=== PATIENT | female | born 1965 | race Caucasian/White ===

== ENCOUNTER 2020-10-01 08:12 | Inpatient (IN) | payer OTHER, SELFPAY ==
[2020-10-01] VITALS (23 sets, daily range): BP systolic 102–139; BP diastolic 31–54; PULSE 82–112; RESP 20–31; TEMP 36.2–37.1; O2SAT 95–100
--- NOTE | ~2020-10-01 | US_ITS ---
EXAMINATION: US renal BI DATE: 10/12/2020 09:27 INDICATION: Renal insufficiency with elevated creatinine TECHNIQUE: Multiple ultrasound grayscale images of the kidneys were obtained. COMPARISON: CT dated 10/01/2020 FINDINGS: The right kidney measures 11.4 x 6.3 x 5.1 cm. The left kidney measures 10.8 x 6.3 x 5.1 cm. The kidn eys demonstrate normal echogenicity. There is no hydronephrosis in either kidney. No stones identifi ed. The bladder is normal. Иван noted is a small amount of fluid surrounding the gallbladder whic h is filled with sludge and which demonstrates mild wall thickening measuring approximately 6 mm. No shadowing cholelithiasis. IMPRESSION: 1. Normal kidneys without hydronephrosis. 2. Persistent small amount of ascites surrounding the gallbladder which demonstrates mild wall thicke felicia and internal sludge but no cholelithiasis. This is likely related to the previously observed grace sarca which is of indeterminate etiology. Differential would include cholecystitis, either chronic or acute in the appropriate clinical setting. Correlate for Toth sign and for signs of infection. Reviewed, dictated and finalized at location A. S DRAPER IMPRESSION: 1. Normal kidneys without hydronephrosis. 2. Persistent small amount of ascites surrounding the gallbladder which demonst rates mild wall thickening and internal sludge but no cholelithiasis. This is l ikely related to the previously observed anasarca which is of indeterminate carlos ology. Differential would include cholecystitis, either chronic or acute in the appropriate clinical setting. Correlate for Toth sign and for signs of infec tion.
--- NOTE | ~2020-10-01 | XR_ITS ---
EXAMINATION: XR chest 1V portable DATE: 10/13/2020 13:03 INDICATION: Leukocytosis. TECHNIQUE: A single frontal view of the chest was obtained. COMPARISON: Chest 2 views 10/01/2020, CT abdomen and pelvis 10/01/2020 FINDINGS: There are airspace opacities in all lung zones and in left lower lung zone. There is a smal l left pleural effusion. No pneumothorax. The heart size is normal. IMPRESSION: 1. Airspace opacities in right lung and left lower lung zone with improvement, consistent with pneumo sherry. 2. Stable small left pleural effusion. Reviewed, dictated and finalized at location B. EARER IMPRESSION: 1. Airspace opacities in right lung and left lower lung zone with improvement, consistent with pneumonia. 2. Stable small left pleural effusion.
--- NOTE | ~2020-10-01 | US_ITS ---
EXAMINATION: US venous doppler [facility] DATE: 10/01/2020 15:28 INDICATION: Lower limb edema. TECHNIQUE: Grayscale ultrasound images without and with compression and Doppler ultrasound images of the bilateral lower extremity veins were obtained. COMPARISON: None. FINDINGS: The visualized portions of right common femoral vein, profunda (deep) femoral vein, femoral vein, pop liteal vein, posterior tibial veins, and greater saphenous vein outflow are patent. The visualized portions of left common femoral vein, profunda femoral vein, femoral vein, popliteal v ein, posterior tibial veins, and greater saphenous vein outflow are patent. IMPRESSION: 1. No deep venous thrombosis. Reviewed, dictated and finalized at location A. ION PLATE CARRIER CLEANER
--- NOTE | ~2020-10-01 | XR_ITS ---
XR chest 1V 10/01/2020 09:45 Indication: Shortness of breath and weakness Procedure: AP view of the chest Comparison: No prior studies for comparison. Findings: There is a right upper and left lower lobe airspace consolidation. Small left pleural effus ion. No pneumothorax. No acute osseous abnormality. Impression: 1: Right upper and left lower lobe airspace consolidation, consistent with pneumonia. 2: Small left pleural effusion. Reviewed, dictated and finalized at location A. ERY WORKER Impression: 1: Right upper and left lower lobe airspace consolidation, consistent with pneu monia. 2: Small left pleural effusion.
--- NOTE | ~2020-10-01 | CT_ITS ---
EXAMINATION: CT abdomen pelvis w con DATE: 10/01/2020 09:43 INDICATION: Abdominal wall hernia. Abdominal distention. TECHNIQUE: Computed tomography (CT) of the abdomen and pelvis was performed with 100 cc Omnipaque 350 intravenous contrast. The dose-length product was 1400.04 mGy-cm. . Automated exposure control and i terative reconstruction technique were employed. COMPARISON: None. FINDINGS: Small pleural effusions, left greater than right. There is dependent atelectasis. There is diffuse subcutaneous edema. There is a ventral hernia containing nonobstructed bowel. There is ascite s. Diffuse fatty infiltration of the liver. The spleen, pancreas, adrenal glands and kidneys are unremar kable. No free air. Colonic diverticulosis. Nonobstructive bowel gas pattern. There is an exophytic u terine fibroid. IMPRESSION: 1. Anasarca characterized by pleural effusions, ascites and diffuse subcutaneous edema. 2: Bibasilar atelectasis. 3: Hepatic steatosis. 4: Ventral wall hernia containing nonobstructed small bowel and ascites. Reviewed, dictated and finalized at location A. ESSOR OF ART IMPRESSION: 1. Anasarca characterized by pleural effusions, ascites and diffuse subcutaneou s edema. 2: Bibasilar atelectasis. 3: Hepatic steatosis. 4: Ventral wall hernia containing nonobstructed small bowel and ascites.
--- NOTE | 2020-10-01 08:29 | ECG_ITS ---
Measurements Intervals [place] Rate: 108 P: 54 OR: 169 QRS: 76 QRSD: 90 T: 105 QT: 303 QTc: 407 Interpretive Statements SINUS TACHYCARDIA NONSPECIFIC ST & T-WAVE ABNORMALITY- INF/HIGH LAT LEADS BASELINE ARTIFACT- I, II, III, AVR, AVL, AVF ABNORMAL ECG Electronically Signed On 10-01-2020 16:24:03 FRAME PULLEY MORTISING MACHINE OPERATOR by Tommie Escamilla D.O.
--- NOTE | 2020-10-01 08:51 | ED.GENADULT ---
HPI - General Adult General Chief complaint: Shortness of Breath/Dyspnea Stated complaint: SOB, LE swelling & pain Time Seen by Provider: 10/01/20 08:17 Source: patient History of Present Illness HPI narrative: Patient is a 55 y/o female complaining of severe SOB for over 1 month. She states that her SOB is worse since 12 hours ago. She states that her SOB is aggravated by exertion. She has a slight cough. She has no chest pain or fever. She has been having intermittent bloody stool. She has been having leg swelling. Of note, she fell 2 days, but denies any injury. She had trouble getting back up. She admits that she drinks more than she should. She usually consumes 3 cocktails daily. Related Data Allergies Allergy/AdvReac Type Severity Reaction Status Date / Time No Known Allergies Allergy Verified 10/01/20 08:31 Review of Systems Constitutional: Constitutional: Denies chills, Denies fever(s), Denies headache(s) and Denies weakness Eyes: Eyes: Denies blurry vision ENT: Denies headache(s) and Denies neck pain Cardiovascular: Cardiovascular: Denies chest pain, Reports leg edema and Denies dyspnea Respiratory: Respiratory: Reports cough and Reports dyspnea Gastrointestinal: Gastrointestinal: Reports abdominal pain, Denies diarrhea, Denies nausea and Denies vomiting Genitourinary: Genitourinary: Denies hematuria and Denies dysuria Musculoskeletal: Musculoskeletal: Denies back pain and Denies neck pain Neurologic: Denies headache(s) and Denies weakness Exam Const: General: no acute distress, well developed and ill appearing Orientation/consciousness: oriented to person, oriented to place, oriented to time and patient oriented x3 HENMT: Head: normocephalic Ears: external ears normal General nose exam: Normal external nose present Eyes: General: appearance normal, both eyes and all related structures Sclera: scleral abnormality (yellowish discoloration) bilateral Neck: Neck: normal visual inspection and full ROM Chest: Chest palpation & inspection: normal inspection of the chest and no tenderness Resp: Effort & Inspection: normal respiratory effort Auscultation: clear to auscultation bilaterally Cardio: Rate: tachycardic Rhythm: regular rhythm GI: GI Palp: No abdominal tenderness, Yes Soft to palpation and Yes Hernia present (large supraumbilical hernia) Skin: General skin exam: turgor normal and jaundice Neuro: General: oriented to person, oriented to place, oriented to time and patient oriented x3 Cognition (Neuro): normal cognition Extrem: General: normal to inspection, full ROM and no pedal edema Psych: Appearance: grossly normal Mental Status: mental status grossly normal Affect: normal affect Course Reevaluation(s) Reevaluation #1: Rechecked. Sepsis focus exam: Vital Signs Reviewed Cardiopulmonary: regular rate Capillary: Refill 3 sec Peripheral Pulse: present bilaterally and symmetric Skin: yellowish discoloration Plan continue with blood transfusion, IVF and IV antibiotics Date: 10/01/20 Time: 13:35 Consultations Consultation #1: Discussed with Dr. Jensen, who agrees to consult. Date: 10/01/20 Time: 10:25 Consultation #2: Discussed with Dr. Smith, who agrees to consult. Date: 10/01/20 Time: 10:58 Consultation #3: Discussed with Dr. Landon, who agrees to admit. Date: 10/01/20 Time: 11:07 Vital Signs Vital signs: Vital Signs Temperature 36.9 C 10/01/20 08:21 Pulse Rate 109 H 10/01/20 08:21 Respiratory Rate 31 H 10/01/20 08:21 Blood Pressure 139/54 L 10/01/20 08:21 Pulse Oximetry 99 10/01/20 08:21 Temperature 37.1 C 10/01/20 13:24 Pulse Rate 105 H 10/01/20 13:39 Respiratory Rate 30 H 10/01/20 13:39 Blood Pressure 112/49 L 10/01/20 13:39 Pulse Oximetry 99 10/01/20 13:39 Medical Decision Making Vital Signs Vital Signs: Vital Signs Temperature 36.9 C 10/01/20 08:21 Pulse Rate 109 H 10/01/20 08:21 Respiratory Rate 31 H 10/01/20 08:2
[2020-10-01 08:58] LABS: Mean Corpuscular HGB Conc 27.3 g/dl (32-36); Mean Corpuscular Hemoglobin 21.6 pg (26-34); Mean Corpuscular Volume 78.9 fl (80-100); Mean Platelet Volume 10.3 fl (7.4-10.4); Platelet Count Result 240 k/mm3 (150-375); Red Blood Count 2.32 M/mm3 (4.2-5.4); Red Cell Distribution Width 32.8 % (11.5-14.5); White Blood Count 16.5 K/mm3 (4.5-10.0)
[2020-10-01 09:05] LABS: Hematocrit 18.3 % (37.0-47.0)
[2020-10-01 09:07] LABS: Hypochromasia 2+ (NORMAL); Lymphocytes Absolute Manual 0.33 K/mm3 (1.1-4.5); Monocytes Absolute Manual 0.66 K/mm3 (0.1-0.90); Monocytes Percent Manual 4 % (3-9); Neutrophils Percent Manual 94 % (46-73); Platelet Estimate Adequate (Adequate); Total Cells Counted 100
[2020-10-01 09:08] LABS: Anisocytosis 1+ (NORMAL); Poikilocytosis 1+ (NORMAL); Target Cells 1+ (NORMAL); Tear Drop Cells 1+ (NORMAL)
[2020-10-01 09:10] LABS: Ammonia 24 umol/L (9-30)
[2020-10-01 09:13] LABS: Alanine Aminotransferase 36 U/L (4-35); Albumin Level 3.9 g/dL (3.5-5.1); Alkaline Phosphatase 120 U/L (38-126); Anion Gap 25 mmol/L (8-16); Aspartate Amino Transferase 116 U/L (14-36); Bilirubin,Total 14.7 mg/dL (0.2-1.3); Blood Urea Nitrogen 14 mg/dL (7-17); Calcium 8.6 mg/dL (8.4-10.2); Carbon Dioxide 15 mmol/L (22-30); Chloride 87 mmol/L (98-107); Estimated CRCL calculation 63 ml/min; Estimated Glomerular Filt Rate 47; Glucose 66 mg/dL (65-105); Lipase 105 U/L (23-300); Potassium 2.8 mmol/L (3.4-5.0); Sodium 127 mmol/L (137-145)
[2020-10-01 09:17] LABS: INR 1.7; Prothrombin Time 20.3 Seconds (11.1-14.7)
[2020-10-01 09:18] LABS: Partial Thromboplastin Time 42.5 SECONDS (22.3-36.8)
[2020-10-01 09:21] LABS: Add Urine Microscopic? YES; Appearance Urine Clear (Clear); Bacteria Urine Trace /hpf; Bilirubin Urine 2+ (Negative); Blood Urine 1+ (Negative); Color Urine Amber (Yellow); Glucose Urine UA Negative (Negative); Hyaline Casts Urine 50+ /lpf; Ketones Urine Trace mg/dL (Negative); Leukocyte Esterase Ur Negative LEU/UL (Negative); Mucus Urine Few /lpf; Nitrate Urine Negative (Negative); Protein Urine 2+ mg/dL (Negative); RBC Urine 0-2 /hpf (0-2); Specific Grav Ur 1.017 (1.001-1.035); Squamous Epithelial Cell Urine Few /hpf (Few)
[2020-10-01 09:21] LABS: NT Pro B Type Natriuretic Pept 1750 PG/ML (5-100)
[2020-10-01] MEDS: POTASSIUM CHLORIDE 20 MEQ TABLET 40 MEQ PO (09:44)
[2020-10-01] MEDS: MORPHINE SULFATE (*CRX) 4 MG/ML INJ IV PUSH (10:46)
[2020-10-01] MEDS: TUBING, BLOOD PLUM PUMP TUBING 1 EACH XX ×3 (10:46→21:34)
[2020-10-01] MEDS: SODIUM CHLORIDE 0.9% IV 250 ML 30 ML IV CONT ×2 (11:00→21:35)
[2020-10-01] MEDS: PANTOPRAZOLE SODIUM IV 40 MG VIAL IV PUSH ×2 (11:20→21:09)
[2020-10-01 11:37] LABS: Hepatitis B Surface Antigen Negative (Negative)
[2020-10-01 11:43] LABS: HAV RESULT Negative (Negative); Hepatitis B Core IgM Result Negative (Negative)
[2020-10-01 11:44] LABS: Magnesium 1.7 mg/dL (1.6-2.3)
[2020-10-01 11:46] LABS: Lactic Acid Reflex 5.8 mmol/L (0.7-2.1)
[2020-10-01 11:54] LABS: Hepatitis C Virus Antibody Negative (Negative)
--- NOTE | 2020-10-01 12:03 | PM.CNGS ---
Assessment and Plan Assessment and plan (1) Anemia: Code(s): D64.9 - Anemia, unspecified Status: Acute Assessment and Plan: will need transfusion and further investigation to cause (2) Incarcerated ventral hernia: Code(s): K43.6 - Other and unspecified ventral hernia with obstruction, without gangrene Status: Acute Assessment and Plan: needs repair at some point but given more urgent med issues, will need to be addressed in the future (3) Jaundice: Code(s): R17 - Unspecified jaundice Status: Acute Assessment and Plan: TB > 14, will need hep panel, likely ETOH induced liver dz History of Present Illness Consult details Consult date: 10/01/20 Reason for consult: abdominal pain Requesting physician: Erica Garnica MD Narrative: Pt is a 55 y/o F c h/o ETOH abuse presenting c worsening SOB, weakness. Pt reports this has been progressively worsening over last few mos. Pt admits to drinking daily although she reports poor appetite. Pt c known ventral hernia that she reports occasionally bothers her farhad when straining. Pt states hernia has been present nearly her entire life but recently larger and more symptomatic. Pt also c/o intermittent bloody BMs. Review of Systems Constitutional: Constitutional: Denies anorexia, Reports body ache(s), Denies chills, Reports fatigue, Denies fever(s), Denies headache(s), Reports lethargy, Reports malaise, Reports poor appetite and Reports weakness Eyes: Eyes: Reports no additional eye complaints ENT: Reports system reviewed and no additional complaints, except as documented Cardiovascular: Cardiovascular: Denies chest pain, Reports claudication, Reports leg edema, Reports dyspnea, Reports dyspnea on exertion and Reports orthopnea Respiratory: Respiratory: Reports dyspnea and Reports dyspnea on exertion Gastrointestinal: Gastrointestinal: Reports abdominal pain, Denies belching, Reports bloating, Reports hematochezia, Reports GI cramping, Reports nausea and Denies vomiting Genitourinary: Genitourinary: Reports no additional female genitourinary complaints Musculoskeletal: Musculoskeletal: Reports no additional musculoskeletal complaints Integumentary/Breasts: Skin/Breast: Reports system reviewed and no additional complaints, except as docu Neurologic: Reports system reviewed and no additional complaints, except as documented Psychiatric: Psychiatric: Reports no additional psychiatric complaints Endocrine: Endocrine: Reports no additional endocrine complaints Hematologic/Lymphatic: Hematologic/Lymphatic: Reports no additional hematologic/lymphatic complaints Allergic/Immunologic: Allergic/Immunologic: Reports no additional allergic/immunologic complaints PMFSH Comments PMH - ETOH abuse, ventral hernia PSxH - none FH - denies any known hernias, colorectal cancers, IBS SH - reports daily ETOH use Meds Home Medications and Allergies Allergies Allergy/AdvReac Type Severity Reaction Status Date / Time No Known Allergies Allergy Verified 10/01/20 08:31 Vital Signs Vital Signs - 24 hr 10/01/20 08:21 10/01/20 09:47 10/01/20 10:42 Temperature 36.9 C 36.4 C Pulse Rate 109 H 112 H 104 H Respiratory Rate 31 H 21 H 20 Blood Pressure 139/54 L 122/54 L 110/45 L Pulse Oximetry 99 98 97 10/01/20 10:57 Temperature 36.4 C L Pulse Rate 95 Respiratory Rate 21 H Blood Pressure 109/47 L Pulse Oximetry 98 Exam Const: General: cooperative, acute distress mild, ill appearing, lethargic, tired appearing and uncomfortable Nutritional Appearance: overweight Orientation/consciousness: patient oriented x3 Limitations: no limitations HENMT: Head: normal to inspection, normocephalic and atraumatic Ears: hearing grossly normal bilaterally General nose exam: Normal external nose present Face and sinus: normal facial exam Mouth: Yes Normal oral and palatal mucosa present and Yes moist mucous membranes Eyes: General: appearan
[2020-10-01] MEDS: MORPHINE SULFATE (*CRX) 4 MG/ML INJ (12:17)
[2020-10-01 14:31] LABS: Reflex Lactic Acid Yes or No Add Lactic
--- NOTE | 2020-10-01 14:35 | PM.IMHP ---
H&P: HPI History of Present Illness Date/Time: 10/01/20 14:36 <Norma Song PA-C - Last Filed: 10/01/20 22:39> Chief Complaint: Shortness of breath. <Norma Song PA-C - Last Filed: 10/01/20 22:39> Narrative: This is a 55-year-old female who has not seen a physician for greater than 15 years who presented to the emergency department earlier today via EMS from home for evaluation of shortness of breath. Over the last several months she has had ever increasing lower extremity edema which is now up to her abdomen. In fact she has a large ventral hernia, present for years, which has been reducible up until the last month and she believes that is due to her swelling. In any event over the past 2 days she has had increasing shortness of breath to the point where she was extremely short of breath in the wealth management manager hours, prompting her to be brought in via EMS for evaluation. There were several significant findings noted on workup done in the emergency department to include profound anemia, lactic acidosis, elevated LFTs with jaundice, small bilateral pleural effusions, ascites, and anasarca. With further questioning it sounds as though she has been having GI issues for a month or more including decreased appetite, frequent nausea, indigestion, and early satiety. Once in July and yesterday she did have an episode of emesis which she describes as coffee-ground. She also has noted small amounts of bright red blood admixed with stools over the past couple of weeks however she believes that is due to straining as she has felt constipated. She believes that she is dehydrated with decreased urine output and darker colored urine. Additionally she has felt quite weak and in fact she slid out of bed yesterday and was unable to get herself up for a couple of hours due to the significant swelling in her legs and generalized weakness. ?I drink more than I should? and she admits to drinking 3 to 4 cocktails made up of 3 to 4 shots of whiskey and soda, about 5 times per week. This is been ongoing for at least the last 4 years if not longer. She has no known history of liver disease or cardiac disease. No history of hepatitis or exposure to such. She does not take acetaminophen in fact typically takes Advil for generalized aches and pains. No fever, chills, or sweats. No chest pain or pleuritic pain. No known exposure to those positive for COVID-19. <Norma Song PA-C - Last Filed: 10/01/20 22:39> Review of Systems Review of Systems: Narrative: Twelve systems were reviewed with pertinent positives and negatives as per HPI. No headache. She denies confusion. Occasional lightheadedness. No syncope. She denies sinus congestion, rhinorrhea, otalgia, and odynophagia. No cough. She denies sick contacts. No recent travel. No recent antibiotic use. No dysuria. She denies ever having signs or symptoms of alcohol withdrawal. Except as documented, all other systems were reviewed and are negative. <Norma Song PA-C - Last Filed: 10/01/20 22:39> [facility] Past Medical History Medical History: Medical History (Updated 10/02/20 @ 17:19 by Anson Lawson MD) Acute renal failure Alcohol abuse Alcoholic hepatitis Morbid obesity Ventral hernia <Norma Song PA-C - Last Filed: 10/01/20 22:39> Surgical History Surgical History: Surgical History (Updated 10/01/20 @ 22:29 by Norma Song PA-C) History of local excision of skin lesion Benign mole removed from the right cheek as a child. <Norma Song PA-C - Last Filed: 10/01/20 22:39> Family History Family History: Family History Father Hypertension Mother Hypertension <Norma Song PA-C - Last Filed: 10/01/20 22:39> Social History Social History: Social History (Updated 10/01/20 @ 22:30 by Norma Song PA-C) Social History: The
[2020-10-01 15:04] LABS: Immature Reticulocyte Fraction 42.1 % (3.0-15.9); Reticulocyte Hemoglobin Conten 27.3 pg (28.2-35.7); Reticulocyte Percent 2.97 % (0.7-4.3); Reticulocytes Absolute 0.08 B/L (32.2-175.7)
[2020-10-01 15:15] LABS: Lactate Dehydrogenase 961 U/L (313-618)
[2020-10-01 15:16] LABS: Anion Gap 26 mmol/L (8-16); Blood Urea Nitrogen 15 mg/dL (7-17); Calcium 8.2 mg/dL (8.4-10.2); Carbon Dioxide 14 mmol/L (22-30); Chloride 87 mmol/L (98-107); Estimated CRCL calculation 63 ml/min; Estimated Glomerular Filt Rate 47; Glucose 79 mg/dL (65-105); Lactic Acid 5.3 mmol/L (0.7-2.1); Potassium 3.4 mmol/L (3.4-5.0); Sodium 127 mmol/L (137-145)
[2020-10-01 15:17] LABS: Ammonia 27 umol/L (9-30)
[2020-10-01 15:22] LABS: Transferrin 172 mg/dL (206-381)
[2020-10-01 15:49] LABS: Iron 72 ug/dL (37-170)
[2020-10-01 15:59] LABS: Percent Iron Saturation 28 % (20-50)
--- NOTE | 2020-10-01 16:17 | ADMGEN ---
This patient, Bela Marsh, was admitted to IMU Room 214-01. Patient/family oriented to hospital policies and general routines including ID bracelet, bed and alarms, visiting hours, pain management, procedures, bathroom and other care routines, personal items, smoking policy, room service/diet, and visiting hours. Information on how to activate the Rapid Response Team has been discussed. Patient/Family are encouraged to report perceived risks to care and to ask questions if they do not understand what they are told or what they should do.
[2020-10-01 16:22] LABS: Folic Acid 4.7 ng/mL (2.76->20)
[2020-10-01 17:09] LABS: Glucose Point of Care 81 (65-105)
[2020-10-01 17:20] LABS: Alveolar/Arterial O2 Gradient 47.6 mmHg; Base Excess ABG -7.4 mEq/l (+/-2.0); Carboxyhemoglobin 1.7 % THb (0-2.0); Fractional Inspired Oxygen 21 %; HCO3 ABG 15.9 mEq/l (22.0-26.0); Methemoglobin ABG 0.3 %THb (0-1.5); Oxygen Content ABG 9.1 %vol (16.0-22.0); Oxygen Saturation ABG 95.7 % (95.0-100.0); Oxyhemoglobin 92.3 % THb (90.0-100.0); PO2 ABG 73.6 mmHg (80.0-100.0); Reduced Hemoglobin 5.7 %THb (0-5.0); pH ABG 7.442 (7.350-7.450)
[2020-10-01 17:24] LABS: PCO2 ABG 23.8 mmHg (35.0-45.0); Total Hemoglobin 6.9 g/dL (12.0-18.0)
[2020-10-01 17:25] LABS: Device ROOM AIR; Modified Allen's Test Pass; Site Drawn RIGHT RADIAL
[2020-10-01 17:41] LABS: Mean Corpuscular HGB Conc 29.6 g/dl (32-36); Mean Corpuscular Hemoglobin 23.6 pg (26-34); Mean Corpuscular Volume 79.8 fl (80-100); Mean Platelet Volume 9.4 fl (7.4-10.4); Platelet Count Result 189 k/mm3 (150-375); Red Blood Count 2.58 M/mm3 (4.2-5.4); Red Cell Distribution Width 29.4 % (11.5-14.5)
[2020-10-01 17:45] LABS: Hematocrit 20.6 % (37.0-47.0); Hemoglobin 6.1 g/dL (12.0-15.0)
[2020-10-01 18:30] LABS: Glucose Point of Care 84 (65-105)
[2020-10-01 20:12] LABS: Glucose Point of Care 79 (65-105)
[2020-10-01 21:30] LABS: Glucose Point of Care 95 (65-105)
[2020-10-02] VITALS (20 sets, daily range): BP systolic 115–130; BP diastolic 46–68; PULSE 71–108; RESP 14–24; TEMP 36.2–37.2; O2SAT 93–100
[2020-10-02 00:57] LABS: Glucose Point of Care 92 (65-105)
[2020-10-02 01:26] LABS: Glucose Point of Care 98 (65-105)
[2020-10-02] MEDS: THIAMINE HCL 200 MG/2 ML VIAL 100 MG IV PUSH (03:40)
[2020-10-02 05:24] LABS: Hematocrit 23.7 % (37.0-47.0); Hemoglobin 7.4 g/dL (12.0-15.0); Mean Corpuscular HGB Conc 31.2 g/dl (32-36); Mean Corpuscular Hemoglobin 25.3 pg (26-34); Mean Corpuscular Volume 81.2 fl (80-100); Mean Platelet Volume 9.6 fl (7.4-10.4); Platelet Count Result 174 k/mm3 (150-375); Red Blood Count 2.92 M/mm3 (4.2-5.4); Red Cell Distribution Width 25.8 % (11.5-14.5); White Blood Count 13.6 K/mm3 (4.5-10.0)
[2020-10-02 05:34] LABS: INR 1.8; Prothrombin Time 21.4 Seconds (11.1-14.7)
[2020-10-02 05:35] LABS: Partial Thromboplastin Time 46.8 SECONDS (22.3-36.8)
[2020-10-02 06:05] LABS: Alanine Aminotransferase 32 U/L (4-35); Albumin Level 3.3 g/dL (3.5-5.1); Alkaline Phosphatase 90 U/L (38-126); Anion Gap 11 mmol/L (8-16); Aspartate Amino Transferase 82 U/L (14-36); Bilirubin,Total 16.4 mg/dL (0.2-1.3); Blood Urea Nitrogen 18 mg/dL (7-17); Calcium 8.4 mg/dL (8.4-10.2); Carbon Dioxide 24 mmol/L (22-30); Chloride 91 mmol/L (98-107); Creatine Kinase 135 U/L (30-135); Estimated CRCL calculation 50 ml/min; Estimated Glomerular Filt Rate 33; Glucose 92 mg/dL (65-105); Magnesium 1.7 mg/dL (1.6-2.3); Potassium 3.2 mmol/L (3.4-5.0); Sodium 126 mmol/L (137-145)
[2020-10-02 06:28] LABS: Glucose Point of Care 92 (65-105)
[2020-10-02] MEDS: SODIUM CHLORIDE 0.9% IV 1,000 ML 100 ML IV CONT (06:39)
[2020-10-02] MEDS: THERAPEUTIC MULTIVITAMINS/MINERALS TAB (*BKC) 1 TABLET PO (09:04)
[2020-10-02] MEDS: FOLIC ACID 1 MG TABLET PO (09:04)
[2020-10-02] MEDS: PANTOPRAZOLE SODIUM IV 40 MG VIAL IV PUSH ×2 (09:04→19:59)
[2020-10-02 09:16] LABS: Glucose Point of Care 89 (65-105)
[2020-10-02 12:41] LABS: Glucose Point of Care 88 (65-105)
[2020-10-02] MEDS: POTASSIUM CHLORIDE 20 MEQ TABLET 40 MEQ PO (12:41)
[2020-10-02] MEDS: THIAMINE HCL 100 MG TABLET PO (12:41)
[2020-10-02] MEDS: LACTULOSE 20 GM/30 ML UDC PO (12:41)
[2020-10-02] MEDS: SPIRONOLACTONE 25 MG TABLET PO ×2 (12:42→18:14)
--- NOTE | 2020-10-02 14:24 | PM.PNGS ---
Progress Note: A&P Assessment and Plan (1) Incarcerated ventral hernia: Code(s): K43.6 - Other and unspecified ventral hernia with obstruction, without gangrene Status: Acute Assessment and Plan: will need repair at some point in the future once medically stabilized (2) Profound anemia: Code(s): D64.9 - Anemia, unspecified Status: Acute Assessment and Plan: ? etiology, will need further workup and possible endoscopy (3) Jaundice: Code(s): R17 - Unspecified jaundice Status: Acute Assessment and Plan: likely ETOH induced liver dz, will need further workup (4) Heart murmur: Code(s): R01.1 - Cardiac murmur, unspecified Status: Acute Assessment and Plan: pt has echo ordered Subjective Subjective Date/Time Seen: 10/02/20 14:24 no acute issues overnight, did receive some blood and feels slightly better today Review of Systems Constitutional: Constitutional: Reports body ache(s), Reports fatigue, Reports lethargy, Reports poor appetite and Reports weakness Cardiovascular: Cardiovascular: Reports no additional cardiovascular complaints Respiratory: Respiratory: Denies cough, Reports dyspnea and Reports dyspnea on exertion Gastrointestinal: Gastrointestinal: Reports abdominal pain, Reports melena, Reports early satiety, Reports nausea and Reports vomiting Exam Const: General: cooperative, no acute distress and ill appearing Orientation/consciousness: patient oriented x3 Resp: Effort & Inspection: normal respiratory effort Auscultation: diminished lung sounds Cardio: Rate: regular rate Rhythm: regular rhythm GI: Inspection: distended and visible herniation GI Palp: Yes Soft to palpation, Yes Tenderness to palpation present (GI) and No Guarding due to palpation present (GI) Objective Data Vital Signs Vital Signs: Vital Signs - 24 hr 10/01/20 14:25 10/01/20 16:00 10/01/20 17:56 Temperature 36.8 C 36.6 C Pulse Rate 105 H 103 H 100 Respiratory Rate 26 H 22 H Blood Pressure 130/46 L 106/46 L Pulse Oximetry 99 100 10/01/20 20:00 10/01/20 21:30 10/01/20 21:31 Temperature 36.2 C L 36.2 C L 37.1 C Pulse Rate 106 H 104 H 100 Respiratory Rate 20 20 20 Blood Pressure 117/40 L 117/40 L 110/35 L Pulse Oximetry 97 99 97 10/01/20 21:45 10/01/20 22:00 10/01/20 22:45 Temperature 37.1 C 36.9 C Pulse Rate 99 99 101 H Respiratory Rate 20 20 Blood Pressure 106/31 L 117/39 L Pulse Oximetry 95 99 10/01/20 23:15 10/01/20 23:45 10/02/20 00:00 Temperature 36.9 C 37.1 C Pulse Rate 101 H 82 99 Respiratory Rate 20 20 Blood Pressure 117/39 L 102/37 L Pulse Oximetry 99 97 10/02/20 00:19 10/02/20 00:35 10/02/20 01:34 Temperature 36.9 C 37.1 C 37.0 C Pulse Rate 97 97 99 Respiratory Rate 16 20 20 Blood Pressure 120/54 L 116/68 117/50 L Pulse Oximetry 100 98 96 10/02/20 01:35 10/02/20 02:35 10/02/20 03:42 Temperature 37.1 C 37.1 C 37.2 C Pulse Rate 99 99 108 H Respiratory Rate 20 20 14 Blood Pressure 129/52 L 129/52 L 129/52 L Pulse Oximetry 95 95 98 10/02/20 03:43 10/02/20 04:00 10/02/20 06:00 Temperature 37.2 C Pulse Rate 99 99 Respiratory Rate Blood Pressure 129/52 L Pulse Oximetry 10/02/20 08:00 10/02/20 10:00 10/02/20 12:00 Temperature 36.2 C L 36.3 C L Pulse Rate 92 99 101 H Respiratory Rate 18 18 Blood Pressure 129/54 L 115/46 L Pulse Oximetry 96 93 Intake/Output Intake/Output: Intake & Output 09/29/20 09/30/20 10/01/20 10/02/20 23:59 23:59 23:59 23:59 Intake Total 1400 750 Output Total 500 Balance 1400 250 Meds/Results Medications: Active Medications Generic Name Dose Route Start Last Admin Trade Name Freq PRN Reason Stop Dose Admin Albuterol 2 puff 10/01/20 14:43 Albuterol Sulfate (*Sp) Aerosol 1 Puff INHALATION QIDRT PRN Shortness Of Breath Folic Acid 1 mg 10/02/20 09:00 10/02/20 09:04 Folic Acid 1 Mg Tablet PO 1 mg DAILY S
--- NOTE | 2020-10-02 17:09 | WPDGICN ---
Assessment and Plan Assessment and plan (1) Acute blood loss anemia: Code(s): D62 - Acute posthemorrhagic anemia Status: Acute Assessment and Plan: she is an alcoholic and now with hepatitis will do egd to assess if ulcer, PHG, varice but also colonoscopy to assess if gi blood loss (2) Bloody stools: Code(s): K92.1 - Melena Status: Acute Assessment and Plan: probably perianal but need to do a colonoscopy (3) Alcoholic hepatitis: Code(s): K70.10 - Alcoholic hepatitis without ascites Status: Acute Assessment and Plan: severe hepatitis from alcohol abuse will need nutrition consult, thiamine, mvi and avoid any more alcohol probably she has cirrhosis, will complete work up to rule out other chronic liver conditions (4) Acute renal failure: Code(s): N17.9 - Acute kidney failure, unspecified Status: Acute Assessment and Plan: with dehydration and severe anemia repeat labs and monitor (5) Hepatic steatosis: Code(s): K76.0 - Fatty (change of) liver, not elsewhere classified Status: Acute (6) Anasarca: Code(s): R60.1 - Generalized edema Status: Acute (7) Ventral hernia: Code(s): K43.9 - Ventral hernia without obstruction or gangrene Status: Acute Assessment and Plan: no pain now, surgery on board GI Consult Note Consult date/time: 10/02/20 17:09 Reason for consult: symptomatic anemia, alcoholic hepatitis HPI: Bela Marsh is a 55 year old female who has not seen a physician for several years who came here with progression of shortness of breath. She noted increasing lower extremity edema, also she has a large ventral hernia for years which used to be reducible up until the last month but has gotten larger. She was found to have profound anemia with hb 5, received blood transfusion, also jaundice with bili 14, lactic acidosis at 5. CT scan showed anasarca characterized by pleural effusions, ascites and diffuse subcutaneous edema, hepatic steatosis and ventral wall hernia containing nonobstructed small bowel and ascites. She also noted dark urine and few times has seen blood after wiping. She is also is an alcoholic, drinking 3-4 whiskeys about 5 times per week. Denies history of liver disease and never had scopes. Review of Systems Constitutional: Constitutional: Reports fatigue and Reports lethargy Eyes: Eyes: Denies blurry vision ENT: Reports system reviewed and no additional complaints, except as documented Cardiovascular: Cardiovascular: Denies chest pain Respiratory: Respiratory: Reports no additional respiratory complaints Gastrointestinal: Gastrointestinal: Denies melena Genitourinary: Genitourinary: Denies hematuria Musculoskeletal: Musculoskeletal: Reports no additional musculoskeletal complaints Neurologic: Denies headache(s) Psychiatric: Psychiatric: Reports anxiety Hematologic/Lymphatic: Hematologic/Lymphatic: Denies lymphadenopathy [facility] Past Medical History Medical History (Updated 10/02/20 @ 17:19 by Anson Lawson MD) Acute renal failure Alcohol abuse Alcoholic hepatitis Morbid obesity Ventral hernia Surgical History Surgical History (Updated 10/01/20 @ 22:29 by Norma Song PA-C) History of local excision of skin lesion Benign mole removed from the right cheek as a child. Family History Family History Father Hypertension Mother Hypertension Social History Social History (Updated 10/01/20 @ 22:30 by Norma Song PA-C) Social History: The patient lives in [place] with her . She has no children. She is retired. She smoked remotely many years ago. Consumes 3 to 4 alcoholic beverages, 5 times a week. Each drink consists of 3 to 4 shots of whiskey. No illicit substance use. She designates her as her surrogate decision maker and wishes to be a full cod
[2020-10-02 17:25] LABS: Glucose Point of Care 109 (65-105)
--- NOTE | 2020-10-02 17:41 | PM.IMPN ---
Progress Note: A&P Assessment and Plan (1) Severe sepsis: Code(s): A41.9 - Sepsis, unspecified organism; R65.20 - Severe sepsis without septic shock Status: Acute Assessment and Plan: 10/02/20 17:41 Patient is a 55-year-old female with long history of alcohol abuse and has not seen a primary care provider in 15-20 years presented emergency department with a complaint of shortness of breath abdominal pain lower extremity swelling and patient has significantly enlarged ventral hernia she was able to reduce it about a month ago now she is unable to reduce the hernia, upon arrival patient was profoundly anemic with hemoglobin of 5, patient was given 4 units of pack RBC this morning her H&H is 7.4, upon arrival patient with criteria of sepsis with leukocytosis lactic acidosis and pneumonia, patient was started on Rocephin azithromycin, with chest x-ray in 2 days, patient also has significant ascites resulting in shortness of breath, and started the patient spironolactone, lactulose, thiamine and folic acid, patient is also being tested for COVID-19 and will follow-up, currently patient states the pain and swelling is little better denies any fever or chills patient be seen by GI and further recommendation to follow (2) Pneumonia: Qualifiers: Laterality: right Lung location: unspecified part of lung Pneumonia type: due to unspecified organism Qualified Code(s): J18.9 - Pneumonia, unspecified organism Code(s): J18.9 - Pneumonia, unspecified organism Status: Acute Assessment and Plan: Most likely community-acquired pneumonia patient is being treated with Rocephin azithromycin will continue to monitor (3) Person under investigation for COVID-19: Code(s): Z20.822 - Contact with and (suspected) exposure to COVID-19 Status: Acute Assessment and Plan: Will follow-up on COVID test (4) Profound anemia: Code(s): D64.9 - Anemia, unspecified Status: Acute Assessment and Plan: Most likely secondary to GI bleed with history of alcohol abuse patient is seen by GI and further recommendation to follow (5) Bloody stools: Code(s): K92.1 - Melena Status: Acute Assessment and Plan: Most likely current alcohol abuse GI bleed (6) Jaundice: Code(s): R17 - Unspecified jaundice Status: Acute Assessment and Plan: Patient with alcohol abuse and liver cirrhosis will continue to monitor (7) Incarcerated ventral hernia: Code(s): K43.6 - Other and unspecified ventral hernia with obstruction, without gangrene Status: Acute Assessment and Plan: Patient be seen by general surgery and further recommendation to follow (8) Hypokalemia: Code(s): E87.6 - Hypokalemia Status: Acute Assessment and Plan: Will monitor and supplement (9) Anasarca: Code(s): R60.1 - Generalized edema Status: Acute Assessment and Plan: Most likely secondary to liver cirrhosis and hypoalbumia (10) Hepatic steatosis: Code(s): K76.0 - Fatty (change of) liver, not elsewhere classified Status: Acute Assessment and Plan: Secondary to alcohol abuse (11) Ascites: Code(s): R18.8 - Other ascites Status: Acute Assessment and Plan: Will start the patient on spironolactone to avoid paracentesis will continue to monitor (12) Alcohol abuse: Code(s): F10.10 - Alcohol abuse, uncomplicated Status: Acute Assessment and Plan: Patient will benefit from alcohol rehab (13) Heart murmur: Code(s): R01.1 - Cardiac murmur, unspecified Status: Acute (14) Elevated serum creatinine: Code(s): R79.89 - Other specified abnormal findings of blood chemistry Status: Acute Assessment and Plan: Most likely secondary to dehydration will gently hydrate the patient and monitor Additional Plan She meets criteria for severe sepsis with tachycardia, tachypne
[2020-10-02] MEDS: BISACODYL 5 MG TABLET EC 20 MG PO (18:13)
[2020-10-02] MEDS: PEG (High)/E-LYTE SOLN 4,000 ML BTL 4000 ML PO (18:14)
[2020-10-02 19:06] LABS: SARS-CoV-2 RNA PCR Negative
[2020-10-02 20:05] LABS: Glucose Point of Care 95 (65-105)
--- NOTE | 2020-10-02 23:17 | PCRCNOTE ---
UNABLE TO DO APNEA LINK, PT GETTING BOWEL PREP
[2020-10-03] VITALS (19 sets, daily range): BP systolic 108–146; BP diastolic 50–70; PULSE 57–105; RESP 18–26; TEMP 36.1–37.3; O2SAT 92–100; BMI 46.7
[2020-10-03 00:05] LABS: Glucose Point of Care 91 (65-105)
[2020-10-03 02:45] LABS: IFOB Positive Control Positive; Immunochemical Fecal Occult Bl Negative (N)
[2020-10-03 03:53] LABS: Glucose Point of Care 95 (65-105)
[2020-10-03 05:47] LABS: Alanine Aminotransferase 36 U/L (4-35); Albumin Level 3.3 g/dL (3.5-5.1); Alkaline Phosphatase 105 U/L (38-126); Anion Gap 14 mmol/L (8-16); Aspartate Amino Transferase 99 U/L (14-36); Bilirubin,Total 20.5 mg/dL (0.2-1.3); Blood Urea Nitrogen 24 mg/dL (7-17); Calcium 8.3 mg/dL (8.4-10.2); Carbon Dioxide 23 mmol/L (22-30); Chloride 91 mmol/L (98-107); Estimated CRCL calculation 42 ml/min; Estimated Glomerular Filt Rate 27; Glucose 89 mg/dL (65-105); Potassium 3.3 mmol/L (3.4-5.0); Sodium 128 mmol/L (137-145)
[2020-10-03] MEDS: MAGNESIUM CITRATE 300 ML BTL PO (06:32)
[2020-10-03 06:45] LABS: Hematocrit 25.2 % (37.0-47.0); Mean Corpuscular HGB Conc 31.7 g/dl (32-36); Mean Corpuscular Hemoglobin 25.6 pg (26-34); Mean Corpuscular Volume 80.5 fl (80-100); Mean Platelet Volume 9.8 fl (7.4-10.4); Platelet Count Result 205 k/mm3 (150-375); Red Blood Count 3.13 M/mm3 (4.2-5.4); Red Cell Distribution Width 27.1 % (11.5-14.5); White Blood Count 12.7 K/mm3 (4.5-10.0)
--- NOTE | 2020-10-03 08:12 | PC.NURSE ---
Patient to GI Lab via stretcher.
[2020-10-03 08:14] LABS: Glucose Point of Care 103 (65-105)
[2020-10-03] MEDS: LACTATED RINGERS 1,000 ML 150 ML IV CONT (08:33)
--- NOTE | 2020-10-03 09:06 | WPDANESEPPF ---
Anes - Initial Pre Proc Eval Procedure: Operation Date: 10/03/20 09:00 Proposed Procedures p Esophagogastroduodenoscopy & Colonoscopy - Anson Lawson MD Date/Time: 10/03/20 09:06 Surgeon: James Landon MD Pre Op Diagnosis: Anemia Patient Data Age: 55 Gender: F Height: 5 ft 6 in Weight: 131.5 kg Last Vital Signs Temp 98.4 F 10/03/20 08:33 Pulse 57 L 10/03/20 08:33 Resp 22 H 10/03/20 08:33 BP 126/53 L 10/03/20 08:33 Pulse Ox 98 10/03/20 08:33 Allergies Allergy/AdvReac Type Severity Reaction Status Date / Time No Known Allergies Allergy Verified 10/03/20 08:26 Home Medications Medication Instructions Recorded Confirmed Type No Home Medications 10/01/20 10/01/20 History Laboratory Tests 10/01/20 10/02/20 10/02/20 13:34 08:11 12:05 WBC RBC Hgb Hct MCV MCH MCHC RDW Plt Count MPV Sodium Potassium Chloride Carbon Dioxide Anion Gap BUN Creatinine Estim Creat Clear Calc Estimated GFR Glucose POC Capillary Glucose 89 mg/dl mg/dl 88 mg/dl mg/dl (65-105) (65-105) Calcium Total Bilirubin AST ALT Alkaline Phosphatase Total Protein Albumin Alpha-1-AT Phenotype Ceruloplasmin Stl Occult Blood (IFOB) IZABELA Screen Mitochondria M2 IgG Ab SARS-CoV-2 RNA (RT-PCR) Negative 10/02/20 10/02/20 10/03/20 16:55 19:58 00:02 WBC RBC Hgb Hct MCV MCH MCHC RDW Plt Count MPV Sodium Potassium Chloride Carbon Dioxide Anion Gap BUN Creatinine Estim Creat Clear Calc Estimated GFR Glucose POC Capillary Glucose 109 mg/dl mg/dl 95 mg/dl mg/dl 91 mg/dl mg/dl (65-105) (65-105) (65-105) Calcium Total Bilirubin AST ALT Alkaline Phosphatase Total Protein Albumin Alpha-1-AT Phenotype Ceruloplasmin Stl Occult Blood (IFOB) IZABELA Screen Mitochondria M2 IgG Ab SARS-CoV-2 RNA (RT-PCR) 10/03/20 10/03/20 10/03/20 01:56 03:29 04:51 WBC RBC Hgb Hct MCV MCH MCHC RDW Plt Count MPV Sodium Potassium Chloride Carbon Dioxide Anion Gap BUN Creatinine Estim Creat Clear Calc Estimated GFR Glucose POC Capillary Glucose 95 mg/dl mg/dl (65-105) Calcium Total Bilirubin AST ALT Alkaline Phosphatase Total Protein Albumin Alpha-1-AT Phenotype Pending Ceruloplasmin Pending Stl Occult Blood (IFOB) Negative (N) IZABELA Screen Mitochondria M2 IgG Ab SARS-CoV-2 RNA (RT-PCR) 10/03/20 10/03/20 10/03/20 04:51 04:51 04:51 WBC RBC Hgb Hct MCV MCH MCHC RDW Plt Count MPV Sodium 128 mmol/L L mmol/L (137-145) Potassium 3.3 mmol/L L mmol/L (3.4-5.0) Chloride 91 mmol/L L mmol/L (98-107) Carbon Dioxide 23 mmol/L mmol/L (
[2020-10-03] MEDS: BENZOCAINE (*SP) 60 ML SPRAY CAN (HURRICAINE) 1 SPRAY MUCOUS MEM (09:45)
--- NOTE | 2020-10-03 10:45 | PC.NURSE ---
Patient returned to room following EGD and colonoscopy.
[2020-10-03 11:09] LABS: Hematocrit 25.9 % (37.0-47.0); Hemoglobin 8.2 g/dL (12.0-15.0); Mean Corpuscular HGB Conc 31.7 g/dl (32-36); Mean Corpuscular Hemoglobin 25.7 pg (26-34); Mean Corpuscular Volume 81.2 fl (80-100); Mean Platelet Volume 9.2 fl (7.4-10.4); Platelet Count Result 172 k/mm3 (150-375); Red Blood Count 3.19 M/mm3 (4.2-5.4); Red Cell Distribution Width 26.6 % (11.5-14.5); White Blood Count 14.7 K/mm3 (4.5-10.0)
[2020-10-03 11:19] LABS: Glucose Point of Care 110 (65-105)
[2020-10-03] MEDS: PANTOPRAZOLE SODIUM IV 40 MG VIAL IV PUSH ×2 (11:48→21:13)
[2020-10-03] MEDS: THERAPEUTIC MULTIVITAMINS/MINERALS TAB (*BKC) 1 TABLET PO (11:48)
[2020-10-03] MEDS: ALBUMIN HUMAN 25% 25 GM/100 ML 100 ML IVPB ×3 (11:48→23:43)
[2020-10-03] MEDS: SUCRALFATE 1 GM TABLET PO ×3 (11:49→21:13)
[2020-10-03] MEDS: POTASSIUM CHLORIDE 20 MEQ TABLET 40 MEQ PO (11:49)
[2020-10-03] MEDS: LACTULOSE 20 GM/30 ML UDC PO (11:49)
[2020-10-03] MEDS: THIAMINE HCL 100 MG TABLET PO (11:49)
[2020-10-03] MEDS: FOLIC ACID 1 MG TABLET PO (11:49)
--- NOTE | 2020-10-03 14:35 | PM.PNGS ---
Progress Note: A&P Assessment and Plan (1) Incarcerated ventral hernia: Code(s): K43.6 - Other and unspecified ventral hernia with obstruction, without gangrene Status: Acute Assessment and Plan: This is more of a chronic issue and she is having no obstructive symptoms. May need repair at some point once medically stabilized. (2) Profound anemia: Code(s): D64.9 - Anemia, unspecified Status: Acute Assessment and Plan: GI following. EGD showed gastric ulcers, gastritis, esophagitis, hiatal hernia. Colonoscopy showed diverticulosis. Currently on protonix and carafate. (3) Alcoholic hepatitis: Code(s): K70.10 - Alcoholic hepatitis without ascites Status: Acute Assessment and Plan: Alcohol induced hepatitis. GI following and recommendations noted, further work-up to rule out other chronic liver diseases. MELD score 30 with 3-month mortality of 52%. (4) Jaundice: Code(s): R17 - Unspecified jaundice Status: Acute (5) Acute renal failure: Code(s): N17.9 - Acute kidney failure, unspecified Status: Acute Assessment and Plan: Creatinine 1.9 today. SubQ Octreotide started for possible hepatorenal syndrome. (6) Alcohol abuse: Code(s): F10.10 - Alcohol abuse, uncomplicated Status: Acute Assessment and Plan: Imperative to stop drinking. (7) Pneumonia: Qualifiers: Laterality: right Lung location: unspecified part of lung Pneumonia type: due to unspecified organism Qualified Code(s): J18.9 - Pneumonia, unspecified organism Code(s): J18.9 - Pneumonia, unspecified organism Status: Acute Assessment and Plan: Management per Hospitalist. Being treated with IV antibiotics Additional Plan Discussed plan of care with Dr. Smith. Subjective Subjective Date/Time Seen: 10/03/20 12:35 Patient reports: no new complaints Interval history: Patient seen today after endoscopies. She reports feeling terrible but no new specific complaints. Still with poor appetite and fatigue. She denies abdominal pain, nausea, or vomiting. Review of Systems Review of Systems: All systems reviewed & are unremarkable except as noted in HPI and below Constitutional: Constitutional: Reports body ache(s) Exam Const: General: ill appearing and uncomfortable Orientation/consciousness: patient oriented x3 GI: Inspection: distended and visible herniation GI Palp: Yes Soft to palpation, Yes Tenderness to palpation present (GI) (diffusely) and No Guarding due to palpation present (GI) Auscultation: normal bowel sounds Other: large incarcerated supraumbilical ventral hernia Skin: General skin exam: jaundice Neuro: General: moves all extremities and no focal motor deficits Psych: Mental Status: mental status grossly normal Affect: Sad affect present Attitude: cooperative Insight: Fair insight present (Psych) Judgement: Fair judgement present (Psych) Objective Data Vital Signs Vital Signs: Vital Signs - 24 hr 10/02/20 16:00 10/02/20 17:51 10/02/20 18:00 Temperature 97.3 F L Pulse Rate 99 102 H 71 Respiratory Rate 24 H Blood Pressure 122/50 L Pulse Oximetry 100 10/02/20 20:00 10/02/20 22:00 10/02/20 23:34 Temperature 98.5 F 97.3 F L Pulse Rate 98 98 99 Respiratory Rate 20 24 H Blood Pressure 130/58 L 127/54 L Pulse Oximetry 99 98 10/03/20 00:00 10/03/20 02:00 10/03/20 04:00 Temperature 97 F L Pulse Rate 105 H 99 98 Respiratory Rate 22 H Blood Pressure 129/65 Pulse Oximetry 98 10/03/20 06:00 10/03/20 08:00 10/03/20 08:27 Temperature 99.1 F Pulse Rate 101 H 101 H 103 H Respiratory Rate 22 H Blood Pressure 146/61 H Pulse Oximetry 96 10/03/20 08:33 10/03/20 10:13 10/03/20 10:23 Temperature 98.4 F Pulse Rate 57 L 100 99 Respiratory Rate 22 H 26 H 24 H Blood Pressure 126/53 L 108/69 120/61 Pulse Oximetry 98 96 98 10/03/20 10:33 10/03/20 10:38 10/03/20 12
--- NOTE | 2020-10-03 15:33 | PM.IMPN ---
Progress Note: A&P Assessment and Plan (1) Severe sepsis: Code(s): A41.9 - Sepsis, unspecified organism; R65.20 - Severe sepsis without septic shock Status: Acute Assessment and Plan: 10/03/20 15:33 Patient is a 55-year-old female with long history of alcohol abuse and has not seen a primary care provider in 15-20 years presented emergency department with a complaint of shortness of breath abdominal pain lower extremity swelling and patient has significantly enlarged ventral hernia she was able to reduce it about a month ago now she is unable to reduce the hernia, upon arrival patient was profoundly anemic with hemoglobin of 5, patient was given 4 units of pack RBC this morning her H&H is 7.4, upon arrival patient with criteria of sepsis with leukocytosis lactic acidosis and pneumonia, patient was started on Rocephin azithromycin, with chest x-ray in 2 days, patient also has significant ascites resulting in shortness of breath, and started the patient spironolactone, lactulose, thiamine and folic acid, patient is also being tested for COVID-19 and will follow-up, currently patient states the pain and swelling is little better denies any fever or chills patient be seen by GI and further recommendation to follow 10/03 patient COVID test is negative patient was seen by GI today and and had a EGD and colonoscopy EGD shows ulceration and gastritis patient is placed on PPI and Carafate colonoscopy did not show any significant pathology, patient has a significant large ventral hernia about a month ago it was reducible and currently is not able to be reduced, patient is seen by surgery service currently patient is not a candidate for surgery once clinically stable will need a re-evaluation, patient is being diuresed with spironolactone, patient is started on lactulose, will continue to monitor and further recommendation to follow will have a PT OT evaluate the patient. (2) Pneumonia: Qualifiers: Laterality: right Lung location: unspecified part of lung Pneumonia type: due to unspecified organism Qualified Code(s): J18.9 - Pneumonia, unspecified organism Code(s): J18.9 - Pneumonia, unspecified organism Status: Acute Assessment and Plan: Most likely community-acquired pneumonia patient is being treated with Rocephin azithromycin will continue to monitor (3) Person under investigation for COVID-19: Code(s): Z20.822 - Contact with and (suspected) exposure to COVID-19 Status: Acute Assessment and Plan: Will follow-up on COVID test (4) Profound anemia: Code(s): D64.9 - Anemia, unspecified Status: Acute Assessment and Plan: Most likely secondary to GI bleed with history of alcohol abuse patient is seen by GI and further recommendation to follow (5) Bloody stools: Code(s): K92.1 - Melena Status: Acute Assessment and Plan: Most likely current alcohol abuse GI bleed (6) Jaundice: Code(s): R17 - Unspecified jaundice Status: Acute Assessment and Plan: Patient with alcohol abuse and liver cirrhosis will continue to monitor (7) Incarcerated ventral hernia: Code(s): K43.6 - Other and unspecified ventral hernia with obstruction, without gangrene Status: Acute Assessment and Plan: Patient be seen by general surgery and further recommendation to follow (8) Hypokalemia: Code(s): E87.6 - Hypokalemia Status: Acute Assessment and Plan: Will monitor and supplement (9) Anasarca: Code(s): R60.1 - Generalized edema Status: Acute Assessment and Plan: Most likely secondary to liver cirrhosis and hypoalbumia (10) Hepatic steatosis: Code(s): K76.0 - Fatty (change of) liver, not elsewhere classified Status: Acute Assessment and Plan: Secondary to alcohol abuse (11) Ascites: Code(s): R18.8 - Other ascites Status: Acute Assessment and Plan: Will st
[2020-10-03] MEDS: OCTREOTIDE ACETATE 100 MCG/ML VIAL SUB-Q (15:57)
[2020-10-03 16:05] LABS: Glucose Point of Care 105 (65-105)
[2020-10-03 20:27] LABS: Glucose Point of Care 124 (65-105)
--- NOTE | 2020-10-03 22:40 | ECHO_ITS ---
Patient Info Name: Bela Marsh Age: 55 years : 1965 Gender: Female Ht: 66 in Wt: 270 lbs BSA: 2.45 m2 HR: 98 bpm BP: 126 / 70 mmHg Technical Quality: Good Exam Date: 10/03/2020 1:34 PM Exam Location: [facility] Patient Status: Inpatient Admit Date: 10/01/2020 Staff Ordering Physician: Norma Song PA-C Liquid Chlorine Operator: Angel Toth RDCS, RT Attending Provider: James Landon MD Referring Physician: Duncan VILLALPANDO; Exam Type: CA echo doppler color flow Study Info Indications R01.1 - Cardiac murmur, unspecified Complete two-dimensional, color flow and Doppler transthoracic echocardiogram is performed. Summary 1. Complete two-dimensional, color flow and Doppler transthoracic echocardiogram is performed. 2. Left ventricular chamber dimension is normal. 3. Left ventricular systolic function is normal, estimated at 65-70%. 4. The left ventricular diastolic function is abnormal. 5. E/e' 10 is mildly elevated. 6. Global longitudinal strain is normal at -18.6%. 7. Left atrial chamber dimension is mildly enlarged. 8. There is trace tricuspid valve regurgitation. 9. Mild pulmonary hypertension, estimated pulmonary arterial systolic pressure is 41 mmHg. 10. Dilated inferior vena cava with <50% collapse upon inspiration consistent with significantly elevated right atrial pressure, 15 mmHg. Left Ventricle E/e' 10 is mildly elevated. Global longitudinal strain is normal at -18.6%. Left ventricular chamber dimension is normal. Left ventricular systolic function is normal, estimated at 65-70%. The left ventricular diastolic function is abnormal. Right Ventricle Right ventricular chamber dimension is normal. Right ventricular systolic function is normal. Left Atria Left atrial chamber dimension is mildly enlarged. Right Atria Right atrial chamber dimension is normal. Aortic Valve The aortic valve is trileaflet. There is no aortic valve stenosis. There is no aortic valve regurgitation. Pulmonic Valve There is no pulmonic regurgitation. Mitral Valve There is no mitral valve stenosis. There is no mitral valve regurgitation. Tricuspid Valve There is trace tricuspid valve regurgitation. Mild pulmonary hypertension, estimated pulmonary arterial systolic pressure is 41 mmHg. Pericardium/Pleural There is no pericardial effusion. Inferior Vena Cava Dilated inferior vena cava with <50% collapse upon inspiration consistent with significantly elevated right atrial pressure, 15 mmHg. Aorta The aortic root size at the sinus of Valsalva is normal. Left Ventricular Outflow Tract Name Value Normal LVOT 2D LVOT Diameter 1.9 cm LVOT Doppler LVOT Peak Gradient 10 mmHg LVOT Mean Gradient 6 mmHg LVOT VTI 31 cm LVOT VTI/AV VTI Ratio 0.9 LVOT Stroke Volume 89 ml LVOT CO 8.8 l/min LVOT CI 3.6 l/min/m2 Mitral Valve
[2020-10-04] VITALS (14 sets, daily range): BP systolic 101–127; BP diastolic 45–68; PULSE 88–102; RESP 18–22; TEMP 36.2–36.6; O2SAT 93–98
[2020-10-04] MEDS: SUCRALFATE 1 GM TABLET PO ×4 (05:31→20:18)
[2020-10-04] MEDS: ALBUMIN HUMAN 25% 25 GM/100 ML 100 ML IVPB (05:31)
[2020-10-04 05:33] LABS: Alanine Aminotransferase 32 U/L (4-35); Albumin Level 3.7 g/dL (3.5-5.1); Alkaline Phosphatase 97 U/L (38-126); Anion Gap 14 mmol/L (8-16); Aspartate Amino Transferase 82 U/L (14-36); Bilirubin,Total 21.7 mg/dL (0.2-1.3); Blood Urea Nitrogen 25 mg/dL (7-17); Calcium 8.6 mg/dL (8.4-10.2); Carbon Dioxide 25 mmol/L (22-30); Chloride 90 mmol/L (98-107); Estimated CRCL calculation 42 ml/min; Estimated Glomerular Filt Rate 26; Glucose 114 mg/dL (65-105); Potassium 3.5 mmol/L (3.4-5.0); Sodium 129 mmol/L (137-145)
--- NOTE | 2020-10-04 07:46 | WPDANESPN ---
Anes - Prog Note Post-Op Date/Time: 10/04/20 07:46 Cardiovascular status: normal Respiratory status: normal Airway patency: baseline Mental status: baseline Post-Op hydration status: normal Vital Signs: Last Vital Signs Temp 36.3 C L 10/04/20 04:00 Pulse 95 10/04/20 06:00 Resp 18 10/04/20 04:00 BP 127/68 10/04/20 04:00 Pulse Ox 93 10/04/20 04:00 Pain Score (VAS): 2 I/O: Intake & Output 10/03/20 10/03/20 10/04/20 15:59 23:59 07:59 Intake Total 500 520 200 Output Total 300 200 Balance 500 220 0 Laboratory Tests 10/03/20 11:03 10/04/20 04:31 10/03/20 10/03/20 10/03/20 07:40 11:03 11:17 WBC 14.7 H RBC 3.19 L Hgb 8.2 L Hct 25.9 L MCV 81.2 MCH 25.7 L MCHC 31.7 L RDW 26.6 H Plt Count 172 MPV 9.2 Sodium Potassium Chloride Carbon Dioxide Anion Gap BUN Creatinine Estim Creat Clear Calc Estimated GFR Glucose POC Capillary Glucose 103 110 Calcium Total Bilirubin AST ALT Alkaline Phosphatase Total Protein Albumin 10/03/20 10/03/20 10/04/20 15:32 20:25 04:31 WBC RBC Hgb Hct MCV MCH MCHC RDW Plt Count MPV Sodium 129 L Potassium 3.5 Chloride 90 L Carbon Dioxide 25 Anion Gap 14 BUN 25 H Creatinine 2.00 H Estim Creat Clear Calc 42 Estimated GFR 26 L Glucose 114 H POC Capillary Glucose 105 124 H Calcium 8.6 Total Bilirubin 21.7 H AST 82 H ALT 32 Alkaline Phosphatase 97 Total Protein 7.0 Albumin 3.7 Post-procedural complaints: none Patient Feedback: Patient satisfied with anesthetic care.
[2020-10-04] MEDS: FOLIC ACID 1 MG TABLET PO (08:21)
[2020-10-04] MEDS: PANTOPRAZOLE SODIUM IV 40 MG VIAL IV PUSH ×2 (08:21→20:18)
[2020-10-04] MEDS: LACTULOSE 20 GM/30 ML UDC PO (08:21)
[2020-10-04] MEDS: PHYTONADIONE 5 MG TABLET PO (08:22)
[2020-10-04] MEDS: THIAMINE HCL 100 MG TABLET PO (08:22)
[2020-10-04] MEDS: THERAPEUTIC MULTIVITAMINS/MINERALS TAB (*BKC) 1 TABLET PO (08:22)
[2020-10-04 08:24] LABS: Glucose Point of Care 125 (65-105)
[2020-10-04 10:47] LABS: Hematocrit 24.1 % (37.0-47.0); Hemoglobin 7.6 g/dL (12.0-15.0); Mean Corpuscular HGB Conc 31.5 g/dl (32-36); Mean Corpuscular Hemoglobin 25.9 pg (26-34); Mean Corpuscular Volume 82.3 fl (80-100); Mean Platelet Volume 9.8 fl (7.4-10.4); Platelet Count Result 174 k/mm3 (150-375); Red Blood Count 2.93 M/mm3 (4.2-5.4); Red Cell Distribution Width 27.8 % (11.5-14.5); White Blood Count 12.6 K/mm3 (4.5-10.0)
[2020-10-04] MEDS: OCTREOTIDE ACETATE 100 MCG/ML VIAL SUB-Q ×3 (11:08→17:22)
[2020-10-04 11:47] LABS: Glucose Point of Care 136 (65-105)
--- NOTE | 2020-10-04 12:18 | PM.IMPN ---
Progress Note: A&P Assessment and Plan (1) Severe sepsis: Code(s): A41.9 - Sepsis, unspecified organism; R65.20 - Severe sepsis without septic shock Status: Acute Assessment and Plan: Patient was seen by GI today and and had a EGD and colonoscopy EGD shows ulceration and gastritis patient is placed on PPI and Carafate colonoscopy did not show any significant pathology, patient has a significant large ventral hernia about a month ago it was reducible and currently is not able to be reduced, patient is seen by surgery service currently patient is not a candidate for surgery once clinically stable will need a re-evaluation, patient is being diuresed with spironolactone, patient is started on lactulose, will continue to monitor and further recommendation to follow will have a PT OT evaluate the patient. (2) Pneumonia: Qualifiers: Laterality: right Lung location: unspecified part of lung Pneumonia type: due to unspecified organism Qualified Code(s): J18.9 - Pneumonia, unspecified organism Code(s): J18.9 - Pneumonia, unspecified organism Status: Acute Assessment and Plan: Most likely community-acquired pneumonia patient is being treated with Rocephin azithromycin will continue to monitor (3) Person under investigation for COVID-19: Code(s): Z20.822 - Contact with and (suspected) exposure to COVID-19 Status: Acute Assessment and Plan: Will follow-up on COVID test (4) Profound anemia: Code(s): D64.9 - Anemia, unspecified Status: Acute Assessment and Plan: Most likely secondary to GI bleed with history of alcohol abuse patient is seen by GI and further recommendation to follow (5) Bloody stools: Code(s): K92.1 - Melena Status: Acute Assessment and Plan: Most likely current alcohol abuse GI bleed (6) Jaundice: Code(s): R17 - Unspecified jaundice Status: Acute Assessment and Plan: Patient with alcohol abuse and liver cirrhosis will continue to monitor (7) Incarcerated ventral hernia: Code(s): K43.6 - Other and unspecified ventral hernia with obstruction, without gangrene Status: Acute Assessment and Plan: Patient be seen by general surgery and further recommendation to follow (8) Hypokalemia: Code(s): E87.6 - Hypokalemia Status: Acute Assessment and Plan: Will monitor and supplement (9) Anasarca: Code(s): R60.1 - Generalized edema Status: Acute Assessment and Plan: Most likely secondary to liver cirrhosis and hypoalbumia (10) Hepatic steatosis: Code(s): K76.0 - Fatty (change of) liver, not elsewhere classified Status: Acute Assessment and Plan: Secondary to alcohol abuse (11) Ascites: Code(s): R18.8 - Other ascites Status: Acute Assessment and Plan: Will start the patient on spironolactone to avoid paracentesis will continue to monitor (12) Alcohol abuse: Code(s): F10.10 - Alcohol abuse, uncomplicated Status: Acute Assessment and Plan: Patient will benefit from alcohol rehab (13) Heart murmur: Code(s): R01.1 - Cardiac murmur, unspecified Status: Acute (14) Elevated serum creatinine: Code(s): R79.89 - Other specified abnormal findings of blood chemistry Status: Acute Assessment and Plan: Most likely secondary to dehydration will gently hydrate the patient and monitor Additional Plan Will continue monitor hemoglobin. Definitive transfuse if hemoglobin goes less than 7. Subjective Date/time seen: 10/04/20 12:18 Interval history: Patient was seen during the morning rounds today. Patient had complained of having generalized weakness. Patient has mild shortness of breath. No chest pain. Mood stable. Review of Systems Review of Systems: All systems reviewed & are unremarkable except as noted in HPI and below Exam Narrative: Exam Narrative:
[2020-10-04 12:43] LABS: Pneumococcal Antigen Urine Not Detected (Not Detected)
--- NOTE | 2020-10-04 13:12 | PCDIET ---
Nutrition Follow-Up Complete: Nutrition Diagnosis: Suboptimal oral intake related to ETOH abuse as evidenced by patient statements, present NPO status. Nutrition Goal: Patient to meet estimated nutritional needs. Goal in progress. Patient reports tolerating clear liquid diet and Ensure Compact (220kcal, 9g protein). Small, frequent meals and supplement acceptance encouraged to optimize intake. c/o diarrhea, but no nausea/vomiting today. Last recorded weight is 139.4 kg which is increased from last review. I/O noted. Bowel Motility: Patient reports diarrhea overnight and earlier today. Labs Reviewed: Hgb (7.6), Hct (24.1), Glu (114), BUN (25), Cr (2.0), Na (129), Alb (3.7) Meds Noted: Azithromycin, Rocephin, Octreotide, Folic Acid, Lactulose, MVI/minerals, Protonix, Carafate, Vitamin B1 Additional Notes: No documented skin breakdown. Nutrition Monitoring and Evaluation: Follow up every 3 days.
[2020-10-04 15:33] LABS: Legionella pneumophila Ag Ur Not Detected (Not Detected)
--- NOTE | 2020-10-04 16:00 | WPDGIPROGNO ---
Progress Note: A&P Assessment and Plan (1) Alcoholic hepatitis: Code(s): K70.10 - Alcoholic hepatitis without ascites Status: Acute Assessment and Plan: severe alcoholic hepatitis, MELD score today 31 continue with supportive care advance diet 2gNa, also supplements prognosis is guarded (2) GI bleed: Qualifiers: GI bleed type/associated pathology: unspecified gastrointestinal hemorrhage type Qualified Code(s): K92.2 - Gastrointestinal hemorrhage, unspecified Code(s): K92.2 - Gastrointestinal hemorrhage, unspecified Status: Acute Assessment and Plan: esophagitis and gastric ulcers on ppi twice daily (3) Acute blood loss anemia: Code(s): D62 - Acute posthemorrhagic anemia Status: Acute Assessment and Plan: received blood transfusion, monitor hb colonoscopy unremarkable (4) Gastric ulcer: Code(s): K25.9 - Gastric ulcer, unspecified as acute or chronic, without hemorrhage or perforation Status: Acute (5) Alcohol abuse: Code(s): F10.10 - Alcohol abuse, uncomplicated Status: Acute Assessment and Plan: etoh cessation thiamine, mvi, nutrition (6) Anasarca: Code(s): R60.1 - Generalized edema Status: Acute (7) Ventral hernia: Code(s): K43.9 - Ventral hernia without obstruction or gangrene Status: Acute Assessment and Plan: no pain, large size but poor candidate for surgery now (8) Acute renal failure: Code(s): N17.9 - Acute kidney failure, unspecified Status: Acute Assessment and Plan: continue to monitor, receiving albumin, also octreotide sq Subjective Date/time seen: 10/04/20 16:00 Interval history: tolerating liquid diet, still weak and mild SOB, no signs of bleeding. EGD yesterday showed erosive esophagitis and non-bleeding gastric ulcers Review of Systems Review of Systems: All systems reviewed & are unremarkable except as noted in HPI and below Exam Const: General: ill appearing chronically Other: obese HENMT: General nose exam: Normal nares present Eyes: Other: jaundice Neck: Neck: supple Resp: Auscultation: clear to auscultation bilaterally Cardio: Rate: regular rate GI: GI Palp: Yes Soft to palpation Auscultation: normal bowel sounds Other: large ventral hernia but reducible, no rebound Skin: General skin exam: jaundice Neuro: Speech: normal speech Extrem: General: edema and pedal edema Psych: Affect: Anxious affect present Objective Data Vital Signs Vital Signs: Vital Signs - 24 hr 10/03/20 18:00 10/03/20 20:00 10/03/20 20:40 Temperature 97.3 F L Pulse Rate 99 95 99 Respiratory Rate 18 Blood Pressure 110/54 L Pulse Oximetry 92 10/03/20 22:00 10/03/20 23:59 10/04/20 00:00 Temperature 97.2 F L Pulse Rate 98 100 99 Respiratory Rate 20 Blood Pressure 140/57 L Pulse Oximetry 94 10/04/20 02:00 10/04/20 04:00 10/04/20 06:00 Temperature 97.4 F L Pulse Rate 99 99 95 Respiratory Rate 18 Blood Pressure 127/68 Pulse Oximetry 93 10/04/20 08:00 10/04/20 10:00 10/04/20 11:59 Temperature 97.8 F 98 F Pulse Rate 96 95 96 Respiratory Rate 20 22 H Blood Pressure 119/63 118/60 Pulse Oximetry 98 95 10/04/20 12:00 Temperature Pulse Rate 96 Respiratory Rate Blood Pressure Pulse Oximetry Intake/Output Intake/Output: Intake & Output 10/01/20 10/02/20 10/03/20 10/04/20 23:59 23:59 23:59 23:59 Intake Total 1400 2240 1020 710 Output Total 625 450 200 Balance 1400 1615 570 510 Meds/Results Medications: Active Medications Generic Name Dose Route Start Last Admin Trade Name Freq PRN Reason Stop Dose Admin Albuterol 2 puff 10/01/20 14:43 Albuterol Sulfate (*Sp) Aerosol 1 Puff INHALATION QIDRT PRN Shortness Of Breath Folic Acid 1 mg 10/02/20 09:00 10/04/20 08:21 Folic Acid 1 Mg Tablet PO 1 mg DAILY NORMAN Administration Ceftriaxone Sodium
[2020-10-04 16:46] LABS: Glucose Point of Care 144 (65-105)
[2020-10-04 20:57] LABS: Glucose Point of Care 179 (65-105)
[2020-10-05] VITALS (8 sets, daily range): BP systolic 103–112; BP diastolic 47–63; PULSE 83–97; RESP 18–20; TEMP 36.2–36.8; O2SAT 96–100
[2020-10-05] MEDS: HALOPERIDOL LACTATE 5 MG/ML VIAL 10 MG IM (02:30)
[2020-10-05 05:39] LABS: Hematocrit 24.6 % (37.0-47.0); Hemoglobin 7.6 g/dL (12.0-15.0); INR 1.9; Mean Corpuscular HGB Conc 30.9 g/dl (32-36); Mean Corpuscular Hemoglobin 25.3 pg (26-34); Mean Platelet Volume 9.7 fl (7.4-10.4); Platelet Count Result 166 k/mm3 (150-375); Red Cell Distribution Width 28.5 % (11.5-14.5)
[2020-10-05 06:06] LABS: Alanine Aminotransferase 34 U/L (4-35); Albumin Level 3.5 g/dL (3.5-5.1); Alkaline Phosphatase 95 U/L (38-126); Anion Gap 11 mmol/L (8-16); Aspartate Amino Transferase 86 U/L (14-36); Bilirubin,Total 22.3 mg/dL (0.2-1.3); Blood Urea Nitrogen 30 mg/dL (7-17); Calcium 8.5 mg/dL (8.4-10.2); Carbon Dioxide 27 mmol/L (22-30); Chloride 90 mmol/L (98-107); Estimated CRCL calculation 42 ml/min; Estimated Glomerular Filt Rate 26; Glucose 118 mg/dL (65-105); Potassium 3.4 mmol/L (3.4-5.0); Sodium 128 mmol/L (137-145)
[2020-10-05 08:16] LABS: Glucose Point of Care 152 (65-105)
[2020-10-05] MEDS: POTASSIUM CHLORIDE 20 MEQ TABLET 40 MEQ PO (08:57)
[2020-10-05] MEDS: FOLIC ACID 1 MG TABLET PO (08:58)
[2020-10-05] MEDS: THERAPEUTIC MULTIVITAMINS/MINERALS TAB (*BKC) 1 TABLET PO (08:58)
--- NOTE | 2020-10-05 08:58 | PC.NURSE ---
LATE ENTRY 10/05/20 @ 1:35 AM This RN noticed pt was off telemetry while assisting in another pt's room. This RN went to check on pt to find that pt was not in the bed and the bathroom door was closed. Asked pt if she was ok, pt responded suspiciously that we the nursing staff were giving medication to make her sleepy to keep her in bed. Attempted to assure pt that all the medication she was receiving was to her benefit and to aid her back to health. Pt then sat on shower mat against door and refused to move to allow me to see her. This RN along with the help of other nurses and tech attempted to open door with no success. kitman Shreya was called in hopes she could help persuade pt to move away from the door, with no success. mechanics supervisor was called along with security. Tonia JESUS called Dr. Baker who ordered pt have one time dose of Haldol 10mg, IM as well as 1 mg of Ativan. With the help of respiratory, nursing occupational therapy supervisor, and security we were able to open door. Upon inspection of pt, pt had ripped out her moss catheter with balloon still inflated. Shreya JESUS administered Haldol while pt was seated to which she replied you fucking b . We were then able to place pt on a blanket to remove her from the bathroom and place her back in bed. Bed Alarm set to middle setting. Pt refusing all treatment and telemetry. Told pt that we would leave her alone as long as she kept her media theorist and author of on, so we could monitor her, and if she stayed in bed. Will continue to monitor the pt.
[2020-10-05] MEDS: LACTULOSE 20 GM/30 ML UDC PO (08:59)
[2020-10-05] MEDS: PHYTONADIONE 5 MG TABLET PO (09:00)
[2020-10-05] MEDS: THIAMINE HCL 100 MG TABLET PO (09:00)
[2020-10-05] MEDS: PANTOPRAZOLE SODIUM IV 40 MG VIAL IV PUSH ×2 (09:01→21:06)
[2020-10-05 10:45] LABS: Hematocrit 24.5 % (37.0-47.0); Hemoglobin 7.8 g/dL (12.0-15.0); Mean Corpuscular HGB Conc 31.8 g/dl (32-36); Mean Corpuscular Hemoglobin 26.5 pg (26-34); Mean Corpuscular Volume 83.3 fl (80-100); Mean Platelet Volume 9.4 fl (7.4-10.4); Platelet Count Result 162 k/mm3 (150-375); Red Blood Count 2.94 M/mm3 (4.2-5.4); Red Cell Distribution Width 28.8 % (11.5-14.5); White Blood Count 13.9 K/mm3 (4.5-10.0)
--- NOTE | 2020-10-05 11:30 | PCOTNOTE ---
Attempted to see patient this am, however patient refused stating, Not, now maybe later. Pt reported getting up in chair earlier to complete ADLs. Pt back in bed at this time. Will try back again this afternoon.
[2020-10-05 11:51] LABS: Glucose Point of Care 120 (65-105)
[2020-10-05] MEDS: SUCRALFATE 1 GM TABLET PO (12:36)
[2020-10-05 12:42] LABS: Haptoglobin 120 mg/dL (43-212)
--- NOTE | 2020-10-05 12:56 | PCPTNOTE ---
Patient reports she is too tired to do therapy at this time. Patient reports she has no energy and would like to rest. Discussed with RN.
--- NOTE | 2020-10-05 14:10 | PCOTNOTE ---
Attempted therapy session with patient, but patient declined stating she wasn't feeling up to it. Patient educated on benefits of therapy and was encouraged to engage in activities, but patient still declined.
--- NOTE | 2020-10-05 14:28 | WPDGIPROGNO ---
Progress Note: A&P Assessment and Plan (1) Alcoholic hepatitis: Code(s): K70.10 - Alcoholic hepatitis without ascites Status: Acute Assessment and Plan: severe alcoholic hepatitis, MELD score 32 she is complaining of diarrhea thus will discontinue lactulose and carafate continue with supportive care and encourage to eat with 2gNa, also supplements prognosis is guarded (2) GI bleed: Qualifiers: GI bleed type/associated pathology: unspecified gastrointestinal hemorrhage type Qualified Code(s): K92.2 - Gastrointestinal hemorrhage, unspecified Code(s): K92.2 - Gastrointestinal hemorrhage, unspecified Status: Acute Assessment and Plan: esophagitis and gastric ulcers on ppi twice daily (3) Acute blood loss anemia: Code(s): D62 - Acute posthemorrhagic anemia Status: Acute Assessment and Plan: received blood transfusion, monitor hb colonoscopy unremarkable (4) Gastric ulcer: Code(s): K25.9 - Gastric ulcer, unspecified as acute or chronic, without hemorrhage or perforation Status: Acute (5) Alcohol abuse: Code(s): F10.10 - Alcohol abuse, uncomplicated Status: Acute Assessment and Plan: etoh cessation thiamine, mvi, nutrition (6) Anasarca: Code(s): R60.1 - Generalized edema Status: Acute (7) Ventral hernia: Code(s): K43.9 - Ventral hernia without obstruction or gangrene Status: Acute Assessment and Plan: no pain, large size but poor candidate for surgery now (8) Acute renal failure: Code(s): N17.9 - Acute kidney failure, unspecified Status: Acute Assessment and Plan: continue to monitor, received albumin, also octreotide sq ? HRS, creatinine still 2 (9) Weakness generalized: Code(s): R53.1 - Weakness Status: Acute Assessment and Plan: with severe alcoholic hepatitis and alcohol abuse Subjective Date/time seen: 10/05/20 14:28 Interval history: she is still feeling weak, also complaining of diarrhea soon after eating Review of Systems Review of Systems: All systems reviewed & are unremarkable except as noted in HPI and below Exam Const: General: ill appearing chronically Other: obese HENMT: General nose exam: Normal nares present Eyes: Other: jaundice Neck: Neck: supple Resp: Auscultation: clear to auscultation bilaterally Cardio: Rate: regular rate GI: GI Palp: Yes Soft to palpation Auscultation: normal bowel sounds Other: large ventral hernia but reducible, no rebound Skin: General skin exam: jaundice Neuro: Speech: normal speech Extrem: General: edema and pedal edema Psych: Affect: Anxious affect present Objective Data Vital Signs Vital Signs: Vital Signs - 24 hr 10/04/20 16:00 10/04/20 18:00 10/04/20 19:51 Temperature 98 F 97.2 F L Pulse Rate 88 88 91 Respiratory Rate 20 20 Blood Pressure 111/57 L 101/45 L Pulse Oximetry 95 98 10/04/20 20:00 10/04/20 22:00 10/05/20 00:00 Temperature 97.1 F L Pulse Rate 92 94 89 Respiratory Rate 20 Blood Pressure 103/47 L Pulse Oximetry 96 10/05/20 04:00 10/05/20 06:00 10/05/20 08:00 Temperature Pulse Rate 85 97 95 Respiratory Rate Blood Pressure Pulse Oximetry 10/05/20 08:30 10/05/20 10:00 10/05/20 12:00 Temperature 97.3 F L 98.3 F Pulse Rate 93 90 83 Respiratory Rate 20 18 Blood Pressure 112/54 L 112/63 Pulse Oximetry 100 97 Intake/Output Intake/Output: Intake & Output 10/02/20 10/03/20 10/04/20 10/05/20 23:59 23:59 23:59 23:59 Intake Total 2240 1020 960 770 Output Total 625 450 400 Balance 1615 570 560 770 Meds/Results Medications: Active Medications Generic Name Dose Route Start Last Admin Trade Name Freq PRN Reason Stop Dose Admin Albuterol 2 puff 10/01/20 14:43 Albuterol Sulfate (*Sp) Aerosol 1 Puff INHALATION QIDRT PRN Shortness Of Breath Folic Acid 1 mg 10/02/20 09:00
--- NOTE | 2020-10-05 15:21 | PM.IMPN ---
Progress Note: A&P Assessment and Plan (1) Severe sepsis: Code(s): A41.9 - Sepsis, unspecified organism; R65.20 - Severe sepsis without septic shock Status: Acute Assessment and Plan: Patient was seen by GI and had a EGD and colonoscopy EGD shows ulceration and gastritis patient is placed on PPI and Carafate . colonoscopy did not show any significant pathology, patient has a significant large ventral hernia about a month ago it was reducible and currently is not able to be reduced, patient is seen by surgery service currently patient is not a candidate for surgery once clinically stable will need a re-evaluation, patient is being diuresed with spironolactone, patient is started on lactulose, will continue to monitor and further recommendation to follow will have a PT OT evaluate the patient. (2) Pneumonia: Qualifiers: Laterality: right Lung location: unspecified part of lung Pneumonia type: due to unspecified organism Qualified Code(s): J18.9 - Pneumonia, unspecified organism Code(s): J18.9 - Pneumonia, unspecified organism Status: Acute Assessment and Plan: Most likely community-acquired pneumonia patient is being treated with Rocephin azithromycin D#4 IV antibiotics (3) Profound anemia: Code(s): D64.9 - Anemia, unspecified Status: Acute Assessment and Plan: Most likely secondary to GI bleed with history of alcohol abuse patient , hgb stable at 7.8 (4) Anasarca: Code(s): R60.1 - Generalized edema Status: Acute Assessment and Plan: Most likely secondary to liver cirrhosis and hypoalbumia no proteinuria and echo normal EF 65% (5) Alcohol abuse: Code(s): F10.10 - Alcohol abuse, uncomplicated Status: Acute Assessment and Plan: Patient will benefit from alcohol rehab thiamine and prn benzo. no withdrawl (6) Heart murmur: Code(s): R01.1 - Cardiac murmur, unspecified Status: Acute Assessment and Plan: pjrobable flow murmer from anemia , no valve lesions on echo (7) Gastric ulcer: Code(s): K25.9 - Gastric ulcer, unspecified as acute or chronic, without hemorrhage or perforation Status: Acute Assessment and Plan: Nonbleeding, PPI and Carafate started (8) Ventral hernia: Code(s): K43.9 - Ventral hernia without obstruction or gangrene Status: Acute Assessment and Plan: Followed by surgery. May need further evaluation wants further stabilize (9) Acute renal failure: Code(s): N17.9 - Acute kidney failure, unspecified Status: Acute Assessment and Plan: Creatinine has been stable at 2.0 continue to monitor. No obstruction seen on CT scan (10) Acute blood loss anemia: Code(s): D62 - Acute posthemorrhagic anemia Status: Acute Assessment and Plan: Secondary to GI bleeding with hemoglobin stable after transfusion of 2 units of packed cells Subjective Date/time seen: 10/05/20 15:21 Exam Narrative: Exam Narrative: Patient is morbidly obese, chronically ill older than her age and jaundice Patient is comfortable, NAD HEENT: Eyes anicteric LUNGS: Bilateral fair air entry with rales and rhonchi ABD: Significant large ventral hernia bowel sounds are faint Lower extremities: edema SKIN:jaundiced Neuro: grossly intact. Objective Data Vital Signs Vital Signs: Vital Signs - 24 hr 10/04/20 16:00 10/04/20 18:00 10/04/20 19:51 Temperature 36.6 C 36.2 C L Pulse Rate 88 88 91 Respiratory Rate 20 20 Blood Pressure 111/57 L 101/45 L Pulse Oximetry 95 98 10/04/20 20:00 10/04/20 22:00 10/05/20 00:00 Temperature 36.2 C L Pulse Rate 92 94 89 Respiratory Rate 20 Blood Pressure 103/47 L Pulse Oximetry 96 10/05/20 04:00 10/05/20 06:00 10/05/20 08:00 Temperature Pulse Rate 85 97 95 Respiratory Rate Blood Pressure Pulse Oximetry 10/05/20 08:30 10/05/20 10:00 10/05/20 12:00 Temper
[2020-10-05 16:46] LABS: Glucose Point of Care 120 (65-105)
[2020-10-05 20:42] LABS: Glucose Point of Care 126 (65-105)
[2020-10-05 22:18] LABS: Mitochondrial (M2) Ab (IgG) <=20.0 U (<=20.0)
[2020-10-05] MEDS: traMADol HCL (*CRX) 25 MG TABLET PO (22:55)
[2020-10-06] VITALS: BP 101/49; PULSE 76; RESP 20; TEMP 36.1; O2SAT 97
[2020-10-06 05:31] LABS: Alanine Aminotransferase 41 U/L (4-35); Albumin Level 3.4 g/dL (3.5-5.1); Alkaline Phosphatase 102 U/L (38-126); Anion Gap 8 mmol/L (8-16); Aspartate Amino Transferase 112 U/L (14-36); Bilirubin,Total 23.3 mg/dL (0.2-1.3); Blood Urea Nitrogen 30 mg/dL (7-17); Calcium 8.9 mg/dL (8.4-10.2); Carbon Dioxide 27 mmol/L (22-30); Chloride 92 mmol/L (98-107); Estimated CRCL calculation 38 ml/min; Estimated Glomerular Filt Rate 23; Glucose 105 mg/dL (65-105); Potassium 3.8 mmol/L (3.4-5.0); Sodium 127 mmol/L (137-145)
[2020-10-06 05:41] LABS: Phosphorus 2.6 mg/dL (2.5-4.5)
[2020-10-06 08:00] VITALS: BP 109/51; PULSE 92; RESP 20; TEMP 36.4; O2SAT 95; O2SAT 96
[2020-10-06 08:11] LABS: Ceruloplasmin 23 mg/dL (18-53)
[2020-10-06] MEDS: PANTOPRAZOLE SODIUM IV 40 MG VIAL IV PUSH ×2 (08:28→20:28)
[2020-10-06] MEDS: FOLIC ACID 1 MG TABLET PO (08:28)
[2020-10-06] MEDS: PHYTONADIONE 5 MG TABLET PO (08:28)
[2020-10-06] MEDS: THERAPEUTIC MULTIVITAMINS/MINERALS TAB (*BKC) 1 TABLET PO (08:28)
[2020-10-06] MEDS: THIAMINE HCL 100 MG TABLET PO (08:28)
--- NOTE | 2020-10-06 09:28 | PCOTNOTE ---
Attempted to see pt for OT tx this AM. Pt declined therapy services at this time stating increased back pain and would like to eat breakfast since it just got here. Therapist stated that they will try to see pt this pm i able too. Will continue per POC duration/frequency tomorrow.
[2020-10-06 11:15] LABS: Hematocrit 24.9 % (37.0-47.0); Hemoglobin 7.9 g/dL (12.0-15.0); Mean Corpuscular HGB Conc 31.7 g/dl (32-36); Mean Corpuscular Hemoglobin 26.2 pg (26-34); Mean Corpuscular Volume 82.5 fl (80-100); Mean Platelet Volume 9.6 fl (7.4-10.4); Platelet Count Result 172 k/mm3 (150-375); Red Blood Count 3.02 M/mm3 (4.2-5.4); Red Cell Distribution Width 30.2 % (11.5-14.5); White Blood Count 14.6 K/mm3 (4.5-10.0)
[2020-10-06 11:32] LABS: Glucose Point of Care 114 (65-105)
[2020-10-06 11:55] LABS: Glucose Point of Care 105 (65-105)
--- NOTE | 2020-10-06 12:35 | PCDIET ---
Nutrition Follow-Up Complete: Nutrition Diagnosis: Suboptimal oral intake related to ETOH abuse as evidenced by patient statements, present NPO status. Nutrition Goal: Patient to meet estimated nutritional needs. Goal in progress. Patient consumed 58% of meals on 10/05/19. Reports appetite remains poor and does not like the Ensure Compact, as she feels they are worsening diarrhea. Receptive to trying Ensure Clear (240kcal, 8g protein); recommend sending TID with meals. Noted Sucralfate and Lactulose discontinued; if diarrhea continues, would consider use of Banatrol. Last recorded weight is 138.5 kg which is decreased from last review. Bowel Motility: BM x 1 documented today, though patient c/o continued diarrhea. Labs Reviewed: Hgb (7.9), Hct (24.9), BUN (30), Cr (2.2), Na (127), Alb (3.4) Meds Noted: Protonix, Phytonadione, Octreotide, Albuterol, Azithromycin, Rocephin, Folic Acid, MVI Additional Notes: No documented skin breakdown. Nutrition Monitoring and Evaluation: Follow up every 5 days.
--- NOTE | 2020-10-06 13:10 | WPDGIPROGNO ---
Progress Note: A&P Assessment and Plan (1) Alcoholic hepatitis: Code(s): K70.10 - Alcoholic hepatitis without ascites Status: Acute Assessment and Plan: severe alcoholic hepatitis with high discriminant factor- did not start on steroids given current pneumonia I discontinued lactulose because had diarrhea (no confusion) continue with supportive care and encourage to eat with 2gNa, also supplements prognosis is guarded given high MELD score and DF (2) GI bleed: Qualifiers: GI bleed type/associated pathology: unspecified gastrointestinal hemorrhage type Qualified Code(s): K92.2 - Gastrointestinal hemorrhage, unspecified Code(s): K92.2 - Gastrointestinal hemorrhage, unspecified Status: Acute Assessment and Plan: esophagitis and gastric ulcers on ppi twice daily (3) Acute blood loss anemia: Code(s): D62 - Acute posthemorrhagic anemia Status: Acute Assessment and Plan: received blood transfusion and hb stable since then colonoscopy unremarkable (4) Gastric ulcer: Code(s): K25.9 - Gastric ulcer, unspecified as acute or chronic, without hemorrhage or perforation Status: Acute (5) Alcohol abuse: Code(s): F10.10 - Alcohol abuse, uncomplicated Status: Acute Assessment and Plan: etoh cessation thiamine, mvi, nutrition support (6) Anasarca: Code(s): R60.1 - Generalized edema Status: Acute (7) Ventral hernia: Code(s): K43.9 - Ventral hernia without obstruction or gangrene Status: Acute Assessment and Plan: large size but poor candidate for surgery (8) Acute renal failure: Code(s): N17.9 - Acute kidney failure, unspecified Status: Acute Assessment and Plan: continue to monitor, received albumin, also octreotide sq ? Hepatorenal syndrome, no change in creatinine (9) Weakness generalized: Code(s): R53.1 - Weakness Status: Acute Assessment and Plan: with severe alcoholic hepatitis and alcohol abuse Subjective Date/time seen: 10/06/20 13:10 Interval history: still feeling weak, she is trying to eat more Review of Systems Review of Systems: All systems reviewed & are unremarkable except as noted in HPI and below Exam Const: General: ill appearing chronically Nutritional Appearance: obese Other: obese HENMT: General nose exam: Normal nares present Eyes: Other: jaundice Neck: Neck: supple Resp: Auscultation: clear to auscultation bilaterally Cardio: Rate: regular rate GI: Inspection: distended GI Palp: Yes Soft to palpation and No Guarding due to palpation present (GI) Other: large ventral hernia without rebound Skin: General skin exam: jaundice Neuro: Speech: normal speech Extrem: General: edema and pedal edema Psych: Affect: Anxious affect present Objective Data Vital Signs Vital Signs: Vital Signs - 24 hr 10/05/20 16:00 10/06/20 00:00 10/06/20 08:00 Temperature 98.0 F 96.9 F L 97.6 F Pulse Rate 89 76 92 Respiratory Rate 20 20 20 Blood Pressure 104/60 101/49 L 109/51 L Pulse Oximetry 97 97 96 Intake/Output Intake/Output: Intake & Output 10/03/20 10/04/20 10/05/20 10/06/20 23:59 23:59 23:59 23:59 Intake Total 1011 181 3391 300 Output Total 450 400 350 150 Balance 570 560 870 150 Meds/Results Medications: Active Medications Generic Name Dose Route Start Last Admin Trade Name Avelq PRN Reason Stop Dose Admin Albuterol 2 puff 10/01/20 14:43 Albuterol Sulfate (*Sp) Aerosol 1 Puff INHALATION QIDRT PRN Shortness Of Breath Folic Acid 1 mg 10/02/20 09:00 10/06/20 08:28 Folic Acid 1 Mg Tablet PO 1 mg DAILY NORMAN Administration Ceftriaxone Sodium/Dextrose 1 gm in 50 mls @ 100 mls/hr 10/02/20 12:00 10/06/20 12:30 Rocephin 1 Gm/D5w 50 Ml IVPB 100 mls/hr NOON NORMAN Administration Azithromycin 500 mg in 250 mls @ 250 mls/hr 10/02/20 12:00 10/05/20 14:15 Zithromax IVPB
[2020-10-06 16:00] VITALS: BP 117/47; PULSE 87; RESP 20; TEMP 36.5; O2SAT 95
[2020-10-06 16:47] LABS: Glucose Point of Care 114 (65-105)
--- NOTE | 2020-10-06 18:21 | PM.IMPN ---
Progress Note: A&P Assessment and Plan (1) Severe sepsis: Code(s): A41.9 - Sepsis, unspecified organism; R65.20 - Severe sepsis without septic shock Status: Acute Assessment and Plan: Patient was seen by GI and had a EGD and colonoscopy EGD shows ulceration and gastritis. patient is placed on PPI and Carafate . colonoscopy did not show any significant pathology, patient has a significant large ventral hernia about a month ago it was reducible and currently is not able to be reduced, patient is seen by surgery service currently patient is not a candidate for surgery once clinically stable will need a re-evaluation, patient is being diuresed with spironolactone, patient is on lactulose, will continue to monitor and further recommendation to follow will have a PT OT evaluate the patient. (2) Pneumonia: Qualifiers: Laterality: right Lung location: unspecified part of lung Pneumonia type: due to unspecified organism Qualified Code(s): J18.9 - Pneumonia, unspecified organism Code(s): J18.9 - Pneumonia, unspecified organism Status: Acute Assessment and Plan: Most likely community-acquired pneumonia patient is being treated with Rocephin azithromycin D#5 IV antibiotics (3) Profound anemia: Code(s): D64.9 - Anemia, unspecified Status: Acute Assessment and Plan: Most likely secondary to GI bleed with history of alcohol abuse patient , hgb stable at 7.9 (4) Anasarca: Code(s): R60.1 - Generalized edema Status: Acute Assessment and Plan: Most likely secondary to liver cirrhosis and hypoalbumia no proteinuria and echo normal EF 65% (5) Alcohol abuse: Code(s): F10.10 - Alcohol abuse, uncomplicated Status: Acute Assessment and Plan: Patient will benefit from alcohol rehab thiamine and prn benzo. no withdrawl (6) Heart murmur: Code(s): R01.1 - Cardiac murmur, unspecified Status: Acute Assessment and Plan: probable flow murmer from anemia , no valve lesions on echo (7) Gastric ulcer: Code(s): K25.9 - Gastric ulcer, unspecified as acute or chronic, without hemorrhage or perforation Status: Acute Assessment and Plan: Nonbleeding, PPI and Carafate started (8) Ventral hernia: Code(s): K43.9 - Ventral hernia without obstruction or gangrene Status: Acute Assessment and Plan: Followed by surgery. May need further evaluation wants further stabilize (9) Acute renal failure: Code(s): N17.9 - Acute kidney failure, unspecified Status: Acute Assessment and Plan: Creatinine has been stable at 2.2 continue to monitor. No obstruction seen on CT scan (10) Acute blood loss anemia: Code(s): D62 - Acute posthemorrhagic anemia Status: Acute Assessment and Plan: Secondary to GI bleeding with hemoglobin stable after transfusion of 2 units of packed cells (11) Alcoholic hepatitis: Code(s): K70.10 - Alcoholic hepatitis without ascites Status: Acute Assessment and Plan: With marked elevation of bili and persistent elevated LFTs. CT revealed diffuse of fatty infiltration of the liver Hep AB and C serology negative, further markers pending, no iron overload, probable all secondary to ETOH Subjective Date/time seen: 10/06/20 18:21 Interval history: Date of visit10/06 Patient was seen during the morning rounds today. Patient had complained of having generalized weakness. Patient has mild shortness of breath. No chest pain. Mood stable. Sitting up in bed and in no distress. Appetite fair Exam Narrative: Exam Narrative: Blood pressure 116/50 pulse is 86 saturating 95% on room air afebrile Patient is morbidly obese, chronically ill older than her age and jaundice Patient is comfortable, NAD HEENT: Eyes anicteric LUNGS: Clear with faint rales left lower lobe CV regular rate rhythm systolic ejection murmur ABD: Significant
[2020-10-06 19:30] VITALS: BP 113/54; PULSE 90; RESP 18; TEMP 36.9; O2SAT 90
--- NOTE | 2020-10-06 20:17 | PC.NURSE ---
This patient, Bela Marsh, was transferred to room 259 on 10/06/20 at 2017. Personal belongings sent with patient. Report given to EDIN Winn by day shift RNRani. Appropriate documentation sent with patient.
[2020-10-06 20:18] LABS: Glucose Point of Care 107 (65-105)
[2020-10-06 21:25] VITALS: BP 115/50; PULSE 95; RESP 18; TEMP 37.1; O2SAT 96
[2020-10-07 06:13] LABS: INR 1.8; Prothrombin Time 21.7 Seconds (11.1-14.7)
[2020-10-07 06:27] LABS: Alanine Aminotransferase 50 U/L (4-35); Albumin Level 3.2 g/dL (3.5-5.1); Alkaline Phosphatase 107 U/L (38-126); Anion Gap 7 mmol/L (8-16); Aspartate Amino Transferase 146 U/L (14-36); Bilirubin,Total 24.6 mg/dL (0.2-1.3); Blood Urea Nitrogen 31 mg/dL (7-17); Carbon Dioxide 29 mmol/L (22-30); Chloride 93 mmol/L (98-107); Estimated CRCL calculation 45 ml/min; Estimated Glomerular Filt Rate 29; Glucose 94 mg/dL (65-105); Potassium 3.4 mmol/L (3.4-5.0); Sodium 129 mmol/L (137-145)
[2020-10-07 06:39] VITALS: BP 123/50; PULSE 96; RESP 18; TEMP 37.2; O2SAT 94
[2020-10-07 07:57] LABS: Glucose Point of Care 101 (65-105)
[2020-10-07] MEDS: POTASSIUM CHLORIDE 20 MEQ TABLET 40 MEQ PO (09:19)
[2020-10-07] MEDS: FOLIC ACID 1 MG TABLET PO (09:20)
[2020-10-07] MEDS: PANTOPRAZOLE SODIUM IV 40 MG VIAL IV PUSH ×2 (09:20→20:40)
[2020-10-07] MEDS: THIAMINE HCL 100 MG TABLET PO (09:20)
[2020-10-07] MEDS: PHYTONADIONE 5 MG TABLET PO (09:20)
[2020-10-07] MEDS: THERAPEUTIC MULTIVITAMINS/MINERALS TAB (*BKC) 1 TABLET PO (09:20)
--- NOTE | 2020-10-07 10:29 | WPDGIPROGNO ---
Progress Note: A&P Assessment and Plan (1) Gastric ulcer: Code(s): K25.9 - Gastric ulcer, unspecified as acute or chronic, without hemorrhage or perforation Status: Acute Assessment and Plan: Patient found to have gastric ulcerations. Now on PPI b.i.d.. Patient also had esophagitis at time of endoscopy. No active bleeding described. Will advance diet. Avoid nonsteroidal anti-inflammatory agents as well. (2) Alcohol abuse: Code(s): F10.10 - Alcohol abuse, uncomplicated Status: Acute Assessment and Plan: Patient has been encouraged to abstain from alcohol. (3) Anasarca: Code(s): R60.1 - Generalized edema Status: Acute (4) Incarcerated ventral hernia: Code(s): K43.6 - Other and unspecified ventral hernia with obstruction, without gangrene Status: Acute (5) Acute renal failure: Code(s): N17.9 - Acute kidney failure, unspecified Status: Acute (6) Alcoholic hepatitis: Code(s): K70.10 - Alcoholic hepatitis without ascites Status: Acute Assessment and Plan: Patient with rather high E bilirubin consistent with rather severe alcoholic hepatitis. Plan to continue supportive care. Steroids held because of her pneumonia. Continue low-salt diet. Subjective Date/time seen: 10/07/20 10:29 Patient sitting upright in bed today trying to eat. Appears to be tolerating diet fairly well. Poor appetite described. Review of Systems Review of Systems: All systems reviewed & are unremarkable except as noted in HPI and below Exam Narrative: Exam Narrative: Physical exam patient appears chronically ill. HEENT exam reveals marked scleral icterus. Lungs reveal a few rhonchi. Heart without murmur. Abdomen is obese. Large ventral hernia noted. Bowel sounds are present abdomen is otherwise soft with no localized tenderness. Digital external rectal exam deferred. Objective Data Vital Signs Vital Signs: Vital Signs - 24 hr 10/06/20 16:00 10/06/20 19:30 10/06/20 21:25 Temperature 97.7 F 98.5 F 98.8 F Pulse Rate 87 90 95 Respiratory Rate 20 18 18 Blood Pressure 117/47 L 113/54 L 115/50 L Pulse Oximetry 95 90 96 10/07/20 06:39 Temperature 98.9 F Pulse Rate 96 Respiratory Rate 18 Blood Pressure 123/50 L Pulse Oximetry 94 Intake/Output Intake/Output: Intake & Output 10/04/20 10/05/20 10/06/20 10/07/20 23:59 23:59 23:59 23:59 Intake Total 960 1220 540 750 Output Total 400 350 350 450 Balance 560 870 190 300 Meds/Results Medications: Active Medications Generic Name Dose Route Start Last Admin Trade Name Freq PRN Reason Stop Dose Admin Albuterol 2 puff 10/01/20 14:43 Albuterol Sulfate (*Sp) Aerosol 1 Puff INHALATION QIDRT PRN Shortness Of Breath Folic Acid 1 mg 10/02/20 09:00 10/07/20 09:20 Folic Acid 1 Mg Tablet PO 1 mg DAILY NORMAN Administration Ceftriaxone Sodium/Dextrose 1 gm in 50 mls @ 100 mls/hr 10/02/20 12:00 10/07/20 07:00 Rocephin 1 Gm/D5w 50 Ml IVPB Infused NOON NORMAN Infusion Azithromycin 500 mg in 250 mls @ 250 mls/hr 10/02/20 12:00 10/07/20 07:00 Zithromax IVPB Infused NOON NORMAN Infusion Lorazepam 1 mg 10/05/20 02:42 Lorazepam Inj (*Crx) 2 Mg/Ml Vial IV PUSH Q4H PRN Anxiety Multivitamins/Calcium 1 tablet 10/02/20 09:00 10/07/20 09:20 Therapeutic Multivitamins/Minerals Tab (*Bkc) PO 1 tablet QAM NORMAN Administration Pantoprazole Sodium 40 mg 10/01/20 21:00 10/07/20 09:20 Pantoprazole Sodium Iv 40 Mg Vial IV PUSH 40 mg Q12HR NORMAN Administration Thiamine HCl 100 mg 10/02/20 09:00 10/07/20 09:20 Thiamine Hcl 100 Mg Tablet PO 100 mg QAM NORMAN Administration Tramadol HCl 25 mg 10/05/20 22:17 10/05/20 22:55 Tramadol Hcl (*Crx) 25 Mg Tablet PO 25 mg ONCE PRN Administration Pain Rated 4-6 Radiology Results: ITS Impressions Chest X-Ray 10/01/20 09:57 Impression: 1: Right upper and le
[2020-10-07 12:05] LABS: Hematocrit 26.7 % (37.0-47.0); Hemoglobin 8.3 g/dL (12.0-15.0); Mean Corpuscular HGB Conc 31.1 g/dl (32-36); Mean Corpuscular Hemoglobin 26.8 pg (26-34); Mean Corpuscular Volume 86.1 fl (80-100); Mean Platelet Volume 9.7 fl (7.4-10.4); Platelet Count Result 189 k/mm3 (150-375); Red Cell Distribution Width 31.1 % (11.5-14.5); White Blood Count 13.4 K/mm3 (4.5-10.0)
[2020-10-07 12:06] LABS: Glucose Point of Care 109 (65-105)
[2020-10-07 14:00] VITALS: BP 108/42; PULSE 91; RESP 20; TEMP 36.6; O2SAT 100
--- NOTE | 2020-10-07 14:05 | PM.IMPN ---
Progress Note: A&P Assessment and Plan (1) Severe sepsis: Code(s): A41.9 - Sepsis, unspecified organism; R65.20 - Severe sepsis without septic shock Status: Acute Assessment and Plan: Patient was seen by GI and had a EGD and colonoscopy EGD shows ulceration and gastritis. patient is placed on PPI and Carafate . colonoscopy did not show any significant pathology, patient has a significant large ventral hernia about a month ago it was reducible and currently is not able to be reduced, patient is seen by surgery service currently patient is not a candidate for surgery once clinically stable will need a re-evaluation, patient is being diuresed with spironolactone, patient is on lactulose, will continue to monitor and follow will have a PT OT evaluate the patient. (2) Pneumonia: Qualifiers: Laterality: right Lung location: unspecified part of lung Pneumonia type: due to unspecified organism Qualified Code(s): J18.9 - Pneumonia, unspecified organism Code(s): J18.9 - Pneumonia, unspecified organism Status: Acute Assessment and Plan: Most likely community-acquired pneumonia patient is being treated with Rocephin azithromycin D#6 IV antibiotics (3) Profound anemia: Code(s): D64.9 - Anemia, unspecified Status: Acute Assessment and Plan: Most likely secondary to GI bleed with history of alcohol abuse patient , hgb stable at 8.3 (4) Anasarca: Code(s): R60.1 - Generalized edema Status: Acute Assessment and Plan: Most likely secondary to liver cirrhosis and hypoalbumia no proteinuria and echo normal EF 65% (5) Alcohol abuse: Code(s): F10.10 - Alcohol abuse, uncomplicated Status: Acute Assessment and Plan: Patient will benefit from alcohol rehab thiamine and prn benzo. no withdrawl (6) Heart murmur: Code(s): R01.1 - Cardiac murmur, unspecified Status: Acute Assessment and Plan: probable flow murmer from anemia , no valve lesions on echo (7) Gastric ulcer: Code(s): K25.9 - Gastric ulcer, unspecified as acute or chronic, without hemorrhage or perforation Status: Acute Assessment and Plan: Nonbleeding, PPI and Carafate started (8) Ventral hernia: Code(s): K43.9 - Ventral hernia without obstruction or gangrene Status: Acute Assessment and Plan: Followed by surgery. May need further evaluation wants further stabilize (9) Acute renal failure: Code(s): N17.9 - Acute kidney failure, unspecified Status: Acute Assessment and Plan: Creatinine decreased to 1.8 today continue to monitor. No obstruction seen on CT scan (10) Acute blood loss anemia: Code(s): D62 - Acute posthemorrhagic anemia Status: Acute Assessment and Plan: Secondary to GI bleeding with hemoglobin stable after transfusion of 2 units of packed cells (11) Alcoholic hepatitis: Code(s): K70.10 - Alcoholic hepatitis without ascites Status: Acute Assessment and Plan: With marked elevation of bili and persistent elevated LFTs. CT revealed diffuse of fatty infiltration of the liver Hep AB and C serology negative, further markers pending, no iron overload, probable all secondary to ETOH low dose aldactone Subjective Date/time seen: 10/07/20 14:05 Interval history: Date of visit10/07 Patient was seen during the morning rounds today. Patient states feels better today . No chest pain. Mood stable. Sitting up in bed and in no distress. Appetite fair but did eat some breakfast today Exam Narrative: Exam Narrative: Blood pressure 124/50 pulse is 96 saturating 95% on room air afebrile Patient is morbidly obese, chronically ill older than her age and jaundice Patient is comfortable, NAD HEENT: Eyes anicteric LUNGS: Clear with faint basal crackles CV regular rate rhythm systolic ejection murmur ABD: Significant large ventral hernia bowel sounds + L
[2020-10-07 16:48] LABS: Glucose Point of Care 113 (65-105)
[2020-10-07] MEDS: SPIRONOLACTONE 25 MG TABLET PO (16:58)
[2020-10-07 21:42] VITALS: BP 151/78; PULSE 88; RESP 20; TEMP 36.2; O2SAT 97
[2020-10-08 06:16] LABS: Alanine Aminotransferase 59 U/L (4-35); Albumin Level 3.2 g/dL (3.5-5.1); Alkaline Phosphatase 120 U/L (38-126); Anion Gap 10 mmol/L (8-16); Aspartate Amino Transferase 180 U/L (14-36); Bilirubin,Total 25.3 mg/dL (0.2-1.3); Blood Urea Nitrogen 30 mg/dL (7-17); Carbon Dioxide 27 mmol/L (22-30); Chloride 94 mmol/L (98-107); Estimated CRCL calculation 53 ml/min; Estimated Glomerular Filt Rate 36; Glucose 92 mg/dL (65-105); Potassium 3.6 mmol/L (3.4-5.0); Sodium 131 mmol/L (137-145)
[2020-10-08 07:04] VITALS: BP 133/57; PULSE 100; RESP 18; TEMP 37; O2SAT 97
[2020-10-08 08:23] LABS: Glucose Point of Care 90 (65-105)
[2020-10-08] MEDS: SPIRONOLACTONE 25 MG TABLET PO (09:03)
[2020-10-08] MEDS: PANTOPRAZOLE SODIUM IV 40 MG VIAL IV PUSH ×2 (09:03→20:17)
[2020-10-08] MEDS: THERAPEUTIC MULTIVITAMINS/MINERALS TAB (*BKC) 1 TABLET PO (09:03)
[2020-10-08] MEDS: FOLIC ACID 1 MG TABLET PO (09:03)
[2020-10-08] MEDS: THIAMINE HCL 100 MG TABLET PO (09:03)
--- NOTE | 2020-10-08 09:18 | WPDGIPROGNO ---
Progress Note: A&P Assessment and Plan (1) Weakness generalized: Code(s): R53.1 - Weakness Status: Acute Assessment and Plan: Patient remains very weak. Unable to ambulate. The at this time even unable to put herself back to bed after sitting on the edge. She likely will need rehab after discharge physical therapy if necessary (2) Gastric ulcer: Code(s): K25.9 - Gastric ulcer, unspecified as acute or chronic, without hemorrhage or perforation Status: Acute Assessment and Plan: no signs of continued bleeding. Gastric ulcer in esophagitis by recent endoscopy. Patient should avoid nonsteroidals. Continue PPI monitor hemoglobin intermittently. (3) Ventral hernia: Code(s): K43.9 - Ventral hernia without obstruction or gangrene Status: Acute Assessment and Plan: Large ventral home on hernia noted. Surgical therapy may need to be considered eventually. liver function needs to improve quite a bit before surgery is considered in this patient. (4) Alcoholic hepatitis: Code(s): K70.10 - Alcoholic hepatitis without ascites Status: Acute Assessment and Plan: Patient has a markedly elevated bilirubin. Rather severe alcoholic hepatitis evident. Plan is for observation at this time. Given her pneumonia I would agree with holding prednisone. Strict alcohol avoidance. She may need alcohol rehab after discharge. (5) Alcohol abuse: Code(s): F10.10 - Alcohol abuse, uncomplicated Status: Acute (6) Pneumonia: Qualifiers: Laterality: right Lung location: unspecified part of lung Pneumonia type: due to unspecified organism Qualified Code(s): J18.9 - Pneumonia, unspecified organism Code(s): J18.9 - Pneumonia, unspecified organism Status: Acute Subjective Date/time seen: 10/08/20 09:18 Patient alert this morning tolerating diet but feels weak. Unable to raise her foot on to bed this morning upon reclining. Appears to have at appropriate mentation. No nausea or vomiting. No evidence for bleeding. Review of Systems Review of Systems: All systems reviewed & are unremarkable except as noted in HPI and below Exam Narrative: Exam Narrative: Physical exam reveals her to be alert. Oriented x3. She has marked scleral icterus. Lungs reveal a few rhonchi. Heart without murmur. Abdomen is obese. Large ventral hernia evident. Extremities with 3+ edema. Objective Data Vital Signs Vital Signs: Vital Signs - 24 hr 10/07/20 14:00 10/07/20 21:42 10/08/20 07:04 Temperature 97.8 F 97.2 F L 98.6 F Pulse Rate 91 88 100 Respiratory Rate 20 20 18 Blood Pressure 108/42 L 151/78 H 133/57 L Pulse Oximetry 100 97 97 Intake/Output Intake/Output: Intake & Output 10/05/20 10/06/20 10/07/20 10/08/20 23:59 23:59 23:59 23:59 Intake Total 3971 356 7857 300 Output Total 350 350 850 750 Balance 870 190 840 -450 Meds/Results Medications: Active Medications Generic Name Dose Route Start Last Admin Trade Name Freq PRN Reason Stop Dose Admin Albuterol 2 puff 10/01/20 14:43 Albuterol Sulfate (*Sp) Aerosol 1 Puff INHALATION QIDRT PRN Shortness Of Breath Folic Acid 1 mg 10/02/20 09:00 10/08/20 09:03 Folic Acid 1 Mg Tablet PO 1 mg DAILY NORMAN Administration Ceftriaxone Sodium/Dextrose 1 gm in 50 mls @ 100 mls/hr 10/02/20 12:00 10/07/20 12:50 Rocephin 1 Gm/D5w 50 Ml IVPB Infused NOON NORMAN Infusion Azithromycin 500 mg in 250 mls @ 250 mls/hr 10/02/20 12:00 10/07/20 13:20 Zithromax IVPB Infused NOON NORMAN Infusion Lorazepam 1 mg 10/05/20 02:42 Lorazepam Inj (*Crx) 2 Mg/Ml Vial IV PUSH Q4H PRN Anxiety Multivitamins/Calcium 1 tablet 10/02/20 09:00 10/08/20 09:03 Therapeutic Multivitamins/Minerals Tab (*Bkc) PO 1 tablet QAM NORMAN Administration Pantoprazole Sodium 40 mg 10/01/20 21:00 10/08/20 09:03 Pantoprazole Sodium Iv 40 Mg Vial IV PUSH
[2020-10-08 11:39] LABS: Hematocrit 26.5 % (37.0-47.0); Hemoglobin 8.4 g/dL (12.0-15.0); Mean Corpuscular HGB Conc 31.7 g/dl (32-36); Mean Corpuscular Volume 85.2 fl (80-100); Mean Platelet Volume 9.7 fl (7.4-10.4); Platelet Count Result 194 k/mm3 (150-375); Red Blood Count 3.11 M/mm3 (4.2-5.4); Red Cell Distribution Width 31.5 % (11.5-14.5); White Blood Count 13.7 K/mm3 (4.5-10.0)
[2020-10-08 14:00] VITALS: BP 116/47; PULSE 93; RESP 16; TEMP 36.6; O2SAT 100
--- NOTE | 2020-10-08 14:48 | PM.IMPN ---
Progress Note: A&P Assessment and Plan (1) Severe sepsis: Code(s): A41.9 - Sepsis, unspecified organism; R65.20 - Severe sepsis without septic shock Status: Acute Assessment and Plan: Patient was seen by GI and had a EGD and colonoscopy EGD shows ulceration and gastritis. patient is placed on PPI and Carafate . colonoscopy did not show any significant pathology, patient has a significant large ventral hernia about a month ago it was reducible and currently is not able to be reduced, patient is seen by surgery service currently patient is not a candidate for surgery once clinically stable will need a re-evaluation, patient is being diuresed with spironolactone, patient is on lactulose, will continue to monitor and follow will have a PT OT evaluate the patient. (2) Pneumonia: Qualifiers: Laterality: right Lung location: unspecified part of lung Pneumonia type: due to unspecified organism Qualified Code(s): J18.9 - Pneumonia, unspecified organism Code(s): J18.9 - Pneumonia, unspecified organism Status: Acute Assessment and Plan: Most likely community-acquired pneumonia patient is being treated with Rocephin azithromycin D#7 IV antibiotics and will stop antibiotics (3) Profound anemia: Code(s): D64.9 - Anemia, unspecified Status: Acute Assessment and Plan: Most likely secondary to GI bleed with history of alcohol abuse patient , hgb stable at 8.4 (4) Anasarca: Code(s): R60.1 - Generalized edema Status: Acute Assessment and Plan: Most likely secondary to liver cirrhosis and hypoalbumia no proteinuria and echo normal EF 65% aldactone started 10/07 (5) Alcohol abuse: Code(s): F10.10 - Alcohol abuse, uncomplicated Status: Acute Assessment and Plan: Patient will benefit from alcohol rehab thiamine and prn benzo. no withdrawl (6) Heart murmur: Code(s): R01.1 - Cardiac murmur, unspecified Status: Acute Assessment and Plan: probable flow murmer from anemia , no valve lesions on echo (7) Gastric ulcer: Code(s): K25.9 - Gastric ulcer, unspecified as acute or chronic, without hemorrhage or perforation Status: Acute Assessment and Plan: Nonbleeding, PPI and Carafate started (8) Ventral hernia: Code(s): K43.9 - Ventral hernia without obstruction or gangrene Status: Acute Assessment and Plan: Followed by surgery. May need further evaluation wants further stabilize (9) Acute renal failure: Code(s): N17.9 - Acute kidney failure, unspecified Status: Acute Assessment and Plan: Creatinine decreased to 1.5 today continue to monitor. No obstruction seen on CT scan (10) Acute blood loss anemia: Code(s): D62 - Acute posthemorrhagic anemia Status: Acute Assessment and Plan: Secondary to GI bleeding with hemoglobin stable after transfusion of 2 units of packed cells (11) Alcoholic hepatitis: Code(s): K70.10 - Alcoholic hepatitis without ascites Status: Acute Assessment and Plan: With marked elevation of bili and persistent elevated LFTs. CT revealed diffuse of fatty infiltration of the liver Hep AB and C serology negative, further markers pending, no iron overload, probable all secondary to ETOH low dose aldactone Subjective Date/time seen: 10/08/20 14:48 Interval history: Date of visit10/08 Patient was seen during the morning rounds today. Patient states feels better today . No chest pain. Mood stable. Sitting up in chair and in no distress. Appetite fair but did eat some breakfast today Exam Narrative: Exam Narrative: Blood pressure 1222/52 pulse is 84 saturating 94% on room air afebrile Patient is morbidly obese, chronically ill older than her age and jaundiced Patient is comfortable, NAD HEENT: Eyes icteric LUNGS: Clear today CV regular rate rhythm systolic ejection murmur ABD: Significant large
[2020-10-08] MEDS: SPIRONOLACTONE 50 MG TABLET PO (17:58)
[2020-10-08 22:25] VITALS: BP 117/49; PULSE 96; RESP 18; TEMP 36.2; O2SAT 100
[2020-10-08] MEDS: traMADol HCL (*CRX) 25 MG TABLET PO (22:41)
[2020-10-09 06:06] LABS: Alanine Aminotransferase 71 U/L (4-35); Albumin Level 3.3 g/dL (3.5-5.1); Alkaline Phosphatase 139 U/L (38-126); Anion Gap 8 mmol/L (8-16); Aspartate Amino Transferase 206 U/L (14-36); Bilirubin,Total 28.6 mg/dL (0.2-1.3); Blood Urea Nitrogen 30 mg/dL (7-17); Calcium 9.2 mg/dL (8.4-10.2); Carbon Dioxide 28 mmol/L (22-30); Chloride 94 mmol/L (98-107); Estimated CRCL calculation 53 ml/min; Estimated Glomerular Filt Rate 36; Glucose 94 mg/dL (65-105); Potassium 3.2 mmol/L (3.4-5.0); Sodium 130 mmol/L (137-145)
[2020-10-09 06:48] VITALS: BP 115/53; PULSE 95; RESP 16; TEMP 36.6; O2SAT 98
[2020-10-09] MEDS: FOLIC ACID 1 MG TABLET PO (08:07)
[2020-10-09] MEDS: POTASSIUM CHLORIDE 20 MEQ TABLET 40 MEQ PO (08:07)
[2020-10-09] MEDS: SPIRONOLACTONE 50 MG TABLET PO ×2 (08:08→17:09)
[2020-10-09] MEDS: PANTOPRAZOLE SODIUM IV 40 MG VIAL IV PUSH ×2 (08:08→20:05)
[2020-10-09] MEDS: THIAMINE HCL 100 MG TABLET PO (08:08)
[2020-10-09 08:16] VITALS: O2SAT 96
[2020-10-09 10:51] LABS: Hematocrit 25.9 % (37.0-47.0); Immature Platelet Fraction Pct 5.5 % (0.9-11.2); Mean Corpuscular HGB Conc 30.9 g/dl (32-36); Mean Corpuscular Hemoglobin 26.7 pg (26-34); Mean Corpuscular Volume 86.3 fl (80-100); Mean Platelet Volume 10.1 fl (7.4-10.4); Platelet Count Result 233 k/mm3 (150-375); Red Cell Distribution Width 32.1 % (11.5-14.5); White Blood Count 14.1 K/mm3 (4.5-10.0)
[2020-10-09] MEDS: THERAPEUTIC MULTIVITAMINS/MINERALS TAB (*BKC) 1 TABLET PO (13:22)
--- NOTE | 2020-10-09 13:24 | WPDGIPROGNO ---
Progress Note: A&P Assessment and Plan (1) Alcoholic hepatitis: Code(s): K70.10 - Alcoholic hepatitis without ascites Status: Acute Assessment and Plan: severe alcoholic hepatitis with high discriminant factor and MELD score (creatinine improved but still high bili)- did not start on steroids given current pneumonia continue with supportive care and encourage to eat with 2gNa, also supplements prognosis is guarde (2) GI bleed: Qualifiers: GI bleed type/associated pathology: unspecified gastrointestinal hemorrhage type Qualified Code(s): K92.2 - Gastrointestinal hemorrhage, unspecified Code(s): K92.2 - Gastrointestinal hemorrhage, unspecified Status: Acute Assessment and Plan: esophagitis and gastric ulcers on ppi twice daily hb has been stable for several days after transfusion (3) Acute blood loss anemia: Code(s): D62 - Acute posthemorrhagic anemia Status: Acute Assessment and Plan: hb stable (4) Gastric ulcer: Code(s): K25.9 - Gastric ulcer, unspecified as acute or chronic, without hemorrhage or perforation Status: Acute Assessment and Plan: on ppi (5) Alcohol abuse: Code(s): F10.10 - Alcohol abuse, uncomplicated Status: Acute Assessment and Plan: etoh cessation thiamine, mvi, nutrition support and will need rehab (6) Anasarca: Code(s): R60.1 - Generalized edema Status: Acute (7) Ventral hernia: Code(s): K43.9 - Ventral hernia without obstruction or gangrene Status: Acute Assessment and Plan: large size but poor candidate for surgery, no rebound (8) Acute renal failure: Code(s): N17.9 - Acute kidney failure, unspecified Status: Acute Assessment and Plan: creatinine has improved after medical treatment (9) Weakness generalized: Code(s): R53.1 - Weakness Status: Acute Assessment and Plan: with severe alcoholic hepatitis and alcohol abuse Subjective Date/time seen: 10/09/20 13:24 Interval history: still weak but participating with OT/PT and trying to move around more, she is also eating. Review of Systems Review of Systems: All systems reviewed & are unremarkable except as noted in HPI and below Exam Const: General: ill appearing chronically Nutritional Appearance: obese Other: obese HENMT: General nose exam: Normal nares present Eyes: Other: jaundice Neck: Neck: supple Resp: Auscultation: clear to auscultation bilaterally Cardio: Rate: regular rate GI: Inspection: distended GI Palp: Yes Soft to palpation and No Guarding due to palpation present (GI) Other: large ventral hernia without rebound Skin: General skin exam: jaundice Neuro: Speech: normal speech Extrem: General: edema and pedal edema Psych: Affect: Anxious affect present Objective Data Vital Signs Vital Signs: Vital Signs - 24 hr 10/08/20 14:00 10/08/20 22:25 10/09/20 06:48 Temperature 97.9 F 97.2 F L 97.9 F Pulse Rate 93 96 95 Respiratory Rate 16 18 16 Blood Pressure 116/47 L 117/49 L 115/53 L Pulse Oximetry 100 100 98 10/09/20 08:16 Temperature Pulse Rate Respiratory Rate Blood Pressure Pulse Oximetry 96 Intake/Output Intake/Output: Intake & Output 10/06/20 10/07/20 10/08/20 10/09/20 23:59 23:59 23:59 23:59 Intake Total 540 1690 1620 570 Output Total 350 850 950 550 Balance 190 840 670 20 Meds/Results Medications: Active Medications Generic Name Dose Route Start Last Admin Trade Name Freq PRN Reason Stop Dose Admin Albuterol 2 puff 10/01/20 14:43 Albuterol Sulfate (*Sp) Aerosol 1 Puff INHALATION QIDRT PRN Shortness Of Breath Folic Acid 1 mg 10/02/20 09:00 10/09/20 08:07 Folic Acid 1 Mg Tablet PO 1 mg DAILY NORMAN Administration Lorazepam 1 mg 10/05/20 02:42 Lorazepam Inj (*Crx) 2 Mg/Ml Vial IV PUSH Q4H PRN Anxiety Multivitamins/Calcium 1 tablet 10/02/20
[2020-10-09 14:00] VITALS: BP 105/40; PULSE 89; RESP 18; TEMP 36.6; O2SAT 99
--- NOTE | 2020-10-09 15:30 | PM.IMPN ---
Progress Note: A&P Assessment and Plan (1) Severe sepsis: Code(s): A41.9 - Sepsis, unspecified organism; R65.20 - Severe sepsis without septic shock Status: Acute Assessment and Plan: Patient was seen by GI and had a EGD and colonoscopy EGD shows ulceration and gastritis. patient is placed on PPI and Carafate . colonoscopy did not show any significant pathology, patient has a significant large ventral hernia about a month ago it was reducible and currently is not able to be reduced, patient is seen by surgery service currently patient is not a candidate for surgery once clinically stable will need a re-evaluation, patient is being diuresed with spironolactone, patient is on lactulose, will continue to monitor and follow. PT OT working with the patient. (2) Pneumonia: Qualifiers: Laterality: right Lung location: unspecified part of lung Pneumonia type: due to unspecified organism Qualified Code(s): J18.9 - Pneumonia, unspecified organism Code(s): J18.9 - Pneumonia, unspecified organism Status: Acute Assessment and Plan: Most likely community-acquired pneumonia patient was treated with Rocephin azithromycin D#7 IV antibiotics and stopped antibiotics 10/08 pm (3) Profound anemia: Code(s): D64.9 - Anemia, unspecified Status: Acute Assessment and Plan: Most likely secondary to GI bleed with history of alcohol abuse patient , hgb stable at 8.0 (4) Anasarca: Code(s): R60.1 - Generalized edema Status: Acute Assessment and Plan: Most likely secondary to liver cirrhosis and hypoalbumia no proteinuria and echo normal EF 65% aldactone started 10/07 and now at 50 mg bid (5) Alcohol abuse: Code(s): F10.10 - Alcohol abuse, uncomplicated Status: Acute Assessment and Plan: Patient will benefit from alcohol rehab thiamine and prn benzo. no withdrawl (6) Heart murmur: Code(s): R01.1 - Cardiac murmur, unspecified Status: Acute Assessment and Plan: probable flow murmer from anemia , no valve lesions on echo (7) Gastric ulcer: Code(s): K25.9 - Gastric ulcer, unspecified as acute or chronic, without hemorrhage or perforation Status: Acute Assessment and Plan: Nonbleeding, PPI and Carafate started (8) Ventral hernia: Code(s): K43.9 - Ventral hernia without obstruction or gangrene Status: Acute Assessment and Plan: Followed by surgery. May need further evaluation wants further after stabilizes (9) Acute renal failure: Code(s): N17.9 - Acute kidney failure, unspecified Status: Acute Assessment and Plan: Creatinine decreased to 1.5 again today continue to monitor. No obstruction seen on CT scan (10) Acute blood loss anemia: Code(s): D62 - Acute posthemorrhagic anemia Status: Acute Assessment and Plan: Secondary to GI bleeding with hemoglobin stable after transfusion of 2 units of packed cells (11) Alcoholic hepatitis: Code(s): K70.10 - Alcoholic hepatitis without ascites Status: Acute Assessment and Plan: With marked elevation of bili(28 today) and persistent elevated LFTs. CT revealed diffuse of fatty infiltration of the liver Hep AB and C serology negative, further markers pending, no iron overload, probable all secondary to ETOH low dose aldactone Subjective Date/time seen: 10/09/20 15:30 Interval history: Date of visit10/09 Patient was seen during the morning rounds today. Patient states feels better today, working with OT/PT . No chest pain. Mood stable. Sitting up in chair and in no distress. Appetite fair and eating better Exam Narrative: Exam Narrative: Blood pressure 106/70 pulse is 86 saturating 99% on room air afebrile Patient is morbidly obese, chronically ill older than her age and jaundiced Patient is comfortable, NAD HEENT: Eyes icteric LUNGS: Clear today CV regular rate rhythm ,sys
[2020-10-09 16:31] LABS: SARS-CoV-2 RNA PCR Negative
[2020-10-09 22:00] VITALS: BP 106/42; PULSE 94; RESP 21; TEMP 36.8; O2SAT 100
[2020-10-10 06:00] VITALS: BP 100/48; PULSE 91; RESP 20; TEMP 36.4; O2SAT 98
[2020-10-10 06:38] LABS: Alanine Aminotransferase 70 U/L (4-35); Albumin Level 3.3 g/dL (3.5-5.1); Alkaline Phosphatase 130 U/L (38-126); Anion Gap 9 mmol/L (8-16); Aspartate Amino Transferase 180 U/L (14-36); Bilirubin,Total 28.8 mg/dL (0.2-1.3); Blood Urea Nitrogen 34 mg/dL (7-17); Calcium 9.2 mg/dL (8.4-10.2); Carbon Dioxide 27 mmol/L (22-30); Chloride 94 mmol/L (98-107); Estimated CRCL calculation 48 ml/min; Estimated Glomerular Filt Rate 31; Glucose 89 mg/dL (65-105); Potassium 3.6 mmol/L (3.4-5.0); Sodium 130 mmol/L (137-145)
[2020-10-10] MEDS: SPIRONOLACTONE 50 MG TABLET PO ×2 (08:28→16:13)
[2020-10-10] MEDS: FOLIC ACID 1 MG TABLET PO (08:28)
[2020-10-10] MEDS: THIAMINE HCL 100 MG TABLET PO (08:28)
[2020-10-10] MEDS: PANTOPRAZOLE SODIUM IV 40 MG VIAL IV PUSH ×2 (08:28→21:27)
[2020-10-10] MEDS: THERAPEUTIC MULTIVITAMINS/MINERALS TAB (*BKC) 1 TABLET PO (08:28)
[2020-10-10 11:29] LABS: Hematocrit 25.2 % (37.0-47.0); Mean Corpuscular HGB Conc 31.7 g/dl (32-36); Mean Corpuscular Hemoglobin 27.6 pg (26-34); Mean Corpuscular Volume 86.9 fl (80-100); Mean Platelet Volume 10.4 fl (7.4-10.4); Platelet Count Result 234 k/mm3 (150-375); Red Cell Distribution Width 31.7 % (11.5-14.5); White Blood Count 13.6 K/mm3 (4.5-10.0)
--- NOTE | 2020-10-10 13:56 | WPDGIPROGNO ---
Progress Note: A&P Assessment and Plan (1) Alcoholic hepatitis: Code(s): K70.10 - Alcoholic hepatitis without ascites Status: Acute Assessment and Plan: severe alcoholic hepatitis with high discriminant factor and MELD score- did not start on steroids given current pneumonia. She is eating more and slowly getting stronger prognosis is guarded (2) GI bleed: Qualifiers: GI bleed type/associated pathology: unspecified gastrointestinal hemorrhage type Qualified Code(s): K92.2 - Gastrointestinal hemorrhage, unspecified Code(s): K92.2 - Gastrointestinal hemorrhage, unspecified Status: Acute Assessment and Plan: esophagitis and gastric ulcers on ppi twice daily hb has been stable for several days after transfusion (3) Acute blood loss anemia: Code(s): D62 - Acute posthemorrhagic anemia Status: Acute Assessment and Plan: hb stable (4) Gastric ulcer: Code(s): K25.9 - Gastric ulcer, unspecified as acute or chronic, without hemorrhage or perforation Status: Acute Assessment and Plan: on ppi (5) Alcohol abuse: Code(s): F10.10 - Alcohol abuse, uncomplicated Status: Acute Assessment and Plan: etoh cessation thiamine, mvi, nutrition support and will need rehab (6) Anasarca: Code(s): R60.1 - Generalized edema Status: Acute Assessment and Plan: on aldactone, 2g na diet (7) Ventral hernia: Code(s): K43.9 - Ventral hernia without obstruction or gangrene Status: Acute Assessment and Plan: large size but poor candidate for surgery, no rebound, no nausea (8) Acute renal failure: Code(s): N17.9 - Acute kidney failure, unspecified Status: Acute Assessment and Plan: continue to monitor (9) Weakness generalized: Code(s): R53.1 - Weakness Status: Acute Assessment and Plan: with severe alcoholic hepatitis and alcohol abuse participating more with PT/OT Subjective Date/time seen: 10/10/20 12:15 Interval history: she is having lunch, also participating with OT/PT. Denies any new events Review of Systems Review of Systems: All systems reviewed & are unremarkable except as noted in HPI and below Exam Const: General: ill appearing chronically Nutritional Appearance: obese Other: obese HENMT: General nose exam: Normal nares present Eyes: Other: jaundice Neck: Neck: supple Resp: Auscultation: clear to auscultation bilaterally Cardio: Rate: regular rate GI: Inspection: distended GI Palp: Yes Soft to palpation and No Guarding due to palpation present (GI) Other: large ventral hernia without rebound Skin: General skin exam: jaundice Neuro: Speech: normal speech Extrem: General: edema and pedal edema Psych: Affect: Anxious affect present Objective Data Vital Signs Vital Signs: Vital Signs - 24 hr 10/09/20 14:00 10/09/20 22:00 10/10/20 06:00 Temperature 97.8 F 98.3 F 97.5 F L Pulse Rate 89 94 91 Respiratory Rate 18 21 H 20 Blood Pressure 105/40 L 106/42 L 100/48 L Pulse Oximetry 99 100 98 Intake/Output Intake/Output: Intake & Output 10/07/20 10/08/20 10/09/20 10/10/20 23:59 23:59 23:59 23:59 Intake Total 1690 1620 1180 690 Output Total 850 950 550 550 Balance 840 670 630 140 Meds/Results Medications: Active Medications Generic Name Dose Route Start Last Admin Trade Name Freq PRN Reason Stop Dose Admin Albuterol 2 puff 10/01/20 14:43 Albuterol Sulfate (*Sp) Aerosol 1 Puff INHALATION QIDRT PRN Shortness Of Breath Folic Acid 1 mg 10/02/20 09:00 10/10/20 08:28 Folic Acid 1 Mg Tablet PO 1 mg DAILY NORMAN Administration Lorazepam 1 mg 10/05/20 02:42 Lorazepam Inj (*Crx) 2 Mg/Ml Vial IV PUSH Q4H PRN Anxiety Multivitamins/Calcium 1 tablet 10/02/20 09:00 10/10/20 08:28 Therapeutic Multivitamins/Minerals Tab (*Bkc) PO 1 tablet QAM NORMAN Administration Pant
[2020-10-10 14:00] VITALS: BP 110/42; PULSE 96; RESP 18; TEMP 36.7; O2SAT 100
--- NOTE | 2020-10-10 18:41 | PM.IMPN ---
Progress Note: A&P Assessment and Plan (1) Weakness generalized: Code(s): R53.1 - Weakness Status: Acute Assessment and Plan: PT/OT to evla and treat Likely secondary to acute illness. (2) Gastric ulcer: Code(s): K25.9 - Gastric ulcer, unspecified as acute or chronic, without hemorrhage or perforation Status: Acute Assessment and Plan: On PPI GI following (3) Ventral hernia: Code(s): K43.9 - Ventral hernia without obstruction or gangrene Status: Acute Assessment and Plan: With patient's comorbidities unable to have surgery. (4) Acute renal failure: Code(s): N17.9 - Acute kidney failure, unspecified Status: Acute Assessment and Plan: Likely multifactorial. Hepatorenal syndrome may be contributing as well. (5) Alcoholic hepatitis: Code(s): K70.10 - Alcoholic hepatitis without ascites Status: Acute Assessment and Plan: Patient states that has quit. MVT, Thiamine, Folic acid. (6) Alcohol abuse: Code(s): F10.10 - Alcohol abuse, uncomplicated Status: Acute Assessment and Plan: Has quit (7) Ascites: Code(s): R18.8 - Other ascites Status: Acute Assessment and Plan: Likely secondary to (8) Hepatic steatosis: Code(s): K76.0 - Fatty (change of) liver, not elsewhere classified Status: Acute (9) Anasarca: Code(s): R60.1 - Generalized edema Status: Acute Assessment and Plan: Likely secondary to hypoalbuminemia. On Aldactone (10) Bloody stools: Code(s): K92.1 - Melena Status: Acute Assessment and Plan: Gastric ulcers On PPI. (11) Profound anemia: Code(s): D64.9 - Anemia, unspecified Status: Acute Assessment and Plan: S/p EGD found to have GI ulcer on PPI (12) Acute blood loss anemia: Code(s): D62 - Acute posthemorrhagic anemia Status: Acute Assessment and Plan: Transfuse as needed. Continue to monitor Subjective Date/time seen: 10/10/20 18:41 I feel better Review of Systems Review of Systems: Narrative: Patient presented to ED mainly because of swelling of her legs and sob. Noticed some discoloration back in July of 2020, has not seen a doctor in 15 + years, has been drinking 3 prepared drinks x 4 weekly for many years. Constitutional: Constitutional: Reports weight gain Comments: Feeling tired. Eyes: Comments: Icterus. Cardiovascular: Comments: B/L LE swelling. Respiratory: Comments: sob. Gastrointestinal: Comments: umbilical hernia. Musculoskeletal: Comments: edema. Integumentary/Breasts: Skin/Breast: Reports change in pigmentation (Jaundiced.) Neurologic: Comments: no sensory motor deficit. Exam Narrative: Exam Narrative: Sitting in bed. Const: General: comfortable, no acute distress and other (Acutely ill looking, jaundiced.) Nutritional Appearance: overweight Orientation/consciousness: patient oriented x3 HENMT: Head: normocephalic Ears: hearing grossly normal bilaterally General nose exam: Normal external nose present Face and sinus: normal facial exam Eyes: Sclera: scleral abnormality bilateral (Icterus.) other Pupils: Equal, round and reactive pupils present EOM: EOMs intact bilaterally Neck: Neck: supple and no JVD Resp: Auscultation: clear to auscultation bilaterally Cardio: Jugular venous distension: no JVD Rate: regular rate Rhythm: regular rhythm GI: Inspection: other (Large umbilical hernia.) GI Palp: Yes Hernia present (Umbilical.) Skin: General skin exam: jaundice Wounds: no wounds Neuro: General: patient oriented x3 and CN's II-XI intact bilaterally Cranial nerves: Yes CN's II-XII intact bilaterally and Yes Equal, round and reactive pupils present Cognition (Neuro): normal cognition Motor exam (neuro): 5/5 motor strength present throughout Extrem: General: other (B/L LE edema 4+) Objective Data Vital Signs Vital Signs
[2020-10-10 22:00] VITALS: BP 108/43; PULSE 98; RESP 21; TEMP 36.4; O2SAT 100
[2020-10-11 06:00] VITALS: BP 107/48; PULSE 87; RESP 18; TEMP 36.1; O2SAT 96
[2020-10-11] MEDS: THERAPEUTIC MULTIVITAMINS/MINERALS TAB (*BKC) 1 TABLET PO (10:10)
[2020-10-11] MEDS: PANTOPRAZOLE SODIUM IV 40 MG VIAL IV PUSH ×2 (10:10→20:55)
[2020-10-11] MEDS: FOLIC ACID 1 MG TABLET PO (10:10)
[2020-10-11] MEDS: SPIRONOLACTONE 50 MG TABLET PO ×2 (10:11→17:31)
[2020-10-11] MEDS: THIAMINE HCL 100 MG TABLET PO (10:11)
--- NOTE | 2020-10-11 11:18 | PCNFU ---
Nutrition Follow-Up Complete: Suboptimal oral intake related to ETOH abuse as evidenced by patient statements, present NPO status. Goal: Patient to meet estimated nutritional needs. Patient is meeting current nutrition goal. No new goal. Pt current nutrition is 2 gram low sodium diet. Last recorded weight is 138.6 kg. Up from 131.5 kg from admit. Bowel Motility: +BM 10/10/2020 Labs Reviewed: Hgb 8.0, Hct 25.2, Alb 3.3, Na 130, GFR 31, BUN 34, Cr 1.7 Meds Noted: folic acid, multivitamin calcium, pantoprazole sodium, spironolactone, thiamine Additional Notes: Patient seen for nutrition follow up today. She is consuming 60-100% of her meals. Tried ensure clear but does not like it so she plans to try the chocolate ensure. Discussed diet with patient today will add patient instruction to discharge paperwork. Monitoring: weight, labs, medication, oral intake every 7 days.
[2020-10-11 11:24] LABS: Hematocrit 25.4 % (37.0-47.0); Hemoglobin 8.1 g/dL (12.0-15.0); Mean Corpuscular HGB Conc 31.9 g/dl (32-36); Mean Corpuscular Hemoglobin 26.9 pg (26-34); Mean Corpuscular Volume 84.4 fl (80-100); Mean Platelet Volume 9.9 fl (7.4-10.4); Platelet Count Result 232 k/mm3 (150-375); Red Blood Count 3.01 M/mm3 (4.2-5.4); Red Cell Distribution Width 30.9 % (11.5-14.5)
--- NOTE | 2020-10-11 11:33 | PCNSR ---
On 10/11/20, the student, Laura Jacinto, provided care and completed [facility] documentation on this patient. I have reviewed the student's documentation and agree with the findings.
[2020-10-11 11:40] LABS: Alanine Aminotransferase 65 U/L (4-35); Albumin Level 3.2 g/dL (3.5-5.1); Alkaline Phosphatase 140 U/L (38-126); Anion Gap 8 mmol/L (8-16); Aspartate Amino Transferase 157 U/L (14-36); Blood Urea Nitrogen 36 mg/dL (7-17); Carbon Dioxide 27 mmol/L (22-30); Chloride 94 mmol/L (98-107); Estimated CRCL calculation 44 ml/min; Estimated Glomerular Filt Rate 27; Glucose 102 mg/dL (65-105); Potassium 3.6 mmol/L (3.4-5.0); Sodium 129 mmol/L (137-145)
[2020-10-11 11:47] LABS: Bilirubin,Total 29.6 mg/dL (0.2-1.3)
--- NOTE | 2020-10-11 12:55 | WPDGIPROGNO ---
Progress Note: A&P Assessment and Plan (1) Alcoholic hepatitis: Code(s): K70.10 - Alcoholic hepatitis without ascites Status: Acute Assessment and Plan: severe alcoholic hepatitis with high discriminant factor and MELD score- did not start on steroids given current pneumonia. She is eating more and slowly getting stronger, still high bilirubin and creatinine 1.7 I talked to her today about seeing a section maintainer as outpatient at [facility], probably will benefit from liver transplant evaluation if she can be abstinent for more than 6 months. will start zinc daily prognosis is guarded (2) GI bleed: Qualifiers: GI bleed type/associated pathology: unspecified gastrointestinal hemorrhage type Qualified Code(s): K92.2 - Gastrointestinal hemorrhage, unspecified Code(s): K92.2 - Gastrointestinal hemorrhage, unspecified Status: Acute Assessment and Plan: esophagitis and gastric ulcers on admission continue with ppi twice daily hb has been stable for several days after transfusion (3) Acute blood loss anemia: Code(s): D62 - Acute posthemorrhagic anemia Status: Acute Assessment and Plan: hb stable (4) Gastric ulcer: Code(s): K25.9 - Gastric ulcer, unspecified as acute or chronic, without hemorrhage or perforation Status: Acute Assessment and Plan: on ppi (5) Alcohol abuse: Code(s): F10.10 - Alcohol abuse, uncomplicated Status: Acute Assessment and Plan: etoh cessation thiamine, mvi, nutrition support and will need rehab (6) Anasarca: Code(s): R60.1 - Generalized edema Status: Acute Assessment and Plan: on aldactone, 2g na diet (7) Ventral hernia: Code(s): K43.9 - Ventral hernia without obstruction or gangrene Status: Acute Assessment and Plan: large size but poor candidate for surgery, no rebound, no nausea (8) Acute renal failure: Code(s): N17.9 - Acute kidney failure, unspecified Status: Acute Assessment and Plan: continue to monitor (9) Weakness generalized: Code(s): R53.1 - Weakness Status: Acute Assessment and Plan: with severe alcoholic hepatitis and alcohol abuse participating more with PT/OT Subjective Date/time seen: 10/11/20 12:55 Interval history: she had good breakfast and trying her best to work with therapist Review of Systems Review of Systems: All systems reviewed & are unremarkable except as noted in HPI and below Exam Const: General: ill appearing chronically Nutritional Appearance: obese Other: obese HENMT: General nose exam: Normal nares present Eyes: Other: jaundice Neck: Neck: supple Resp: Auscultation: clear to auscultation bilaterally Cardio: Rate: regular rate GI: Inspection: distended GI Palp: Yes Soft to palpation and No Guarding due to palpation present (GI) Other: large ventral hernia without rebound Skin: General skin exam: jaundice Neuro: Speech: normal speech Extrem: General: edema and pedal edema Psych: Affect: Anxious affect present Objective Data Vital Signs Vital Signs: Vital Signs - 24 hr 10/10/20 14:00 10/10/20 22:00 10/11/20 06:00 Temperature 98.1 F 97.6 F 97.0 F L Pulse Rate 96 98 87 Respiratory Rate 18 21 H 18 Blood Pressure 110/42 L 108/43 L 107/48 L Pulse Oximetry 100 100 96 Intake/Output Intake/Output: Intake & Output 10/08/20 10/09/20 10/10/20 10/11/20 23:59 23:59 23:59 23:59 Intake Total 1620 1180 1570 720 Output Total 950 550 850 500 Balance 670 630 720 220 Meds/Results Medications: Active Medications Generic Name Dose Route Start Last Admin Trade Name Freq PRN Reason Stop Dose Admin Albuterol 2 puff 10/01/20 14:43 Albuterol Sulfate (*Sp) Aerosol 1 Puff INHALATION QIDRT PRN Shortness Of Breath Folic Acid 1 mg 10/02/20 09:00 10/11/20 10:10 Folic Acid 1 Mg Tablet PO 1 mg DAILY NORMAN Administration Lorazepam 1
[2020-10-11 14:00] VITALS: BP 100/37; PULSE 69; RESP 18; TEMP 36.6; O2SAT 99
--- NOTE | 2020-10-11 18:44 | PM.IMPN ---
Progress Note: A&P Assessment and Plan (1) Weakness generalized: Code(s): R53.1 - Weakness Status: Acute Assessment and Plan: Likely secondary to acute illness. (2) Gastric ulcer: Code(s): K25.9 - Gastric ulcer, unspecified as acute or chronic, without hemorrhage or perforation Status: Acute Assessment and Plan: S/p EGD PPI (3) Ventral hernia: Code(s): K43.9 - Ventral hernia without obstruction or gangrene Status: Acute Assessment and Plan: No signs of ischemia. Supportive care. (4) Acute renal failure: Code(s): N17.9 - Acute kidney failure, unspecified Status: Acute Assessment and Plan: Continue to monitor Suspect pre renal etiology Will obtain a renal US Daily BMP (5) Alcoholic hepatitis: Code(s): K70.10 - Alcoholic hepatitis without ascites Status: Acute Assessment and Plan: Prognosis is guarded (6) Alcohol abuse: Code(s): F10.10 - Alcohol abuse, uncomplicated Status: Acute Assessment and Plan: Patient states that has quit. Supportive care (7) Ascites: Code(s): R18.8 - Other ascites Status: Acute Assessment and Plan: S/p paracentesis (8) Hepatic steatosis: Code(s): K76.0 - Fatty (change of) liver, not elsewhere classified Status: Acute Assessment and Plan: Likely due to inflammation Obesity ETOH abuse (9) Pneumonia: Qualifiers: Laterality: right Lung location: unspecified part of lung Pneumonia type: due to unspecified organism Qualified Code(s): J18.9 - Pneumonia, unspecified organism Code(s): J18.9 - Pneumonia, unspecified organism Status: Acute Assessment and Plan: Continue antibiotics Stable (10) Incarcerated ventral hernia: Code(s): K43.6 - Other and unspecified ventral hernia with obstruction, without gangrene Status: Acute Assessment and Plan: No signs of ischemia. Continue to monitor. Subjective Date/time seen: 10/11/20 18:44 Patient has no new complains. No new issues overnight. Review of Systems Review of Systems: Narrative: Jaundice, b/l le swelling. Constitutional: Comments: fatigue. Integumentary/Breasts: Comments: jaundice Neurologic: Comments: no sensory motor deficit. Exam Narrative: Exam Narrative: Sitting in chair. Const: General: other (Acutely ill looking.) Nutritional Appearance: overweight Orientation/consciousness: patient oriented x3 HENMT: Head: normal to inspection and normocephalic Face and sinus: normal facial exam Eyes: Sclera: scleral abnormality (Icterus.) Pupils: Equal, round and reactive pupils present EOM: EOMs intact bilaterally Neck: Neck: no lymphadenopathy, supple and no JVD Resp: Auscultation: clear to auscultation bilaterally Cardio: Jugular venous distension: no JVD Rate: regular rate Rhythm: regular rhythm GI: Inspection: distended and visible herniation (Ventral) Skin: General skin exam: other (Jaundice.) Neuro: General: patient oriented x3 Cranial nerves: Yes CN's II-XII intact bilaterally and Yes Equal, round and reactive pupils present Cognition (Neuro): normal cognition Motor exam (neuro): 5/5 motor strength present throughout Extrem: General: other (B/L LE edema 4 +) Objective Data Vital Signs Vital Signs: Vital Signs - 24 hr 10/10/20 22:00 10/11/20 06:00 10/11/20 14:00 Temperature 97.6 F 97.0 F L 97.8 F Pulse Rate 98 87 69 Respiratory Rate 21 H 18 18 Blood Pressure 108/43 L 107/48 L 100/37 L Pulse Oximetry 100 96 99 Intake/Output Intake/Output: Intake & Output 10/08/20 10/09/20 10/10/20 10/11/20 23:59 23:59 23:59 23:59 Intake Total 1620 1180 1570 1100 Output Total 950 550 850 700 Balance 670 630 720 400 Meds/Results Medications: Active Medications Generic Name Dose Route Start Last Admin Trade Name Freq PRN Reason Stop Dose Admin Albuterol 2 puff 10/01/20 14:43 Albu
[2020-10-11 21:48] VITALS: BP 116/53; PULSE 96; RESP 18; TEMP 36.9; O2SAT 98
[2020-10-12 06:00] VITALS: BP 110/47; PULSE 93; RESP 18; TEMP 36.6; O2SAT 98
--- NOTE | 2020-10-12 08:38 | PM.PNNEP ---
Progress Note: A&P Assessment and Plan (1) Acute renal failure: Code(s): N17.9 - Acute kidney failure, unspecified Status: Acute Assessment and Plan: the patient started out with a creatinine of 1.2 and this has risen. So the patient has acute kidney injury. The patient has been getting diuretics. She says she has been making lots of urine but she has also been drinking lots of water. Is possibly she may have some pre renal azotemia because of her liver disease. She does have pulmonary hypertension as well which is mild. This probably is not interfering with forward flow enough to cause an elevated creatinine. Obstruction is a possibility. Will get a renal ultrasound I doubt if this is hepatorenal syndrome because she is making lots of urine. Interstitial nephritis is possible but she does not have a fever or rash. Glomerulonephritis is unlikely in the setting but we can check this out. rhabdomyolysis is always possible will check a CPK will check a renal ultrasound, urine electrolytes and eosinophils, serology in immuno fix. The patient may have underlying chronic kidney disease as well. She has not been a diet to a doctor in years and it is hard to tell. (2) Alcoholic hepatitis: Code(s): K70.10 - Alcoholic hepatitis without ascites Status: Acute Assessment and Plan: The patient has been drinking heavily for 4 years. She says she quit 1 week ago. (3) Anasarca: Code(s): R60.1 - Generalized edema Status: Acute Assessment and Plan: The patient has severe swelling. Echo does not show much . Venous Dopplers are negative. most likely this is due to her liver disease. (4) Gastric ulcer: Code(s): K25.9 - Gastric ulcer, unspecified as acute or chronic, without hemorrhage or perforation Status: Acute Assessment and Plan: She is being seen by Dr. Cody (5) Ventral hernia: Code(s): K43.9 - Ventral hernia without obstruction or gangrene Status: Acute (6) Bloody stools: Code(s): K92.1 - Melena Status: Acute Assessment and Plan: she is being seen by Dr. Cody (7) Anemia: Code(s): D64.9 - Anemia, unspecified Status: Acute Assessment and Plan: hemoglobin is stable. Subjective Date/time seen: 10/12/20 08:38 Interval history: Peter a very pleasant 55-year-old lady who has multiple medical problems including alcohol abuse disorder, large ventral hernia, alcoholic hepatitis, morbid obesity, who was admitted with shortness of breath. The patient is used alcohol heavily for years. In July the patient started having swelling. At was just in the right leg with then it was both legs and now involves the hips and belly as well. This gradually progressed over the last couple of months. She 1st noted jaundice in July as well. She did not really do anything about this for the 1st couple of months but then when she began to get short of breath she decided to come to the emergency room at [facility]. The shortness of breath has been going on for couple of days. It is worse with exertion. She does not have a cough or fever. No chest pain. She has had poor appetite as well with nausea and vomiting. One time she had some coffee-ground emesis. The patient also has a large abdominal hernia which has been going on for a few years. At it was small in she could just wear tight pants however a ventrally it has grown in to a large grapefruit sized hernia. The patient says she has never been told of kidney disease. However she has not been to the doctor lately at all. On admission her creatinine was 1.2. Over the next few days it jhony to 2.2 then fell to 1.5 and most recently was 1.9. She is making a lot of urine. She does not have any bloody urine or foamy urine. No kidney stones or bladder infections. No pain with urination. She says that she has bee
[2020-10-12] MEDS: SPIRONOLACTONE 50 MG TABLET PO (08:51)
[2020-10-12] MEDS: THERAPEUTIC MULTIVITAMINS/MINERALS TAB (*BKC) 1 TABLET PO (08:51)
[2020-10-12] MEDS: ZINC SULFATE 220 MG CAPSULE PO (08:51)
[2020-10-12] MEDS: PANTOPRAZOLE SODIUM IV 40 MG VIAL IV PUSH ×2 (08:51→20:40)
[2020-10-12] MEDS: FOLIC ACID 1 MG TABLET PO (08:51)
[2020-10-12] MEDS: THIAMINE HCL 100 MG TABLET PO (08:51)
[2020-10-12 10:37] LABS: Creatine Kinase 25 U/L (30-135)
[2020-10-12 10:41] LABS: Complement C3 85 mg/dL (88-165)
[2020-10-12 10:45] LABS: Erythrocyte Sedimentation Rate 84 mm/hr (0-20)
[2020-10-12 10:47] LABS: Iron 98 ug/dL (37-170)
[2020-10-12 10:57] LABS: Percent Iron Saturation 46 % (20-50)
[2020-10-12 11:36] LABS: Creatinine Urine 144.4 mg/dL; Total Protein Urine Random 16 mg/dL; Ur Ttl Prot Creatinine Ratio 0.11 mg/mg (0-0.20)
[2020-10-12 11:37] LABS: Sodium Urine Random 10 meq/L
[2020-10-12 14:00] VITALS: BP 117/46; PULSE 93; RESP 16; TEMP 36.9; O2SAT 98
--- NOTE | 2020-10-12 14:06 | WPDGIPROGNO ---
Progress Note: A&P Assessment and Plan (1) Alcoholic hepatitis: Code(s): K70.10 - Alcoholic hepatitis without ascites Status: Acute Assessment and Plan: severe alcoholic hepatitis with high discriminant factor and MELD score- did not start on steroids given current pneumonia. She is eating more, still high bilirubin and rising creatinine 1.9- work up in progress but probably also HRS Given severity of alcoholic hepatitis, she will need to seea sales assoc as outpatient at [facility], probably will benefit from liver transplant evaluation if she can be abstinent for more than 6 months. started on zinc daily prognosis is guarded get labs again tomorrow to recalculate meld score (2) GI bleed: Qualifiers: GI bleed type/associated pathology: unspecified gastrointestinal hemorrhage type Qualified Code(s): K92.2 - Gastrointestinal hemorrhage, unspecified Code(s): K92.2 - Gastrointestinal hemorrhage, unspecified Status: Acute Assessment and Plan: esophagitis and gastric ulcers on admission continue with ppi twice daily hb has been stable for several days after transfusion (3) Acute blood loss anemia: Code(s): D62 - Acute posthemorrhagic anemia Status: Acute Assessment and Plan: hb stable (4) Gastric ulcer: Code(s): K25.9 - Gastric ulcer, unspecified as acute or chronic, without hemorrhage or perforation Status: Acute Assessment and Plan: on ppi (5) Alcohol abuse: Code(s): F10.10 - Alcohol abuse, uncomplicated Status: Acute Assessment and Plan: etoh cessation thiamine, mvi, nutrition support and will need rehab (6) Anasarca: Code(s): R60.1 - Generalized edema Status: Acute Assessment and Plan: on aldactone, 2g na diet (7) Ventral hernia: Code(s): K43.9 - Ventral hernia without obstruction or gangrene Status: Acute Assessment and Plan: large size but poor candidate for surgery, no rebound, no nausea (8) Acute renal failure: Code(s): N17.9 - Acute kidney failure, unspecified Status: Acute Assessment and Plan: continue to monitor, probably HRS nephrology evaluation (9) Weakness generalized: Code(s): R53.1 - Weakness Status: Acute Assessment and Plan: with severe alcoholic hepatitis and alcohol abuse participating more with PT/OT Subjective Date/time seen: 10/12/20 14:06 Interval history: no really major changes, she is eating all her meals and now also chocolate flavor ensure Review of Systems Review of Systems: All systems reviewed & are unremarkable except as noted in HPI and below Exam Const: General: ill appearing chronically Nutritional Appearance: obese Other: obese HENMT: General nose exam: Normal nares present Eyes: Other: jaundice Neck: Neck: supple Resp: Auscultation: clear to auscultation bilaterally Cardio: Rate: regular rate GI: Inspection: distended GI Palp: Yes Soft to palpation and No Guarding due to palpation present (GI) Other: large ventral hernia without rebound Skin: General skin exam: jaundice Neuro: Speech: normal speech Extrem: General: edema and pedal edema Psych: Affect: Anxious affect present Objective Data Vital Signs Vital Signs: Vital Signs - 24 hr 10/11/20 21:48 10/12/20 06:00 Temperature 98.4 F 97.9 F Pulse Rate 96 93 Respiratory Rate 18 18 Blood Pressure 116/53 L 110/47 L Pulse Oximetry 98 98 Intake/Output Intake/Output: Intake & Output 10/09/20 10/10/20 10/11/20 10/12/20 23:59 23:59 23:59 23:59 Intake Total 1180 1570 1100 360 Output Total 550 850 700 100 Balance 630 720 400 260 Meds/Results Medications: Active Medications Generic Name Dose Route Start Last Admin Trade Name Freq PRN Reason Stop Dose Admin Albuterol 2 puff 10/01/20 14:43 Albuterol Sulfate (*Sp) Aerosol 1 Puff INHALATION QIDRT PRN Shortness Of Breath Folic Acid 1 mg 0
--- NOTE | 2020-10-12 18:50 | PM.IMPN ---
Progress Note: A&P Assessment and Plan (1) Weakness generalized: Code(s): R53.1 - Weakness Status: Acute Assessment and Plan: Likely secondary to acte illness. Participating with PT/OT in therapy sessions. (2) Gastric ulcer: Code(s): K25.9 - Gastric ulcer, unspecified as acute or chronic, without hemorrhage or perforation Status: Acute Assessment and Plan: On PPI Stable (3) Ventral hernia: Code(s): K43.9 - Ventral hernia without obstruction or gangrene Status: Acute Assessment and Plan: No signs of ischemia Continue to monitor (4) Acute renal failure: Code(s): N17.9 - Acute kidney failure, unspecified Status: Acute Assessment and Plan: Continue to monitor Bun/Cr Pre renal Appreciate Nephrology note (5) Alcoholic hepatitis: Code(s): K70.10 - Alcoholic hepatitis without ascites Status: Acute Assessment and Plan: Prognosis is guarded Follow up with hepatology as recommended (6) Alcohol abuse: Code(s): F10.10 - Alcohol abuse, uncomplicated Status: Acute Assessment and Plan: Abstinent, plans to continue. (7) Ascites: Code(s): R18.8 - Other ascites Status: Acute Assessment and Plan: Secondary to Hepatic cirrhosis S/p paracentesis Fluid studies on the works (8) Pneumonia: Qualifiers: Laterality: right Lung location: unspecified part of lung Pneumonia type: due to unspecified organism Qualified Code(s): J18.9 - Pneumonia, unspecified organism Code(s): J18.9 - Pneumonia, unspecified organism Status: Acute Assessment and Plan: Stable Continue antibiotics (9) Incarcerated ventral hernia: Code(s): K43.6 - Other and unspecified ventral hernia with obstruction, without gangrene Status: Acute Assessment and Plan: Continue to monitor No signs of ischemia Subjective Date/time seen: 10/12/20 18:50 States that feels better. Review of Systems Review of Systems: Narrative: No new issues overnight. Constitutional: Comments: generalized weakness. Eyes: Comments: icterus. Respiratory: Comments: no sob, no cough, no sputum production. Gastrointestinal: Comments: distended abdomen Musculoskeletal: Comments: edema Integumentary/Breasts: Comments: jaundice Neurologic: Comments: no tremors. Exam Narrative: Exam Narrative: Sitting in bed. Const: General: comfortable, no acute distress, alert, awake, Physically active and ill appearing Nutritional Appearance: overweight Orientation/consciousness: patient oriented x3 HENMT: Head: normal to inspection and normocephalic Face and sinus: normal facial exam Eyes: Sclera: scleral abnormality (Icterus.) Neck: Neck: no lymphadenopathy, supple and no JVD Resp: Effort & Inspection: able to speak in complete sentences Auscultation: clear to auscultation bilaterally Cardio: Rate: regular rate Rhythm: regular rhythm GI: Inspection: distended and other (Ventral hernia) Skin: General skin exam: other (Jaundice.) Neuro: General: patient oriented x3 and CN's II-XI intact bilaterally Cranial nerves: Yes CN's II-XII intact bilaterally and Yes Equal, round and reactive pupils present Cognition (Neuro): normal cognition Speech: normal speech Motor exam (neuro): 5/5 motor strength present throughout, No tremor noted and No asterixis Extrem: General: pedal edema bilaterally 4+ Objective Data Vital Signs Vital Signs: Vital Signs - 24 hr 10/11/20 21:48 10/12/20 06:00 10/12/20 14:00 Temperature 98.4 F 97.9 F 98.4 F Pulse Rate 96 93 93 Respiratory Rate 18 18 16 Blood Pressure 116/53 L 110/47 L 117/46 L Pulse Oximetry 98 98 98 Intake/Output Intake/Output: Intake & Output 10/09/20 10/10/20 10/11/20 10/12/20 23:59 23:59 23:59 23:59 Intake Total 1180 1570 1100 800 Output Total 550 850 700 300 Balance 630 720 400 500 Meds/Results Medications: Active Medication
[2020-10-12 21:18] VITALS: BP 110/40; PULSE 95; RESP 18; TEMP 36.9; O2SAT 99
[2020-10-13 05:37] LABS: INR 1.8; Prothrombin Time 21.8 Seconds (11.1-14.7)
[2020-10-13 05:54] LABS: Alanine Aminotransferase 60 U/L (4-35); Albumin Level 2.9 g/dL (3.5-5.1); Alkaline Phosphatase 139 U/L (38-126); Anion Gap 9 mmol/L (8-16); Aspartate Amino Transferase 129 U/L (14-36); Blood Urea Nitrogen 36 mg/dL (7-17); Calcium 8.8 mg/dL (8.4-10.2); Carbon Dioxide 25 mmol/L (22-30); Chloride 97 mmol/L (98-107); Estimated CRCL calculation 42 ml/min; Estimated Glomerular Filt Rate 26; Glucose 95 mg/dL (65-105); Phosphorus 3.9 mg/dL (2.5-4.5); Potassium 3.4 mmol/L (3.4-5.0); Sodium 131 mmol/L (137-145)
[2020-10-13 06:00] VITALS: BP 117/56; PULSE 95; RESP 18; TEMP 36.7; O2SAT 98
[2020-10-13 06:05] LABS: Bilirubin,Total 28.3 mg/dL (0.2-1.3)
[2020-10-13] MEDS: THERAPEUTIC MULTIVITAMINS/MINERALS TAB (*BKC) 1 TABLET PO (09:02)
[2020-10-13] MEDS: FOLIC ACID 1 MG TABLET PO (09:02)
[2020-10-13] MEDS: THIAMINE HCL 100 MG TABLET PO (09:02)
[2020-10-13] MEDS: PANTOPRAZOLE SODIUM IV 40 MG VIAL IV PUSH (09:02)
[2020-10-13] MEDS: ZINC SULFATE 220 MG CAPSULE PO (09:02)
[2020-10-13 10:23] VITALS: O2SAT 99
--- NOTE | 2020-10-13 12:43 | WPDGIPROGNO ---
Progress Note: A&P Assessment and Plan (1) Alcoholic hepatitis: Code(s): K70.10 - Alcoholic hepatitis without ascites Status: Acute Assessment and Plan: severe alcoholic hepatitis with high discriminant factor and MELD score 32 today- did not start on steroids given recent pneumonia (already treated). Given severity of alcoholic hepatitis, she will need to see water treatment plant engineer as outpatient at [facility], probably will benefit from liver transplant evaluation if she can be abstinent for more than 6 months. continue with thiamine, zinc daily prognosis is guarded given high MELD score- no major changes in value since admission (2) GI bleed: Qualifiers: GI bleed type/associated pathology: unspecified gastrointestinal hemorrhage type Qualified Code(s): K92.2 - Gastrointestinal hemorrhage, unspecified Code(s): K92.2 - Gastrointestinal hemorrhage, unspecified Status: Acute Assessment and Plan: esophagitis and gastric ulcers on admission continue with ppi twice daily- change to po hb has been stable for several days after transfusion (3) Acute blood loss anemia: Code(s): D62 - Acute posthemorrhagic anemia Status: Acute Assessment and Plan: hb stable (4) Gastric ulcer: Code(s): K25.9 - Gastric ulcer, unspecified as acute or chronic, without hemorrhage or perforation Status: Acute Assessment and Plan: on ppi- will change to oral today (5) Alcohol abuse: Code(s): F10.10 - Alcohol abuse, uncomplicated Status: Acute Assessment and Plan: etoh cessation thiamine, mvi, nutrition support and will need rehab (6) Leukocytosis: Code(s): D72.829 - Elevated white blood cell count, unspecified Status: Acute Assessment and Plan: rising wbc probably from stress and also alcoholic hepatitis, she already received antibiotic for pneumonia no fever but continue to monitor (7) Anasarca: Code(s): R60.1 - Generalized edema Status: Acute Assessment and Plan: 2g na diet (8) Ventral hernia: Code(s): K43.9 - Ventral hernia without obstruction or gangrene Status: Acute Assessment and Plan: large size but poor candidate for surgery, no rebound, no nausea (9) Acute renal failure: Code(s): N17.9 - Acute kidney failure, unspecified Status: Acute Assessment and Plan: probably HRS, I discontinue aldactone for now nephrology evaluation (10) Weakness generalized: Code(s): R53.1 - Weakness Status: Acute Assessment and Plan: with severe alcoholic hepatitis and alcohol abuse participating more with PT/OT Subjective Date/time seen: 10/13/20 12:43 Interval history: she is proud of herself after able to complete physical therapy, good appetite, no new issues. Review of Systems Review of Systems: All systems reviewed & are unremarkable except as noted in HPI and below Exam Const: General: ill appearing chronically Nutritional Appearance: obese Other: obese HENMT: General nose exam: Normal nares present Eyes: Other: jaundice Neck: Neck: supple Resp: Auscultation: clear to auscultation bilaterally Cardio: Rate: regular rate GI: Inspection: distended GI Palp: Yes Soft to palpation and No Guarding due to palpation present (GI) Other: large ventral hernia without rebound Skin: General skin exam: jaundice Neuro: Speech: normal speech Extrem: General: edema and pedal edema Psych: Affect: Anxious affect present Objective Data Vital Signs Vital Signs: Vital Signs - 24 hr 10/12/20 14:00 10/12/20 21:18 10/13/20 06:00 Temperature 98.4 F 98.5 F 98.0 F Pulse Rate 93 95 95 Respiratory Rate 16 18 18 Blood Pressure 117/46 L 110/40 L 117/56 L Pulse Oximetry 98 99 98 10/13/20 10:23 Temperature Pulse Rate Respiratory Rate Blood Pressure Pulse Oximetry 99 Intake/Output Intake/Output: Intake & Output 10/10/20 10/11/20 10/12/20
[2020-10-13 14:00] VITALS: BP 108/52; PULSE 86; RESP 18; TEMP 36.9; O2SAT 98
--- NOTE | 2020-10-13 14:36 | PM.PNNEP ---
Progress Note: A&P Assessment and Plan (1) Acute renal failure: Code(s): N17.9 - Acute kidney failure, unspecified Status: Acute Assessment and Plan: the patient started out with a creatinine of 1.2 and this has risen. Renal ultrasound is unremarkable. Urine electrolytes are pre renal. Urinalysis is bland CPK is normal Urine eosinophils pending At this point looks like she has pre renal azotemia most likely because of her cirrhosis. She also probably has alcoholic hepatitis as her liver enzymes are elevated but these are improving. So perhaps some of her liver function will improve as her hepatitis improves. This may lead to less of a prerenal picture. At this point I would like to give a small amount of IV fluids and see how she does. She does already have some swelling but her renal function continues to deteriorate so will try fluids see if it improves it. (2) Alcoholic hepatitis: Code(s): K70.10 - Alcoholic hepatitis without ascites Status: Acute Assessment and Plan: The patient has been drinking heavily for 4 years. She says she quit 1 week ago. (3) Anasarca: Code(s): R60.1 - Generalized edema Status: Acute Assessment and Plan: The patient has severe swelling. Echo does not show much . Venous Dopplers are negative. most likely this is due to her liver disease. Hopefully this improves as the alcoholic hepatitis improved (4) Gastric ulcer: Code(s): K25.9 - Gastric ulcer, unspecified as acute or chronic, without hemorrhage or perforation Status: Acute Assessment and Plan: She is being seen by Dr. Cody (5) Ventral hernia: Code(s): K43.9 - Ventral hernia without obstruction or gangrene Status: Acute (6) Bloody stools: Code(s): K92.1 - Melena Status: Acute Assessment and Plan: she is being seen by Dr. Cody (7) Anemia: Code(s): D64.9 - Anemia, unspecified Status: Acute Assessment and Plan: hemoglobin is stable. Subjective Date/time seen: 10/13/20 14:36 Interval history: Peter a very pleasant 55-year-old lady with acute kidney injury. Her admission creatinine was 1.2. It is unknown if this is her baseline or if she already had renal issues on admission. The creatinine has risen gradually. She was on diuretics early on but these have been discontinued. Objective Data Vital Signs Vital Signs: Vital Signs - 24 hr 10/12/20 21:18 10/13/20 06:00 10/13/20 10:23 Temperature 36.9 C 36.7 C Pulse Rate 95 95 Respiratory Rate 18 18 Blood Pressure 110/40 L 117/56 L Pulse Oximetry 99 98 99 Intake/Output Intake/Output: Intake & Output 10/10/20 10/11/20 10/12/20 10/13/20 23:59 23:59 23:59 23:59 Intake Total 1570 1100 800 480 Output Total 850 700 300 500 Balance 720 400 500 -20 Meds/Results Medications: Active Medications Generic Name Dose Route Start Last Admin Trade Name Freq PRN Reason Stop Dose Admin Albuterol 2 puff 10/01/20 14:43 Albuterol Sulfate (*Sp) Aerosol 1 Puff INHALATION QIDRT PRN Shortness Of Breath Folic Acid 1 mg 10/02/20 09:00 10/13/20 09:02 Folic Acid 1 Mg Tablet PO 1 mg DAILY NORMAN Administration Lorazepam 1 mg 10/05/20 02:42 Lorazepam Inj (*Crx) 2 Mg/Ml Vial IV PUSH Q4H PRN Anxiety Multivitamins/Calcium 1 tablet 10/02/20 09:00 10/13/20 09:02 Therapeutic Multivitamins/Minerals Tab (*Bkc) PO 1 tablet QAM NORMAN Administration Pantoprazole Sodium 40 mg 10/13/20 21:00 Pantoprazole 40 Mg Tablet PO Q12HR NORMAN Thiamine HCl 100 mg 10/02/20 09:00 10/13/20 09:02 Thiamine Hcl 100 Mg Tablet PO 100 mg QAM NORMAN Administration Tramadol HCl 25 mg 10/05/20 22:17 10/05/20 22:55 Tramadol Hcl (*Crx) 25 Mg Tablet PO 25 mg ONCE PRN Administration Pain Rated 4-6 Zinc Sulfate 220 mg 10/12/20 09:00 10/13/20 09:02 Zinc Sulfate 220 Mg Caps
[2020-10-13] MEDS: SODIUM CHLORIDE 0.9% IV 1,000 ML 100 ML IV CONT (15:19)
[2020-10-13] MEDS: CEFUROXIME AXETIL 250 MG TABLET 500 MG PO (18:56)
--- NOTE | 2020-10-13 19:02 | PM.IMPN ---
Progress Note: A&P Assessment and Plan (1) Leukocytosis: Code(s): D72.829 - Elevated white blood cell count, unspecified Status: Acute Assessment and Plan: Clinically no signs of infection. Will continue to monitor, will trend. Repeat chest xr shows improvement of infiltrates Started Ceftin 500 po bid as patient received iv antibiotic therapy x 48 hour (2) Weakness generalized: Code(s): R53.1 - Weakness Status: Acute Assessment and Plan: Participating with PT/OT in therapy sessions. (3) Gastric ulcer: Code(s): K25.9 - Gastric ulcer, unspecified as acute or chronic, without hemorrhage or perforation Status: Acute Assessment and Plan: On PPI (4) Ventral hernia: Code(s): K43.9 - Ventral hernia without obstruction or gangrene Status: Acute Assessment and Plan: Non reducible No signs of ischemia. (5) Acute renal failure: Code(s): N17.9 - Acute kidney failure, unspecified Status: Acute Assessment and Plan: Likely to be prerenal Continue to monitor Appreciate Nephrology note. (6) Alcoholic hepatitis: Code(s): K70.10 - Alcoholic hepatitis without ascites Status: Acute Assessment and Plan: Prognosis is guarded Appreciate GI note Supportive care (7) Elevated serum creatinine: Code(s): R79.89 - Other specified abnormal findings of blood chemistry Status: Acute Assessment and Plan: Will trend Avoid nephrotoxins Appreciate Nephro note (8) Alcohol abuse: Code(s): F10.10 - Alcohol abuse, uncomplicated Status: Acute Assessment and Plan: Patient states that has quit Encouraged to remain abstinent (9) Anasarca: Code(s): R60.1 - Generalized edema Status: Acute Assessment and Plan: Secondary to hepatic Cirrhosis (10) Ascites: Code(s): R18.8 - Other ascites Status: Acute Assessment and Plan: Secondary to Hepatic Cirrhosis Subjective Date/time seen: 10/13/20 19:02 I feel much better. Review of Systems Review of Systems: Narrative: Jaundice. Constitutional: Constitutional: Reports lethargy Eyes: Comments: icterus. Cardiovascular: Comments: no chest pain, no pnd Respiratory: Comments: no cough, no sob. Gastrointestinal: Comments: Ventral hernia. Musculoskeletal: Comments: B/L LE swelling. Integumentary/Breasts: Comments: jaundice. Neurologic: Comments: no tremors Exam Narrative: Exam Narrative: Sitting in bed. Const: General: no acute distress, alert, awake and Physically active Nutritional Appearance: overweight Orientation/consciousness: patient oriented x3 HENMT: Head: normocephalic Face and sinus: normal facial exam Eyes: Sclera: scleral abnormality (Icterus.) bilateral Pupils: Equal, round and reactive pupils present EOM: EOMs intact bilaterally Neck: Neck: no lymphadenopathy, supple and no JVD Resp: Effort & Inspection: able to speak in complete sentences Auscultation: clear to auscultation bilaterally Cardio: Rate: regular rate Rhythm: regular rhythm GI: Inspection: distended and other (Large ventral hernia, non reducible.) GI Palp: Yes Soft to palpation and Yes No hepatosplenomegaly present Skin: General skin exam: jaundice Wounds: no wounds Neuro: Cranial nerves: Yes CN's II-XII intact bilaterally and Yes Equal, round and reactive pupils present Cognition (Neuro): normal cognition Speech: normal speech Motor exam (neuro): 5/5 motor strength present throughout Extrem: General: edema bilateral (4+) Objective Data Vital Signs Vital Signs: Vital Signs - 24 hr 10/12/20 21:18 10/13/20 06:00 10/13/20 10:23 Temperature 98.5 F 98.0 F Pulse Rate 95 95 Respiratory Rate 18 18 Blood Pressure 110/40 L 117/56 L Pulse Oximetry 99 98 99 10/13/20 14:00 Temperature 98.5 F Pulse Rate 86 Respiratory Rate 18 Blood Pressure 108/52 L Pulse Oximetry 98 Intake/Output Intake/Out
[2020-10-13] MEDS: PANTOPRAZOLE 40 MG TABLET PO (20:44)
[2020-10-13] MEDS: traMADol HCL (*CRX) 25 MG TABLET PO (21:21)
[2020-10-13 22:00] VITALS: BP 106/50; PULSE 93; RESP 18; TEMP 36.7; O2SAT 100
[2020-10-14 06:00] VITALS: BP 118/50; PULSE 91; RESP 18; TEMP 36.8; O2SAT 98
[2020-10-14 06:09] LABS: Basophils Absolute Auto 0.1 K/mm3 (0.0-0.1); Basophils Percent Auto 0.6 % (0.2-1.2); Eosinophils Absolute Auto 0.3 K/mm3 (0-0.3); Eosinophils Percent Auto 1.6 % (0-4.4); Hematocrit 23.6 % (37.0-47.0); Hemoglobin 7.6 g/dL (12.0-15.0); Immature Granulocyte Absolute 0.12 K/mm3 (0.00-0.031); Immature Granulocyte Percent A 0.7 % (0-0.5); Immature Platelet Fraction Pct 4.6 % (0.9-11.2); Lymphocytes Absolute Auto 1.04 K/mm3 (0.9-3.2); Lymphocytes Percent Auto 6.1 % (18.3-44.2); Mean Corpuscular HGB Conc 32.2 g/dl (32-36); Mean Corpuscular Hemoglobin 27.3 pg (26-34); Mean Corpuscular Volume 84.9 fl (80-100); Mean Platelet Volume 9.9 fl (7.4-10.4); Monocytes Absolute Auto 1.3 K/mm3 (0.1-0.6); Monocytes Percent Auto 7.4 % (2.6-8.5); Neutrophils Absolute Auto 14.3 K/mm3 (1.3-6.7); Neutrophils Percent Auto 83.6 % (45.5-73.1); Platelet Count Result 267 k/mm3 (150-375); Red Blood Count 2.78 M/mm3 (4.2-5.4); Red Cell Distribution Width 30.7 % (11.5-14.5); White Blood Count 17.1 K/mm3 (4.5-10.0)
[2020-10-14 06:17] LABS: Albumin Level 2.9 g/dL (3.5-5.1); Anion Gap 10 mmol/L (8-16); Blood Urea Nitrogen 40 mg/dL (7-17); Calcium 8.7 mg/dL (8.4-10.2); Carbon Dioxide 23 mmol/L (22-30); Chloride 98 mmol/L (98-107); Estimated CRCL calculation 46 ml/min; Estimated Glomerular Filt Rate 29; Glucose 109 mg/dL (65-105); Phosphorus 4.3 mg/dL (2.5-4.5); Potassium 3.6 mmol/L (3.4-5.0); Sodium 131 mmol/L (137-145)
[2020-10-14] MEDS: CEFUROXIME AXETIL 250 MG TABLET 500 MG PO ×2 (08:22→16:16)
[2020-10-14] MEDS: THIAMINE HCL 100 MG TABLET PO (08:22)
[2020-10-14] MEDS: PANTOPRAZOLE 40 MG TABLET PO ×2 (08:22→21:06)
[2020-10-14] MEDS: FOLIC ACID 1 MG TABLET PO (08:22)
[2020-10-14] MEDS: ZINC SULFATE 220 MG CAPSULE PO (08:22)
[2020-10-14] MEDS: THERAPEUTIC MULTIVITAMINS/MINERALS TAB (*BKC) 1 TABLET PO (08:22)
[2020-10-14 09:55] LABS: Burr Cells 1+ (NORMAL); Hypochromasia 2+ (NORMAL); Platelet Estimate Adequate (Adequate); Poikilocytosis 1+ (NORMAL); Target Cells 1+ (NORMAL)
--- NOTE | 2020-10-14 09:57 | PM.PNNEP ---
Progress Note: A&P Assessment and Plan (1) Acute renal failure: Code(s): N17.9 - Acute kidney failure, unspecified Status: Acute Assessment and Plan: the patient started out with a creatinine of 1.2 and this has risen to 2 and now dropped to 1.8 Renal ultrasound is unremarkable. Urine electrolytes are pre renal. Urinalysis is bland CPK is normal Urine eosinophils pending she received 500cc of ns yesterday. now urinating more. this could be due to the fluids or possibly improvement in alcoholic hepatitis letting some fluid distribute better. will watch for another day and see how the creatinine does. (2) Alcoholic hepatitis: Code(s): K70.10 - Alcoholic hepatitis without ascites Status: Acute Assessment and Plan: The patient has been drinking heavily for 4 years. She says she quit 1 week ago she says she is resolved to stop drinking. I asked her to go to or get some external support mechanism. (3) Anasarca: Code(s): R60.1 - Generalized edema Status: Acute Assessment and Plan: The patient has severe swelling. Echo does not show much . Venous Dopplers are negative. most likely this is due to her liver disease. Hopefully this improves as the alcoholic hepatitis improves (4) Gastric ulcer: Code(s): K25.9 - Gastric ulcer, unspecified as acute or chronic, without hemorrhage or perforation Status: Acute Assessment and Plan: She is being seen by Dr. Cody (5) Ventral hernia: Code(s): K43.9 - Ventral hernia without obstruction or gangrene Status: Acute (6) Bloody stools: Code(s): K92.1 - Melena Status: Acute Assessment and Plan: she is being seen by Dr. Cody (7) Anemia: Code(s): D64.9 - Anemia, unspecified Status: Acute Assessment and Plan: hemoglobin is stable. Subjective Date/time seen: 10/14/20 09:57 Interval history: Peter a very pleasant 55-year-old lady with acute kidney injury. Her admission creatinine was 1.2. It is unknown if this is her baseline or if she already had renal issues on admission. The creatinine peaked at 2 and now is down to 1.8 I really urinated a lot yesterday Review of Systems Cardiovascular: Cardiovascular: Reports no additional cardiovascular complaints Respiratory: Respiratory: Reports no additional respiratory complaints Gastrointestinal: Gastrointestinal: Reports no additional gastrointestinal complaints Genitourinary: Genitourinary: Reports no additional female genitourinary complaints Exam Narrative: Exam Narrative: WDWN in NAD skin no rash. Frankly jaundiced. head ncat lungs clear cor reg no rub or gallop abd BS+ nontender and soft ext no cyanosis clubbing but she does have 2+ symmetric edema. Objective Data Vital Signs Vital Signs: Vital Signs - 24 hr 10/13/20 10:23 10/13/20 14:00 10/13/20 22:00 Temperature 36.9 C 36.7 C Pulse Rate 86 93 Respiratory Rate 18 18 Blood Pressure 108/52 L 106/50 L Pulse Oximetry 99 98 100 10/14/20 06:00 Temperature 36.8 C Pulse Rate 91 Respiratory Rate 18 Blood Pressure 118/50 L Pulse Oximetry 98 Intake/Output Intake/Output: Intake & Output 10/11/20 10/12/20 10/13/20 10/14/20 23:59 23:59 23:59 23:59 Intake Total 3356 817 2934 458 Output Total 686 774 3961 100 Balance 400 500 373 358 Meds/Results Medications: Active Medications Generic Name Dose Route Start Last Admin Trade Name Freq PRN Reason Stop Dose Admin Albuterol 2 puff 10/01/20 14:43 Albuterol Sulfate (*Sp) Aerosol 1 Puff INHALATION QIDRT PRN Shortness Of Breath Cefuroxime Axetil 500 mg 10/13/20 18:40 10/14/20 08:22 Cefuroxime Axetil 250 Mg Tablet PO 500 mg BIDWM NORMAN Administration Folic Acid 1 mg 10/02/20 09:00 10/14/20 08:22 Folic Acid 1 Mg Tablet PO 1 mg DAILY NORMAN Administration Lorazepam 1 mg 10/05/20 02:42 Cherrie
--- NOTE | 2020-10-14 12:45 | WPDGIPROGNO ---
Progress Note: A&P Assessment and Plan (1) Alcoholic hepatitis: Code(s): K70.10 - Alcoholic hepatitis without ascites Status: Acute Assessment and Plan: continue with thiamine, zinc daily, nutrition support. She is comfortable now and last few days she has been participating more with physical therapy and also eating almost 100% meals. prognosis is guarded given high MELD score and also discriminant function- no major changes in value since admission and did not start on steroids given recent pneumonia (already treated). Given severity of alcoholic hepatitis, she will need to see tag marker as outpatient at [facility], probably will benefit from liver transplant evaluation if she can be abstinent for more than 6 months. work up for other causes of cirrhosis negative, also had CT scan a/p on admission, no lesions to explain marked jaundice will follow from [place], call if questions. 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 treatment with ppi hb has been stable for several days after transfusion (3) Acute blood loss anemia: Code(s): D62 - Acute posthemorrhagic anemia Status: Acute Assessment and Plan: hb stable (4) Gastric ulcer: Code(s): K25.9 - Gastric ulcer, unspecified as acute or chronic, without hemorrhage or perforation Status: Acute (5) Alcohol abuse: Code(s): F10.10 - Alcohol abuse, uncomplicated Status: Acute Assessment and Plan: etoh cessation thiamine, mvi, nutrition support and will need rehab (6) Leukocytosis: Code(s): D72.829 - Elevated white blood cell count, unspecified Status: Acute Assessment and Plan: leukocytosis but afebrile and no source of infection, probably from stress and also severe alcoholic hepatitis, she already received IV antibiotic for pneumonia, now on oral antibiotic by primary team (7) Anasarca: Code(s): R60.1 - Generalized edema Status: Acute Assessment and Plan: 2g na diet (8) Ventral hernia: Code(s): K43.9 - Ventral hernia without obstruction or gangrene Status: Acute Assessment and Plan: large size but poor candidate for surgery, no rebound, no nausea (9) Acute renal failure: Code(s): N17.9 - Acute kidney failure, unspecified Status: Acute Assessment and Plan: probably HRS, I discontinued aldactone for now nephrology evaluation (10) Weakness generalized: Code(s): R53.1 - Weakness Status: Acute Assessment and Plan: with severe alcoholic hepatitis and alcohol abuse participating more with PT/OT Subjective Date/time seen: 10/14/20 12:45 Interval history: no changes, still eating and she says that is getting used to low salt diet. Review of Systems Review of Systems: All systems reviewed & are unremarkable except as noted in HPI and below Exam Const: General: ill appearing chronically Nutritional Appearance: obese Other: obese HENMT: General nose exam: Normal nares present Eyes: Other: jaundice Neck: Neck: supple Resp: Auscultation: clear to auscultation bilaterally Cardio: Rate: regular rate GI: Inspection: distended GI Palp: Yes Soft to palpation and No Guarding due to palpation present (GI) Other: large ventral hernia without rebound Skin: General skin exam: jaundice Neuro: Speech: normal speech Extrem: General: edema and pedal edema Psych: Affect: Anxious affect present Objective Data Vital Signs Vital Signs: Vital Signs - 24 hr 10/13/20 14:00 10/13/20 22:00 10/14/20 06:00 Temperature 98.5 F 98.0 F 98.2 F Pulse Rate 86 9
[2020-10-14 13:58] LABS: Kappa\\Lambda Light Chains 1.54 (0.26-1.65); Lambda Light Chain 43.4 mg/L (5.7-26.3)
[2020-10-14 14:00] VITALS: BP 107/40; PULSE 93; RESP 17; TEMP 36.6; O2SAT 99
--- NOTE | 2020-10-14 19:01 | PM.IMPN ---
Progress Note: A&P Assessment and Plan (1) Leukocytosis: Code(s): D72.829 - Elevated white blood cell count, unspecified Status: Acute Assessment and Plan: Trending down No left shift Continue to monitor Clinically no signs of infection Monitor temperature curve (2) Weakness generalized: Code(s): R53.1 - Weakness Status: Acute Assessment and Plan: Participating with PT/OT in therapy sessions (3) Gastric ulcer: Code(s): K25.9 - Gastric ulcer, unspecified as acute or chronic, without hemorrhage or perforation Status: Acute Assessment and Plan: On PPI (4) Ventral hernia: Code(s): K43.9 - Ventral hernia without obstruction or gangrene Status: Acute Assessment and Plan: Non reducible Continue to monitor (5) Acute renal failure: Code(s): N17.9 - Acute kidney failure, unspecified Status: Acute Assessment and Plan: Improved Continue to monitor. (6) Alcoholic hepatitis: Code(s): K70.10 - Alcoholic hepatitis without ascites Status: Acute Assessment and Plan: Stable (7) Elevated serum creatinine: Code(s): R79.89 - Other specified abnormal findings of blood chemistry Status: Acute Assessment and Plan: Trending down. (8) Alcohol abuse: Code(s): F10.10 - Alcohol abuse, uncomplicated Status: Acute Assessment and Plan: States has quit. (9) GI bleed: Qualifiers: GI bleed type/associated pathology: unspecified gastrointestinal hemorrhage type Qualified Code(s): K92.2 - Gastrointestinal hemorrhage, unspecified Code(s): K92.2 - Gastrointestinal hemorrhage, unspecified Status: Acute Assessment and Plan: Gastrci ulcer PPI (10) Profound anemia: Code(s): D64.9 - Anemia, unspecified Status: Acute Assessment and Plan: Likely secondary to illness Renal failure Transfuse as needed. (11) Pneumonia: Qualifiers: Laterality: right Lung location: unspecified part of lung Pneumonia type: due to unspecified organism Qualified Code(s): J18.9 - Pneumonia, unspecified organism Code(s): J18.9 - Pneumonia, unspecified organism Status: Acute Assessment and Plan: On Ceftin. Subjective Date/time seen: 10/14/20 19:01 States that she feels well. Review of Systems Review of Systems: Narrative: Anasarca Constitutional: Comments: no feves, no rigors, no chills. Eyes: Comments: icterus. Cardiovascular: Comments: no chest pain. Respiratory: Comments: no sob Gastrointestinal: Comments: ventral hernia. Musculoskeletal: Comments: B/L LE swelling. Integumentary/Breasts: Comments: jaundice. Neurologic: Comments: no sensory motor deficit Exam Narrative: Exam Narrative: Acutely ill looking. Const: General: comfortable, no acute distress, alert, awake and Physically active Nutritional Appearance: overweight Orientation/consciousness: patient oriented x3 HENMT: Head: normal to inspection and normocephalic Face and sinus: normal facial exam Eyes: Sclera: scleral abnormality (Icterus.) bilateral Pupils: Equal, round and reactive pupils present EOM: EOMs intact bilaterally Neck: Neck: no lymphadenopathy, supple and no JVD Resp: Auscultation: clear to auscultation bilaterally Cardio: Jugular venous distension: no JVD Rate: regular rate Rhythm: regular rhythm GI: Inspection: other (Large ventral hernia.) GI Palp: Yes Soft to palpation and Yes No hepatosplenomegaly present Skin: General skin exam: jaundice Neuro: General: CN's II-XI intact bilaterally Cranial nerves: Yes CN's II-XII intact bilaterally and Yes Equal, round and reactive pupils present Cognition (Neuro): normal cognition Motor exam (neuro): 5/5 motor strength present throughout Extrem: General: pedal edema bilaterally 4+ Objective Data Vital Signs Vital Signs: Vital Signs - 24 hr 10/13/20 22:00 10/14/20 0
[2020-10-14 21:59] VITALS: BP 108/56; PULSE 85; RESP 18; TEMP 36.3; O2SAT 96
[2020-10-15 06:00] VITALS: BP 122/54; PULSE 91; RESP 18; TEMP 36.4; O2SAT 96
[2020-10-15 06:08] LABS: Basophils Absolute Auto 0.1 K/mm3 (0.0-0.1); Basophils Percent Auto 0.7 % (0.2-1.2); Eosinophils Absolute Auto 0.3 K/mm3 (0-0.3); Eosinophils Percent Auto 2.1 % (0-4.4); Hematocrit 21.7 % (37.0-47.0); Hemoglobin 7.1 g/dL (12.0-15.0); Immature Granulocyte Absolute 0.11 K/mm3 (0.00-0.031); Immature Granulocyte Percent A 0.7 % (0-0.5); Immature Platelet Fraction Pct 4.5 % (0.9-11.2); Lymphocytes Absolute Auto 1.16 K/mm3 (0.9-3.2); Lymphocytes Percent Auto 7.3 % (18.3-44.2); Mean Corpuscular HGB Conc 32.7 g/dl (32-36); Mean Corpuscular Hemoglobin 28.1 pg (26-34); Mean Corpuscular Volume 85.8 fl (80-100); Mean Platelet Volume 9.5 fl (7.4-10.4); Monocytes Absolute Auto 1.4 K/mm3 (0.1-0.6); Monocytes Percent Auto 8.6 % (2.6-8.5); Neutrophils Absolute Auto 12.9 K/mm3 (1.3-6.7); Neutrophils Percent Auto 80.6 % (45.5-73.1); Platelet Count Result 255 k/mm3 (150-375); Red Blood Count 2.53 M/mm3 (4.2-5.4); Red Cell Distribution Width 30.3 % (11.5-14.5)
[2020-10-15 06:28] LABS: Albumin Level 2.7 g/dL (3.5-5.1); Anion Gap 7 mmol/L (8-16); Blood Urea Nitrogen 38 mg/dL (7-17); Calcium 8.6 mg/dL (8.4-10.2); Carbon Dioxide 27 mmol/L (22-30); Chloride 98 mmol/L (98-107); Estimated CRCL calculation 46 ml/min; Estimated Glomerular Filt Rate 29; Glucose 107 mg/dL (65-105); Phosphorus 4.6 mg/dL (2.5-4.5); Potassium 3.6 mmol/L (3.4-5.0); Sodium 132 mmol/L (137-145)
[2020-10-15 07:56] LABS: Hypochromasia 1+ (NORMAL); Platelet Estimate Adequate (Adequate); Target Cells 1+ (NORMAL)
[2020-10-15 07:57] LABS: Burr Cells 1+ (NORMAL)
[2020-10-15] MEDS: CEFUROXIME AXETIL 250 MG TABLET 500 MG PO ×2 (08:09→16:43)
[2020-10-15] MEDS: PANTOPRAZOLE 40 MG TABLET PO ×2 (08:10→20:31)
[2020-10-15] MEDS: THERAPEUTIC MULTIVITAMINS/MINERALS TAB (*BKC) 1 TABLET PO (08:10)
[2020-10-15] MEDS: ZINC SULFATE 220 MG CAPSULE PO (08:10)
[2020-10-15] MEDS: THIAMINE HCL 100 MG TABLET PO (08:10)
[2020-10-15] MEDS: FOLIC ACID 1 MG TABLET PO (08:10)
--- NOTE | 2020-10-15 11:37 | PM.PNNEP ---
Progress Note: A&P Assessment and Plan (1) Acute renal failure: Code(s): N17.9 - Acute kidney failure, unspecified Status: Acute Assessment and Plan: the patient started out with a creatinine of 1.2 and this has risen to 2 and now dropped to 1.8 and stable there. Renal ultrasound is unremarkable. Urine electrolytes are pre renal. Urinalysis is bland CPK is normal Urine eosinophils pending Creatinine is stable. She is extremely volume overloaded. More fluid might make her creatinine go down but it is going to make her miserable with the swelling. Will try albumin and Lasix and see if that helps mobilize some of this fluid. (2) Alcoholic hepatitis: Code(s): K70.10 - Alcoholic hepatitis without ascites Status: Acute Assessment and Plan: The patient has been drinking heavily for 4 years. She says she quit 1 week ago she says she is resolved to stop drinking. I asked her to go to AA or get some external support mechanism. (3) Anasarca: Code(s): R60.1 - Generalized edema Status: Acute Assessment and Plan: The patient has severe swelling. Echo does not show much . Venous Dopplers are negative. most likely this is due to her liver disease. Hopefully this improves as the alcoholic hepatitis improves Will try temporizing with albumin and Lasix (4) Gastric ulcer: Code(s): K25.9 - Gastric ulcer, unspecified as acute or chronic, without hemorrhage or perforation Status: Acute Assessment and Plan: She is being seen by Dr. Cody (5) Ventral hernia: Code(s): K43.9 - Ventral hernia without obstruction or gangrene Status: Acute (6) Bloody stools: Code(s): K92.1 - Melena Status: Acute Assessment and Plan: she is being seen by Dr. Cody (7) Anemia: Code(s): D64.9 - Anemia, unspecified Status: Acute Assessment and Plan: hemoglobin is stable. Subjective Date/time seen: 10/15/20 11:37 Interval history: Bela is a very pleasant 55-year-old lady with acute kidney injury. Her admission creatinine was 1.2. It is unknown if this is her baseline or if she already had renal issues on admission. The creatinine peaked at 2. She received a little fluid it came down to 1.8 and has stayed there since. Exam Narrative: Exam Narrative: WDWN in NAD skin no rash. Frankly jaundiced. head ncat lungs clear cor reg no rub or gallop abd BS+ nontender and soft ext no cyanosis clubbing but she does have 2+ symmetric edema. Objective Data Vital Signs Vital Signs: Vital Signs - 24 hr 10/14/20 14:00 10/14/20 21:59 10/15/20 06:00 Temperature 36.6 C 36.3 C L 36.4 C L Pulse Rate 93 85 91 Respiratory Rate 17 18 18 Blood Pressure 107/40 L 108/56 L 122/54 L Pulse Oximetry 99 96 96 Intake/Output Intake/Output: Intake & Output 10/12/20 10/13/20 10/14/20 10/15/20 23:59 23:59 23:59 23:59 Intake Total 800 1373 1088 439 Output Total 300 1000 100 200 Balance 500 373 988 239 Meds/Results Medications: Active Medications Generic Name Dose Route Start Last Admin Trade Name Freq PRN Reason Stop Dose Admin Albuterol 2 puff 10/01/20 14:43 Albuterol Sulfate (*Sp) Aerosol 1 Puff INHALATION QIDRT PRN Shortness Of Breath Cefuroxime Axetil 500 mg 10/13/20 18:40 10/15/20 08:09 Cefuroxime Axetil 250 Mg Tablet PO 500 mg BIDWM NORMAN Administration Folic Acid 1 mg 10/02/20 09:00 10/15/20 08:10 Folic Acid 1 Mg Tablet PO 1 mg DAILY NORMAN Administration Lorazepam 1 mg 10/05/20 02:42 Lorazepam Inj (*Crx) 2 Mg/Ml Vial IV PUSH Q4H PRN Anxiety Multivitamins/Calcium 1 tablet 10/02/20 09:00 10/15/20 08:10 Therapeutic Multivitamins/Minerals Tab (*Bkc) PO 1 tablet QAM NORMAN Administration Pantoprazole Sodium 40 mg 10/13/20 21:00 10/15/20 08:10 Pantoprazole 40 Mg Tablet PO 40 mg Q12HR NORMAN Administration Thiamine HCl 10
[2020-10-15 13:55] LABS: Complement Total CH50 46 U/mL (31-60)
[2020-10-15 14:00] VITALS: BP 100/56; PULSE 87; RESP 16; TEMP 36.5; O2SAT 100
[2020-10-15] MEDS: ALBUMIN HUMAN 25% 25 GM/100 ML 100 ML IVPB ×2 (14:42→22:09)
[2020-10-15] MEDS: BUMETANIDE INJ 1 MG/4 ML VIAL IV PUSH ×2 (16:34→23:41)
--- NOTE | 2020-10-15 16:49 | PM.IMPN ---
Progress Note: A&P Assessment and Plan (1) Leukocytosis: Code(s): D72.829 - Elevated white blood cell count, unspecified Status: Acute Assessment and Plan: Trending down No left shift (2) Weakness generalized: Code(s): R53.1 - Weakness Status: Acute Assessment and Plan: PT/OT (3) Gastric ulcer: Code(s): K25.9 - Gastric ulcer, unspecified as acute or chronic, without hemorrhage or perforation Status: Acute Assessment and Plan: ppi (4) Ventral hernia: Code(s): K43.9 - Ventral hernia without obstruction or gangrene Status: Acute Assessment and Plan: Non reducible. (5) Acute renal failure: Code(s): N17.9 - Acute kidney failure, unspecified Status: Acute Assessment and Plan: Marginally improved. (6) Alcoholic hepatitis: Code(s): K70.10 - Alcoholic hepatitis without ascites Status: Acute Assessment and Plan: Prognosis is guarded Follow up in the outpatient setting. (7) Elevated serum creatinine: Code(s): R79.89 - Other specified abnormal findings of blood chemistry Status: Acute Assessment and Plan: Trending down. (8) Alcohol abuse: Code(s): F10.10 - Alcohol abuse, uncomplicated Status: Acute Assessment and Plan: Abstinent currently (9) Hepatic steatosis: Code(s): K76.0 - Fatty (change of) liver, not elsewhere classified Status: Acute Assessment and Plan: Likely secondary to ETOH intake, obesity, inflammation. (10) Anasarca: Code(s): R60.1 - Generalized edema Status: Acute Assessment and Plan: Improved. (11) GI bleed: Qualifiers: GI bleed type/associated pathology: unspecified gastrointestinal hemorrhage type Qualified Code(s): K92.2 - Gastrointestinal hemorrhage, unspecified Code(s): K92.2 - Gastrointestinal hemorrhage, unspecified Status: Acute Assessment and Plan: Gastric ulcer PPI Subjective Date/time seen: 10/15/20 16:49 I feel well. Review of Systems Review of Systems: Narrative: Feeling fatigue at exertion when participating in therapy. Constitutional: Comments: no fevers. Eyes: Comments: icterus Cardiovascular: Comments: no chest pain. Respiratory: Comments: no cough, no sputum production. Gastrointestinal: Comments: no n/v/ Musculoskeletal: Comments: B/L LE swelling. Integumentary/Breasts: Comments: jaundice Neurologic: Comments: no focal weakness. Exam Narrative: Exam Narrative: Acutely ill looking, sitting in bed. Const: General: comfortable, no acute distress, alert, awake and Physically active Nutritional Appearance: overweight Orientation/consciousness: patient oriented x3 HENMT: Head: normal to inspection and normocephalic Face and sinus: normal facial exam Eyes: Conjunctivae: conjunctivae normal (Icterus.) Pupils: Equal, round and reactive pupils present EOM: EOMs intact bilaterally Neck: Neck: no lymphadenopathy, supple and no JVD Resp: Effort & Inspection: able to speak in complete sentences Auscultation: clear to auscultation bilaterally Cardio: Jugular venous distension: no JVD Rate: regular rate Rhythm: regular rhythm GI: Inspection: other (Large ventral hernia.) GI Palp: Yes Soft to palpation and Yes No hepatosplenomegaly present Skin: General skin exam: jaundice Neuro: General: patient oriented x3 and CN's II-XI intact bilaterally Cranial nerves: Yes CN's II-XII intact bilaterally and Yes Equal, round and reactive pupils present Cognition (Neuro): normal cognition Motor exam (neuro): 5/5 motor strength present throughout Extrem: General: pedal edema bilaterally 4+ Objective Data Vital Signs Vital Signs: Vital Signs - 24 hr 10/14/20 21:59 10/15/20 06:00 10/15/20 14:00 Temperature 97.4 F L 97.5 F L 97.7 F Pulse Rate 85 91 87 Respiratory Rate 18 18 16 Blood Pressure 108/56 L 122/54 L 100/56 L Pulse Oximetry 9
[2020-10-15 22:00] VITALS: BP 112/43; PULSE 93; RESP 21; TEMP 36.9; O2SAT 100
[2020-10-16 05:54] LABS: Albumin Level 3.2 g/dL (3.5-5.1); Anion Gap 11 mmol/L (8-16); Blood Urea Nitrogen 37 mg/dL (7-17); Carbon Dioxide 26 mmol/L (22-30); Chloride 97 mmol/L (98-107); Estimated CRCL calculation 44 ml/min; Estimated Glomerular Filt Rate 27; Glucose 96 mg/dL (65-105); Phosphorus 4.4 mg/dL (2.5-4.5); Potassium 3.4 mmol/L (3.4-5.0); Sodium 134 mmol/L (137-145)
[2020-10-16] MEDS: ALBUMIN HUMAN 25% 25 GM/100 ML 100 ML IVPB ×3 (05:57→22:33)
[2020-10-16 06:00] VITALS: BP 142/64; PULSE 91; RESP 20; TEMP 36.3; O2SAT 98
[2020-10-16] MEDS: BUMETANIDE INJ 1 MG/4 ML VIAL IV PUSH ×2 (08:24→15:49)
[2020-10-16] MEDS: CEFUROXIME AXETIL 250 MG TABLET 500 MG PO ×2 (08:26→16:59)
[2020-10-16 08:27] VITALS: RESP 20; O2SAT 98
[2020-10-16] MEDS: ZINC SULFATE 220 MG CAPSULE PO (08:27)
[2020-10-16] MEDS: THERAPEUTIC MULTIVITAMINS/MINERALS TAB (*BKC) 1 TABLET PO (08:27)
[2020-10-16] MEDS: PANTOPRAZOLE 40 MG TABLET PO ×2 (08:27→20:49)
[2020-10-16] MEDS: FOLIC ACID 1 MG TABLET PO (08:27)
[2020-10-16] MEDS: THIAMINE HCL 100 MG TABLET PO (08:27)
[2020-10-16 14:00] VITALS: BP 116/52; PULSE 92; RESP 16; TEMP 36.7; O2SAT 100
--- NOTE | 2020-10-16 15:01 | P.PNNP_ITS ---
Progress Note: A&P Assessment and Plan (1) Acute renal failure: Code(s): N17.9 - Acute kidney failure, unspecified Status: Acute Assessment and Plan: * stable but not back to baseline * creatinine 1.2 on admission then jhony to 2.0 and now dropped to 1.8 - 1.9mg/dl * evaluation to date: - renal ultrasound is unremarkable - urine electrolytes are pre renal (susepct due to liver ph ysiology rather than dehydration) - bland urine sediment * continue IV albumin chased by IV bumex to promote diuresis and minimize fluctuations in kidney function/creatinine (2) Anasarca: Code(s): R60.1 - Generalized edema Status: Acute Assessment and Plan: * quite severe * Echo and venous doppler noted * likely secondary to her liver disease * hopefully this improves as the alcoholic hepatitis improves * continue IV albumin + IV bumex (but is only a temporary fix) (3) Alcoholic hepatitis: Code(s): K70.10 - Alcoholic hepatitis without ascites Status: Acute Assessment and Plan: * patient has been drinking heavily for 4 years * GI following (4) Gastric ulcer: Code(s): K25.9 - Gastric ulcer, unspecified as acute or chronic, without hemorrhage or perforation Status: Acute Assessment and Plan: * s/p EGD with findings noted * on PPI * GI following (5) Anemia: Code(s): D64.9 - Anemia, unspecified Status: Acute Assessment and Plan: * due to gastric ulcer, BRUNO, liver disease * H/H relatively stable * follow trend Will continue to follow. Subjective Date/time seen: 10/16/20 15:01 Seems to be doing better at this time; no acute issues/problems overnight or earlier this AM; reasonable diuresis with combination of IV albumin and IV bumex but not significantly negative with regard to I/Os; no acute distress noted at the time of my visit. Exam Narrative: Exam Narrative: General: ill appearing female in NAD Heart: normal S1 and S2; no rub Lungs: clear to auscultation Abdomen: soft, nontender, positive bowel sounds Extremities: no cyanosis or clubbing; 2+edema Skin: jaundice noted Objective Data Vital Signs Vital Signs: Vital Signs Temp Pulse Resp BP Pulse Ox 10/16/20 14:00 36.7 C 92 16 116/52 L 100 10/16/20 08:27 20 98 10/16/20 06:00 36.3 C L 91 20 142/64 H 98 10/15/20 22:00 36.9 C 93 21 H 112/43 L 100 Intake/Output Intake/Output: Intake & Output 10/13/20 10/14/20 10/15/20 10/16/20 23:59 23:59 23:59 23:59 Intake Total 1373 4737 457 2256 Output Total 1000 151 189 9475 Balance 373 988 399 -380 Meds/Results Medications: Active Medications Generic Name Dose Route Start Last Admin Trade Name Freq PRN Reason Stop Dose Admin Albuterol 2 puff 10/01/20 14:43 Albuterol Sulfate (*Sp) Aerosol 1 Puff INHALATION QIDRT PRN Shortness Of Breath Bumetanide 1 mg 10/15/20 15:30 10/16/20 15:49 Bumetanide Inj 1 Mg/4 Ml Vial IV PUSH 1 mg Q8H NORMAN Administration Cefuroxime Axetil 500 mg 10/13/20 18:40 10/16/20 16:59 Cefuroxime Axetil 250 Mg Tablet PO 500 mg BIDWM NORMAN Administration Folic Acid 1 mg 10/02/20 09:00 10/16/20 08:27
--- NOTE | 2020-10-16 15:01 | PM.PNNEP ---
Progress Note: A&P Assessment and Plan (1) Acute renal failure: Code(s): N17.9 - Acute kidney failure, unspecified Status: Acute Assessment and Plan: stable but not back to baseline creatinine 1.2 on admission then jhony to 2.0 and now dropped to 1.8 - 1.9mg/dl evaluation to date: - renal ultrasound is unremarkable - urine electrolytes are pre renal (susepct due to liver physiology rather than dehydration) - bland urine sediment continue IV albumin chased by IV bumex to promote diuresis and minimize fluctuations in kidney function/creatinine (2) Anasarca: Code(s): R60.1 - Generalized edema Status: Acute Assessment and Plan: quite severe Echo and venous doppler noted likely secondary to her liver disease hopefully this improves as the alcoholic hepatitis improves continue IV albumin + IV bumex (but is only a temporary fix) (3) Alcoholic hepatitis: Code(s): K70.10 - Alcoholic hepatitis without ascites Status: Acute Assessment and Plan: patient has been drinking heavily for 4 years GI following (4) Gastric ulcer: Code(s): K25.9 - Gastric ulcer, unspecified as acute or chronic, without hemorrhage or perforation Status: Acute Assessment and Plan: s/p EGD with findings noted on PPI GI following (5) Anemia: Code(s): D64.9 - Anemia, unspecified Status: Acute Assessment and Plan: due to gastric ulcer, BRUNO, liver disease H/H relatively stable follow trend Will continue to follow. Subjective Date/time seen: 10/16/20 15:01 Seems to be doing better at this time; no acute issues/problems overnight or earlier this AM; reasonable diuresis with combination of IV albumin and IV bumex but not significantly negative with regard to I/Os; no acute distress noted at the time of my visit. Exam Narrative: Exam Narrative: General: ill appearing female in NAD Heart: normal S1 and S2; no rub Lungs: clear to auscultation Abdomen: soft, nontender, positive bowel sounds Extremities: no cyanosis or clubbing; 2+edema Skin: jaundice noted Objective Data Vital Signs Vital Signs: Vital Signs Temp Pulse Resp BP Pulse Ox 10/16/20 14:00 36.7 C 92 16 116/52 L 100 10/16/20 08:27 20 98 10/16/20 06:00 36.3 C L 91 20 142/64 H 98 10/15/20 22:00 36.9 C 93 21 H 112/43 L 100 Intake/Output Intake/Output: Intake & Output 10/13/20 10/14/20 10/15/20 10/16/20 23:59 23:59 23:59 23:59 Intake Total 1373 4408 302 0804 Output Total 1000 393 397 2072 Balance 373 988 399 -380 Meds/Results Medications: Active Medications Generic Name Dose Route Start Last Admin Trade Name Freq PRN Reason Stop Dose Admin Albuterol 2 puff 10/01/20 14:43 Albuterol Sulfate (*Sp) Aerosol 1 Puff INHALATION QIDRT PRN Shortness Of Breath Bumetanide 1 mg 10/15/20 15:30 10/16/20 15:49 Bumetanide Inj 1 Mg/4 Ml Vial IV PUSH 1 mg Q8H NORMAN Administration Cefuroxime Axetil 500 mg 10/13/20 18:40 10/16/20 16:59 Cefuroxime Axetil 250 Mg Tablet PO 500 mg BIDWM NORMAN Administration Folic Acid 1 mg 10/02/20 09:00 10/16/20 08:27 Folic Acid 1 Mg Tablet PO 1 mg DAILY NORMAN Administration Albumin Human 100 mls @ 60 mls/hr 10/15/20 14:00 10/16/20 15:05 Albutein IVPB Infused Q8HR NORMAN Infusion Lorazepam 1 mg 10/05/20 02:42 Lorazepam Inj (*Crx) 2 Mg/Ml Vial IV PUSH Q4H PRN Anxiety Multivitamins/Calcium 1 tablet 10/02/20 09:00 10/16/20 08:27 Therapeutic Multivitamins/Minerals Tab (*Bkc) PO 1 tablet QAM NORMAN Administration Pantoprazole Sodium 40 mg 10/13/20 21:00 10/16/20 08:27 Pantoprazole 40 Mg Tablet PO 40 mg Q12HR NORMAN Administration Thiamine HCl 100 mg 10/02/20 09:00 10/16/20 08:27 Thiamine Hcl 100 Mg Tablet PO 100 mg QAM NORMAN Administration Zinc Sulfate 220 mg 10/12/20 09:00
--- NOTE | 2020-10-16 15:27 | PM.IMPN ---
Progress Note: A&P Assessment and Plan (1) Alcoholic hepatitis: Code(s): K70.10 - Alcoholic hepatitis without ascites Status: Acute Assessment and Plan: Will follow up with [facility] Prognosis is guarded (2) Weakness generalized: Code(s): R53.1 - Weakness Status: Acute Assessment and Plan: Participating with PT/OT (3) Leukocytosis: Code(s): D72.829 - Elevated white blood cell count, unspecified Status: Acute Assessment and Plan: Trending down. Continue to monitor (4) Gastric ulcer: Code(s): K25.9 - Gastric ulcer, unspecified as acute or chronic, without hemorrhage or perforation Status: Acute Assessment and Plan: On PPI (5) Ventral hernia: Code(s): K43.9 - Ventral hernia without obstruction or gangrene Status: Acute Assessment and Plan: Non reducible Continue to monitor (6) Acute renal failure: Code(s): N17.9 - Acute kidney failure, unspecified Status: Acute Assessment and Plan: Bun/Cr trending down (7) Elevated serum creatinine: Code(s): R79.89 - Other specified abnormal findings of blood chemistry Status: Acute Assessment and Plan: Trending down Making urine On Lasix and Albumin (8) Alcohol abuse: Code(s): F10.10 - Alcohol abuse, uncomplicated Status: Acute Assessment and Plan: Encourage abstinence (9) Hepatic steatosis: Code(s): K76.0 - Fatty (change of) liver, not elsewhere classified Status: Acute Assessment and Plan: Likely secondary to obesity, EOTH intake and inflammation Subjective Date/time seen: 10/16/20 15:27 Feels well. No events overnight. Review of Systems Review of Systems: Narrative: No complaints at this time. Exam Narrative: Exam Narrative: Acutely ill looking Const: General: comfortable, no acute distress, alert, awake and Physically active Nutritional Appearance: overweight Orientation/consciousness: patient oriented x3 HENMT: Head: normocephalic Face and sinus: normal facial exam Eyes: General: appearance normal, both eyes and all related structures Pupils: Equal, round and reactive pupils present EOM: EOMs intact bilaterally Neck: Neck: no lymphadenopathy, supple and no JVD Resp: Effort & Inspection: able to speak in complete sentences Auscultation: clear to auscultation bilaterally Cardio: Rate: regular rate Rhythm: regular rhythm GI: Inspection: other (Large ventral hernia) GI Palp: Yes Soft to palpation and Yes No hepatosplenomegaly present Skin: General skin exam: jaundice Neuro: General: patient oriented x3 and CN's II-XI intact bilaterally Cranial nerves: Yes CN's II-XII intact bilaterally and Yes Equal, round and reactive pupils present Cognition (Neuro): normal cognition Motor exam (neuro): 5/5 motor strength present throughout Extrem: General: pedal edema bilaterally 4+ Objective Data Vital Signs Vital Signs: Vital Signs - 24 hr 10/15/20 22:00 10/16/20 06:00 10/16/20 08:27 Temperature 98.5 F 97.3 F L Pulse Rate 93 91 Respiratory Rate 21 H 20 20 Blood Pressure 112/43 L 142/64 H Pulse Oximetry 100 98 98 10/16/20 14:00 Temperature 98.0 F Pulse Rate 92 Respiratory Rate 16 Blood Pressure 116/52 L Pulse Oximetry 100 Intake/Output Intake/Output: Intake & Output 10/13/20 10/14/20 10/15/20 10/16/20 23:59 23:59 23:59 23:59 Intake Total 1373 2858 214 1280 Output Total 1000 131 520 0733 Balance 373 988 399 -380 Meds/Results Medications: Active Medications Generic Name Dose Route Start Last Admin Trade Name Freq PRN Reason Stop Dose Admin Albuterol 2 puff 10/01/20 14:43 Albuterol Sulfate (*Sp) Aerosol 1 Puff INHALATION QIDRT PRN Shortness Of Breath Bumetanide 1 mg 10/15/20 15:30 10/16/20 08:24 Bumetanide Inj 1 Mg/4 Ml Vial IV PUSH 1 mg Q8H NORMAN Administration Cefuroxime Axetil 500 mg 10/13/20
[2020-10-16 17:05] LABS: Basophils Absolute Auto 0.1 K/mm3 (0.0-0.1); Basophils Percent Auto 0.7 % (0.2-1.2); Eosinophils Absolute Auto 0.3 K/mm3 (0-0.3); Eosinophils Percent Auto 1.8 % (0-4.4); Hematocrit 21.8 % (37.0-47.0); Immature Granulocyte Absolute 0.11 K/mm3 (0.00-0.031); Immature Granulocyte Percent A 0.7 % (0-0.5); Immature Platelet Fraction Pct 4.1 % (0.9-11.2); Lymphocytes Percent Auto 7.4 % (18.3-44.2); Mean Corpuscular HGB Conc 32.1 g/dl (32-36); Mean Corpuscular Hemoglobin 27.5 pg (26-34); Mean Corpuscular Volume 85.5 fl (80-100); Mean Platelet Volume 9.6 fl (7.4-10.4); Monocytes Absolute Auto 1.3 K/mm3 (0.1-0.6); Monocytes Percent Auto 9.1 % (2.6-8.5); Neutrophils Absolute Auto 11.8 K/mm3 (1.3-6.7); Neutrophils Percent Auto 80.3 % (45.5-73.1); Platelet Count Result 262 k/mm3 (150-375); Red Blood Count 2.55 M/mm3 (4.2-5.4); Red Cell Distribution Width 30.5 % (11.5-14.5); White Blood Count 14.8 K/mm3 (4.5-10.0)
[2020-10-16 17:20] LABS: Anion Gap 10 mmol/L (8-16); Blood Urea Nitrogen 39 mg/dL (7-17); Calcium 8.9 mg/dL (8.4-10.2); Carbon Dioxide 27 mmol/L (22-30); Chloride 97 mmol/L (98-107); Estimated CRCL calculation 45 ml/min; Estimated Glomerular Filt Rate 29; Glucose 110 mg/dL (65-105); Potassium 3.3 mmol/L (3.4-5.0); Sodium 134 mmol/L (137-145)
[2020-10-16 17:34] LABS: Platelet Estimate Adequate (Adequate)
[2020-10-16 17:35] LABS: Ovalocytes 1+ (NORMAL); Target Cells 1+ (NORMAL)
[2020-10-16 17:36] LABS: Burr Cells 1+ (NORMAL)
[2020-10-16 20:00] VITALS: PULSE 92; RESP 16; O2SAT 100
[2020-10-16 22:00] VITALS: BP 119/46; PULSE 97; RESP 20; TEMP 36.2; O2SAT 98
[2020-10-17] MEDS: BUMETANIDE INJ 1 MG/4 ML VIAL IV PUSH ×4 (00:05→23:07)
[2020-10-17 06:00] VITALS: BP 117/44; PULSE 89; RESP 20; TEMP 36.4; O2SAT 98
[2020-10-17] MEDS: ALBUMIN HUMAN 25% 25 GM/100 ML 100 ML IVPB ×3 (06:16→21:19)
[2020-10-17] MEDS: CEFUROXIME AXETIL 250 MG TABLET 500 MG PO ×2 (08:44→16:55)
[2020-10-17] MEDS: THERAPEUTIC MULTIVITAMINS/MINERALS TAB (*BKC) 1 TABLET PO (08:45)
[2020-10-17] MEDS: THIAMINE HCL 100 MG TABLET PO (08:45)
[2020-10-17] MEDS: ZINC SULFATE 220 MG CAPSULE PO (08:45)
[2020-10-17] MEDS: FOLIC ACID 1 MG TABLET PO (08:45)
[2020-10-17] MEDS: PANTOPRAZOLE 40 MG TABLET PO ×2 (08:45→21:20)
--- NOTE | 2020-10-17 11:47 | P.PNNP_ITS ---
Progress Note: A&P Assessment and Plan (1) Acute renal failure: Code(s): N17.9 - Acute kidney failure, unspecified Status: Acute Assessment and Plan: * stable but not back to baseline * creatinine 1.2 on admission then jhony to 2.0 and now dropped to 1.8 - 1.9mg/dl * evaluation to date: - renal ultrasound is unremarkable - urine electrolytes are pre renal (susepct due to liver ph ysiology rather than dehydration) - bland urine sediment * continue IV albumin chased by IV bumex to promote diuresis and minimize fluctuations in kidney function/creatinine (2) Anasarca: Code(s): R60.1 - Generalized edema Status: Acute Assessment and Plan: * quite severe * Echo and venous doppler noted * likely secondary to her liver disease * hopefully this improves as the alcoholic hepatitis improves * continue IV albumin + IV bumex (but this is only a temporary fix at best) (3) Alcoholic hepatitis: Code(s): K70.10 - Alcoholic hepatitis without ascites Status: Acute Assessment and Plan: * patient has been drinking heavily for 4 years * GI following (4) Gastric ulcer: Code(s): K25.9 - Gastric ulcer, unspecified as acute or chronic, without hemorrhage or perforation Status: Acute Assessment and Plan: * s/p EGD with findings noted * on PPI * GI following (5) Anemia: Code(s): D64.9 - Anemia, unspecified Status: Acute Assessment and Plan: * due to gastric ulcer, BRUNO, liver disease * H/H relatively stable * follow trend Will continue to follow. Subjective Date/time seen: 10/17/20 11:47 Still with significant swelling/edema and is tolerating IV albumin/IV bumex but diuresis still limited based on I/Os although kidney function relatively stable; no other issues/events overnight; no acute distress voiced at the time of my vist. Exam Narrative: Exam Narrative: General: ill appearing female in NAD Heart: normal S1 and S2; no rub Lungs: clear to auscultation Abdomen: soft, nontender, positive bowel sounds Extremities: no cyanosis or clubbing; 2 - 3+edema Skin: jaundice apparent Objective Data Vital Signs Vital Signs: Vital Signs Temp Pulse Resp BP Pulse Ox 10/17/20 06:00 36.4 C L 89 20 117/44 L 98 10/16/20 22:00 36.2 C L 97 20 119/46 L 98 10/16/20 20:00 92 16 100 10/16/20 14:00 36.7 C 92 16 116/52 L 100 Intake/Output Intake/Output: Intake & Output 10/14/20 10/15/20 10/16/20 10/17/20 23:59 23:59 23:59 23:59 Intake Total 9322 563 0027 920 Output Total 572 208 4828 800 Balance 988 399 -510 120 Meds/Results Medications: Active Medications Generic Name Dose Route Start Last Admin Trade Name Freq PRN Reason Stop Dose Admin Albuterol 2 puff 10/01/20 14:43 Albuterol Sulfate (*Sp) Aerosol 1 Puff INHALATION QIDRT PRN Shortness Of Breath Bumetanide 1 mg 10/15/20 15:30 10/17/20 07:47 Bumetanide Inj 1 Mg/4 Ml Vial IV PUSH 1 mg Q8H [facility]MAN Administration Cefuroxime Axetil 500 mg 10/13/20 18:40 10/17/20 08:44 Cefuroxime Axetil 250 Mg Tablet PO 500 mg BIDWM NORMAN Administration Folic Acid 1 mg 10/02/20 09:00 10/17/20 08:45
--- NOTE | 2020-10-17 11:47 | PM.PNNEP ---
Progress Note: A&P Assessment and Plan (1) Acute renal failure: Code(s): N17.9 - Acute kidney failure, unspecified Status: Acute Assessment and Plan: stable but not back to baseline creatinine 1.2 on admission then jhony to 2.0 and now dropped to 1.8 - 1.9mg/dl evaluation to date: - renal ultrasound is unremarkable - urine electrolytes are pre renal (susepct due to liver physiology rather than dehydration) - bland urine sediment continue IV albumin chased by IV bumex to promote diuresis and minimize fluctuations in kidney function/creatinine (2) Anasarca: Code(s): R60.1 - Generalized edema Status: Acute Assessment and Plan: quite severe Echo and venous doppler noted likely secondary to her liver disease hopefully this improves as the alcoholic hepatitis improves continue IV albumin + IV bumex (but this is only a temporary fix at best) (3) Alcoholic hepatitis: Code(s): K70.10 - Alcoholic hepatitis without ascites Status: Acute Assessment and Plan: patient has been drinking heavily for 4 years GI following (4) Gastric ulcer: Code(s): K25.9 - Gastric ulcer, unspecified as acute or chronic, without hemorrhage or perforation Status: Acute Assessment and Plan: s/p EGD with findings noted on PPI GI following (5) Anemia: Code(s): D64.9 - Anemia, unspecified Status: Acute Assessment and Plan: due to gastric ulcer, BRUNO, liver disease H/H relatively stable follow trend Will continue to follow. Subjective Date/time seen: 10/17/20 11:47 Still with significant swelling/edema and is tolerating IV albumin/IV bumex but diuresis still limited based on I/Os although kidney function relatively stable; no other issues/events overnight; no acute distress voiced at the time of my vist. Exam Narrative: Exam Narrative: General: ill appearing female in NAD Heart: normal S1 and S2; no rub Lungs: clear to auscultation Abdomen: soft, nontender, positive bowel sounds Extremities: no cyanosis or clubbing; 2 - 3+edema Skin: jaundice apparent Objective Data Vital Signs Vital Signs: Vital Signs Temp Pulse Resp BP Pulse Ox 10/17/20 06:00 36.4 C L 89 20 117/44 L 98 10/16/20 22:00 36.2 C L 97 20 119/46 L 98 10/16/20 20:00 92 16 100 10/16/20 14:00 36.7 C 92 16 116/52 L 100 Intake/Output Intake/Output: Intake & Output 10/14/20 10/15/20 10/16/20 10/17/20 23:59 23:59 23:59 23:59 Intake Total 8537 345 1193 920 Output Total 207 226 7894 800 Balance 988 399 -510 120 Meds/Results Medications: Active Medications Generic Name Dose Route Start Last Admin Trade Name Freq PRN Reason Stop Dose Admin Albuterol 2 puff 10/01/20 14:43 Albuterol Sulfate (*Sp) Aerosol 1 Puff INHALATION QIDRT PRN Shortness Of Breath Bumetanide 1 mg 10/15/20 15:30 10/17/20 07:47 Bumetanide Inj 1 Mg/4 Ml Vial IV PUSH 1 mg Q8H [facility] Administration Cefuroxime Axetil 500 mg 10/13/20 18:40 10/17/20 08:44 Cefuroxime Axetil 250 Mg Tablet PO 500 mg BIDWM [facility] Administration Folic Acid 1 mg 10/02/20 09:00 10/17/20 08:45 Folic Acid 1 Mg Tablet PO 1 mg DAILY [facility] Administration Albumin Human 100 mls @ 60 mls/hr 10/15/20 14:00 10/17/20 07:57 Albutein IVPB Infused Q8HR [facility] Infusion Lorazepam 1 mg 10/05/20 02:42 Lorazepam Inj (*Crx) 2 Mg/Ml Vial IV PUSH Q4H PRN Anxiety Multivitamins/Calcium 1 tablet 10/02/20 09:00 10/17/20 08:45 Therapeutic Multivitamins/Minerals Tab (*Bkc) PO 1 tablet QAM [facility] Administration Pantoprazole Sodium 40 mg 10/13/20 21:00 10/17/20 08:45 Pantoprazole 40 Mg Tablet PO 40 mg Q12HR [facility]MAN Administration Thiamine HCl 100 mg 10/02/20 09:00 10/17/20 08:45 Thiamine Hcl 100 Mg Tablet PO 100 mg QAM NORMAN Administration Zinc Sulfate 220 mg 10/12/20 0
--- NOTE | 2020-10-17 13:50 | PM.IMPN ---
Progress Note: A&P Assessment and Plan (1) Alcoholic hepatitis: Code(s): K70.10 - Alcoholic hepatitis without ascites Status: Acute Assessment and Plan: Will follow up with [facility] consulted Supportive care continue to monitor bowel movement Prognosis is guarded (2) Weakness generalized: Code(s): R53.1 - Weakness Status: Acute Assessment and Plan: Participating with PT/OT (3) Leukocytosis: Code(s): D72.829 - Elevated white blood cell count, unspecified Status: Acute Assessment and Plan: Continue to monitor (4) Gastric ulcer: Code(s): K25.9 - Gastric ulcer, unspecified as acute or chronic, without hemorrhage or perforation Status: Acute Assessment and Plan: On PPI (5) Ventral hernia: Code(s): K43.9 - Ventral hernia without obstruction or gangrene Status: Acute Assessment and Plan: Non reducible (6) Acute renal failure: Code(s): N17.9 - Acute kidney failure, unspecified Status: Acute Assessment and Plan: creat is 1.8 Seen by nephrology (7) Elevated serum creatinine: Code(s): R79.89 - Other specified abnormal findings of blood chemistry Status: Acute Assessment and Plan: Trending down Making urine On Lasix and Albumin (8) Alcohol abuse: Code(s): F10.10 - Alcohol abuse, uncomplicated Status: Acute Assessment and Plan: Encourage abstinence (9) Hepatic steatosis: Code(s): K76.0 - Fatty (change of) liver, not elsewhere classified Status: Acute Assessment and Plan: Likely secondary to obesity, EOTH intake and inflammation Additional Plan Edematous state continue lasix and albumin combination Anaemia anaemia of chronic disease, continue to monitor. Subjective Date/time seen: 10/17/20 13:50 Interval history: 55-year-old female who has not seen a physician for greater than 15 years who presented to the emergency department earlier today via EMS from home for evaluation of shortness of breath. Pt has history of alcoholic hepatitis, gastric ulcer, ventral hernia. and has swollen abdomen and ankles. Review of Systems Review of Systems: All systems reviewed & are unremarkable except as noted in HPI and below Exam Const: General: other (Jaundiced ) Orientation/consciousness: patient oriented x3 Resp: Effort & Inspection: able to speak in complete sentences Auscultation: clear to auscultation bilaterally Cardio: Jugular venous distension: no JVD Rate: regular rate Rhythm: regular rhythm GI: Inspection: distended, visible herniation (Ventral) and other (Large ventral hernia) Skin: General skin exam: jaundice and other (Jaundice.) Wounds: no wounds Extrem: General: other (4 plus both ankles ) Objective Data Vital Signs Vital Signs: Vital Signs - 24 hr 10/16/20 14:00 10/16/20 20:00 10/16/20 22:00 Temperature 36.7 C 36.2 C L Pulse Rate 92 92 97 Respiratory Rate 16 16 20 Blood Pressure 116/52 L 119/46 L Pulse Oximetry 100 100 98 10/17/20 06:00 Temperature 36.4 C L Pulse Rate 89 Respiratory Rate 20 Blood Pressure 117/44 L Pulse Oximetry 98 Intake/Output Intake/Output: Intake & Output 10/14/20 10/15/20 10/16/20 10/17/20 23:59 23:59 23:59 23:59 Intake Total 8840 132 8499 1100 Output Total 946 040 9585 800 Balance 988 399 -510 300 Meds/Results Medications: Active Medications Generic Name Dose Route Start Last Admin Trade Name Freq PRN Reason Stop Dose Admin Albuterol 2 puff 10/01/20 14:43 Albuterol Sulfate (*Sp) Aerosol 1 Puff INHALATION QIDRT PRN Shortness Of Breath Bumetanide 1 mg 10/15/20 15:30 10/17/20 07:47 Bumetanide Inj 1 Mg/4 Ml Vial IV PUSH 1 mg Q8H NORMAN Administration Cefuroxime Axetil 500 mg 10/13/20 18:40 10/17/20 08:44 Cefuroxime Axetil 250 Mg Tablet PO 500 mg BIDWM NORMAN Administration Folic Acid 1 mg 10/02/20 09:00 10/17/20 08:
[2020-10-17 14:00] VITALS: BP 105/38; PULSE 88; RESP 20; TEMP 36.6; O2SAT 100
[2020-10-17 22:00] VITALS: BP 101/40; PULSE 94; RESP 20; TEMP 36.7; O2SAT 98
[2020-10-18] VITALS (8 sets, daily range): BP systolic 105–127; BP diastolic 42–57; PULSE 88–114; RESP 20–22; TEMP 36.4–37.2; O2SAT 95–100
[2020-10-18] MEDS: ALBUMIN HUMAN 25% 25 GM/100 ML 100 ML IVPB ×2 (06:05→13:34)
[2020-10-18] MEDS: BUMETANIDE INJ 1 MG/4 ML VIAL IV PUSH (07:53)
[2020-10-18] MEDS: FOLIC ACID 1 MG TABLET PO (08:03)
[2020-10-18] MEDS: CEFUROXIME AXETIL 250 MG TABLET 500 MG PO ×2 (08:03→16:11)
[2020-10-18] MEDS: PANTOPRAZOLE 40 MG TABLET PO ×2 (08:03→22:46)
[2020-10-18] MEDS: ZINC SULFATE 220 MG CAPSULE PO (08:03)
[2020-10-18] MEDS: THIAMINE HCL 100 MG TABLET PO (08:04)
[2020-10-18] MEDS: THERAPEUTIC MULTIVITAMINS/MINERALS TAB (*BKC) 1 TABLET PO (08:04)
--- NOTE | 2020-10-18 12:32 | PM.PNNEP ---
Progress Note: A&P Assessment and Plan (1) Acute renal failure: Code(s): N17.9 - Acute kidney failure, unspecified Status: Acute Assessment and Plan: stable but not back to baseline creatinine 1.2 on admission then jhony to 2.0 and now dropped to 1.8 - 1.9mg/dl evaluation to date: - renal ultrasound is unremarkable - urine electrolytes are pre renal (susepct due to liver physiology rather than dehydration) - bland urine sediment continue IV albumin chased by IV bumex to promote diuresis and minimize fluctuations in kidney function/creatinine (2) Anasarca: Code(s): R60.1 - Generalized edema Status: Acute Assessment and Plan: quite severe Echo and venous doppler noted likely secondary to her liver disease hopefully this improves as the alcoholic hepatitis improves continue IV albumin + IV bumex (but this is only a temporary fix at best) will increase IV bumex to 2mg (3) Alcoholic hepatitis: Code(s): K70.10 - Alcoholic hepatitis without ascites Status: Acute Assessment and Plan: patient has been drinking heavily for 4 years GI following (4) Gastric ulcer: Code(s): K25.9 - Gastric ulcer, unspecified as acute or chronic, without hemorrhage or perforation Status: Acute Assessment and Plan: s/p EGD with findings noted on PPI GI following (5) Anemia: Code(s): D64.9 - Anemia, unspecified Status: Acute Assessment and Plan: due to gastric ulcer, BRUNO, liver disease H/H relatively stable by last check PRBC transfusion per protocol follow trend Will continue to follow. Subjective Date/time seen: 10/18/20 12:32 Althought making good urine output with current interventions, I/Os are about the same (not net negative); still has a lot of swelling and edema noted at this time. Exam Narrative: Exam Narrative: General: ill appearing female in NAD Heart: normal S1 and S2; no rub Lungs: clear to auscultation Abdomen: soft, nontender, positive bowel sounds Extremities: no cyanosis or clubbing; 2 - 3+edema Skin: jaundice present Objective Data Vital Signs Vital Signs: Vital Signs Temp Pulse Resp BP Pulse Ox 10/18/20 06:00 36.5 C 94 20 127/57 L 99 10/17/20 22:00 36.7 C 94 20 101/40 L 98 Intake/Output Intake/Output: Intake & Output 10/15/20 10/16/20 10/17/20 10/18/20 23:59 23:59 23:59 23:59 Intake Total 999 1140 1300 980 Output Total 600 1650 1200 800 Balance 399 -510 100 180 Meds/Results Medications: Active Medications Generic Name Dose Route Start Last Admin Trade Name Freq PRN Reason Stop Dose Admin Albuterol 2 puff 10/01/20 14:43 Albuterol Sulfate (*Sp) Aerosol 1 Puff INHALATION QIDRT PRN Shortness Of Breath Bumetanide 2 mg 10/18/20 16:00 10/18/20 16:10 Bumetanide Inj 2.5 Mg/10 Ml Vial IV PUSH 2 mg Q8H NORMAN Administration Cefuroxime Axetil 500 mg 10/13/20 18:40 10/18/20 16:11 Cefuroxime Axetil 250 Mg Tablet PO 500 mg BIDWM NORMAN Administration Folic Acid 1 mg 10/02/20 09:00 10/18/20 08:03 Folic Acid 1 Mg Tablet PO 1 mg DAILY [facility] Administration Albumin Human 100 mls @ 60 mls/hr 10/15/20 14:00 10/18/20 15:30 Albutein IVPB Infused Q8HR [facility] Infusion Lactulose 20 gm 10/19/20 09:00 Lactulose 20 Gm/30 Ml Udc PO QAM NORMAN Lorazepam 1 mg 10/05/20 02:42 Lorazepam Inj (*Crx) 2 Mg/Ml Vial IV PUSH Q4H PRN Anxiety Multivitamins/Calcium 1 tablet 10/02/20 09:00 10/18/20 08:04 Therapeutic Multivitamins/Minerals Tab (*Bkc) PO 1 tablet QAM [facility] Administration Pantoprazole Sodium 40 mg 10/13/20 21:00 10/18/20 08:03 Pantoprazole 40 Mg Tablet PO 40 mg Q12HR [facility] Administration Spironolactone 25 mg 10/19/20 09:00 Spironolactone 25 Mg Tablet PO QAM NORMAN Thiamine HCl 100 mg 10/02/20 09:00 10/18/20 08:04 Thiamine
--- NOTE | 2020-10-18 12:32 | P.PNNP_ITS ---
Progress Note: A&P Assessment and Plan (1) Acute renal failure: Code(s): N17.9 - Acute kidney failure, unspecified Status: Acute Assessment and Plan: * stable but not back to baseline * creatinine 1.2 on admission then jhony to 2.0 and now dropped to 1.8 - 1.9mg/dl * evaluation to date: - renal ultrasound is unremarkable - urine electrolytes are pre renal (susepct due to liver ph ysiology rather than dehydration) - bland urine sediment * continue IV albumin chased by IV bumex to promote diuresis and minimize fluctuations in kidney function/creatinine (2) Anasarca: Code(s): R60.1 - Generalized edema Status: Acute Assessment and Plan: * quite severe * Echo and venous doppler noted * likely secondary to her liver disease * hopefully this improves as the alcoholic hepatitis improves * continue IV albumin + IV bumex (but this is only a temporary fix at best) * will increase IV bumex to 2mg (3) Alcoholic hepatitis: Code(s): K70.10 - Alcoholic hepatitis without ascites Status: Acute Assessment and Plan: * patient has been drinking heavily for 4 years * GI following (4) Gastric ulcer: Code(s): K25.9 - Gastric ulcer, unspecified as acute or chronic, without hemorrhage or perforation Status: Acute Assessment and Plan: * s/p EGD with findings noted * on PPI * GI following (5) Anemia: Code(s): D64.9 - Anemia, unspecified Status: Acute Assessment and Plan: * due to gastric ulcer, BRUNO, liver disease * H/H relatively stable by last check * PRBC transfusion per protocol * follow trend Will continue to follow. Subjective Date/time seen: 10/18/20 12:32 Althought making good urine output with current interventions, I/Os are about the same (not net negative); still has a lot of swelling and edema noted at this time. Exam Narrative: Exam Narrative: General: ill appearing female in NAD Heart: normal S1 and S2; no rub Lungs: clear to auscultation Abdomen: soft, nontender, positive bowel sounds Extremities: no cyanosis or clubbing; 2 - 3+edema Skin: jaundice present Objective Data Vital Signs Vital Signs: Vital Signs Temp Pulse Resp BP Pulse Ox 10/18/20 06:00 36.5 C 94 20 127/57 L 99 10/17/20 22:00 36.7 C 94 20 101/40 L 98 Intake/Output Intake/Output: Intake & Output 10/15/20 10/16/20 10/17/20 10/18/20 23:59 23:59 23:59 23:59 Intake Total 999 1140 1300 980 Output Total 600 1650 1200 800 Balance 399 -510 100 180 Meds/Results Medications: Active Medications Generic Name Dose Route Start Last Admin Trade Name Avelq PRN Reason Stop Dose Admin Albuterol 2 puff 10/01/20 14:43 Albuterol Sulfate (*Sp) Aerosol 1 Puff INHALATION QIDRT PRN Shortness Of Breath Bumetanide 2 mg 10/18/20 16:00 10/18/20 16:10 Bumetanide Inj 2.5 Mg/10 Ml Vial IV PUSH 2 mg Q8H NORMAN Administration Cefuroxime Axetil 500 mg 10/13/20 18:40 10/18/20 16:11 Cefuroxime Axetil 250 Mg Tablet PO 500 mg BIDWM NORMAN Administration Folic Acid 1 mg 10/02/20 09:00 10/18/20 08:03 Folic Acid 1 Mg Tablet PO 1 mg DAILY NORMAN Administration Al
--- NOTE | 2020-10-18 13:14 | PCDIET ---
Nutrition Follow-Up Complete: Suboptimal oral intake related to ETOH abuse as evidenced by patient statements, present NPO status. Goal: Patient to meet estimated nutritional needs. Patient is meeting her goal. No new goal added at this time. Pt current nutrition is a 2 gram low sodium diet with 1500 ml fluid restriction. Last recorded weight is 133.9 kg. Up from 131.5 kg on admission. Bowel Motility: + BM on 10/17 Labs Reviewed:Hgb 7,Hct 21.8, Na 134, K 3.3, GFR 29, BUN 39, Cr 1.8, Glu 110 Meds Noted: Albutein, folic acid, protonix, albuterol, bumetanide, ceftin, lorazepam, vitamin B-1, zinc sulfate Additional Notes: Saw patient for a follow up. Patient complains of having a fair appetite but consumes as much as she can. She is consuming ensure compact BID providing her with an additional 220 calories and 9 grams of protein. Educated patient on low sodium diet and provided her with a handout. Follow up every 7 days.
--- NOTE | 2020-10-18 13:38 | PCNSR ---
On 10/18/20, the student, Laura Jacinto, provided care and completed [email or web address] documentation on this patient. I have reviewed the student's documentation and agree with the findings.
--- NOTE | 2020-10-18 13:41 | PM.IMPN ---
Progress Note: A&P Assessment and Plan (1) Alcoholic hepatitis: Code(s): K70.10 - Alcoholic hepatitis without ascites Status: Acute Assessment and Plan: Will follow up with Assistant Operator GI consulted Supportive care continue to monitor bowel movement Prognosis is guarded (2) Weakness generalized: Code(s): R53.1 - Weakness Status: Acute Assessment and Plan: Participating with PT/OT (3) Leukocytosis: Code(s): D72.829 - Elevated white blood cell count, unspecified Status: Acute Assessment [place]: [place] [address] Continue to monitor (4) Gastric ulcer: Code(s): K25.9 - Gastric ulcer, unspecified as acute or chronic, without hemorrhage or perforation Status: Acute Assessment and Plan: On PPI (5) Ventral hernia: Code(s): K43.9 - Ventral hernia without obstruction or gangrene Status: Acute Assessment and Plan: Non reducible (6) Acute renal failure: Code(s): N17.9 - Acute kidney failure, unspecified Status: Acute Assessment and Plan: creat is 1.8 Seen by nephrology (7) Elevated serum creatinine: Code(s): R79.89 - Other specified abnormal findings of blood chemistry Status: Acute Assessment and Plan: Trending down Making urine On Lasix and Albumin (8) Alcohol abuse: Code(s): F10.10 - Alcohol abuse, uncomplicated Status: Acute Assessment and Plan: Encourage abstinence (9) Hepatic steatosis: Code(s): K76.0 - Fatty (change of) liver, not elsewhere classified Status: Acute Assessment and Plan: Likely secondary to obesity, EOTH intake and inflammation Additional Plan Edematous state continue lasix and albumin combination Anaemia anaemia of chronic disease, continue to monitor. Hb is 7. Transfuse 2 units of blood. Subjective Date/time seen: 10/18/20 13:41 Interval history: 55-year-old female who has not seen a physician for greater than 15 years who presented to the emergency department earlier today via EMS from home for evaluation of shortness of breath. Pt has history of alcoholic hepatitis, gastric ulcer, ventral hernia. and has swollen abdomen and ankles. Ongoing jaundice. Review of Systems Review of Systems: All systems reviewed & are unremarkable except as noted in HPI and below Exam Narrative: Exam Narrative: Acutely ill looking Const: General: other (Jaundiced ) Nutritional Appearance: overweight Orientation/consciousness: patient oriented x3 HENMT: Head: normal to inspection and normocephalic Ears: hearing grossly normal bilaterally General nose exam: Normal external nose present Face and sinus: normal facial exam Eyes: General: appearance normal, both eyes and all related structures Conjunctivae: conjunctivae normal (Icterus.) Sclera: scleral abnormality (Icterus.) bilateral other Pupils: Equal, round and reactive pupils present EOM: EOMs intact bilaterally Neck: Neck: no lymphadenopathy, supple and no JVD Resp: Effort & Inspection: able to speak in complete sentences Auscultation: clear to auscultation bilaterally Cardio: Jugular venous distension: no JVD Rate: regular rate Rhythm: regular rhythm GI: Inspection: distended, visible herniation (Ventral) and other (Large ventral hernia) Skin: General skin exam: jaundice and other (Jaundice.) Wounds: no wounds Neuro: General: patient oriented x3 and CN's II-XI intact bilaterally Cranial nerves: Yes CN's II-XII intact bilaterally and Yes Equal, round and reactive pupils present Cognition (Neuro): normal cognition Speech: normal speech Motor exam (neuro): 5/5 motor strength present throughout, No tremor noted and No asterixis Extrem: General: edema bilateral (4+), pedal edema bilaterally 4+ and other (4 plus both ankles ) Objective Data Vital Signs Vital Signs: Vital Signs - 24 hr 10/17/20 14:00 10/17/20 22:00 10/18/20 06:00 Temperature 36.6 C 36.7 C 36
[2020-10-18 15:08] LABS: Hematocrit 20.6 % (37.0-47.0); Hemoglobin 6.6 g/dL (12.0-15.0)
[2020-10-18] MEDS: BUMETANIDE INJ 2.5 MG/10 ML VIAL 2 MG IV PUSH (16:10)
[2020-10-18] MEDS: SODIUM CHLORIDE 0.9% IV 100 ML 30 ML (21:15)
--- NOTE | 2020-10-18 21:25 | PC.NURSE ---
Addendum entered by Sarmad Lemons, EDIN 10/19/20 02:43: Albumin and Bumex have been rescheduled due to blood transfusions Original Note: Infuse albumin after second unit of blood is complete per Dr Baker.
[2020-10-19 00:56] VITALS: BP 118/49; PULSE 90; RESP 20; TEMP 36.6; O2SAT 98
[2020-10-19 00:58] VITALS: BP 118/45; PULSE 93; RESP 20; TEMP 36.7; O2SAT 99
[2020-10-19 02:39] VITALS: BP 118/45; PULSE 93; RESP 20; TEMP 36.7; O2SAT 99
[2020-10-19] MEDS: ALBUMIN HUMAN 25% 25 GM/100 ML 100 ML IVPB ×3 (02:48→18:24)
[2020-10-19] MEDS: BUMETANIDE INJ 2.5 MG/10 ML VIAL 2 MG IV PUSH ×3 (04:27→20:07)
[2020-10-19 05:08] VITALS: BP 113/48; PULSE 89; RESP 20; TEMP 37; O2SAT 91
[2020-10-19 05:23] LABS: Hematocrit 25.4 % (37.0-47.0); Hemoglobin 8.3 g/dL (12.0-15.0)
[2020-10-19 05:43] LABS: Ammonia 57 umol/L (9-30)
[2020-10-19] MEDS: CEFUROXIME AXETIL 250 MG TABLET 500 MG PO ×2 (08:58→16:49)
[2020-10-19] MEDS: PANTOPRAZOLE 40 MG TABLET PO ×2 (09:21→20:08)
[2020-10-19] MEDS: SPIRONOLACTONE 25 MG TABLET PO (09:21)
[2020-10-19] MEDS: FOLIC ACID 1 MG TABLET PO (09:21)
[2020-10-19] MEDS: THERAPEUTIC MULTIVITAMINS/MINERALS TAB (*BKC) 1 TABLET PO (09:21)
[2020-10-19] MEDS: LACTULOSE 20 GM/30 ML UDC PO (09:22)
[2020-10-19] MEDS: THIAMINE HCL 100 MG TABLET PO (09:22)
[2020-10-19] MEDS: ZINC SULFATE 220 MG CAPSULE PO (09:22)
[2020-10-19 14:05] VITALS: BP 123/50; PULSE 97; RESP 18; TEMP 36.9; O2SAT 99
--- NOTE | 2020-10-19 14:15 | PM.PNNEP ---
Progress Note: A&P Assessment and Plan (1) Acute renal failure: Code(s): N17.9 - Acute kidney failure, unspecified Status: Acute Assessment and Plan: stable but not back to baseline creatinine 1.2 on admission then jhony to 2.0 and now dropped to 1.8 - 1.9mg/dl evaluation to date: - renal ultrasound is unremarkable - urine electrolytes are pre renal (susepct due to liver physiology rather than dehydration) - bland urine sediment continue IV albumin chased by IV bumex to promote diuresis and minimize fluctuations in kidney function/creatinine (2) Anasarca: Code(s): R60.1 - Generalized edema Status: Acute Assessment and Plan: quite severe Echo and venous doppler noted likely secondary to her liver disease hopefully this improves as the alcoholic hepatitis improves continue IV albumin + IV bumex (but this is only a temporary fix at best) increased IV bumex to 2mg (3) Alcoholic hepatitis: Code(s): K70.10 - Alcoholic hepatitis without ascites Status: Acute Assessment and Plan: patient has been drinking heavily for 4 years GI following (4) Gastric ulcer: Code(s): K25.9 - Gastric ulcer, unspecified as acute or chronic, without hemorrhage or perforation Status: Acute Assessment and Plan: s/p EGD with findings noted on PPI GI following (5) Anemia: Code(s): D64.9 - Anemia, unspecified Status: Acute Assessment and Plan: due to gastric ulcer, BRUNO, liver disease H/H relatively stable by last check PRBC transfusion per protocol follow trend Long and extensive discussion (> 20 minutes) regarding her situation -- measure to push diuresis and at the same time trying to keep kidney function stable somewhat difficult to balance and relates to her severe liver dysfunction; she will likely always have some swelling no matter what we do but more concerning is that she has been somewhat resistant to conservative therapy to date. Will continue to follow. Subjective Date/time seen: 10/19/20 14:15 he Tolerated PRBC transfusion yesterday; bumex dosage increased in an effort to promote further diuresis but not much improvement noted; no other acute issues or problems noted at this time; patient somewhat frustrated by the situation. Exam Narrative: Exam Narrative: General: ill appearing female in NAD Heart: normal S1 and S2; no rub Lungs: clear to auscultation Abdomen: soft, nontender, positive bowel sounds Extremities: no cyanosis or clubbing; 2 - 3+edema Skin: jaundice unchanged Objective Data Vital Signs Vital Signs: Vital Signs Temp Pulse Resp BP Pulse Ox 10/19/20 14:05 36.9 C 97 18 123/50 L 99 10/19/20 05:08 37.0 C 89 20 113/48 L 91 10/19/20 02:39 36.7 C 93 20 118/45 L 99 10/19/20 00:58 36.7 C 93 20 118/45 L 99 10/19/20 00:56 36.6 C 90 20 118/49 L 98 10/18/20 23:58 36.6 C 114 H 20 109/43 L 96 10/18/20 22:58 36.5 C 91 20 126/45 L 97 10/18/20 22:42 36.9 C 98 20 120/43 L 95 10/18/20 22:00 36.6 C 90 20 113/45 L 99 10/18/20 18:08 36.9 C 93 22 H 116/45 L 99 10/18/20 17:53 37.2 C 93 20 123/49 L 100 Intake/Output Intake/Output: Intake & Output 10/16/20 10/17/20 10/18/20 10/19/20 23:59 23:59 23:59 23:59 Intake Total 1140 1300 2070 1255 Output Total 1650 1200 1700 1500 Balance -510 100 370 -245 Meds/Results Medications: Active Medications Generic Name Dose Route Start Last Admin Trade Name Freq PRN Reason Stop Dose Admin Albuterol 2 puff 10/01/20 14:43 Albuterol Sulfate (*Sp) Aerosol 1 Puff INHALATION QIDRT PRN Shortness Of Breath Bumetanide 2 mg 10/19/20 03:00 10/19/20 13:09 Bumetanide Inj 2.5 Mg/10 Ml Vial IV PUSH 2 mg Q8H NORMAN Administration Cefuroxime Axetil 500 mg 10/13/20 18:40 10/19/20 08:58 Cefuroxime Axetil 250 Mg Tablet PO 500 mg BID
--- NOTE | 2020-10-19 14:16 | PC.NURSE ---
On 10/19/20, the student, [ Tarah Son], provided care and completed [facility] documentation on this patient. I have reviewed the student's documentation and agree with the findings.
--- NOTE | 2020-10-19 14:20 | PM.IMPN ---
Progress Note: A&P Assessment and Plan (1) Alcoholic hepatitis: Code(s): K70.10 - Alcoholic hepatitis without ascites Status: Acute Assessment and Plan: Will follow up with Senior Production Manager GI consulted Supportive care continue to monitor bowel movement Prognosis is guarded (2) Weakness generalized: Code(s): R53.1 - Weakness Status: Acute Assessment and Plan: Participating with PT/OT (3) Leukocytosis: Code(s): D72.829 - Elevated white blood cell count, unspecified Status: Acute Assessment [place]: [place] [id number] Continue to monitor (4) Gastric ulcer: Code(s): K25.9 - Gastric ulcer, unspecified as acute or chronic, without hemorrhage or perforation Status: Acute Assessment and Plan: On PPI (5) Ventral hernia: Code(s): K43.9 - Ventral hernia without obstruction or gangrene Status: Acute Assessment and Plan: Non reducible (6) Acute renal failure: Code(s): N17.9 - Acute kidney failure, unspecified Status: Acute Assessment and Plan: creat is 1.8 Seen by nephrology (7) Elevated serum creatinine: Code(s): R79.89 - Other specified abnormal findings of blood chemistry Status: Acute Assessment and Plan: Trending down Making urine On Lasix and Albumin (8) Alcohol abuse: Code(s): F10.10 - Alcohol abuse, uncomplicated Status: Acute Assessment and Plan: Encourage abstinence (9) Hepatic steatosis: Code(s): K76.0 - Fatty (change of) liver, not elsewhere classified Status: Acute Assessment and Plan: Likely secondary to obesity, EOTH intake and inflammation Subjective Date/time seen: 10/19/20 14:20 Interval history: 55-year-old female who has not seen a physician for greater than 15 years who presented to the emergency department earlier today via EMS from home for evaluation of shortness of breath. Pt has history of alcoholic hepatitis, gastric ulcer, ventral hernia. and has swollen abdomen and ankles. Ongoing jaundice. Review of Systems Review of Systems: All systems reviewed & are unremarkable except as noted in HPI and below Exam Narrative: Exam Narrative: Acutely ill looking Const: General: other (Jaundiced ) Nutritional Appearance: overweight Orientation/consciousness: patient oriented x3 HENMT: Head: normal to inspection and normocephalic Ears: hearing grossly normal bilaterally General nose exam: Normal external nose present Face and sinus: normal facial exam Eyes: General: appearance normal, both eyes and all related structures Conjunctivae: conjunctivae normal (Icterus.) Sclera: scleral abnormality (Icterus.) bilateral other Pupils: Equal, round and reactive pupils present EOM: EOMs intact bilaterally Neck: Neck: no lymphadenopathy, supple and no JVD Resp: Effort & Inspection: able to speak in complete sentences Auscultation: clear to auscultation bilaterally Cardio: Jugular venous distension: no JVD Rate: regular rate Rhythm: regular rhythm GI: Inspection: distended, visible herniation (Ventral) and other (Large ventral hernia) Skin: General skin exam: jaundice and other (Jaundice.) Wounds: no wounds Neuro: General: patient oriented x3 and CN's II-XI intact bilaterally Cranial nerves: Yes CN's II-XII intact bilaterally and Yes Equal, round and reactive pupils present Cognition (Neuro): normal cognition Speech: normal speech Motor exam (neuro): 5/5 motor strength present throughout, No tremor noted and No asterixis Extrem: General: edema bilateral (4+), pedal edema bilaterally 4+ and other (4 plus both ankles ) Objective Data Vital Signs Vital Signs: Vital Signs - 24 hr 10/18/20 17:53 10/18/20 18:08 10/18/20 22:00 Temperature 37.2 C 36.9 C 36.6 C Pulse Rate 93 93 90 Respiratory Rate 20 22 H 20 Blood Pressure 123/49 L 116/45 L 113/45 L Pulse Oximetry 100 99 99 10/18/20 22:42 10/18/20 22:58 10/18/20
--- NOTE | 2020-10-19 15:32 | WPDGICN ---
Assessment and Plan Assessment and plan (1) Gastric ulcer: Code(s): K25.9 - Gastric ulcer, unspecified as acute or chronic, without hemorrhage or perforation Status: Acute Assessment and Plan: Patient has several gastric ulcers and esophagitis identified by endoscopy October 03. Plan to keep patient on proton pump inhibitor. Avoid nonsteroidal anti-inflammatory agents. Monitor hemoglobin closely. (2) Ventral hernia: Code(s): K43.9 - Ventral hernia without obstruction or gangrene Status: Acute Assessment and Plan: Patient has extremely large ventral hernia. Would consider surgical repair if her liver function more to improve. (3) Alcoholic hepatitis: Code(s): K70.10 - Alcoholic hepatitis without ascites Status: Acute Assessment and Plan: Patient has rather profound hyperbilirubinemia. Suggestive of very poor liver function. Bilirubin is continue to increase during her hospital stay. Steroid use may need to be considered because of her severe alcoholic hepatitis. There is some concern because of her pneumonia whether this would be hannon. If primary service feels that pneumonia is been adequately treated than a trial of steroid therapy would be indicated. Patient advised to abstain from alcohol intake and appears as though she understands at this time. No varices were identified by recent endoscopy. Ultimately she may benefit from hepatology evaluation at tertiary care center after discharge. (4) Anemia: Code(s): D64.9 - Anemia, unspecified Status: Acute Assessment and Plan: Patient with anemia that has persisted throughout hospital stay. Initial stool Hemoccult was negative. She was identified as having several gastric ulcers. Agree with keeping her on proton pump inhibitor therapy. Continue monitor hemoglobin closely. Likely anemia is multifactorial related to liver disease she may have bone marrow suppression. No recent evidence for active blood loss been described. (5) Leukocytosis: Code(s): D72.829 - Elevated white blood cell count, unspecified Status: Acute (6) Anasarca: Code(s): R60.1 - Generalized edema Status: Acute Assessment and Plan: Patient continues to have profound pedal edema anasarca confirmed by CT scan findings. Pleural effusions noted on initial exam. Plan is to continue diuretics agree with low-salt diet daily weights should be continued. (7) Alcohol abuse: Code(s): F10.10 - Alcohol abuse, uncomplicated Status: Acute Assessment and Plan: Patient encouraged to abstain from alcohol intake long-term. Rehab may need to be considered or a support group after discharge. (8) Elevated serum creatinine: Code(s): R79.89 - Other specified abnormal findings of blood chemistry Status: Acute Assessment and Plan: Patient has elevated serum creatinine raising the question of renal insufficiency could this be early a paddle renal syndrome. Renal service been asked to follow the patient. Because of her mild azotemia this may limit diuretic use which would be helpful to minimize her is anasarca. Suggest trying diuretics when renal service feels is safe to attempt this. GI Consult Note Consult date/time: 10/19/20 15:32 HPI: Bela Marsh is a 55 year old female I am asked to see in consultation for another gastroenterology opinion. Patient presented to the hospital with profound weakness on October 01. She was found to be severely jaundiced with profound anemia. Patient has a long history of alcohol abuse drinking 5 whiskeys several days a week. Done so from an extended period of time. Because of her profound anemia GI endoscopy was performed and she was found to have several superficial nonbleeding gastric ulcers and esophagitis. Colonoscopy revealed diverticulosis and internal hemorrhoids. No evidence for active blood loss was identified in fact stool Hemoccult was negativ
--- NOTE | 2020-10-19 15:50 | PC.NURSE ---
Patient c/o bleeding from rectum. On exam, patient appears to have several small hemorrhoids which are oozing blood when walking. Called Dr. Mayer and notified her of same. Orders received for Preparation H cream and tucks pads.
[2020-10-19] MEDS: POTASSIUM CHLORIDE 20 MEQ PACKET (FOR LIQUID) PO (15:53)
[2020-10-19] MEDS: WITCH HAZEL 40 PADS 1 PAD TOPICAL (16:50)
[2020-10-19] MEDS: PHENYLEPH/SHARK OIL/MO/PETROL CREAM 26 GM 1 APPLIC RECTAL (16:55)
[2020-10-19 20:28] VITALS: BP 118/48; PULSE 95; RESP 20; TEMP 37.2; O2SAT 97
[2020-10-20] MEDS: ALBUMIN HUMAN 25% 25 GM/100 ML 100 ML IVPB ×3 (02:57→18:09)
[2020-10-20] MEDS: BUMETANIDE INJ 2.5 MG/10 ML VIAL 2 MG IV PUSH ×3 (04:45→19:50)
[2020-10-20 05:59] LABS: Hematocrit 24.5 % (37.0-47.0); Mean Corpuscular HGB Conc 32.7 g/dl (32-36); Mean Corpuscular Hemoglobin 27.9 pg (26-34); Mean Corpuscular Volume 85.4 fl (80-100); Platelet Count Result 237 k/mm3 (150-375); Red Blood Count 2.87 M/mm3 (4.2-5.4); Red Cell Distribution Width 27.8 % (11.5-14.5); White Blood Count 12.6 K/mm3 (4.5-10.0)
[2020-10-20 07:04] LABS: Alanine Aminotransferase 33 U/L (4-35); Albumin Level 4.1 g/dL (3.5-5.1); Alkaline Phosphatase 82 U/L (38-126); Anion Gap 12 mmol/L (8-16); Aspartate Amino Transferase 98 U/L (14-36); Blood Urea Nitrogen 33 mg/dL (7-17); Calcium 9.4 mg/dL (8.4-10.2); Carbon Dioxide 28 mmol/L (22-30); Chloride 103 mmol/L (98-107); Estimated CRCL calculation 66 ml/min; Estimated Glomerular Filt Rate 47; Glucose 90 mg/dL (65-105); Potassium 2.9 mmol/L (3.4-5.0); Sodium 143 mmol/L (137-145)
[2020-10-20 08:07] LABS: Ammonia 62 umol/L (9-30)
--- NOTE | 2020-10-20 08:47 | WPDGIPROGNO ---
Progress Note: A&P Assessment and Plan (1) Gastric ulcer: Code(s): K25.9 - Gastric ulcer, unspecified as acute or chronic, without hemorrhage or perforation Status: Acute Assessment and Plan: Gastric ulcerations noted at time of admission. No overt bleeding however as stool was Hemoccult negative. Hemoglobin continues to be low but likely multifactorial in nature. No active bleeding noted plan to continue proton pump inhibitor. About diet as tolerated. Avoid nonsteroidal anti-inflammatory agents. (2) Ventral hernia: Code(s): K43.9 - Ventral hernia without obstruction or gangrene Status: Acute Assessment and Plan: Large ventral hernia. Repair deferred until liver function improves. This could be some time period (3) Elevated serum creatinine: Code(s): R79.89 - Other specified abnormal findings of blood chemistry Status: Acute Assessment and Plan: renal insufficiency. Now managed by Nephrology service. Diuretics along with albumin being administered. Low-salt diet to continue as tolerated. Anasarca remains significant problem for this patient. (4) Alcoholic hepatitis: Code(s): K70.10 - Alcoholic hepatitis without ascites Status: Acute Assessment and Plan: Patient appears to have severe alcoholic hepatitis. Marked elevation of bilirubin identified. Now that pneumonia has treat been treated we should consider prednisone use. If primary service agrees would start prednisone 20 mg p.o. daily. Patient has extremely elevated LFTs. Ultimately referral to tertiary care on hepatology Service will be advised. It is possible at some point she may need transplantation. Strict alcohol avoidance is been encourage. (5) Alcohol abuse: Code(s): F10.10 - Alcohol abuse, uncomplicated Status: Acute Assessment and Plan: Continue to support patient alcohol avoidance extremely important for her (6) Jaundice: Code(s): R17 - Unspecified jaundice Status: Acute Assessment and Plan: marked icterus identified. Bilirubin 25. May be trending down but such significant in the case poor underlying liver function. Subjective Date/time seen: 10/20/20 08:47 Patient seen this morning. His offers no specific complaints. Apparently tolerating diet without difficulty. Continues to have normal bowel movements at present. Reports continued significant edema diffusely. Review of Systems Review of Systems: All systems reviewed & are unremarkable except as noted in HPI and below Exam Narrative: Exam Narrative: Physical exam reveals patient to have marked scleral icterus. Her skin continues to have yellow tone. HEENT exam otherwise unremarkable. Lungs reveal minimal rhonchi. Heart without murmur. Abdomen is obese. Large ventral hernia evident. No palpable organomegaly evident. Rectal exam deferred today extremities with 3 to4+ edema to the thighs. Objective Data Vital Signs Vital Signs: Vital Signs - 24 hr 10/19/20 14:05 10/19/20 20:28 Temperature 98.4 F 98.9 F Pulse Rate 97 95 Respiratory Rate 18 20 Blood Pressure 123/50 L 118/48 L Pulse Oximetry 99 97 Intake/Output Intake/Output: Intake & Output 10/17/20 10/18/20 10/19/20 10/20/20 23:59 23:59 23:59 23:59 Intake Total 1300 2070 2165 290 Output Total 1200 1700 2100 700 Balance 100 370 65 -410 Meds/Results Medications: Active Medications Generic Name Dose Route Start Last Admin Trade Name Freq PRN Reason Stop Dose Admin Albuterol 2 puff 10/01/20 14:43 Albuterol Sulfate (*Sp) Aerosol 1 Puff INHALATION QIDRT PRN Shortness Of Breath Bumetanide 2 mg 10/19/20 03:00 10/20/20 04:45 Bumetanide Inj 2.5 Mg/10 Ml Vial IV PUSH 2 mg Q8H NORMAN Administration Cefuroxime Axetil 500 mg 10/13/20 18:40 10/19/20 16:49 Cefuroxime Axetil 250 Mg Tablet PO 500 mg BIDWM NORMAN Administration Folic Acid 1 mg 10/02/20 09:00 10/19/20 0
[2020-10-20] MEDS: PANTOPRAZOLE 40 MG TABLET PO ×2 (10:04→20:00)
[2020-10-20] MEDS: CEFUROXIME AXETIL 250 MG TABLET 500 MG PO ×2 (10:04→17:19)
[2020-10-20] MEDS: LACTULOSE 20 GM/30 ML UDC PO (10:04)
[2020-10-20] MEDS: FOLIC ACID 1 MG TABLET PO (10:04)
[2020-10-20] MEDS: THERAPEUTIC MULTIVITAMINS/MINERALS TAB (*BKC) 1 TABLET PO (10:04)
[2020-10-20] MEDS: SPIRONOLACTONE 25 MG TABLET PO (10:05)
[2020-10-20] MEDS: ZINC SULFATE 220 MG CAPSULE PO (10:05)
[2020-10-20] MEDS: THIAMINE HCL 100 MG TABLET PO (10:05)
[2020-10-20] MEDS: PHENYLEPH/SHARK OIL/MO/PETROL CREAM 26 GM 1 APPLIC RECTAL (10:05)
[2020-10-20] MEDS: POTASSIUM CHLORIDE 20 MEQ PACKET (FOR LIQUID) 40 MEQ PO (11:01)
[2020-10-20] MEDS: WITCH HAZEL 40 PADS 1 PAD TOPICAL (13:18)
--- NOTE | 2020-10-20 13:28 | PM.PNNEP ---
Progress Note: A&P Assessment and Plan (1) Acute renal failure: Code(s): N17.9 - Acute kidney failure, unspecified Status: Acute Assessment and Plan: stable but not back to baseline creatinine 1.2 on admission then jhony to 2.0 and now dropped to 1.8 - 1.9mg/dl evaluation to date: - renal ultrasound is unremarkable - urine electrolytes are pre renal (susepct due to liver physiology rather than dehydration) - bland urine sediment continue IV albumin chased by IV bumex to promote diuresis and minimize fluctuations in kidney function/creatinine (2) Anasarca: Code(s): R60.1 - Generalized edema Status: Acute Assessment and Plan: quite severe Echo and venous doppler noted likely secondary to her liver disease hopefully this improves as the alcoholic hepatitis improves continue IV albumin + IV bumex (but this is only a temporary fix at best) increased IV bumex to 2mg will add metolazone (3) Alcoholic hepatitis: Code(s): K70.10 - Alcoholic hepatitis without ascites Status: Acute Assessment and Plan: patient has been drinking heavily for 4 years GI following (4) Gastric ulcer: Code(s): K25.9 - Gastric ulcer, unspecified as acute or chronic, without hemorrhage or perforation Status: Acute Assessment and Plan: s/p EGD with findings noted on PPI GI following (5) Anemia: Code(s): D64.9 - Anemia, unspecified Status: Acute Assessment and Plan: due to gastric ulcer, BRUNO, liver disease H/H relatively stable by last check PRBC transfusion per protocol follow trend Will continue to follow. Subjective Date/time seen: 10/20/20 13:28 Kidney function doing better but all interventions to date to facilitate diuresis have not really been successful -- at best, her I/Os are even despite IV albumin + IV bumex and fluid restriction; no acute distress noted at the time of my visit. Exam Narrative: Exam Narrative: General: ill appearing female in NAD Heart: normal S1 and S2; no rub Lungs: clear to auscultation Abdomen: soft, nontender, positive bowel sounds Extremities: no cyanosis or clubbing; 2 - 3+edema Skin: jaundice unchanged Objective Data Vital Signs Vital Signs: Vital Signs Temp Pulse Resp BP Pulse Ox 10/19/20 20:28 37.2 C 95 20 118/48 L 97 Intake/Output Intake/Output: Intake & Output 10/17/20 10/18/20 10/19/20 10/20/20 23:59 23:59 23:59 23:59 Intake Total 1300 2070 2165 750 Output Total 1200 1700 2100 1000 Balance 100 370 65 -250 Meds/Results Medications: Active Medications Generic Name Dose Route Start Last Admin Trade Name Freq PRN Reason Stop Dose Admin Albuterol 2 puff 10/01/20 14:43 Albuterol Sulfate (*Sp) Aerosol 1 Puff INHALATION QIDRT PRN Shortness Of Breath Bumetanide 2 mg 10/19/20 03:00 10/20/20 13:15 Bumetanide Inj 2.5 Mg/10 Ml Vial IV PUSH 2 mg Q8H NORMAN Administration Cefuroxime Axetil 500 mg 10/13/20 18:40 10/20/20 10:04 Cefuroxime Axetil 250 Mg Tablet PO 500 mg BIDWM NORMAN Administration Folic Acid 1 mg 10/02/20 09:00 10/20/20 10:04 Folic Acid 1 Mg Tablet PO 1 mg DAILY NORMAN Administration Albumin Human 100 mls @ 60 mls/hr 10/19/20 03:00 10/20/20 12:42 Albutein IVPB Infused Q8H NORMAN Infusion Lactulose 20 gm 10/19/20 09:00 10/20/20 10:04 Lactulose 20 Gm/30 Ml Udc PO 20 gm QAM NORMAN Administration Lorazepam 1 mg 10/05/20 02:42 Lorazepam Inj (*Crx) 2 Mg/Ml Vial IV PUSH Q4H PRN Anxiety Metolazone 5 mg 10/21/20 09:00 Metolazone 5 Mg Tablet PO QAM NORMAN Multivitamins/Calcium 1 tablet 10/02/20 09:00 10/20/20 10:04 Therapeutic Multivitamins/Minerals Tab (*Bkc) PO 1 tablet QAM NORMAN Administration Pantoprazole Sodium 40 mg 10/13/20 21:00 10/20/20 10:04 Pantoprazole 40 Mg Tablet PO 40 mg Q12HR NORMAN A
--- NOTE | 2020-10-20 13:28 | P.PNNP_ITS ---
Progress Note: A&P Assessment and Plan (1) Acute renal failure: Code(s): N17.9 - Acute kidney failure, unspecified Status: Acute Assessment and Plan: * stable but not back to baseline * creatinine 1.2 on admission then jhony to 2.0 and now dropped to 1.8 - 1.9mg/dl * evaluation to date: - renal ultrasound is unremarkable - urine electrolytes are pre renal (susepct due to liver ph ysiology rather than dehydration) - bland urine sediment * continue IV albumin chased by IV bumex to promote diuresis and minimize fluctuations in kidney function/creatinine (2) Anasarca: Code(s): R60.1 - Generalized edema Status: Acute Assessment and Plan: * quite severe * Echo and venous doppler noted * likely secondary to her liver disease * hopefully this improves as the alcoholic hepatitis improves * continue IV albumin + IV bumex (but this is only a temporary fix at best) * increased IV bumex to 2mg * will add metolazone (3) Alcoholic hepatitis: Code(s): K70.10 - Alcoholic hepatitis without ascites Status: Acute Assessment and Plan: * patient has been drinking heavily for 4 years * GI following (4) Gastric ulcer: Code(s): K25.9 - Gastric ulcer, unspecified as acute or chronic, without hemorrhage or perforation Status: Acute Assessment and Plan: * s/p EGD with findings noted * on PPI * GI following (5) Anemia: Code(s): D64.9 - Anemia, unspecified Status: Acute Assessment and Plan: * due to gastric ulcer, BRUNO, liver disease * H/H relatively stable by last check * PRBC transfusion per protocol * follow trend Will continue to follow. Subjective Date/time seen: 10/20/20 13:28 Kidney function doing better but all interventions to date to facilitate diuresis have not really been successful -- at best, her I/Os are even despite IV albumin + IV bumex and fluid restriction; no acute distress noted at the time of my visit. Exam Narrative: Exam Narrative: General: ill appearing female in NAD Heart: normal S1 and S2; no rub Lungs: clear to auscultation Abdomen: soft, nontender, positive bowel sounds Extremities: no cyanosis or clubbing; 2 - 3+edema Skin: jaundice unchanged Objective Data Vital Signs Vital Signs: Vital Signs Temp Pulse Resp BP Pulse Ox 01/28/21 20:28 37.2 C 95 20 118/48 L 97 Intake/Output Intake/Output: Intake & Output 10/17/20 10/18/20 10/19/20 10/20/20 23:59 23:59 23:59 23:59 Intake Total 1300 2070 2165 750 Output Total 1200 1700 2100 1000 Balance 100 370 65 -250 Meds/Results Medications: Active Medications Generic Name Dose Route Start Last Admin Trade Name Freq PRN Reason Stop Dose Admin Albuterol 2 puff 10/01/20 14:43 Albuterol Sulfate (*Sp) Aerosol 1 Puff INHALATION QIDRT PRN Shortness Of Breath Bumetanide 2 mg 10/19/20 03:00 10/20/20 13:15 Bumetanide Inj 2.5 Mg/10 Ml Vial IV PUSH 2 mg Q8H [facility]MAN Administration Cefuroxime Axetil 500 mg 10/13/20 18:40 10/20/20 10:04 Cefuroxime Axetil 250 Mg Tablet PO 500 mg BIDWM [facility] Administration Folic Acid 1 mg 10/02/20 09:00 10/20/20 10:04 Folic Acid 1 Mg Tablet PO 1 mg
--- NOTE | 2020-10-20 13:30 | PM.IMPN ---
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 Prognosis is guarded (2) Weakness generalized: Code(s): R53.1 - Weakness Status: Acute Assessment and Plan: Participating with PT/OT (3) Leukocytosis: Code(s): D72.829 - Elevated white blood cell count, unspecified Status: Acute Assessment [place]: [place] [address] Continue to monitor (4) Gastric ulcer: Code(s): K25.9 - Gastric ulcer, unspecified as acute or chronic, without hemorrhage or perforation Status: Acute Assessment and Plan: On PPI (5) Ventral hernia: Code(s): K43.9 - Ventral hernia without obstruction or gangrene Status: Acute Assessment and Plan: Non reducible (6) Acute renal failure: Code(s): N17.9 - Acute kidney failure, unspecified Status: Acute Assessment and Plan: creat is 1.2 Seen by nephrology on albumin and spironolactone regime (7) Elevated serum creatinine: Code(s): R79.89 - Other specified abnormal findings of blood chemistry Status: Acute Assessment and Plan: Trending down Making urine On Albumin and spironolactone regime (8) Alcohol abuse: Code(s): F10.10 - Alcohol abuse, uncomplicated Status: Acute Assessment and Plan: Encourage abstinence (9) Hepatic steatosis: Code(s): K76.0 - Fatty (change of) liver, not elsewhere classified Status: Acute Assessment and Plan: Likely secondary to obesity, EOTH intake and inflammation Additional Plan Edematous state continue spironolactone and albumin combination Anaemia anaemia of chronic disease, continue to monitor. Hb is 8 Subjective Date/time seen: 10/20/20 13:30 Interval history: 55-year-old female who has not seen a physician for greater than 15 years who presented to the emergency department earlier today via EMS from home for evaluation of shortness of breath. Pt has history of alcoholic hepatitis, gastric ulcer, ventral hernia. and has swollen abdomen and ankles. Ongoing jaundice and edema of lower extremities. long discussion about patient overall poor prognosis with severe alcoholic hepatitis. Review of Systems Review of Systems: All systems reviewed & are unremarkable except as noted in HPI and below Exam Narrative: Exam Narrative: Acutely ill looking Const: General: other (Jaundiced ) Nutritional Appearance: overweight Orientation/consciousness: patient oriented x3 HENMT: Head: normal to inspection and normocephalic Eyes: Conjunctivae: conjunctivae normal (Icterus.) Sclera: scleral abnormality (Icterus.) bilateral other Pupils: Equal, round and reactive pupils present EOM: EOMs intact bilaterally Neck: Neck: no lymphadenopathy, supple and no JVD Resp: Effort & Inspection: able to speak in complete sentences Auscultation: clear to auscultation bilaterally Cardio: Jugular venous distension: no JVD Rate: regular rate Rhythm: regular rhythm GI: Inspection: distended, visible herniation (Ventral) and other (Large ventral hernia) Skin: General skin exam: jaundice and other (Jaundice.) Wounds: no wounds Neuro: General: patient oriented x3 and CN's II-XI intact bilaterally Cranial nerves: Yes CN's II-XII intact bilaterally and Yes Equal, round and reactive pupils present Cognition (Neuro): normal cognition Speech: normal speech Motor exam (neuro): 5/5 motor strength present throughout, No tremor noted and No asterixis Extrem: General: edema bilateral (4+), pedal edema bilaterally 4+ and other (4 plus both ankles ) Objective Data Vital Signs Vital Signs: Vital Signs - 24 hr 10/19/20 14:05 10/19/20 20:28 Temperature 36.9 C 37.2 C Pulse Rat
--- NOTE | 2020-10-20 13:51 | PM.IMPN ---
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 Prognosis is guarded (2) Weakness generalized: Code(s): R53.1 - Weakness Status: Acute Assessment and Plan: Participating with PT/OT (3) Leukocytosis: Code(s): D72.829 - Elevated white blood cell count, unspecified Status: [place]: [place] [id number] Continue to monitor (4) Gastric ulcer: Code(s): K25.9 - Gastric ulcer, unspecified as acute or chronic, without hemorrhage or perforation Status: Acute Assessment and Plan: On PPI (5) Ventral hernia: Code(s): K43.9 - Ventral hernia without obstruction or gangrene Status: Acute Assessment and Plan: Non reducible (6) Acute renal failure: Code(s): N17.9 - Acute kidney failure, unspecified Status: Acute Assessment and Plan: creat is 1.2 Seen by nephrology on albumin, bumex and spironolactone regime (7) Elevated serum creatinine: Code(s): R79.89 - Other specified abnormal findings of blood chemistry Status: Acute Assessment and Plan: Trending down Making urine On Albumin, bumex and spironolactone regime (8) Alcohol abuse: Code(s): F10.10 - Alcohol abuse, uncomplicated Status: Acute Assessment and Plan: Encourage abstinence (9) Hepatic steatosis: Code(s): K76.0 - Fatty (change of) liver, not elsewhere classified Status: Acute Assessment and Plan: Likely secondary to obesity, EOTH intake and inflammation Additional Plan Edematous state continue spironolactone, bumex and albumin combination Anaemia anaemia of chronic disease, continue to monitor. Hb is 8 Subjective Date/time seen: 10/20/20 13:51 Interval history: 55-year-old female who has not seen a physician for greater than 15 years who presented to the emergency department earlier today via EMS from home for evaluation of shortness of breath. Pt has history of alcoholic hepatitis, gastric ulcer, ventral hernia. and has swollen abdomen and ankles. Ongoing jaundice and edema of lower extremities. long discussion about patient overall poor prognosis with severe alcoholic hepatitis. Review of Systems Review of Systems: All systems reviewed & are unremarkable except as noted in HPI and below Exam Narrative: Exam Narrative: Acutely ill looking Const: General: other (Jaundiced ) Nutritional Appearance: overweight Orientation/consciousness: patient oriented x3 HENMT: Head: normal to inspection and normocephalic Ears: hearing grossly normal bilaterally General nose exam: Normal external nose present Face and sinus: normal facial exam Eyes: General: appearance normal, both eyes and all related structures Conjunctivae: conjunctivae normal (Icterus.) Sclera: scleral abnormality (Icterus.) bilateral other Pupils: Equal, round and reactive pupils present EOM: EOMs intact bilaterally Neck: Neck: no lymphadenopathy, supple and no JVD Resp: Effort & Inspection: able to speak in complete sentences Auscultation: clear to auscultation bilaterally Cardio: Jugular venous distension: no JVD Rate: regular rate Rhythm: regular rhythm GI: Inspection: distended, visible herniation (Ventral) and other (Large ventral hernia) Skin: General skin exam: jaundice and other (Jaundice.) Wounds: no wounds Neuro: General: patient oriented x3 and CN's II-XI intact bilaterally Cranial nerves: Yes CN's II-XII intact bilaterally and Yes Equal, round and reactive pupils present Cognition (Neuro): normal cognition Speech: normal speech Motor exam (neuro): 5/5 motor strength present throughout, No tremor noted and No asterixis Extrem: General: marco antonio
[2020-10-20 14:00] VITALS: BP 134/52; PULSE 93; RESP 20; TEMP 37.2; O2SAT 98
[2020-10-20] MEDS: metOLazone 5 MG TABLET PO (19:51)
[2020-10-20 21:50] VITALS: BP 114/58; PULSE 91; RESP 16; TEMP 37.2; O2SAT 97
[2020-10-21] MEDS: ALBUMIN HUMAN 25% 25 GM/100 ML 100 ML IVPB ×3 (03:03→18:28)
[2020-10-21] MEDS: BUMETANIDE INJ 2.5 MG/10 ML VIAL 2 MG IV PUSH ×3 (04:40→20:07)
[2020-10-21 06:00] VITALS: BP 133/53; PULSE 90; RESP 18; TEMP 36.9; O2SAT 97
[2020-10-21 07:57] LABS: Basophils Absolute Auto 0.1 K/mm3 (0.0-0.1); Basophils Percent Auto 0.8 % (0.2-1.2); Eosinophils Absolute Auto 0.4 K/mm3 (0-0.3); Eosinophils Percent Auto 3.2 % (0-4.4); Hematocrit 25.9 % (37.0-47.0); Hemoglobin 8.6 g/dL (12.0-15.0); Immature Granulocyte Absolute 0.04 K/mm3 (0.00-0.031); Immature Granulocyte Percent A 0.3 % (0-0.5); Lymphocytes Absolute Auto 0.95 K/mm3 (0.9-3.2); Lymphocytes Percent Auto 7.9 % (18.3-44.2); Mean Corpuscular HGB Conc 33.2 g/dl (32-36); Mean Corpuscular Hemoglobin 29.2 pg (26-34); Mean Corpuscular Volume 87.8 fl (80-100); Mean Platelet Volume 9.5 fl (7.4-10.4); Monocytes Absolute Auto 0.9 K/mm3 (0.1-0.6); Monocytes Percent Auto 7.4 % (2.6-8.5); Neutrophils Absolute Auto 9.6 K/mm3 (1.3-6.7); Neutrophils Percent Auto 80.4 % (45.5-73.1); Platelet Count Result 232 k/mm3 (150-375); Red Blood Count 2.95 M/mm3 (4.2-5.4); Red Cell Distribution Width 27.2 % (11.5-14.5)
[2020-10-21 08:15] LABS: Ammonia 47 umol/L (9-30)
[2020-10-21 08:19] LABS: Alanine Aminotransferase 33 U/L (4-35); Albumin Level 4.2 g/dL (3.5-5.1); Alkaline Phosphatase 73 U/L (38-126); Anion Gap 8 mmol/L (8-16); Aspartate Amino Transferase 102 U/L (14-36); Bilirubin,Total 26.5 mg/dL (0.2-1.3); Blood Urea Nitrogen 31 mg/dL (7-17); Calcium 9.5 mg/dL (8.4-10.2); Carbon Dioxide 30 mmol/L (22-30); Chloride 103 mmol/L (98-107); Estimated CRCL calculation 71 ml/min; Estimated Glomerular Filt Rate 52; Glucose 114 mg/dL (65-105); Potassium 2.9 mmol/L (3.4-5.0); Sodium 141 mmol/L (137-145)
[2020-10-21] MEDS: SPIRONOLACTONE 25 MG TABLET PO (09:16)
[2020-10-21] MEDS: CEFUROXIME AXETIL 250 MG TABLET 500 MG PO ×2 (09:16→16:04)
[2020-10-21] MEDS: LACTULOSE 20 GM/30 ML UDC PO (09:16)
[2020-10-21] MEDS: FOLIC ACID 1 MG TABLET PO (09:16)
[2020-10-21] MEDS: PANTOPRAZOLE 40 MG TABLET PO ×2 (09:16→20:07)
[2020-10-21] MEDS: THERAPEUTIC MULTIVITAMINS/MINERALS TAB (*BKC) 1 TABLET PO (09:16)
[2020-10-21] MEDS: PHENYLEPH/SHARK OIL/MO/PETROL CREAM 26 GM 1 APPLIC RECTAL (09:16)
[2020-10-21] MEDS: metOLazone 5 MG TABLET PO (09:16)
[2020-10-21] MEDS: ZINC SULFATE 220 MG CAPSULE PO (09:16)
[2020-10-21] MEDS: THIAMINE HCL 100 MG TABLET PO (09:16)
--- NOTE | 2020-10-21 11:35 | PM.IMPN ---
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 Prognosis is guarded Pt will benefit from liver transplant High MELD score Pt has been drinking heavily for 4 years has not seen MD in 20 years. (2) Weakness generalized: Code(s): R53.1 - Weakness Status: Acute Assessment and Plan: Participating with PT/OT (3) Leukocytosis: Code(s): D72.829 - Elevated white blood cell count, unspecified Status: Acute Assessment [place]: [place] [address] Continue to monitor (4) Gastric ulcer: Code(s): K25.9 - Gastric ulcer, unspecified as acute or chronic, without hemorrhage or perforation Status: Acute Assessment and Plan: On PPI (5) Ventral hernia: Code(s): K43.9 - Ventral hernia without obstruction or gangrene Status: Acute Assessment and Plan: Non reducible (6) Acute renal failure: Code(s): N17.9 - Acute kidney failure, unspecified Status: Acute Assessment and Plan: creat is 1.2 Seen by nephrology on albumin, bumex and spironolactone regime (7) Elevated serum creatinine: Code(s): R79.89 - Other specified abnormal findings of blood chemistry Status: Acute Assessment and Plan: Trending down Making urine On Albumin, bumex and spironolactone regime (8) Alcohol abuse: Code(s): F10.10 - Alcohol abuse, uncomplicated Status: Acute Assessment and Plan: Encourage abstinence (9) Hepatic steatosis: Code(s): K76.0 - Fatty (change of) liver, not elsewhere classified Status: Acute Assessment and Plan: Likely secondary to obesity, EOTH intake and inflammation Additional Plan Edematous state continue spironolactone, bumex and albumin combination Anaemia anaemia of chronic disease, continue to monitor. Hb is 8 Subjective Date/time seen: 10/21/20 11:35 Interval history: 55-year-old female who has not seen a physician for greater than 15 years who presented to the emergency department earlier today via EMS from home for evaluation of shortness of breath. Pt has history of alcoholic hepatitis, gastric ulcer, ventral hernia. and has swollen abdomen and ankles. Ongoing jaundice and edema of lower extremities. long discussion about patient overall poor prognosis with severe alcoholic hepatitis. Review of Systems Review of Systems: All systems reviewed & are unremarkable except as noted in HPI and below Exam Narrative: Exam Narrative: Acutely ill looking Const: General: other (Jaundiced ) Nutritional Appearance: overweight Orientation/consciousness: patient oriented x3 HENMT: Head: normal to inspection and normocephalic Ears: hearing grossly normal bilaterally General nose exam: Normal external nose present Face and sinus: normal facial exam Eyes: General: appearance normal, both eyes and all related structures Conjunctivae: conjunctivae normal (Icterus.) Sclera: scleral abnormality (Icterus.) bilateral other Pupils: Equal, round and reactive pupils present EOM: EOMs intact bilaterally Neck: Neck: no lymphadenopathy, supple and no JVD Resp: Effort & Inspection: able to speak in complete sentences Auscultation: clear to auscultation bilaterally Cardio: Jugular venous distension: no JVD Rate: regular rate Rhythm: regular rhythm GI: Inspection: distended, visible herniation (Ventral) and other (Large ventral hernia) Skin: General skin exam: jaundice and other (Jaundice.) Wounds: no wounds Neuro: General: patient oriented x3 and CN's II-XI intact bilaterally Cranial nerves: Yes CN's II-XII intact bilaterally and Yes Equal, round and reactive pupils present Cognition (Neuro): normal cognition Speech: n
--- NOTE | 2020-10-21 13:49 | WPDGIPROGNO ---
Progress Note: A&P Additional Plan GI Alisson for Romel 21 Oct 2020 No gi complaints. VSS 4+ bilateral KOFI. Soft/NT. Large ventral hernia. + jaundice. Hct 26. WBC 12. TBili 26, A/P 73, AST 102, ALT 33. NH3 47 A/P A. EtOH Hepatitis with anasarca and without ascites - 2 gr Na restriction - Continue Bumex, Aldactone, Zaroxalyn and albumin - Follow I/O, weights and labs - EtOH cessation - Follow LFT's - Consideration of OLTx at some point B. Elevated ammonia: continue lactulose C. Gastric Ulcers: - PPI - No active bleed D. Ventral hernia: observe Kahlil, ABG [phone] Subjective Date/time seen: 10/21/20 13:49 Objective Data Vital Signs Vital Signs: Vital Signs - 24 hr 10/20/20 14:00 10/20/20 21:50 10/21/20 06:00 Temperature 37.2 C 37.2 C 36.9 C Pulse Rate 93 91 90 Respiratory Rate 20 16 18 Blood Pressure 134/52 L 114/58 L 133/53 L Pulse Oximetry 98 97 97 Intake/Output Intake/Output: Intake & Output 10/18/20 10/19/20 10/20/20 10/21/20 23:59 23:59 23:59 23:59 Intake Total 2070 2165 1270 1280 Output Total 1700 2100 1900 3250 Balance 370 73 -587 -8524 Meds/Results Medications: Active Medications Generic Name Dose Route Start Last Admin Trade Name Freq PRN Reason Stop Dose Admin Albuterol 2 puff 10/01/20 14:43 Albuterol Sulfate (*Sp) Aerosol 1 Puff INHALATION QIDRT PRN Shortness Of Breath Bumetanide 2 mg 10/19/20 03:00 10/21/20 12:41 Bumetanide Inj 2.5 Mg/10 Ml Vial IV PUSH 2 mg Q8H [facility]MAN Administration Cefuroxime Axetil 500 mg 10/13/20 18:40 10/21/20 09:16 Cefuroxime Axetil 250 Mg Tablet PO 500 mg BIDWM [facility] Administration Folic Acid 1 mg 10/02/20 09:00 10/21/20 09:16 Folic Acid 1 Mg Tablet PO 1 mg DAILY [facility] Administration Albumin Human 100 mls @ 60 mls/hr 10/19/20 03:00 10/21/20 12:33 Albutein IVPB Infused Q8H [facility] Infusion Lactulose 20 gm 10/19/20 09:00 10/21/20 09:16 Lactulose 20 Gm/30 Ml Udc PO 20 gm QAM [facility] Administration Lorazepam 1 mg 10/05/20 02:42 Lorazepam Inj (*Crx) 2 Mg/Ml Vial IV PUSH Q4H PRN Anxiety Metolazone 5 mg 10/21/20 09:00 10/21/20 09:16 Metolazone 5 Mg Tablet PO 5 mg QAM [facility] Administration Multivitamins/Calcium 1 tablet 10/02/20 09:00 10/21/20 09:16 Therapeutic Multivitamins/Minerals Tab (*Bkc) PO 1 tablet QAM [facility] Administration Pantoprazole Sodium 40 mg 10/13/20 21:00 10/21/20 09:16 Pantoprazole 40 Mg Tablet PO 40 mg Q12HR [facility] Administration Phenyleph/Shark Oil/Min Oil/Petrol 1 applic 10/19/20 16:50 10/21/20 09:16 Phenyleph/Shark Oil/Mo/Petrol Cream 26 Gm RECTAL 1 applic QAM [facility] Administration Spironolactone 25 mg 10/19/20 09:00 10/21/20 09:16 Spironolactone 25 Mg Tablet PO 25 mg QAM [facility] Administration Thiamine HCl 100 mg 10/02/20 09:00 10/21/20 09:16 Thiamine Hcl 100 Mg Tablet PO 100 mg QAM [facility] Administration Witch Laura 1 pad 10/19/20 15:53 10/20/20 13:18 Witch Laura 40 Pads TOPICAL 1 pad PRN PRN Administration Perineal Discomfort Zinc Sulfate 220 mg 10/12/20 09:00 10/21/20 09:16 Zinc Sulfate 220 Mg Capsule PO 220 mg QAM [facility] Administration Radiology Results: ITS Impressions Abdomen/Pelvis CT 10/01/20 10:01 IMPRESSION: 1. Anasarca characterized by pleural effusions, ascites and diffuse subcutaneous edema. 2: Bibasilar atelectasis. 3: Hepatic steatosis. 4: Ventral wall hernia containing nonobstructed small bowel and ascites. Venous Doppler Study 10/01/20 15:48 IMPRESSION: 1. No deep venous thrombosis. Renal Ultrasound 10/12/20 09:33 IMPRESSION: 1. Normal kidneys without hydronephrosis. 2. Persistent small amount of ascites surrounding the gallbladder which demonstrates mild wall thickening and internal sludge but no cholelithiasis. This is likely related to the previously observed anasarca which is of indeterminate etiology. Differential would incl
[2020-10-21 14:00] VITALS: BP 118/56; PULSE 94; RESP 20; TEMP 36.8; O2SAT 98
--- NOTE | 2020-10-21 16:40 | PM.PNNEP ---
Progress Note: A&P Assessment and Plan (1) Acute renal failure: Code(s): N17.9 - Acute kidney failure, unspecified Status: Acute Assessment and Plan: resolving creatinine 1.2 on admission then jhony to 2.0 and now dropped to 1.8 - 1.9mg/dl evaluation to date: - renal ultrasound is unremarkable - urine electrolytes are pre renal (susepct due to liver physiology rather than dehydration) - bland urine sediment continue IV albumin chased by IV bumex to promote diuresis and minimize fluctuations in kidney function/creatinine (2) Anasarca: Code(s): R60.1 - Generalized edema Status: Acute Assessment and Plan: quite severe Echo and venous doppler noted likely secondary to her liver disease hopefully this improves as the alcoholic hepatitis improves continue IV albumin + IV bumex (but this is only a temporary fix at best) increased IV bumex to 2mg and added metolazone -- improvement noted given low K+, will also increase spironolactone dosage (3) Alcoholic hepatitis: Code(s): K70.10 - Alcoholic hepatitis without ascites Status: Chronic Assessment and Plan: patient has been drinking heavily for 4 years GI following (4) Gastric ulcer: Code(s): K25.9 - Gastric ulcer, unspecified as acute or chronic, without hemorrhage or perforation Status: Acute Assessment and Plan: s/p EGD with findings noted on PPI GI following (5) Anemia: Code(s): D64.9 - Anemia, unspecified Status: Acute Assessment and Plan: due to gastric ulcer, BRUNO, liver disease H/H relatively stable by last check PRBC transfusion per protocol follow trend Will continue to follow. Subjective Date/time seen: 10/21/20 16:40 Appears addition of metolazone to diuretic regimen has helped improve diuresis as noted by I/Os in the last 24 hours (she is negative about 2L overnight) ; however, still has significant/severe edema at this time; no new events/issues overnight or earlier this AM Exam Narrative: Exam Narrative: General: ill appearing female in NAD Heart: normal S1 and S2; no rub Lungs: clear to auscultation Abdomen: soft, nontender, positive bowel sounds Extremities: no cyanosis or clubbing; 2 - 3+edema Skin: jaundiced Objective Data Vital Signs Vital Signs: Vital Signs Temp Pulse Resp BP Pulse Ox 10/21/20 14:00 36.8 C 94 20 118/56 L 98 10/21/20 06:00 36.9 C 90 18 133/53 L 97 10/20/20 21:50 37.2 C 91 16 114/58 L 97 Intake/Output Intake/Output: Intake & Output 10/18/20 10/19/20 10/20/20 10/21/20 23:59 23:59 23:59 23:59 Intake Total 2070 2165 1270 1280 Output Total 1700 2100 1900 3250 Balance 370 26 -993 -6033 Meds/Results Medications: Active Medications Generic Name Dose Route Start Last Admin Trade Name Freq PRN Reason Stop Dose Admin Albuterol 2 puff 10/01/20 14:43 Albuterol Sulfate (*Sp) Aerosol 1 Puff INHALATION QIDRT PRN Shortness Of Breath Bumetanide 2 mg 10/21/20 20:30 Bumetanide Inj 2.5 Mg/10 Ml Vial IV PUSH Q8H [facility] Cefuroxime Axetil 500 mg 10/13/20 18:40 10/21/20 16:04 Cefuroxime Axetil 250 Mg Tablet PO 500 mg BIDWM [facility] Administration Folic Acid 1 mg 10/02/20 09:00 10/21/20 09:16 Folic Acid 1 Mg Tablet PO 1 mg DAILY [facility] Administration Albumin Human 100 mls @ 60 mls/hr 10/19/20 03:00 10/21/20 18:28 Albutein IVPB 60 mls/hr Q8H [facility] Administration Lactulose 20 gm 10/19/20 09:00 10/21/20 09:16 Lactulose 20 Gm/30 Ml Udc PO 20 gm QAM [facility] Administration Lorazepam 1 mg 10/05/20 02:42 Lorazepam Inj (*Crx) 2 Mg/Ml Vial IV PUSH Q4H PRN Anxiety Metolazone 5 mg 10/21/20 09:00 10/21/20 09:16 Metolazone 5 Mg Tablet PO 5 mg QAM [facility] Administration Multivitamins/Calcium 1 tablet 10/02/20 09:00 10/21/20 09:16 Therapeutic Multivitamins/Mineral
--- NOTE | 2020-10-21 16:40 | P.PNNP_ITS ---
Progress Note: A&P Assessment and Plan (1) Acute renal failure: Code(s): N17.9 - Acute kidney failure, unspecified Status: Acute Assessment and Plan: * resolving * creatinine 1.2 on admission then jhony to 2.0 and now dropped to 1.8 - 1.9mg/dl * evaluation to date: - renal ultrasound is unremarkable - urine electrolytes are pre renal (susepct due to liver physiology rather than dehydration) - bland urine sediment * continue IV albumin chased by IV bumex to promote diuresis and minimize fluctuations in kidney function/creatinine (2) Anasarca: Code(s): R60.1 - Generalized edema Status: Acute Assessment and Plan: * quite severe * Echo and venous doppler noted * likely secondary to her liver disease * hopefully this improves as the alcoholic hepatitis improves * continue IV albumin + IV bumex (but this is only a temporary fix at best) * increased IV bumex to 2mg and added metolazone -- improvement noted * given low K+, will also increase spironolactone dosage (3) Alcoholic hepatitis: Code(s): K70.10 - Alcoholic hepatitis without ascites Status: Chronic Assessment and Plan: * patient has been drinking heavily for 4 years * GI following (4) Gastric ulcer: Code(s): K25.9 - Gastric ulcer, unspecified as acute or chronic, without hemorrhage or perforation Status: Acute Assessment and Plan: * s/p EGD with findings noted * on PPI * GI following (5) Anemia: Code(s): D64.9 - Anemia, unspecified Status: Acute Assessment and Plan: * due to gastric ulcer, BRUNO, liver disease * H/H relatively stable by last check * PRBC transfusion per protocol * follow trend Will continue to follow. Subjective Date/time seen: 10/21/20 16:40 Appears addition of metolazone to diuretic regimen has helped improve diuresis as noted by I/Os in the last 24 hours (she is negative about 2L overnight) ; however, still has significant/severe edema at this time; no new events/issues overnight or earlier this AM Exam Narrative: Exam Narrative: General: ill appearing female in NAD Heart: normal S1 and S2; no rub Lungs: clear to auscultation Abdomen: soft, nontender, positive bowel sounds Extremities: no cyanosis or clubbing; 2 - 3+edema Skin: jaundiced Objective Data Vital Signs Vital Signs: Vital Signs Temp Pulse Resp BP Pulse Ox 10/21/20 14:00 36.8 C 94 20 118/56 L 98 10/21/20 06:00 36.9 C 90 18 133/53 L 97 10/20/20 21:50 37.2 C 91 16 114/58 L 97 Intake/Output Intake/Output: Intake & Output 10/18/20 10/19/20 10/20/20 10/21/20 23:59 23:59 23:59 23:59 Intake Total 2070 2165 1270 1280 Output Total 1700 2100 1900 3250 Balance 370 13 -796 -4540 Meds/Results Medications: Active Medications Generic Name Dose Route Start Last Admin Trade Name Freq PRN Reason Stop Dose Admin Albuterol 2 puff 10/01/20 14:43 Albuterol Sulfate (*Sp) Aerosol 1 Puff INHALATION QIDRT PRN Shortness Of Breath Bumetanide 2 mg 10/21/20 20:30 Bumetanide Inj 2.5 Mg/10 Ml Vial IV PUSH Q8H [facility] Cefuroxime Axetil 500 mg 10/13/20 18:40 10/21/20 16:04 Cefuroxime Axetil 250 Mg Tablet PO 500 m
[2020-10-21 21:47] VITALS: BP 123/49; PULSE 92; RESP 16; TEMP 36.8; O2SAT 97
[2020-10-22] MEDS: ALBUMIN HUMAN 25% 25 GM/100 ML 100 ML IVPB ×2 (04:10→11:22)
[2020-10-22 05:28] LABS: Basophils Absolute Auto 0.1 K/mm3 (0.0-0.1); Eosinophils Absolute Auto 0.4 K/mm3 (0-0.3); Eosinophils Percent Auto 3.2 % (0-4.4); Hematocrit 24.7 % (37.0-47.0); Hemoglobin 8.1 g/dL (12.0-15.0); Immature Granulocyte Absolute 0.05 K/mm3 (0.00-0.031); Immature Granulocyte Percent A 0.4 % (0-0.5); Immature Platelet Fraction Pct 3.8 % (0.9-11.2); Lymphocytes Absolute Auto 1.09 K/mm3 (0.9-3.2); Lymphocytes Percent Auto 9.2 % (18.3-44.2); Mean Corpuscular HGB Conc 32.8 g/dl (32-36); Mean Corpuscular Hemoglobin 29.1 pg (26-34); Mean Corpuscular Volume 88.8 fl (80-100); Mean Platelet Volume 10.2 fl (7.4-10.4); Monocytes Percent Auto 8.2 % (2.6-8.5); Neutrophils Absolute Auto 9.3 K/mm3 (1.3-6.7); Platelet Count Result 240 k/mm3 (150-375); Red Blood Count 2.78 M/mm3 (4.2-5.4); Red Cell Distribution Width 27.6 % (11.5-14.5); White Blood Count 11.9 K/mm3 (4.5-10.0)
[2020-10-22 05:54] LABS: Platelet Estimate Adequate (Adequate)
[2020-10-22 05:55] LABS: Hypochromasia 2+ (NORMAL); Ovalocytes 1+ (NORMAL); Target Cells 2+ (NORMAL)
[2020-10-22] MEDS: BUMETANIDE INJ 2.5 MG/10 ML VIAL 2 MG IV PUSH ×2 (05:59→13:05)
[2020-10-22 06:00] VITALS: BP 132/53; PULSE 95; RESP 16; TEMP 36.7; O2SAT 98
[2020-10-22 07:25] LABS: Ammonia 54 umol/L (9-30)
[2020-10-22 08:05] LABS: Alanine Aminotransferase 32 U/L (4-35); Alkaline Phosphatase 59 U/L (38-126); Anion Gap 7 mmol/L (8-16); Aspartate Amino Transferase 104 U/L (14-36); Bilirubin,Total 23.7 mg/dL (0.2-1.3); Blood Urea Nitrogen 32 mg/dL (7-17); Calcium 9.5 mg/dL (8.4-10.2); Carbon Dioxide 32 mmol/L (22-30); Chloride 101 mmol/L (98-107); Estimated CRCL calculation 70 ml/min; Estimated Glomerular Filt Rate 52; Glucose 99 mg/dL (65-105); Potassium 2.8 mmol/L (3.4-5.0); Sodium 140 mmol/L (137-145)
--- NOTE | 2020-10-22 08:51 | WPDGIPROGNO ---
Progress Note: A&P Additional Plan GI [facility] for Romel 22 Oct 2020 No gi complaints. VSS 4+ bilateral KOFI. Soft/NT. Large ventral hernia. + jaundice. Hct 25. TBili 26->25, A/P 73->59, AST 102->104, ALT 33->32. K 2.8 A/P A. EtOH Hepatitis with anasarca and without ascites - 2 gr Na restriction - Continue Bumex, Aldactone, Zaroxolyn and albumin - Follow I/O, weights and labs including Mg - Replete potassium - EtOH cessation - Follow LFT's - Consideration of OLTx at some point B. Elevated ammonia: continue lactulose C. Gastric Ulcers: - PPI - No active bleed D. Ventral hernia: observe Further recommendations per Dr. Urena. Kahlil, [facility] [phone] Subjective Date/time seen: 10/22/20 08:51 Objective Data Vital Signs Vital Signs: Vital Signs - 24 hr 10/21/20 14:00 10/21/20 21:47 10/22/20 06:00 Temperature 36.8 C 36.8 C 36.7 C Pulse Rate 94 92 95 Respiratory Rate 20 16 16 Blood Pressure 118/56 L 123/49 L 132/53 L Pulse Oximetry 98 97 98 Intake/Output Intake/Output: Intake & Output 10/19/20 10/20/20 10/21/20 10/22/20 23:59 23:59 23:59 23:59 Intake Total 2165 1270 2240 580 Output Total 2100 1900 4550 1750 Balance 59 -700 -6481 -8911 Meds/Results Medications: Active Medications Generic Name Dose Route Start Last Admin Trade Name Freq PRN Reason Stop Dose Admin Albuterol 2 puff 10/01/20 14:43 Albuterol Sulfate (*Sp) Aerosol 1 Puff INHALATION QIDRT PRN Shortness Of Breath Bumetanide 2 mg 10/21/20 20:30 10/22/20 05:59 Bumetanide Inj 2.5 Mg/10 Ml Vial IV PUSH 2 mg Q8H [facility] Administration Cefuroxime Axetil 500 mg 10/13/20 18:40 10/21/20 16:04 Cefuroxime Axetil 250 Mg Tablet PO 500 mg BIDWM [facility] Administration Folic Acid 1 mg 10/02/20 09:00 10/21/20 09:16 Folic Acid 1 Mg Tablet PO 1 mg DAILY [facility] Administration Albumin Human 100 mls @ 60 mls/hr 10/19/20 03:00 10/22/20 05:51 Albutein IVPB Infused Q8H [facility] Infusion Lactulose 20 gm 10/19/20 09:00 10/21/20 09:16 Lactulose 20 Gm/30 Ml Udc PO 20 gm QAM [facility] Administration Lorazepam 1 mg 10/05/20 02:42 Lorazepam Inj (*Crx) 2 Mg/Ml Vial IV PUSH Q4H PRN Anxiety Metolazone 5 mg 10/21/20 09:00 10/21/20 09:16 Metolazone 5 Mg Tablet PO 5 mg QAM [facility] Administration Multivitamins/Calcium 1 tablet 10/02/20 09:00 10/21/20 09:16 Therapeutic Multivitamins/Minerals Tab (*Bkc) PO 1 tablet QAM [facility] Administration Pantoprazole Sodium 40 mg 10/13/20 21:00 10/21/20 20:07 Pantoprazole 40 Mg Tablet PO 40 mg Q12HR [facility] Administration Phenyleph/Shark Oil/Min Oil/Petrol 1 applic 10/19/20 16:50 10/21/20 09:16 Phenyleph/Shark Oil/Mo/Petrol Cream 26 Gm RE[facility]AL [facility] Potassium Chloride 40 meq 10/22/20 13:30 Potassium Chloride 20 Meq Tablet PO 10/22/20 13:31 ONCE ONE Spironolactone 50 mg 10/22/20 09:00 Spironolactone 50 Mg Tablet PO QAM [facility] Thiamine HCl 100 mg 10/02/20 09:00 10/21/20 09:16 Thiamine Hcl 100 Mg Tablet PO [facility] Administration Witch Laura 1 pad 10/19/20 15:53 10/20/20 13:18 Witch Laura 40 Pads TOPICAL 1 pad PRN PRN Administration Perineal Discomfort Zinc Sulfate 220 mg 10/12/20 09:00 10/21/20 09:16 Zinc Sulfate 220 Mg Capsule PO 220 [facility] Administration Radiology Results: ITS Impressions Abdomen/Pelvis CT 10/01/20 10:01 IMPRESSION: 1. Anasarca characterized by pleural effusions, ascites and diffuse subcutaneous edema. 2: Bibasilar atelectasis. 3: Hepatic steatosis. 4: Ventral wall hernia containing nonobstructed small bowel and ascites. Venous Doppler Study 10/01/20 15:48 IMPRESSION: 1. No deep venous thrombosis. Renal Ultrasound 10/12/20 09:33 IMPRESSION: 1. Normal kidneys without hydronephrosis. 2. Persistent small amount of ascites surrounding the gallbladder which demonstrates mild wall thickeni
[2020-10-22] MEDS: CEFUROXIME AXETIL 250 MG TABLET 500 MG PO ×2 (09:08→16:19)
[2020-10-22] MEDS: LACTULOSE 20 GM/30 ML UDC PO (09:08)
[2020-10-22] MEDS: POTASSIUM CHLORIDE 20 MEQ PACKET (FOR LIQUID) 40 MEQ PO (09:08)
[2020-10-22] MEDS: THIAMINE HCL 100 MG TABLET PO (09:09)
[2020-10-22] MEDS: THERAPEUTIC MULTIVITAMINS/MINERALS TAB (*BKC) 1 TABLET PO (09:09)
[2020-10-22] MEDS: ZINC SULFATE 220 MG CAPSULE PO (09:09)
[2020-10-22] MEDS: PANTOPRAZOLE 40 MG TABLET PO ×2 (09:09→21:40)
[2020-10-22] MEDS: FOLIC ACID 1 MG TABLET PO (09:09)
[2020-10-22] MEDS: metOLazone 5 MG TABLET PO (09:09)
[2020-10-22] MEDS: SPIRONOLACTONE 50 MG TABLET PO (09:10)
[2020-10-22] MEDS: PHENYLEPH/SHARK OIL/MO/PETROL CREAM 26 GM 1 APPLIC RECTAL (09:14)
--- NOTE | 2020-10-22 10:47 | PM.IMPN ---
Progress Note: A&P Assessment and Plan (1) Alcoholic hepatitis: Qualifiers: Ascites presence: with ascites Qualified Code(s): K70.11 - Alcoholic hepatitis with ascites Code(s): K70.10 - Alcoholic hepatitis without ascites Status: Chronic Assessment and Plan: Excessive alcohol intake for at least 4 years MELD-Na = 26, impies 90 day mortality of 15% (2) Gastric ulcer: Qualifiers: Gastric ulcer chronicity: unspecified ulcer chronicity Gastric ulcer complication status: with hemorrhage Qualified Code(s): K25.4 - Chronic or unspecified gastric ulcer with hemorrhage Code(s): K25.9 - Gastric ulcer, unspecified as acute or chronic, without hemorrhage or perforation Status: Acute Assessment and Plan: On PPI No sign of active bleeding (3) Hypokalemia: Code(s): E87.6 - Hypokalemia Status: Acute Assessment and Plan: Due to diuretics and stool losses PO KCL ordered 10/22 F/u BMP and Mg 10/23 (4) Weakness generalized: Code(s): R53.1 - Weakness Status: Acute Assessment and Plan: Improving with PT/OT (5) Acute renal failure: Qualifiers: Acute renal failure type: unspecified Qualified Code(s): N17.9 - Acute kidney failure, unspecified Code(s): N17.9 - Acute kidney failure, unspecified Status: Acute Assessment and Plan: Creatinine 1.1 Continue albumin, bumex and spironolactone regime (6) Ventral hernia: Qualifiers: Obstruction and gangrene presence: without obstruction or gangrene Qualified Code(s): K43.9 - Ventral hernia without obstruction or gangrene Code(s): K43.9 - Ventral hernia without obstruction or gangrene Status: Acute Assessment and Plan: Stable, w/o need for surgical intervention (7) Leukocytosis: Qualifiers: Leukocytosis type: unspecified Qualified Code(s): D72.829 - Elevated white blood cell count, unspecified Code(s): D72.829 - Elevated white blood cell count, unspecified Status: Acute Assessment and Plan: Mild, stable (8) Alcohol abuse: Code(s): F10.10 - Alcohol abuse, uncomplicated Status: Acute Assessment and Plan: Aware of need to abstain Subjective Date/time seen: 10/22/20 10:47 Interval history: 55-year-old female who has not seen a physician for greater than 15 years who presented to the emergency department 10/01 via EMS from home for evaluation of shortness of breath. Pt has history of alcoholic hepatitis, gastric ulcer, ventral hernia. and has swollen abdomen and ankles. Ongoing jaundice and edema of lower extremities. 10/22: Feels that PT/OT have helped tremendously. Some urge urinary incontinence with diuretics. Loose stools with lactulose. No bleeding. Leg swelling improved since admission. Her biggest concern is adhering to fluid restriction diet. Review of Systems Review of Systems: All systems reviewed & are unremarkable except as noted in HPI and below Exam Narrative: Exam Narrative: Appears chronically ill Const: General: other (Jaundiced ) Nutritional Appearance: overweight Orientation/consciousness: patient oriented x3 HENMT: Head: normal to inspection and normocephalic Ears: hearing grossly normal bilaterally General nose exam: Normal external nose present Face and sinus: normal facial exam Eyes: General: appearance normal, both eyes and all related structures Conjunctivae: conjunctivae normal (Icterus.) Sclera: scleral abnormality (Icterus.) bilateral other Pupils: Equal, round and reactive pupils present EOM: EOMs intact bilaterally Neck: Neck: no JVD Resp: Effort & Inspection: able to speak in complete sentences Auscultation: clear to auscultation bilaterally Cardio: Jugular venous distension: no JVD Rate: regular rate Rhythm: regular rhythm GI: Inspection: distended and visible herniation (Ventral) Skin: General skin exam: jaundice Wounds: no
--- NOTE | 2020-10-22 13:05 | PM.PNNEP ---
Progress Note: A&P Assessment and Plan (1) Acute renal failure: Qualifiers: Acute renal failure type: unspecified Qualified Code(s): N17.9 - Acute kidney failure, unspecified Code(s): N17.9 - Acute kidney failure, unspecified Status: Acute Assessment and Plan: resolving/resolved creatinine 1.2 on admission then jhony to 2.0mg/dl evaluation to date: - renal ultrasound is unremarkable - urine electrolytes are pre renal (susepct due to liver physiology rather than dehydration) - bland urine sediment getting IV albumin chased by IV bumex to promote diuresis and minimize fluctuations in kidney function/creatinine since albumin normal will stop IV albumin (2) Anasarca: Code(s): R60.1 - Generalized edema Status: Acute Assessment and Plan: quite severe Echo and venous doppler noted likely secondary to her liver disease hopefully this improves as the alcoholic hepatitis improves on IV albumin + IV bumex (but this is only a temporary fix at best) - will d/c IV albumin since kidney function stable - switch bumex to oral dosing tomorrow continue metolazone and spironolactone for now replete K+ as needed (3) Alcoholic hepatitis: Qualifiers: Ascites presence: with ascites Qualified Code(s): K70.11 - Alcoholic hepatitis with ascites Code(s): K70.10 - Alcoholic hepatitis without ascites Status: Chronic Assessment and Plan: patient has been drinking heavily for 4 years GI following (4) Gastric ulcer: Qualifiers: Gastric ulcer chronicity: unspecified ulcer chronicity Gastric ulcer complication status: with hemorrhage Qualified Code(s): K25.4 - Chronic or unspecified gastric ulcer with hemorrhage Code(s): K25.9 - Gastric ulcer, unspecified as acute or chronic, without hemorrhage or perforation Status: Acute Assessment and Plan: s/p EGD with findings noted on PPI GI following (5) Anemia: Code(s): D64.9 - Anemia, unspecified Status: Acute Assessment and Plan: due to gastric ulcer, BRUNO, liver disease H/H relatively stable by last check PRBC transfusion per protocol follow trend Will continue to follow. Subjective Date/time seen: 10/22/20 13:05 Kidney function improving associated with better response to IV albumin + IV diuretics; working with PT/OT and making slow and steady progress; concerned that she may not be able to follow the fluid restriction on discharge; otherwise, no acute distress noted. Exam Narrative: Exam Narrative: General: ill appearing female in NAD Heart: normal S1 and S2; no rub Lungs: clear to auscultation Abdomen: soft, nontender, positive bowel sounds Extremities: no cyanosis or clubbing; 2 - 3+edema Skin: jaundiced Objective Data Vital Signs Vital Signs: Vital Signs Temp Pulse Resp BP Pulse Ox 10/22/20 06:00 36.7 C 95 16 132/53 L 98 10/21/20 21:47 36.8 C 92 16 123/49 L 97 Intake/Output Intake/Output: Intake & Output 10/19/20 10/20/20 10/21/20 10/22/20 23:59 23:59 23:59 23:59 Intake Total 2165 1270 2240 920 Output Total 2100 1900 4550 3250 Balance 16 -198 -0631 -7554 Meds/Results Medications: Active Medications Generic Name Dose Route Start Last Admin Trade Name Freq PRN Reason Stop Dose Admin Albuterol 2 puff 10/01/20 14:43 Albuterol Sulfate (*Sp) Aerosol 1 Puff INHALATION QIDRT PRN Shortness Of Breath Bumetanide 2 mg 10/21/20 20:30 10/22/20 13:05 Bumetanide Inj 2.5 Mg/10 Ml Vial IV PUSH 2 mg Q8H [facility] Administration Cefuroxime Axetil 500 mg 10/13/20 18:40 10/22/20 16:19 Cefuroxime Axetil 250 Mg Tablet PO 500 mg BIDWM [facility] Administration Folic Acid 1 mg 10/02/20 09:00 10/22/20 09:09 Folic Acid 1 Mg Tablet PO 1 mg DAILY [facility] Administration Albumin Human 100 mls @ 60
--- NOTE | 2020-10-22 13:05 | P.PNNP_ITS ---
Progress Note: A&P Assessment and Plan (1) Acute renal failure: Qualifiers: Acute renal failure type: unspecified Qualified Code(s): N17.9 - Acute kidney failure, unspecified Code(s): N17.9 - Acute kidney failure, unspecified Status: Acute Assessment and Plan: * resolving/resolved * creatinine 1.2 on admission then jhony to 2.0mg/dl * evaluation to date: - renal ultrasound is unremarkable - urine electrolytes are pre renal (susepct due to liver physiology rather than dehydration) - bland urine sediment * getting IV albumin chased by IV bumex to promote diuresis and minimize fluctuations in kidney function/creatinine * since albumin normal will stop IV albumin (2) Anasarca: Code(s): R60.1 - Generalized edema Status: Acute Assessment and Plan: * quite severe * Echo and venous doppler noted * likely secondary to her liver disease * hopefully this improves as the alcoholic hepatitis improves * on IV albumin + IV bumex (but this is only a temporary fix at best) - will d/c IV albumin since kidney function stable - switch bumex to oral dosing tomorrow * continue metolazone and spironolactone for now * replete K+ as needed (3) Alcoholic hepatitis: Qualifiers: Ascites presence: with ascites Qualified Code(s): K70.11 - Alcoholic hepatitis with ascites Code(s): K70.10 - Alcoholic hepatitis without ascites Status: Chronic Assessment and Plan: * patient has been drinking heavily for 4 years * GI following (4) Gastric ulcer: Qualifiers: Gastric ulcer chronicity: unspecified ulcer chronicity Gastric ulcer complication status: with hemorrhage Qualified Code(s): K25.4 - Chronic or unspecified gastric ulcer with hemorrhage Code(s): K25.9 - Gastric ulcer, unspecified as acute or chronic, without hemorrhage or perforation Status: Acute Assessment and Plan: * s/p EGD with findings noted * on PPI * GI following (5) Anemia: Code(s): D64.9 - Anemia, unspecified Status: Acute Assessment and Plan: * due to gastric ulcer, BRUNO, liver disease * H/H relatively stable by last check * PRBC transfusion per protocol * follow trend Will continue to follow. Subjective Date/time seen: 10/22/20 13:05 Kidney function improving associated with better response to IV albumin + IV diuretics; working with PT/OT and making slow and steady progress; concerned that she may not be able to follow the fluid restriction on discharge; otherwise, no acute distress noted. Exam Narrative: Exam Narrative: General: ill appearing female in NAD Heart: normal S1 and S2; no rub Lungs: clear to auscultation Abdomen: soft, nontender, positive bowel sounds Extremities: no cyanosis or clubbing; 2 - 3+edema Skin: jaundiced Objective Data Vital Signs Vital Signs: Vital Signs Temp Pulse Resp BP Pulse Ox 10/22/20 06:00 36.7 C 95 16 132/53 L 98 10/21/20 21:47 36.8 C 92 16 123/49 L 97 Intake/Output Intake/Output: Intake & Output 10/19/20 10/20/20 10/21/20 10/22/20 23:59 23:59 23:59 23:59 Intake Total 2165 1270 2240 920 Output Total 2100 1900 4550 3250 Balance 39 -398 -1692 -0136 Meds/Results Medications: Active Medication
[2020-10-22] MEDS: POTASSIUM CHLORIDE 20 MEQ TABLET 40 MEQ PO (13:13)
[2020-10-22 14:30] VITALS: BP 134/55; PULSE 98; RESP 18; TEMP 36.6; O2SAT 99
[2020-10-22 22:00] VITALS: BP 122/54; PULSE 96; RESP 18; TEMP 36.7; O2SAT 100
[2020-10-23 05:34] LABS: Hematocrit 24.9 % (37.0-47.0); Hemoglobin 8.3 g/dL (12.0-15.0); Mean Corpuscular HGB Conc 33.3 g/dl (32-36); Mean Corpuscular Hemoglobin 29.5 pg (26-34); Mean Corpuscular Volume 88.6 fl (80-100); Mean Platelet Volume 9.3 fl (7.4-10.4); Platelet Count Result 240 k/mm3 (150-375); Red Blood Count 2.81 M/mm3 (4.2-5.4); Red Cell Distribution Width 27.5 % (11.5-14.5); White Blood Count 11.9 K/mm3 (4.5-10.0)
[2020-10-23 05:47] LABS: Alanine Aminotransferase 33 U/L (4-35); Albumin Level 4.1 g/dL (3.5-5.1); Alkaline Phosphatase 68 U/L (38-126); Anion Gap 10 mmol/L (8-16); Aspartate Amino Transferase 102 U/L (14-36); Bilirubin,Total 22.1 mg/dL (0.2-1.3); Blood Urea Nitrogen 31 mg/dL (7-17); Calcium 10.1 mg/dL (8.4-10.2); Carbon Dioxide 33 mmol/L (22-30); Chloride 101 mmol/L (98-107); Estimated CRCL calculation 70 ml/min; Estimated Glomerular Filt Rate 52; Glucose 99 mg/dL (65-105); Magnesium 1.1 mg/dL (1.6-2.3); Potassium 3.3 mmol/L (3.4-5.0); Sodium 144 mmol/L (137-145)
[2020-10-23 05:50] LABS: Ammonia 59 umol/L (9-30)
[2020-10-23 06:00] VITALS: BP 123/58; PULSE 93; RESP 18; TEMP 36.7; O2SAT 97
--- NOTE | 2020-10-23 08:28 | WPDGIPROGNO ---
Progress Note: A&P Assessment and Plan (1) Gastric ulcer: Qualifiers: Gastric ulcer chronicity: unspecified ulcer chronicity Gastric ulcer complication status: with hemorrhage Qualified Code(s): K25.4 - Chronic or unspecified gastric ulcer with hemorrhage Code(s): K25.9 - Gastric ulcer, unspecified as acute or chronic, without hemorrhage or perforation Status: Acute Assessment and Plan: Hemoglobin stable. Plan to avoid nonsteroidal anti-inflammatory agents. Continue Protonix. (2) Ventral hernia: Qualifiers: Obstruction and gangrene presence: without obstruction or gangrene Qualified Code(s): K43.9 - Ventral hernia without obstruction or gangrene Code(s): K43.9 - Ventral hernia without obstruction or gangrene Status: Acute (3) Alcoholic hepatitis: Qualifiers: Ascites presence: with ascites Qualified Code(s): K70.11 - Alcoholic hepatitis with ascites Code(s): K70.10 - Alcoholic hepatitis without ascites Status: Chronic Assessment and Plan: Patient with severe alcoholic hepatitis. She has concomitant anasarca. In also with elevated ammonia. Agree with continuing lactulose. Monitor and correct electrolytes. Agree with Bumex, Aldactone, Zaroxolyn and albumin change SIRS. Currently managed by Nephrology service. Continue to follow LFTs. At some point referral for hepatology evaluation at tertiary care center is suggested a long-term plan may be requirement for liver transplant. (4) Alcohol abuse: Code(s): F10.10 - Alcohol abuse, uncomplicated Status: Acute Assessment and Plan: Strict alcohol avoidance reiterated today. (5) Anasarca: Code(s): R60.1 - Generalized edema Status: Acute Assessment and Plan: Patient has begun to diurese. Continue diuretics per Nephrology. Subjective Date/time seen: 10/23/20 08:28 Patient appears as though she is beginning to diurese. States much improved ankle edema. Continues to tolerate diet without difficulty. No evidence for blood loss. Review of Systems Review of Systems: All systems reviewed & are unremarkable except as noted in HPI and below Exam Narrative: Exam Narrative: On physical exam she remains with marked scleral icterus. Lungs are clear. Heart without murmur. Abdomen is obese with large ventral hernia. No palpable organomegaly. Extremities with 2+ edema. Objective Data Vital Signs Vital Signs: Vital Signs - 24 hr 10/22/20 14:30 10/22/20 22:00 10/23/20 06:00 Temperature 97.8 F 98.1 F 98.0 F Pulse Rate 98 96 93 Respiratory Rate 18 18 18 Blood Pressure 134/55 L 122/54 L 123/58 L Pulse Oximetry 99 100 97 Intake/Output Intake/Output: Intake & Output 10/20/20 10/21/20 10/22/20 10/23/20 23:59 23:59 23:59 23:59 Intake Total 1270 2240 1160 240 Output Total 1900 4550 3850 2414 Sgjxcvo -494 -2310 -2690 -1710 Meds/Results Medications: Active Medications Generic Name Dose Route Start Last Admin Trade Name Freq PRN Reason Stop Dose Admin Albuterol 2 puff 10/01/20 14:43 Albuterol Sulfate (*Sp) Aerosol 1 Puff INHALATION QIDRT PRN Shortness Of Breath Bumetanide 2 mg 10/23/20 09:00 Bumetanide 1 Mg Tablet PO BID [facility] Cefuroxime Axetil 500 mg 10/13/20 18:40 10/22/20 16:19 Cefuroxime Axetil 250 Mg Tablet PO 500 mg BIDWM [facility] Administration Folic Acid 1 mg 10/02/20 09:00 10/22/20 09:09 Folic Acid 1 Mg Tablet PO 1 mg DAILY [facility] Administration Lactulose 20 gm 10/19/20 09:00 10/22/20 09:08 Lactulose 20 Gm/30 Ml Udc PO 20 gm QAM [facility] Administration Lorazepam 1 mg 10/05/20 02:42 Lorazepam Inj (*Crx) 2 Mg/Ml Vial IV PUSH Q4H PRN Anxiety Metolazone 2.5 mg 10/23/20 09:00 Metolazone 5 Mg Tablet PO QAM [facility] Multivitamins/Calcium 1 tablet 10/02/20 09:00 10/22/20 09:09 Therapeutic Multivitamins/Minerals Tab (*Bkc) PO 1 tablet QAM [facility] Administra
[2020-10-23] MEDS: LACTULOSE 20 GM/30 ML UDC PO (08:47)
[2020-10-23] MEDS: BUMETANIDE 1 MG TABLET 2 MG PO ×2 (08:47→18:33)
[2020-10-23] MEDS: CEFUROXIME AXETIL 250 MG TABLET 500 MG PO ×2 (08:47→18:33)
[2020-10-23] MEDS: FOLIC ACID 1 MG TABLET PO (08:47)
[2020-10-23] MEDS: THERAPEUTIC MULTIVITAMINS/MINERALS TAB (*BKC) 1 TABLET PO (08:48)
[2020-10-23] MEDS: PHENYLEPH/SHARK OIL/MO/PETROL CREAM 26 GM 1 APPLIC RECTAL (08:49)
[2020-10-23] MEDS: SPIRONOLACTONE 50 MG TABLET PO (08:49)
[2020-10-23] MEDS: PANTOPRAZOLE 40 MG TABLET PO ×2 (08:49→20:20)
[2020-10-23] MEDS: THIAMINE HCL 100 MG TABLET PO (08:50)
[2020-10-23] MEDS: ZINC SULFATE 220 MG CAPSULE PO (08:50)
[2020-10-23] MEDS: metOLazone 2.5 MG TABLET PO (08:57)
--- NOTE | 2020-10-23 10:55 | PM.IMPN ---
Progress Note: A&P Assessment and Plan (1) Alcoholic hepatitis: Qualifiers: Ascites presence: with ascites Qualified Code(s): K70.11 - Alcoholic hepatitis with ascites Code(s): K70.10 - Alcoholic hepatitis without ascites Status: Chronic Assessment and Plan: Will follow up with [facility] consulted for recommendations Supportive care continue to monitor bowel movement Supportive care with lactulose and spironolactone. Prognosis is guarded Pt will benefit from liver transplant High MELD score Pt has been drinking heavily for 4 years has not seen MD in 15 years. (2) Weakness generalized: Code(s): R53.1 - Weakness Status: Acute Assessment and Plan: Participating with PT/OT (3) Leukocytosis: Qualifiers: Leukocytosis type: unspecified Qualified Code(s): D72.829 - Elevated white blood cell count, unspecified Code(s): D72.829 - Elevated white blood cell count, unspecified Status: Acute [place]: [place] [id number] Continue to monitor (4) Gastric ulcer: Qualifiers: Gastric ulcer chronicity: unspecified ulcer chronicity Gastric ulcer complication status: with hemorrhage Qualified Code(s): K25.4 - Chronic or unspecified gastric ulcer with hemorrhage Code(s): K25.9 - Gastric ulcer, unspecified as acute or chronic, without hemorrhage or perforation Status: Acute Assessment and Plan: On PPI (5) Ventral hernia: Qualifiers: Obstruction and gangrene presence: without obstruction or gangrene Qualified Code(s): K43.9 - Ventral hernia without obstruction or gangrene Code(s): K43.9 - Ventral hernia without obstruction or gangrene Status: Acute Assessment and Plan: Non reducible (6) Acute renal failure: Qualifiers: Acute renal failure type: unspecified Qualified Code(s): N17.9 - Acute kidney failure, unspecified Code(s): N17.9 - Acute kidney failure, unspecified Status: Acute Assessment and Plan: creat is 1.2 Seen by nephrology on albumin, bumex and spironolactone regime (7) Elevated serum creatinine: Code(s): R79.89 - Other specified abnormal findings of blood chemistry Status: Acute Assessment and Plan: Trending down Making urine On Albumin, bumex and spironolactone regime (8) Alcohol abuse: Code(s): F10.10 - Alcohol abuse, uncomplicated Status: Acute Assessment and Plan: Encourage abstinence (9) Hepatic steatosis: Code(s): K76.0 - Fatty (change of) liver, not elsewhere classified Status: Acute Assessment and Plan: Likely secondary to obesity, EOTH intake and inflammation (10) Anasarca: Code(s): R60.1 - Generalized edema Status: Acute Assessment and Plan: Edematous state continue spironolactone, bumex and albumin combination Continue to diuresis and walk Additional Plan Anaemia anaemia of chronic disease, continue to monitor. Hb is 8 Subjective Date/time seen: 10/23/20 10:55 Interval history: 55-year-old female who has not seen a physician for greater than 15 years who presented to the emergency department earlier today via EMS from home for evaluation of shortness of breath. Pt has history of alcoholic hepatitis, gastric ulcer, ventral hernia. and has swollen abdomen and ankles. Ongoing jaundice and edema of lower extremities. Long discussion about patient overall poor prognosis with severe alcoholic hepatitis. Swelling improving with diuresis and walking with PT Review of Systems Review of Systems: All systems reviewed & are unremarkable except as noted in HPI and below Exam Narrative: Exam Narrative: Acutely ill looking Const: General: other (Jaundiced ) Nutritional Appearance: overweight Orientation/consciousness: patient oriented x3 HENMT: Head: normal to inspection and normocephalic Ears: hearing grossly normal bilaterally Gen
[2020-10-23 14:00] VITALS: BP 148/68; PULSE 105; RESP 19; TEMP 36.6; O2SAT 98
--- NOTE | 2020-10-23 17:31 | P.PNNP_ITS ---
Progress Note: A&P Assessment and Plan (1) Acute renal failure: Qualifiers: Acute renal failure type: unspecified Qualified Code(s): N17.9 - Acute kidney failure, unspecified Code(s): N17.9 - Acute kidney failure, unspecified Status: Acute Assessment and Plan: * resolving/resolved * creatinine 1.2 on admission then jhony to 2.0mg/dl now down to 1.1. * evaluation to date: - renal ultrasound is unremarkable - urine electrolytes are pre renal (susepct due to liver phy siology rather than dehydration) - bland urine sediment * Was getting Bumex and albumin. This was stopped. * She made 4L of urine yesterday. * Swelling is better but not anywhere near gone. * She is going to get some physical therapy. * Discharge any time from the kidney standpoint (2) Anasarca: Code(s): R60.1 - Generalized edema Status: Acute Assessment and Plan: * quite severe * Echo and venous doppler noted * likely secondary to her liver disease * hopefully this improves as the alcoholic hepatitis improves * Will switch to oral diuretics (3) Alcoholic hepatitis: Qualifiers: Ascites presence: with ascites Qualified Code(s): K70.11 - Alcoholic hepatitis with ascites Code(s): K70.10 - Alcoholic hepatitis without ascites Status: Chronic Assessment and Plan: * patient has been drinking heavily for 4 years * GI following (4) Gastric ulcer: Qualifiers: Gastric ulcer chronicity: unspecified ulcer chronicity Gastric ulcer complication status: with hemorrhage Qualified Code(s): K25.4 - Chronic or unspecified gastric ulcer with hemorrhage Code(s): K25.9 - Gastric ulcer, unspecified as acute or chronic, without hemorrhage or perforation Status: Acute Assessment and Plan: * s/p EGD with findings noted * on PPI * GI following (5) Anemia: Code(s): D64.9 - Anemia, unspecified Status: Acute Assessment and Plan: * due to gastric ulcer, BRUNO, liver disease * H/H relatively stable by last check * PRBC transfusion per protocol * hb stable in the 8s. Subjective Date/time seen: 10/23/20 17:31 Interval history: Bela is a very pleasant 55-year-old lady with acute kidney injury. Her admission creatinine was 1.2. It peaked in the 2s. Her current creatinine is down to 1.1. Her swelling is better she says. Review of Systems Cardiovascular: Cardiovascular: Reports no additional cardiovascular complaints Respiratory: Respiratory: Reports no additional respiratory complaints Gastrointestinal: Gastrointestinal: Reports no additional gastrointestinal complaints Genitourinary: Genitourinary: Reports no additional female [facility] Exam Narrative: Exam Narrative: General: ill appearing female in NAD Heart: normal S1 and S2; no rub or gallop Lungs: clear bilaterally Abdomen: soft, nontender, positive bowel sounds Extremities: no cyanosis or clubbing; 2 - 3+ edema Skin: jaundiced Objective Data Vital Signs Vital Signs: Vital Signs - 24 hr 10/22/20 22:00 10/23/20 06:00 10/23/20 14:00 Temperature 36.7 C 36.7 C 36.6 C Pulse Rate 96 93 105 H Respiratory Rate 18 18 19 Blood Pressure 122/54 L 123/58 L 148/68 H Pulse Oximetry 100 97 98 Intake/Output Intake/Output:
--- NOTE | 2020-10-23 17:31 | PM.PNNEP ---
Progress Note: A&P Assessment and Plan (1) Acute renal failure: Qualifiers: Acute renal failure type: unspecified Qualified Code(s): N17.9 - Acute kidney failure, unspecified Code(s): N17.9 - Acute kidney failure, unspecified Status: Acute Assessment and Plan: resolving/resolved creatinine 1.2 on admission then jhony to 2.0mg/dl now down to 1.1. evaluation to date: - renal ultrasound is unremarkable - urine electrolytes are pre renal (susepct due to liver physiology rather than dehydration) - bland urine sediment Was getting Bumex and albumin. This was stopped. She made 4L of urine yesterday. Swelling is better but not anywhere near gone. She is going to get some physical therapy. Discharge any time from the kidney standpoint (2) Anasarca: Code(s): R60.1 - Generalized edema Status: Acute Assessment and Plan: quite severe Echo and venous doppler noted likely secondary to her liver disease hopefully this improves as the alcoholic hepatitis improves Will switch to oral diuretics (3) Alcoholic hepatitis: Qualifiers: Ascites presence: with ascites Qualified Code(s): K70.11 - Alcoholic hepatitis with ascites Code(s): K70.10 - Alcoholic hepatitis without ascites Status: Chronic Assessment and Plan: patient has been drinking heavily for 4 years GI following (4) Gastric ulcer: Qualifiers: Gastric ulcer chronicity: unspecified ulcer chronicity Gastric ulcer complication status: with hemorrhage Qualified Code(s): K25.4 - Chronic or unspecified gastric ulcer with hemorrhage Code(s): K25.9 - Gastric ulcer, unspecified as acute or chronic, without hemorrhage or perforation Status: Acute Assessment and Plan: s/p EGD with findings noted on PPI GI following (5) Anemia: Code(s): D64.9 - Anemia, unspecified Status: Acute Assessment and Plan: due to gastric ulcer, BRUNO, liver disease H/H relatively stable by last check PRBC transfusion per protocol hb stable in the 8s. Subjective Date/time seen: 10/23/20 17:31 Interval history: Bela is a very pleasant 55-year-old lady with acute kidney injury. Her admission creatinine was 1.2. It peaked in the 2s. Her current creatinine is down to 1.1. Her swelling is better she says. Review of Systems Cardiovascular: Cardiovascular: Reports no additional cardiovascular complaints Respiratory: Respiratory: Reports no additional respiratory complaints Gastrointestinal: Gastrointestinal: Reports no additional gastrointestinal complaints Genitourinary: Genitourinary: Reports no additional female genitourinary complaints Exam Narrative: Exam Narrative: General: ill appearing female in NAD Heart: normal S1 and S2; no rub or gallop Lungs: clear bilaterally Abdomen: soft, nontender, positive bowel sounds Extremities: no cyanosis or clubbing; 2 - 3+ edema Skin: jaundiced Objective Data Vital Signs Vital Signs: Vital Signs - 24 hr 10/22/20 22:00 10/23/20 06:00 10/23/20 14:00 Temperature 36.7 C 36.7 C 36.6 C Pulse Rate 96 93 105 H Respiratory Rate 18 18 19 Blood Pressure 122/54 L 123/58 L 148/68 H Pulse Oximetry 100 97 98 Intake/Output Intake/Output: Intake & Output 10/20/20 10/21/20 10/22/20 10/23/20 23:59 23:59 23:59 23:59 Intake Total 1270 2240 1160 720 Output Total 1900 4550 3850 1950 Balance -630 -3160 -2690 -2860 Meds/Results Medications: Active Medications Generic Name Dose Route Start Last Admin Trade Name Freq PRN Reason Stop Dose Admin Albuterol 2 puff 10/01/20 14:43 Albuterol Sulfate (*Sp) Aerosol 1 Puff INHALATION QIDRT PRN Shortness Of Breath Bumetanide 2 mg 10/23/20 09:00 10/23/20 08:47 Bumetanide 1 Mg Tablet PO 2 mg BID NORMAN Administration Cefuroxime Axetil 500 mg 10/13/20 18:40 10/23/20 08:47
[2020-10-23 21:06] VITALS: BP 132/48; PULSE 94; RESP 18; TEMP 36.7; O2SAT 98
[2020-10-24 05:10] LABS: Hematocrit 27.1 % (37.0-47.0); Hemoglobin 8.7 g/dL (12.0-15.0); Mean Corpuscular HGB Conc 32.1 g/dl (32-36); Mean Corpuscular Hemoglobin 29.1 pg (26-34); Mean Corpuscular Volume 90.6 fl (80-100); Mean Platelet Volume 10.4 fl (7.4-10.4); Platelet Count Result 266 k/mm3 (150-375); Red Blood Count 2.99 M/mm3 (4.2-5.4); Red Cell Distribution Width 26.9 % (11.5-14.5); White Blood Count 12.6 K/mm3 (4.5-10.0)
[2020-10-24 05:33] LABS: Ammonia 30 umol/L (9-30)
[2020-10-24 05:46] VITALS: BP 120/47; PULSE 88; RESP 16; TEMP 36.4; O2SAT 99
[2020-10-24 05:56] LABS: Alanine Aminotransferase 37 U/L (4-35); Albumin Level 4.3 g/dL (3.5-5.1); Alkaline Phosphatase 81 U/L (38-126); Anion Gap 11 mmol/L (8-16); Aspartate Amino Transferase 118 U/L (14-36); Bilirubin,Total 25.3 mg/dL (0.2-1.3); Blood Urea Nitrogen 34 mg/dL (7-17); Carbon Dioxide 38 mmol/L (22-30); Chloride 96 mmol/L (98-107); Estimated CRCL calculation 67 ml/min; Estimated Glomerular Filt Rate 52; Glucose 102 mg/dL (65-105); Potassium 3.1 mmol/L (3.4-5.0); Sodium 145 mmol/L (137-145)
--- NOTE | 2020-10-24 08:49 | P.PNNP_ITS ---
Progress Note: A&P Assessment and Plan (1) Acute renal failure: Qualifiers: Acute renal failure type: unspecified Qualified Code(s): N17.9 - Acute kidney failure, unspecified Code(s): N17.9 - Acute kidney failure, unspecified Status: Acute Assessment and Plan: * resolving/resolved * creatinine 1.2 on admission then jhony to 2.0mg/dl now down to 1.1. * evaluation to date: - renal ultrasound is unremarkable - urine electrolytes are pre renal (susepct due to liver phy siology rather than dehydration) - bland urine sediment * Now on oral Bumex, metolazone, and spironolactone. * Potassium is still low. Will stop the metolazone. (2) Anasarca: Code(s): R60.1 - Generalized edema Status: Acute Assessment and Plan: * quite severe * Echo and venous doppler noted * likely secondary to her liver disease (3) Alcoholic hepatitis: Qualifiers: Ascites presence: with ascites Qualified Code(s): K70.11 - Alcoholic hepatitis with ascites Code(s): K70.10 - Alcoholic hepatitis without ascites Status: Chronic Assessment and Plan: * patient has been drinking heavily for 4 years * GI following (4) Gastric ulcer: Qualifiers: Gastric ulcer chronicity: unspecified ulcer chronicity Gastric ulcer complication status: with hemorrhage Qualified Code(s): K25.4 - Chronic or unspecified gastric ulcer with hemorrhage Code(s): K25.9 - Gastric ulcer, unspecified as acute or chronic, without hemorrhage or perforation Status: Acute Assessment and Plan: * s/p EGD with findings noted * on PPI * GI following (5) Anemia: Code(s): D64.9 - Anemia, unspecified Status: Acute Assessment and Plan: * due to gastric ulcer, BRUNO, liver disease * H/H relatively stable by last check * PRBC transfusion per protocol * hb stable in the 8s. Subjective Date/time seen: 10/24/20 08:49 Interval history: Bela is a very pleasant 55-year-old lady with acute kidney injury. Creatinine is stable at 1.1. Her swelling is the same as yesterday. She still made over 2L of urine. Exam Narrative: Exam Narrative: General: ill appearing female in NAD Heart: normal S1 and S2; no rub Lungs: clear Abdomen: soft, nontender, positive bowel sounds Extremities: no cyanosis or clubbing; 2 - 3+ edema Skin: jaundiced Objective Data Vital Signs Vital Signs: Vital Signs - 24 hr 10/23/20 14:00 10/23/20 21:06 10/24/20 05:46 Temperature 36.6 C 36.7 C 36.4 C Pulse Rate 105 H 94 88 Respiratory Rate 19 18 16 Blood Pressure 148/68 H 132/48 L 120/47 L Pulse Oximetry 98 98 99 Intake/Output Intake/Output: Intake & Output 10/21/20 10/22/20 10/23/20 10/24/20 23:59 23:59 23:59 23:59 Intake Total 2240 1160 1200 480 Output Total 4550 3850 3225 1500 [facility] -2310 -2690 -2025 -1020 Meds/Results Medications: Active Medications Generic Name Dose Route Start Last Admin Trade Name Freq PRN Reason Stop Dose Admin Albuterol 2 puff 10/01/20 14:43 Albuterol Sulfate (*Sp) Aerosol 1 Puff INHALATION QIDRT PRN Shortness Of Breath Bumetanide 2 mg 10/23/20 09:00 10/23/20 18:33 Bumetani
--- NOTE | 2020-10-24 08:49 | PM.PNNEP ---
Progress Note: A&P Assessment and Plan (1) Acute renal failure: Qualifiers: Acute renal failure type: unspecified Qualified Code(s): N17.9 - Acute kidney failure, unspecified Code(s): N17.9 - Acute kidney failure, unspecified Status: Acute Assessment and Plan: resolving/resolved creatinine 1.2 on admission then jhony to 2.0mg/dl now down to 1.1. evaluation to date: - renal ultrasound is unremarkable - urine electrolytes are pre renal (susepct due to liver physiology rather than dehydration) - bland urine sediment Now on oral Bumex, metolazone, and spironolactone. Potassium is still low. Will stop the metolazone. (2) Anasarca: Code(s): R60.1 - Generalized edema Status: Acute Assessment and Plan: quite severe Echo and venous doppler noted likely secondary to her liver disease (3) Alcoholic hepatitis: Qualifiers: Ascites presence: with ascites Qualified Code(s): K70.11 - Alcoholic hepatitis with ascites Code(s): K70.10 - Alcoholic hepatitis without ascites Status: Chronic Assessment and Plan: patient has been drinking heavily for 4 years GI following (4) Gastric ulcer: Qualifiers: Gastric ulcer chronicity: unspecified ulcer chronicity Gastric ulcer complication status: with hemorrhage Qualified Code(s): K25.4 - Chronic or unspecified gastric ulcer with hemorrhage Code(s): K25.9 - Gastric ulcer, unspecified as acute or chronic, without hemorrhage or perforation Status: Acute Assessment and Plan: s/p EGD with findings noted on PPI GI following (5) Anemia: Code(s): D64.9 - Anemia, unspecified Status: Acute Assessment and Plan: due to gastric ulcer, BRUNO, liver disease H/H relatively stable by last check PRBC transfusion per protocol hb stable in the 8s. Subjective Date/time seen: 10/24/20 08:49 Interval history: Bela is a very pleasant 55-year-old lady with acute kidney injury. Creatinine is stable at 1.1. Her swelling is the same as yesterday. She still made over 2L of urine. Exam Narrative: Exam Narrative: General: ill appearing female in NAD Heart: normal S1 and S2; no rub Lungs: clear Abdomen: soft, nontender, positive bowel sounds Extremities: no cyanosis or clubbing; 2 - 3+ edema Skin: jaundiced Objective Data Vital Signs Vital Signs: Vital Signs - 24 hr 10/23/20 14:00 10/23/20 21:06 10/24/20 05:46 Temperature 36.6 C 36.7 C 36.4 C Pulse Rate 105 H 94 88 Respiratory Rate 19 18 16 Blood Pressure 148/68 H 132/48 L 120/47 L Pulse Oximetry 98 98 99 Intake/Output Intake/Output: Intake & Output 10/21/20 10/22/20 10/23/20 10/24/20 23:59 23:59 23:59 23:59 Intake Total 2240 1160 1200 480 Output Total 4550 5740 3225 1500 [facility] -4500 -2690 -2025 -1020 Meds/Results Medications: Active Medications Generic Name Dose Route Start Last Admin Trade Name Freq PRN Reason Stop Dose Admin Albuterol 2 puff 10/01/20 14:43 Albuterol Sulfate (*Sp) Aerosol 1 Puff INHALATION QIDRT PRN Shortness Of Breath Bumetanide 2 mg 10/23/20 09:00 10/23/20 18:33 Bumetanide 1 Mg Tablet PO 2 mg BID NORMAN Administration Cefuroxime Axetil 500 mg 10/13/20 18:40 10/23/20 18:33 Cefuroxime Axetil 250 Mg Tablet PO 500 mg BIDWM NORMAN Administration Folic Acid 1 mg 10/02/20 09:00 10/23/20 08:47 Folic Acid 1 Mg Tablet PO 1 mg DAILY NORMAN Administration Lactulose 20 gm 10/19/20 09:00 10/23/20 08:47 Lactulose 20 Gm/30 Ml Udc PO 20 gm QAM NORMAN Administration Lorazepam 1 mg 10/05/20 02:42 Lorazepam Inj (*Crx) 2 Mg/Ml Vial IV PUSH Q4H PRN Anxiety Multivitamins/Calcium 1 tablet 10/02/20 09:00 10/23/20 08:48 Therapeutic Multivitamins/Minerals Tab (*Bkc) PO 1 tablet QAM NORMAN Administration Pantoprazole Sodium 40 mg 10/13/20
[2020-10-24] MEDS: CEFUROXIME AXETIL 250 MG TABLET 500 MG PO ×2 (09:17→18:02)
[2020-10-24] MEDS: FOLIC ACID 1 MG TABLET PO (09:18)
[2020-10-24] MEDS: PANTOPRAZOLE 40 MG TABLET PO ×2 (09:18→20:24)
[2020-10-24] MEDS: BUMETANIDE 1 MG TABLET 2 MG PO ×2 (09:18→18:03)
[2020-10-24] MEDS: PHENYLEPH/SHARK OIL/MO/PETROL CREAM 26 GM 1 APPLIC RECTAL (09:18)
[2020-10-24] MEDS: LACTULOSE 20 GM/30 ML UDC PO (09:18)
[2020-10-24] MEDS: THERAPEUTIC MULTIVITAMINS/MINERALS TAB (*BKC) 1 TABLET PO (09:18)
[2020-10-24] MEDS: THIAMINE HCL 100 MG TABLET PO (09:19)
[2020-10-24] MEDS: SPIRONOLACTONE 50 MG TABLET PO (09:19)
[2020-10-24] MEDS: ZINC SULFATE 220 MG CAPSULE PO (09:19)
[2020-10-24] MEDS: POTASSIUM CHLORIDE 20 MEQ PACKET (FOR LIQUID) PO (09:19)
[2020-10-24] MEDS: WITCH HAZEL 40 PADS 1 PAD TOPICAL (09:24)
--- NOTE | 2020-10-24 12:04 | WPDGIPROGNO ---
Progress Note: A&P Assessment and Plan (1) Gastric ulcer: Qualifiers: Gastric ulcer chronicity: unspecified ulcer chronicity Gastric ulcer complication status: with hemorrhage Qualified Code(s): K25.4 - Chronic or unspecified gastric ulcer with hemorrhage Code(s): K25.9 - Gastric ulcer, unspecified as acute or chronic, without hemorrhage or perforation Status: Acute Assessment and Plan: No evidence for ongoing bleeding. Plan to avoid nonsteroidal anti-inflammatory agents. Continue proton pump inhibitor. Limit anticoagulation if feasible. (2) Ventral hernia: Qualifiers: Obstruction and gangrene presence: without obstruction or gangrene Qualified Code(s): K43.9 - Ventral hernia without obstruction or gangrene Code(s): K43.9 - Ventral hernia without obstruction or gangrene Status: Acute Assessment and Plan: Large ventral hernia. Surgical repair deferred until liver function improves. (3) Acute renal failure: Qualifiers: Acute renal failure type: unspecified Qualified Code(s): N17.9 - Acute kidney failure, unspecified Code(s): N17.9 - Acute kidney failure, unspecified Status: Acute Assessment and Plan: Renal service following. Diuretics under their management. (4) Alcoholic hepatitis: Qualifiers: Ascites presence: with ascites Qualified Code(s): K70.11 - Alcoholic hepatitis with ascites Code(s): K70.10 - Alcoholic hepatitis without ascites Status: Chronic Assessment and Plan: Patient has profound alcoholic hepatitis. Gradual decline in bilirubin noted. Plan is for conservative management follow conservatively. Ultimately would advise follow-up at tertiary care center for hepatology evaluation. Cannot exclude that she may live need liver transplant at some point. (5) Alcohol abuse: Code(s): F10.10 - Alcohol abuse, uncomplicated Status: Acute Assessment and Plan: Strict alcohol avoidance strongly encourage. Perhaps support group will help after discharge. (6) Anasarca: Code(s): R60.1 - Generalized edema Status: Acute Assessment and Plan: Patient beginning to diurese period to remain on low-salt diet. Continue diuresis with albumin follow-up as per Nephrology recommendations. Subjective Date/time seen: 10/24/20 12:04 Patient alert and comfortable this morning. Reports that she feels less distended today. Tolerating diet. No evidence for additional bleeding. If she denies abdominal pain. Review of Systems Review of Systems: All systems reviewed & are unremarkable except as noted in HPI and below Exam Narrative: Exam Narrative: Physical exam reveals patient be alert. Vital signs are stable. HEENT exam reveals scleral icterus. Lungs are clear. Heart without murmur. Abdomen is obese. Ventral hernia evident. Abdomen appears softer. Extremities with 2 to3+ edema at the ankles. Objective Data Vital Signs Vital Signs: Vital Signs - 24 hr 10/23/20 14:00 10/23/20 21:06 10/24/20 05:46 Temperature 97.8 F 98.0 F 97.6 F Pulse Rate 105 H 94 88 Respiratory Rate 19 18 16 Blood Pressure 148/68 H 132/48 L 120/47 L Pulse Oximetry 98 98 99 Intake/Output Intake/Output: Intake & Output 10/21/20 10/22/20 10/23/20 10/24/20 23:59 23:59 23:59 23:59 Intake Total 2240 1160 1200 480 Output Total 4550 3850 3335 1500 [facility] -9940 -2690 -2025 -1020 Meds/Results Medications: Active Medications Generic Name Dose Route Start Last Admin Trade Name Freq PRN Reason Stop Dose Admin Albuterol 2 puff 10/01/20 14:43 Albuterol Sulfate (*Sp) Aerosol 1 Puff INHALATION QIDRT PRN Shortness Of Breath Bumetanide 2 mg 10/23/20 09:00 10/24/20 09:18 Bumetanide 1 Mg Tablet PO 2 mg BID NORMAN Administration Cefuroxime Axetil 500 mg 10/13/20 18:40 10/24/20 09:17 Cefuroxime Axetil 250 Mg Tablet PO 500 mg BIDWM
[2020-10-24 14:00] VITALS: BP 113/51; PULSE 100; RESP 17; TEMP 36.2; O2SAT 99
--- NOTE | 2020-10-24 18:43 | PM.IMPN ---
Progress Note: A&P Assessment and Plan (1) Alcoholic hepatitis: Qualifiers: Ascites presence: with ascites Qualified Code(s): K70.11 - Alcoholic hepatitis with ascites Code(s): K70.10 - Alcoholic hepatitis without ascites Status: Chronic Assessment and Plan: Poor prognosis Will see renewal specialist in the outpatient setting. (2) Elevated serum creatinine: Code(s): R79.89 - Other specified abnormal findings of blood chemistry Status: Acute Assessment and Plan: Improving seems to be pre renal (3) Alcohol abuse: Code(s): F10.10 - Alcohol abuse, uncomplicated Status: Acute Assessment and Plan: Patient will remained abstinent (4) Hepatic steatosis: Code(s): K76.0 - Fatty (change of) liver, not elsewhere classified Status: Acute Assessment and Plan: Secondary to inflammation and ETOH intake, diet. (5) Anasarca: Code(s): R60.1 - Generalized edema Status: Acute Assessment and Plan: Diuresing (6) Profound anemia: Code(s): D64.9 - Anemia, unspecified Status: Acute Assessment and Plan: Likely secondary to liver disease as well as ulcer PPI (7) Acute blood loss anemia: Code(s): D62 - Acute posthemorrhagic anemia Status: Acute Assessment and Plan: Received blood (8) GI bleed: Qualifiers: GI bleed type/associated pathology: unspecified gastrointestinal hemorrhage type Qualified Code(s): K92.2 - Gastrointestinal hemorrhage, unspecified Code(s): K92.2 - Gastrointestinal hemorrhage, unspecified Status: Acute Assessment and Plan: PPI (9) Pneumonia: Qualifiers: Laterality: right Lung location: unspecified part of lung Pneumonia type: due to unspecified organism Qualified Code(s): J18.9 - Pneumonia, unspecified organism Code(s): J18.9 - Pneumonia, unspecified organism Status: Acute Assessment and Plan: On antibiotics. 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 Review of Systems Review of Systems: Narrative: No new issues overnight. Exam Narrative: Exam Narrative: Sitting in bed. Const: General: comfortable, no acute distress and ill appearing Nutritional Appearance: overweight Orientation/consciousness: patient oriented x3 HENMT: Head: normocephalic Face and sinus: normal facial exam Eyes: General: appearance normal, both eyes and all related structures Pupils: Equal, round and reactive pupils present EOM: EOMs intact bilaterally Neck: Neck: no lymphadenopathy, supple and no JVD Resp: Effort & Inspection: able to speak in complete sentences Auscultation: clear to auscultation bilaterally Cardio: Jugular venous distension: no JVD Rate: regular rate Rhythm: regular rhythm GI: Inspection: other (Large ventral hernia.) GI Palp: Yes Soft to palpation and Yes No hepatosplenomegaly present Skin: General skin exam: other (jaundice) Neuro: General: patient oriented x3 and CN's II-XI intact bilaterally Cranial nerves: Yes CN's II-XII intact bilaterally Cognition (Neuro): normal cognition Motor exam (neuro): 5/5 motor strength present throughout Extrem: General: other (edema b/l le) Objective Data Vital Signs Vital Signs: Vital Signs - 24 hr 10/23/20 21:06 10/24/20 05:46 10/24/20 14:00 Temperature 98.0 F 97.6 F 97.2 F L Pulse Rate 94 88 100 Respiratory Rate 18 16 17 Blood Pressure 132/48 L 120/47 L 113/51 L Pulse Oximetry 98 99 99 Intake/Output Intake/Output: Intake & Output 10/21/20 10/22/20 10/23/20 10/24/20 23:59 23:59 23:59 23:59 Intake Total 2240 1160 1200 1200 Output Total 4550 8520 6579 [id number] [facility] [place] [id number] [phone] Meds/Results Medications: Active Medications Generic Name Dose Route Start Last Admin Trade Name Freq PRN Reason Stop Dose Admin Albuterol 2
[2020-10-24 22:00] VITALS: BP 118/44; PULSE 96; RESP 20; TEMP 36.8; O2SAT 98
[2020-10-25 05:36] LABS: Ammonia 24 umol/L (9-30)
[2020-10-25 05:56] LABS: Alanine Aminotransferase 37 U/L (4-35); Albumin Level 4.1 g/dL (3.5-5.1); Alkaline Phosphatase 84 U/L (38-126); Anion Gap 10 mmol/L (8-16); Aspartate Amino Transferase 122 U/L (14-36); Bilirubin,Total 23.9 mg/dL (0.2-1.3); Blood Urea Nitrogen 36 mg/dL (7-17); Calcium 9.8 mg/dL (8.4-10.2); Carbon Dioxide 39 mmol/L (22-30); Chloride 94 mmol/L (98-107); Estimated CRCL calculation 57 ml/min; Estimated Glomerular Filt Rate 43; Glucose 97 mg/dL (65-105); Phosphorus 4.6 mg/dL (2.5-4.5); Sodium 143 mmol/L (137-145)
[2020-10-25 06:00] VITALS: BP 128/48; PULSE 91; RESP 20; TEMP 36.2; O2SAT 98
[2020-10-25] MEDS: BUMETANIDE 1 MG TABLET 2 MG PO ×2 (09:35→16:57)
[2020-10-25] MEDS: CEFUROXIME AXETIL 250 MG TABLET 500 MG PO ×2 (09:35→16:57)
[2020-10-25] MEDS: PHENYLEPH/SHARK OIL/MO/PETROL CREAM 26 GM 1 APPLIC RECTAL (09:36)
[2020-10-25] MEDS: FOLIC ACID 1 MG TABLET PO (09:36)
[2020-10-25] MEDS: THERAPEUTIC MULTIVITAMINS/MINERALS TAB (*BKC) 1 TABLET PO (09:36)
[2020-10-25] MEDS: LACTULOSE 20 GM/30 ML UDC PO (09:36)
[2020-10-25] MEDS: POTASSIUM CHLORIDE 20 MEQ PACKET (FOR LIQUID) PO (09:36)
[2020-10-25] MEDS: PANTOPRAZOLE 40 MG TABLET PO (09:36)
[2020-10-25] MEDS: SPIRONOLACTONE 50 MG TABLET PO (09:37)
[2020-10-25] MEDS: THIAMINE HCL 100 MG TABLET PO (09:37)
[2020-10-25] MEDS: ZINC SULFATE 220 MG CAPSULE PO (09:37)
--- NOTE | 2020-10-25 09:42 | WPDGIPROGNO ---
Progress Note: A&P Assessment and Plan (1) Alcoholic hepatitis: Qualifiers: Ascites presence: with ascites Qualified Code(s): K70.11 - Alcoholic hepatitis with ascites Code(s): K70.10 - Alcoholic hepatitis without ascites Status: Chronic Assessment and Plan: Patient with rather severe alcoholic hepatitis. Plan is for supportive care. Clinically patient improving. Anticipate outpatient referral to hepatology Service at [facility]. (2) Alcohol abuse: Code(s): F10.10 - Alcohol abuse, uncomplicated Status: Acute Assessment and Plan: Strict alcohol avoidance advised. (3) Ascites: Code(s): R18.8 - Other ascites Status: Acute Assessment and Plan: Good diuresis evident. Continue diuretics under the direction of Nephrology service. She will likely need to continue these after discharge. Low-salt diet to continue. (4) Anasarca: Code(s): R60.1 - Generalized edema Status: Acute (5) Gastric ulcer: Qualifiers: Gastric ulcer chronicity: unspecified ulcer chronicity Gastric ulcer complication status: with hemorrhage Qualified Code(s): K25.4 - Chronic or unspecified gastric ulcer with hemorrhage Code(s): K25.9 - Gastric ulcer, unspecified as acute or chronic, without hemorrhage or perforation Status: Acute Assessment and Plan: Gastric ulcer identified at the time of presentation. No evidence for ongoing bleeding. Would continue to avoid nonsteroidal anti-inflammatory agents. Continue proton pump inhibitor therapy. (6) Pneumonia: Qualifiers: Laterality: right Lung location: unspecified part of lung Pneumonia type: due to unspecified organism Qualified Code(s): J18.9 - Pneumonia, unspecified organism Code(s): J18.9 - Pneumonia, unspecified organism Status: Acute (7) Ventral hernia: Qualifiers: Obstruction and gangrene presence: without obstruction or gangrene Qualified Code(s): K43.9 - Ventral hernia without obstruction or gangrene Code(s): K43.9 - Ventral hernia without obstruction or gangrene Status: Acute Assessment and Plan: Large ventral hernia. Surgery service aware. Plan is to defer repair until liver function improves. Subjective Date/time seen: 10/25/20 09:42 Patient appears to be diuresing well. She notices marked decreased size of ankles. Less edema in legs. Her abdomen is also less swollen. She denies abdominal pain. She has had no recent obvious bleeding. Review of Systems Review of Systems: All systems reviewed & are unremarkable except as noted in HPI and below Exam Narrative: Exam Narrative: On exam patient is alert and oriented x3. HEENT exam reveals scleral icterus. Lungs are clear. Heart without murmur. Abdomen is softer large ventral hernia evident. Extremities with some edema. She does have wrapping on her ankles currently. Objective Data Vital Signs Vital Signs: Vital Signs - 24 hr 10/24/20 14:00 10/24/20 22:00 10/25/20 06:00 Temperature 97.2 F L 98.3 F 97.1 F L Pulse Rate 100 96 91 Respiratory Rate 17 20 20 Blood Pressure 113/51 L 118/44 L 128/48 L Pulse Oximetry 99 98 98 Intake/Output Intake/Output: Intake & Output 10/22/20 10/23/20 10/24/20 10/25/20 23:59 23:59 23:59 23:59 Intake Total 1160 1200 1200 720 Output Total 9690 5135 2488 1200 [id number] -2025 -1275 -480 Meds/Results Medications: Active Medications Generic Name Dose Route Start Last Admin Trade Name Freq PRN Reason Stop Dose Admin Albuterol 2 puff 10/01/20 14:43 Albuterol Sulfate (*Sp) Aerosol 1 Puff INHALATION QIDRT PRN Shortness Of Breath Bumetanide 2 mg 10/23/20 09:00 10/25/20 09:35 Bumetanide 1 Mg Tablet PO 2 mg BID NORMAN Administration Cefuroxime Axetil 500 mg 10/13/20 18:40 10/25/20 09:35 Cefuroxime Axetil 250 Mg Tablet PO 500 mg BIDWM NORMAN Administration Folic Acid 1 mg
[2020-10-25] MEDS: POTASSIUM CHLORIDE 20 MEQ TABLET 40 MEQ PO (12:13)
--- NOTE | 2020-10-25 13:07 | PM.DS ---
DS: Admitting Diagnosis Admitting Diagnosis Admitting Diagnosis: (1) Severe sepsis: (2) Pneumonia: (3) Person under investigation for COVID-19: (4) Profound anemia: (5) Bloody stools: (6) Jaundice: (7) Incarcerated ventral hernia: (8) Hypokalemia: (9) Anasarca: (10) Hepatic steatosis: (11) Ascites: (12) Alcohol abuse: (13) Heart murmur: (14) Elevated serum creatinine: DS: Discharge Diagnosis Discharge Diagnosis (1) Renal failure: Code(s): N19 - Unspecified kidney failure Status: Acute Assessment and Plan: Most likely secondary to pre renal azotemia. (2) Diastolic dysfunction: Code(s): I51.89 - Other ill-defined heart diseases Status: Acute Assessment and Plan: Stable (3) BMI 30.0-30.9,adult: Code(s): Z68.30 - Body mass index [BMI]30.0-30.9, adult Status: Acute Assessment and Plan: 2g Na regular diet (4) Leukocytosis: Qualifiers: Leukocytosis type: unspecified Qualified Code(s): D72.829 - Elevated white blood cell count, unspecified Code(s): D72.829 - Elevated white blood cell count, unspecified Status: Acute Assessment and Plan: Likely secondary to Hepatic cirrhosis and acute Alcoholic Hepatitis (5) Weakness generalized: Code(s): R53.1 - Weakness Status: Acute Assessment and Plan: Likely secondary to acute illness. (6) Gastric ulcer: Qualifiers: Gastric ulcer chronicity: unspecified ulcer chronicity Gastric ulcer complication status: with hemorrhage Qualified Code(s): K25.4 - Chronic or unspecified gastric ulcer with hemorrhage Code(s): K25.9 - Gastric ulcer, unspecified as acute or chronic, without hemorrhage or perforation Status: Acute Assessment and Plan: On PPI (7) Ventral hernia: Qualifiers: Obstruction and gangrene presence: without obstruction or gangrene Qualified Code(s): K43.9 - Ventral hernia without obstruction or gangrene Code(s): K43.9 - Ventral hernia without obstruction or gangrene Status: Acute Assessment and Plan: No signs of ischemia Continue to monitor (8) Acute renal failure: Qualifiers: Acute renal failure type: unspecified Qualified Code(s): N17.9 - Acute kidney failure, unspecified Code(s): N17.9 - Acute kidney failure, unspecified Status: Acute Assessment and Plan: Pre renal (9) Alcoholic hepatitis: Qualifiers: Ascites presence: with ascites Qualified Code(s): K70.11 - Alcoholic hepatitis with ascites Code(s): K70.10 - Alcoholic hepatitis without ascites Status: Chronic Assessment and Plan: Avoid ETOH intake Unchanged (10) Elevated serum creatinine: Code(s): R79.89 - Other specified abnormal findings of blood chemistry Status: Acute Assessment and Plan: Now back to normal (11) Alcohol abuse: Code(s): F10.10 - Alcohol abuse, uncomplicated Status: Acute Assessment and Plan: Will remain abstinent (12) Ascites: Qualifiers: Ascites type: due to alcoholic hepatitis Qualified Code(s): K70.11 - Alcoholic hepatitis with ascites Code(s): R18.8 - Other ascites Status: Acute Assessment and Plan: Has gone down considerably Diuresing + fluid restriction (13) Hepatic steatosis: Code(s): K76.0 - Fatty (change of) liver, not elsewhere classified Status: Acute Assessment and Plan: Secondary to inflammation + diet (14) Anasarca: Code(s): R60.1 - Generalized edema Status: Acute Assessment and Plan: Greatly (15) Profound anemia: Code(s): D64.9 - Anemia, unspecified Status: Acute (16) Acute blood loss anemia: Code(s): D62 - Acute posthemorrhagic anemia Status: Acute (17) GI bleed: Qualifiers: GI bleed type/associated pathology: unspecified gastrointestinal hem
[2020-10-25 14:00] VITALS: BP 126/49; PULSE 99; RESP 18; TEMP 36.8; O2SAT 100
== END 2020-10-25 17:35 | disposition home or self-care (01) | DRG 432 ==
LOC: ANHED 08:46 → ANHIMU 13:41 → ANH2MED 10-11 11:31 → ANHIMU 10-27 13:06
PROVIDERS: Family Medicine; Internal Medicine; Internal Medicine Gastroenterology; Internal Medicine Nephrology; Physician Assistant; Admitting Provider Family Medicine; Emergency Provider Emergency Medicine; Visit Provider Family Medicine
PROC: 0DJ08ZZ Inspection of Upper Intestinal Tract, Via Natural or Artificial Opening Endoscopic (ICD-10-PCS; CPT 43235; principal; 2020-10-03 09:00)
DX: K70.11 Alcoholic hepatitis with ascites (principal); J18.9 Pneumonia, unspecified organism; K25.4 Chronic or unspecified gastric ulcer with hemorrhage; K43.6 Other and unspecified ventral hernia with obstruction, without gangrene; N17.9 Acute kidney failure, unspecified; E87.1 Hypo-osmolality and hyponatremia; D62 Acute posthemorrhagic anemia; I27.20 Pulmonary hypertension, unspecified; Z20.822 Contact with and (suspected) exposure to COVID-19; D63.8 Anemia in other chronic diseases classified elsewhere; K74.60 Unspecified cirrhosis of liver; F10.10 Alcohol abuse, uncomplicated; K76.0 Fatty (change of) liver, not elsewhere classified; E87.6 Hypokalemia; I51.89 Other ill-defined heart diseases; K21.00 Gastro-esophageal reflux disease with esophagitis, without bleeding; K29.70 Gastritis, unspecified, without bleeding; K44.9 Diaphragmatic hernia without obstruction or gangrene; K57.30 Diverticulosis of large intestine without perforation or abscess without bleeding; K64.8 Other hemorrhoids; R01.1 Cardiac murmur, unspecified; R79.89 Other specified abnormal findings of blood chemistry; D72.829 Elevated white blood cell count, unspecified; R53.1 Weakness; E66.01 Morbid (severe) obesity due to excess calories; Z68.30 Body mass index [BMI] 30.0-30.9, adult; Z28.21 Immunization not carried out because of patient refusal; Z87.891 Personal history of nicotine dependence
CPT/HCPCS: 36415; 36430; 36600; 71045; 74177; 76775; 80048; 80053; 80069; 80074; 81001; 82104; 82140; 82274; 82375; 82390; 82550; 82570; 82607; 82728; 82746; 82805; 83010; 83050; 83520; 83540; 83550; 83605; 83615; 83690; 83735; 83880; 83883; 84100; 84156; 84300; 84443; 84466; 85014; 85018; 85025; 85027; 85046; 85055; 85610; 85652; 85730; 85999; 86038; 86160; 86162; 86334; 86335; 86850; 86900; 86901; 86923; 87040; 87070; 87081; 87205; 87449; 87899; 88305; 93005; 93306; 93970; 94762; 96374; 97110; 97116; 97161; 97164; 97165; 97168; 97530; 97535; 99285; A9270; C9113; C9803; J0456; J0696; J1630; J2060; J2270; J2354; J2704; J3411; J3480; J7030; J7050; J7120; P9016; P9047; Q9967; U0003; U0005

== ENCOUNTER 2020-11-07 15:08 | Outpatient (CLI) | payer OTHER, SELFPAY ==
[2020-11-07 15:48] LABS: Basophils Absolute Auto 0.1 K/mm3 (0.0-0.1); Eosinophils Absolute Auto 0.2 K/mm3 (0-0.3); Eosinophils Percent Auto 1.7 % (0-4.4); Hematocrit 29.7 % (37.0-47.0); Immature Granulocyte Absolute 0.02 K/mm3 (0.00-0.031); Immature Granulocyte Percent A 0.2 % (0-0.5); Lymphocytes Absolute Auto 1.37 K/mm3 (0.9-3.2); Lymphocytes Percent Auto 11.3 % (18.3-44.2); Mean Corpuscular HGB Conc 33.7 g/dl (32-36); Mean Corpuscular Hemoglobin 32.9 pg (26-34); Mean Corpuscular Volume 97.7 fl (80-100); Mean Platelet Volume 10.1 fl (7.4-10.4); Monocytes Absolute Auto 1.2 K/mm3 (0.1-0.6); Monocytes Percent Auto 10.1 % (2.6-8.5); Neutrophils Absolute Auto 9.2 K/mm3 (1.3-6.7); Neutrophils Percent Auto 75.7 % (45.5-73.1); Platelet Count Result 262 k/mm3 (150-375); Red Blood Count 3.04 M/mm3 (4.2-5.4); Red Cell Distribution Width 25.5 % (11.5-14.5); White Blood Count 12.1 K/mm3 (4.5-10.0)
[2020-11-07 15:58] LABS: INR 1.8; Prothrombin Time 21.7 Seconds (11.1-14.7)
[2020-11-07 16:00] LABS: Add Urine Microscopic? YES; Appearance Urine Clear (Clear); Bacteria Urine Trace /hpf; Bilirubin Urine 1+ (Negative); Blood Urine Negative (Negative); Color Urine Amber (Yellow); Glucose Urine UA Negative (Negative); Ketones Urine Negative (Negative); Leukocyte Esterase Ur Trace LEU/UL (NEGATIVE); Mucus Urine Rare /lpf; Nitrate Urine Negative (Negative); Protein Urine 1+ mg/dL (Negative); RBC Urine 0-2 /hpf (0-2); Specific Grav Ur 1.013 (1.001-1.035); Squamous Epithelial Cell Urine Many /hpf (Few); WBC Urine 0-3 /hpf (0-3)
[2020-11-07 16:02] LABS: Ammonia 39 umol/L (9-30)
[2020-11-07 16:38] LABS: Free T4 Free Thyroxine 2.92 ng/mL (0.78-2.19)
[2020-11-07 16:43] LABS: Hemoglobin A1C 4.1 % (<5.7)
[2020-11-07 17:09] LABS: Alanine Aminotransferase 47 U/L (4-35); Albumin Level 5.2 g/dL (3.5-5.1); Alkaline Phosphatase 120 U/L (38-126); Anion Gap 17 mmol/L (8-16); Aspartate Amino Transferase 129 U/L (14-36); Bilirubin,Total 26.3 mg/dL (0.2-1.3); Blood Urea Nitrogen 56 mg/dL (7-17); Calcium 10.8 mg/dL (8.4-10.2); Carbon Dioxide 31 mmol/L (22-30); Chloride 91 mmol/L (98-107); Cholesterol 246 mg/dL (0-200); Estimated Glomerular Filt Rate 24; Glucose 113 mg/dL (65-105); HDL Direct 23 mg/dL; Potassium 2.6 mmol/L (3.4-5.0); Sodium 139 mmol/L (137-145); Triglycerides 191 mg/dL (<150)
[2020-11-07 17:27] LABS: LDL Cholesterol Direct 102 mg/dL
[2020-11-09 20:17] LABS: GGT 165 U/L (3-70)
[2020-11-10 05:09] LABS: Vitamin B1 31 nmol/L (8-30)
[2020-11-10 06:29] LABS: Thyroid Peroxidase Antibodies 2 IU/mL (<9)
[2020-11-11 07:24] LABS: Triiodothyronine T3 Free 2.2 pg/mL (2.3-4.2)
[2020-11-11 12:06] LABS: Thyroglobulin 50.2 ng/mL (2.8-40.9); Thyroglobulin Antibodies <1 IU/mL (<=1)
[2020-11-13 12:38] LABS: Vitamin B6 11.8 ng/mL (2.1-21.7)
== END 2020-11-07 15:09 | disposition home or self-care (01) ==
PROVIDERS: PCP Internal Medicine; Visit Provider Internal Medicine
DX: K70.11 Alcoholic hepatitis with ascites (principal); D64.9 Anemia, unspecified; Z79.899 Other long term (current) drug therapy; N17.9 Acute kidney failure, unspecified; R94.6 Abnormal results of thyroid function studies; R79.89 Other specified abnormal findings of blood chemistry
CPT/HCPCS: 36415; 80053; 80061; 81001; 82140; 82607; 82746; 82977; 83036; 84207; 84425; 84432; 84439; 84443; 84481; 85025; 85610; 86376; 86800

== ENCOUNTER 2020-11-13 15:52 | Outpatient (CLI) | payer OTHER, SELFPAY ==
[2020-11-13 16:43] LABS: Anion Gap 13 mmol/L (8-16); Blood Urea Nitrogen 58 mg/dL (7-17); Calcium 10.8 mg/dL (8.4-10.2); Carbon Dioxide 26 mmol/L (22-30); Chloride 95 mmol/L (98-107); Estimated Glomerular Filt Rate 24; Glucose 103 mg/dL (65-105); Potassium 4.7 mmol/L (3.4-5.0); Sodium 134 mmol/L (137-145)
== END 2020-11-13 15:53 | disposition home or self-care (01) ==
LOC: ANHLAB 15:54
PROVIDERS: PCP Internal Medicine; Visit Provider Internal Medicine
DX: N17.9 Acute kidney failure, unspecified (principal)
CPT/HCPCS: 36415; 80048

== ENCOUNTER 2020-11-23 09:07 | Outpatient (CLI) | payer OTHER, SELFPAY ==
--- NOTE | ~2020-11-23 | US_ITS ---
EXAMINATION: US thyroid DATE: 11/23/2020 13:17 INDICATION: Hypothyroidism TECHNIQUE: Multiple ultrasound images of the thyroid were obtained. COMPARISON: None. FINDINGS: The right thyroid lobe measures 4.7 x 2.4 x 1.4 cm. The left thyroid lobe measures 3.8 x 1.6 x 1.6 c m. The thyroid isthmus measures 5 mm in thickness. 4 mm anechoic nodule in the left thyroid (TI-RADS 1, benign, no FNA recommended). There is coarsened echotexture with diffuse mild increased vascular f low throughout the thyroid on color Doppler. IMPRESSION: 1. Diffuse coarsened echotexture and mildly increased vascular flow on color Doppler throughout the t hyroid which could be seen with thyroiditis. Reviewed, dictated and finalized at location B. LY RESOURCE MANAGEMENT SPECIALIST IMPRESSION: 1. Diffuse coarsened echotexture and mildly increased vascular flow on color Do ppler throughout the thyroid which could be seen with thyroiditis.
[2020-11-23 10:17] LABS: Potassium 5.1 mmol/L (3.4-5.0)
[2020-11-23 10:18] LABS: Albumin Level 4.7 g/dL (3.5-5.1); Anion Gap 14 mmol/L (8-16); Blood Urea Nitrogen 62 mg/dL (7-17); Calcium 10.4 mg/dL (8.4-10.2); Carbon Dioxide 21 mmol/L (22-30); Chloride 95 mmol/L (98-107); Estimated Glomerular Filt Rate 21; Glucose 113 mg/dL (65-105); Phosphorus 5.4 mg/dL (2.5-4.5); Sodium 130 mmol/L (137-145)
[2020-11-23 10:52] LABS: Free T4 Free Thyroxine 2.13 ng/mL (0.78-2.19)
[2020-11-26 11:42] LABS: Triiodothyronine T3 Free 2.4 pg/mL (2.3-4.2)
[2020-11-29 14:06] LABS: Thyroid Stimulating Immunoglob <89 % baseline (<140)
== END 2020-11-23 09:08 | disposition home or self-care (01) ==
PROVIDERS: PCP Internal Medicine; Referring Provider Internal Medicine Nephrology; Visit Provider Internal Medicine
DX: N17.9 Acute kidney failure, unspecified (principal); E03.9 Hypothyroidism, unspecified; Z79.899 Other long term (current) drug therapy
CPT/HCPCS: 36415; 76536; 80069; 84439; 84443; 84445; 84481

== ENCOUNTER 2020-12-07 08:33 | Outpatient (CLI) | payer OTHER, SELFPAY ==
--- NOTE | ~2020-12-07 | MM_ITS ---
EXAMINATION: MM screening asael BI w goran HISTORY: Screening TECHNIQUE: Craniocaudal and mediolateral oblique 3-D tomosynthesis images were obtained and synthetic 2-D images were generated. CAD analysis was submitted and interpreted. COMPARISON: No prior mammogram is available for comparison at this institution. BREAST PARENCHYMAL COMPOSITION: There are scattered areas of fibroglandular density. FINDINGS: There is no evidence of suspicious mass, calcification, or architectural distortion to sugg est malignancy in either breast. There has been no suspicious interval change. IMPRESSION: 1. No mammographic evidence of malignancy. 2. Recommend routine screening mammography in one year. BI-RADS Category 1: Negative Reviewed, dictated and finalized at location A.
== END 2020-12-07 08:34 | disposition home or self-care (01) ==
PROVIDERS: PCP Internal Medicine; Visit Provider Internal Medicine
DX: Z12.31 Encounter for screening mammogram for malignant neoplasm of breast (principal)
CPT/HCPCS: 77063; 77067

== ENCOUNTER 2020-12-19 16:50 | Outpatient (CLI) | payer OTHER, SELFPAY ==
[2020-12-19 17:13] LABS: Hematocrit 26.6 % (37.0-47.0); Mean Corpuscular HGB Conc 33.8 g/dl (32-36); Mean Corpuscular Hemoglobin 34.2 pg (26-34); Mean Corpuscular Volume 101.1 fl (80-100); Mean Platelet Volume 9.5 fl (7.4-10.4); Platelet Count Result 175 k/mm3 (150-375); Red Blood Count 2.63 M/mm3 (4.2-5.4); Red Cell Distribution Width 11.9 % (11.5-14.5); White Blood Count 7.7 K/mm3 (4.5-10.0)
[2020-12-19 17:23] LABS: INR 1.6; Prothrombin Time 19.2 Seconds (11.1-14.7)
[2020-12-19 17:26] LABS: Alanine Aminotransferase 16 U/L (4-35); Albumin Level 4.5 g/dL (3.5-5.1); Alkaline Phosphatase 69 U/L (38-126); Aspartate Amino Transferase 38 U/L (14-36); Bilirubin Direct 0.3 mg/dL (0-0.3); Bilirubin,Total 6.3 mg/dL (0.2-1.3)
[2020-12-19 17:28] LABS: Albumin Level 4.4 g/dL (3.5-5.1); Anion Gap 11 mmol/L (8-16); Blood Urea Nitrogen 45 mg/dL (7-17); Carbon Dioxide 26 mmol/L (22-30); Chloride 99 mmol/L (98-107); Estimated Glomerular Filt Rate 22; Glucose 102 mg/dL (65-105); Phosphorus 4.8 mg/dL (2.5-4.5); Potassium 4.1 mmol/L (3.4-5.0); Sodium 136 mmol/L (137-145)
== END 2020-12-19 16:51 | disposition home or self-care (01) ==
LOC: ANHLAB 16:53
PROVIDERS: PCP Internal Medicine; Referring Provider Internal Medicine Gastroenterology; Visit Provider Internal Medicine Nephrology
DX: N17.9 Acute kidney failure, unspecified (principal); K70.11 Alcoholic hepatitis with ascites
CPT/HCPCS: 36415; 80069; 80076; 85027; 85610

== ENCOUNTER 2021-01-04 17:04 | Outpatient (CLI) | payer OTHER, SELFPAY ==
[2021-01-04 18:12] LABS: Total Triiodothyronine (T3) 0.89 NG/ML (0.97-1.69)
[2021-01-04 18:28] LABS: Free T4 Free Thyroxine 1.37 ng/mL (0.78-2.19)
[2021-01-08 06:14] LABS: Thyroid Peroxidase Antibodies <1 IU/mL (<9)
== END 2021-01-04 17:05 | disposition home or self-care (01) ==
LOC: ANHLAB 17:06
PROVIDERS: PCP Internal Medicine; Visit Provider Internal Medicine Endocrinology, Diabetes & Metabolism
DX: E03.9 Hypothyroidism, unspecified (principal)
CPT/HCPCS: 36415; 84439; 84443; 84480; 86376

== ENCOUNTER 2021-02-09 11:16 | Outpatient (CLI) | payer OTHER, SELFPAY ==
[2021-02-09 11:48] LABS: Basophils Percent Auto 0.5 % (0.2-1.2); Eosinophils Absolute Auto 0.2 K/mm3 (0-0.3); Eosinophils Percent Auto 2.7 % (0-4.4); Hematocrit 27.7 % (37.0-47.0); Hemoglobin 9.1 g/dL (12.0-15.0); Immature Granulocyte Absolute 0.02 K/mm3 (0.00-0.031); Immature Granulocyte Percent A 0.4 % (0-0.5); Lymphocytes Absolute Auto 1.17 K/mm3 (0.9-3.2); Lymphocytes Percent Auto 20.8 % (18.3-44.2); Mean Corpuscular HGB Conc 32.9 g/dl (32-36); Mean Corpuscular Hemoglobin 30.4 pg (26-34); Mean Corpuscular Volume 92.6 fl (80-100); Mean Platelet Volume 9.6 fl (7.4-10.4); Monocytes Absolute Auto 0.6 K/mm3 (0.1-0.6); Monocytes Percent Auto 10.5 % (2.6-8.5); Neutrophils Absolute Auto 3.7 K/mm3 (1.3-6.7); Neutrophils Percent Auto 65.1 % (45.5-73.1); Platelet Count Result 184 k/mm3 (150-375); Red Blood Count 2.99 M/mm3 (4.2-5.4); Red Cell Distribution Width 14.1 % (11.5-14.5); White Blood Count 5.6 K/mm3 (4.5-10.0)
[2021-02-09 11:55] LABS: Add Urine Microscopic? YES; Appearance Urine Cloudy (Clear); Bacteria Urine Trace /hpf; Bilirubin Urine Negative (Negative); Blood Urine Negative (Negative); Color Urine Yellow (Yellow); Glucose Urine UA Negative (Negative); Ketones Urine Negative (Negative); Leukocyte Esterase Ur 2+ LEU/UL (NEGATIVE); Mucus Urine Rare /lpf; Nitrate Urine Negative (Negative); Protein Urine Negative (Negative); RBC Urine 0-2 /hpf (0-2); Specific Grav Ur 1.008 (1.001-1.035); Squamous Epithelial Cell Urine Occasional /hpf (Few)
[2021-02-09 12:08] LABS: LDL Cholesterol Direct 98 mg/dL
[2021-02-09 12:14] LABS: Alanine Aminotransferase 13 U/L (4-35); Albumin Level 4.6 g/dL (3.5-5.1); Alkaline Phosphatase 76 U/L (38-126); Anion Gap 9 mmol/L (8-16); Aspartate Amino Transferase 39 U/L (14-36); Bilirubin,Total 6.5 mg/dL (0.2-1.3); Blood Urea Nitrogen 22 mg/dL (7-17); Carbon Dioxide 26 mmol/L (22-30); Chloride 101 mmol/L (98-107); Estimated Glomerular Filt Rate 39; Glucose 95 mg/dL (65-105); HDL Direct 102 mg/dL; Potassium 3.6 mmol/L (3.4-5.0); Sodium 136 mmol/L (137-145); Triglycerides 174 mg/dL (<150)
[2021-02-09 12:15] LABS: Cholesterol 448 mg/dL (0-200)
[2021-02-09 12:26] LABS: Hemoglobin A1C 4.2 % (<5.7)
[2021-02-09 13:16] LABS: Folic Acid > 20.0 ng/mL (2.76->20)
[2021-02-13 20:54] LABS: Homocysteine 36.2 umol/L (<10.4)
[2021-02-14 14:26] LABS: Vitamin B1 106 nmol/L (8-30)
[2021-02-15 14:18] LABS: Vitamin B2 163.9 nmol/L (6.2-39.0)
== END 2021-02-09 11:17 | disposition home or self-care (01) ==
LOC: ANHLAB 11:20
PROVIDERS: PCP Internal Medicine; Visit Provider Internal Medicine
DX: R79.89 Other specified abnormal findings of blood chemistry (principal); Z79.899 Other long term (current) drug therapy; E53.8 Deficiency of other specified B group vitamins
CPT/HCPCS: 36415; 80053; 80061; 81001; 82607; 82746; 83036; 83090; 84207; 84252; 84425; 85025

== ENCOUNTER 2021-02-16 10:13 | Outpatient (CLI) | payer OTHER, SELFPAY ==
[2021-02-16 10:57] LABS: LDL Cholesterol Direct 110 mg/dL; Parathyroid Intact 25.2 pg/mL (7.5-53.5)
[2021-02-16 11:14] LABS: HDL Direct 107 mg/dL; Triglycerides 177 mg/dL (<150)
[2021-02-16 12:14] LABS: Iron 126 ug/dL (37-170)
[2021-02-16 12:29] LABS: Percent Iron Saturation 42 % (20-50)
[2021-02-16 12:31] LABS: Cholesterol 488 mg/dL (0-200)
== END 2021-02-16 10:14 | disposition home or self-care (01) ==
LOC: ANHLAB 10:14
PROVIDERS: PCP Internal Medicine; Visit Provider Internal Medicine
DX: D64.9 Anemia, unspecified (principal); E83.52 Hypercalcemia
CPT/HCPCS: 36415; 80061; 82728; 83540; 83550; 83970

== ENCOUNTER 2021-03-09 11:26 | Outpatient (CLI) | payer OTHER, SELFPAY ==
[2021-03-09 12:09] LABS: LDL Cholesterol Direct 106 mg/dL
[2021-03-09 12:13] LABS: Alanine Aminotransferase 17 U/L (4-35); Albumin Level 4.7 g/dL (3.5-5.1); Alkaline Phosphatase 97 U/L (38-126); Anion Gap 13 mmol/L (8-16); Aspartate Amino Transferase 51 U/L (14-36); Bilirubin,Total 5.7 mg/dL (0.2-1.3); Blood Urea Nitrogen 16 mg/dL (7-17); Calcium 10.9 mg/dL (8.4-10.2); Carbon Dioxide 24 mmol/L (22-30); Chloride 105 mmol/L (98-107); Estimated Glomerular Filt Rate 46; Glucose 97 mg/dL (65-105); Potassium 3.9 mmol/L (3.4-5.0); Sodium 142 mmol/L (137-145); Triglycerides 176 mg/dL (<150)
[2021-03-09 12:44] LABS: Cholesterol 482 mg/dL (0-200)
[2021-03-09 12:45] LABS: HDL Direct 143 mg/dL
== END 2021-03-09 11:27 | disposition home or self-care (01) ==
LOC: ANHLAB 11:27
PROVIDERS: PCP Internal Medicine; Visit Provider Internal Medicine
DX: R79.89 Other specified abnormal findings of blood chemistry (principal); E78.2 Mixed hyperlipidemia
CPT/HCPCS: 36415; 80053; 80061

== ENCOUNTER 2021-04-05 07:17 | Outpatient (CLI) | payer OTHER, SELFPAY ==
[2021-04-05 08:19] LABS: Ammonia 32 umol/L (9-30)
[2021-04-05 08:20] LABS: Albumin Level 4.3 g/dL (3.5-5.1); Anion Gap 13 mmol/L (8-16); Blood Urea Nitrogen 21 mg/dL (7-17); Calcium 10.4 mg/dL (8.4-10.2); Carbon Dioxide 22 mmol/L (22-30); Chloride 104 mmol/L (98-107); Estimated Glomerular Filt Rate 46; Glucose 137 mg/dL (65-105); Potassium 3.4 mmol/L (3.4-5.0); Sodium 139 mmol/L (137-145)
[2021-04-05 08:32] LABS: Total Protein Urine Random 12 mg/dL; Ur Ttl Prot Creatinine Ratio 0.12 mg/mg (0-0.20)
[2021-04-05 08:48] LABS: Total Triiodothyronine (T3) 0.87 NG/ML (0.97-1.69)
[2021-04-05 09:03] LABS: Free T4 Free Thyroxine 1.24 ng/mL (0.78-2.19)
== END 2021-04-05 07:18 | disposition home or self-care (01) ==
LOC: ANHLAB 07:19
PROVIDERS: PCP Internal Medicine; Referring Provider Internal Medicine Nephrology; Visit Provider Internal Medicine Endocrinology, Diabetes & Metabolism
DX: K70.31 Alcoholic cirrhosis of liver with ascites (principal); E06.9 Thyroiditis, unspecified; N17.9 Acute kidney failure, unspecified
CPT/HCPCS: 36415; 80069; 82140; 82570; 84156; 84439; 84443; 84480

== ENCOUNTER 2021-05-16 10:27 | Outpatient (CLI) | payer OTHER, SELFPAY ==
[2021-05-16 10:49] LABS: Hematocrit 28.1 % (37.0-47.0); Hemoglobin 9.2 g/dL (12.0-15.0); Mean Corpuscular HGB Conc 32.7 g/dl (32-36); Mean Corpuscular Hemoglobin 32.2 pg (26-34); Mean Corpuscular Volume 98.3 fl (80-100); Mean Platelet Volume 9.5 fl (7.4-10.4); Platelet Count Result 143 k/mm3 (150-375); Red Blood Count 2.86 M/mm3 (4.2-5.4); Red Cell Distribution Width 13.1 % (11.5-14.5); White Blood Count 4.6 K/mm3 (4.5-10.0)
[2021-05-16 10:58] LABS: INR 1.3; Prothrombin Time 16.4 Seconds (11.1-14.7)
[2021-05-16 11:11] LABS: Alanine Aminotransferase 21 U/L (4-35); Albumin Level 4.6 g/dL (3.5-5.1); Alkaline Phosphatase 116 U/L (38-126); Anion Gap 10 mmol/L (8-16); Aspartate Amino Transferase 44 U/L (14-36); Blood Urea Nitrogen 22 mg/dL (7-17); Calcium 10.1 mg/dL (8.4-10.2); Carbon Dioxide 22 mmol/L (22-30); Chloride 105 mmol/L (98-107); Estimated Glomerular Filt Rate 57; Glucose 96 mg/dL (65-110); Potassium 3.9 mmol/L (3.4-5.0); Sodium 137 mmol/L (137-145)
[2021-05-16 12:10] LABS: Vitamin D 25 Hydroxy 31.7 ng/mL
[2021-05-16 12:27] LABS: Folic Acid > 20.0 ng/mL (2.76->20)
[2021-05-22 00:15] LABS: Alpha-Tocopherol 35.8 mg/L (5.7-19.9); Vitamin A 38 mcg/dL (38-98)
== END 2021-05-16 10:28 | disposition home or self-care (01) ==
LOC: ANHLAB 10:30
PROVIDERS: PCP Internal Medicine; Visit Provider Nurse Practitioner
DX: K70.0 Alcoholic fatty liver (principal)
CPT/HCPCS: 36415; 80048; 80076; 82306; 82607; 82746; 84446; 84590; 85027; 85610

== ENCOUNTER 2021-06-13 08:23 | Outpatient (CLI) | payer OTHER, SELFPAY ==
--- NOTE | ~2021-06-13 | US_ITS ---
US abdomen complete EXAMINATION: US Abdomen Complete INDICATION: Elevated transaminase levels PROCEDURE: Realtime High Resolution abdomen ultrasound. COMPARISON: Renal ultrasound dated 10/12/2020 FINDINGS: There is gallbladder sludge. No definite gallstones, gallbladder wall thickening or pericho lecystic fluid. Common bile duct measures 4 mm. Liver echotexture within normal limits without focal mass. Pancreas within normal limits. Pancreati c tail is obscured by bowel gas. Spleen is enlarged measuring 15.5 cm. There is an accessory splenul e measuring 2.1 cm.. Renal echotexture is within normal limits bilaterally without hydronephrosis, co ntour deforming mass or renal stone. Right kidney measures 10.3 cm. Left kidney measures 9.8 cm. Visualized aspects of the aorta and IVC are within normal limits. Portal vein is patent. No sonograph ic Toth's sign indicated by the technologist. IMPRESSION: 1: Gallbladder sludge. 2: Splenomegaly with accessory splenule. Reviewed, dictated and finalized at location A.
== END 2021-06-13 08:24 | disposition home or self-care (01) ==
LOC: ANHIMG 08:24
PROVIDERS: PCP Internal Medicine; Visit Provider Nurse Practitioner
DX: R74.8 Abnormal levels of other serum enzymes (principal); K70.0 Alcoholic fatty liver; R16.1 Splenomegaly, not elsewhere classified
CPT/HCPCS: 76700

== ENCOUNTER 2021-06-13 10:16 | Outpatient (CLI) | payer OTHER, SELFPAY ==
[2021-06-13 11:34] LABS: Immature Reticulocyte Fraction 2.9 % (3.0-15.9); Mean Corpuscular HGB Conc 33.3 g/dl (32-36); Mean Corpuscular Hemoglobin 32.1 pg (26-34); Mean Corpuscular Volume 96.4 fl (80-100); Mean Platelet Volume 10.2 fl (7.4-10.4); Platelet Count Result 137 k/mm3 (150-375); Red Cell Distribution Width 12.7 % (11.5-14.5); Reticulocyte Hemoglobin Conten 34.1 pg (28.2-35.7); Reticulocyte Percent 1.28 % (0.7-4.3); Reticulocytes Absolute 0.04 B/L (32.2-175.7); White Blood Count 4.2 K/mm3 (4.5-10.0)
[2021-06-13 11:36] LABS: Lactate Dehydrogenase 508 U/L (313-618)
[2021-06-13 11:47] LABS: LDL Cholesterol Direct 91 mg/dL
[2021-06-13 11:51] LABS: Alanine Aminotransferase 20 U/L (4-35); Albumin Level 4.8 g/dL (3.5-5.1); Alkaline Phosphatase 121 U/L (38-126); Anion Gap 11 mmol/L (8-16); Aspartate Amino Transferase 42 U/L (14-36); Bilirubin,Total 6.9 mg/dL (0.2-1.3); Blood Urea Nitrogen 19 mg/dL (7-17); Calcium 10.3 mg/dL (8.4-10.2); Carbon Dioxide 25 mmol/L (22-30); Chloride 105 mmol/L (98-107); Estimated Glomerular Filt Rate 57; Glucose 92 mg/dL (65-110); Potassium 3.3 mmol/L (3.4-5.0); Sodium 141 mmol/L (137-145); Triglycerides 163 mg/dL (<150)
[2021-06-13 11:54] LABS: Iron 105 ug/dL (37-170)
[2021-06-13 12:35] LABS: Cholesterol 468 mg/dL (0-200); HDL Direct 152 mg/dL
[2021-06-13 14:41] LABS: Hemoglobin A1C < 4.0 % (<5.7)
[2021-06-13 19:53] LABS: Hepatitis B Surface Antigen Negative (Negative)
[2021-06-13 20:01] LABS: HAV RESULT Negative (Negative); Hepatitis B Core IgM Result Negative (Negative)
[2021-06-13 20:22] LABS: Hepatitis C Virus Antibody Negative (Negative)
[2021-06-16 10:49] LABS: Apolipoprotein B 170 mg/dL (<90)
[2021-06-16 10:49] LABS: Ceruloplasmin 21 mg/dL (18-53); Haptoglobin 35 mg/dL (43-212)
[2021-06-17 10:55] LABS: Mitochondrial (M2) Ab (IgG) <=20.0 U (<=20.0)
[2021-06-17 11:47] LABS: Actin Antibody (IgG) <20 U (<20)
[2021-06-17 16:27] LABS: LKM 1 Antibody <=20.0 U (<=20.0)
[2021-06-17 17:47] LABS: MCH 32.5 pg (27.0-33.0); MCV 93.9 fL (80.0-100.0); Red Blood Cell Count 2.77 Mill/uL (3.80-5.10)
[2021-06-17 18:40] LABS: Hepatitis A Antibody Total Nonreactive (Nonreactive)
[2021-06-18 16:56] LABS: Alpha Fetoprotein Tumor Marker 3.3 ng/mL (<6.1)
[2021-06-19 03:58] LABS: Cryoglobulin, QL Negative (Negative)
[2021-06-20 22:39] LABS: Alpha-Tocopherol 41.9 mg/L (5.7-19.9); Beta-Gamma Tocopherol 4.7 mg/L (<=4.3); Vitamin A 31 mcg/dL (38-98)
== END 2021-06-13 10:17 | disposition home or self-care (01) ==
PROVIDERS: PCP Internal Medicine; Referring Provider Nurse Practitioner; Visit Provider Internal Medicine
DX: R74.8 Abnormal levels of other serum enzymes (principal); K70.0 Alcoholic fatty liver; D50.0 Iron deficiency anemia secondary to blood loss (chronic); E78.2 Mixed hyperlipidemia; Z79.899 Other long term (current) drug therapy
CPT/HCPCS: 36415; 76700; 80053; 80061; 80074; 82104; 82105; 82172; 82390; 82595; 82668; 82728; 83010; 83021; 83036; 83516; 83520; 83540; 83615; 83876; 84446; 84590; 85027; 85046; 86038; 86376; 86708

== ENCOUNTER 2021-07-11 13:29 | Outpatient (CLI) | payer OTHER, SELFPAY ==
[2021-07-11 14:41] LABS: Total Triiodothyronine (T3) 0.86 NG/ML (0.97-1.69)
[2021-07-11 14:50] LABS: Free T4 Free Thyroxine 1.36 ng/mL (0.78-2.19)
== END 2021-07-11 13:30 | disposition home or self-care (01) ==
PROVIDERS: PCP Internal Medicine; Visit Provider Internal Medicine Endocrinology, Diabetes & Metabolism
DX: E06.9 Thyroiditis, unspecified (principal)
CPT/HCPCS: 36415; 84439; 84443; 84480

== ENCOUNTER 2021-07-20 14:20 | Outpatient (CLI) | payer OTHER, SELFPAY ==
[2021-07-20 14:57] LABS: Anion Gap 10 mmol/L (8-16); Blood Urea Nitrogen 16 mg/dL (7-17); Calcium 9.9 mg/dL (8.4-10.2); Carbon Dioxide 25 mmol/L (22-30); Chloride 103 mmol/L (98-107); Estimated Glomerular Filt Rate > 60; Glucose 91 mg/dL (65-110); Potassium 3.3 mmol/L (3.4-5.0); Sodium 138 mmol/L (137-145)
== END 2021-07-20 14:21 | disposition home or self-care (01) ==
PROVIDERS: PCP Internal Medicine; Visit Provider Internal Medicine
DX: E87.6 Hypokalemia (principal); Z79.899 Other long term (current) drug therapy
CPT/HCPCS: 36415; 80048

== ENCOUNTER 2021-08-23 12:22 | Outpatient (CLI) | payer OTHER, SELFPAY ==
--- NOTE | 2021-08-23 12:54 | ECHO_ITS ---
Patient Info Name: Bela Marsh Age: 56 years : 1965 Gender: Female Ht: 65 in Wt: 142 lbs BSA: 1.73 m2 HR: 69 bpm BP: 128 / 79 mmHg Technical Quality: Good Exam Date: 08/23/2021 1:04 PM Exam Location: [facility] Patient Status: Outpatient Admit Date: 08/23/2021 Staff Ordering Physician: Giovanni Kevin MD Director Television News: REN Attending Provider: Giovanni Keivn MD Referring Physician: Herberth HOLLINGSWORTH; Exam Type: CA echo doppler color flow Study Info Indications - CARDIAC MURMUR Complete two-dimensional, color flow and Doppler transthoracic echocardiogram is performed. Summary 1. Complete two-dimensional, color flow and Doppler transthoracic echocardiogram is performed. 2. Left ventricular chamber dimension is normal. 3. Left ventricular systolic function is normal, estimated at 65-70%. 4. The left ventricular diastolic function is abnormal. 5. E/e' 11 is mildly elevated. 6. Global longitudinal strain is normal at -23.3%. 7. Left atrial chamber dimension is moderately enlarged. 8. Right atrial chamber dimension is mildly enlarged. 9. There is mild mitral valve regurgitation. 10. There is mild tricuspid valve regurgitation. 11. No pulmonary hypertension, estimated pulmonary arterial systolic pressure is 34 mmHg. Left Ventricle E/e' 11 is mildly elevated. Global longitudinal strain is normal at -23.3%. Left ventricular chamber dimension is normal. Left ventricular systolic function is normal, estimated at 65-70%. The left ventricular diastolic function is abnormal. Right Ventricle Right ventricular chamber dimension is normal. Right ventricular systolic function is normal. Left Atria Left atrial chamber dimension is moderately enlarged. Right Atria Right atrial chamber dimension is mildly enlarged. Aortic Valve The aortic valve is trileaflet. There is no aortic valve stenosis. There is no aortic valve regurgitation. Pulmonic Valve There is no pulmonic regurgitation. Mitral Valve There is no mitral valve stenosis. There is mild mitral valve regurgitation. Tricuspid Valve There is mild tricuspid valve regurgitation. No pulmonary hypertension, estimated pulmonary arterial systolic pressure is 34 mmHg. Pericardium/Pleural There is no pericardial effusion. Inferior Vena Cava Normal inferior vena cava with >50% collapse upon inspiration consistent with normal right atrial pressure, 5 mmHg. Aorta The aortic root size at the sinus of Valsalva is normal. Left Ventricular Outflow Tract Name Value Normal LVOT 2D LVOT Diameter 1.9 cm LVOT Doppler LVOT Peak Gradient 17 mmHg LVOT Mean Gradient 8 mmHg LVOT VTI 46 cm LVOT VTI/AV VTI Ratio 1.0 LVOT Stroke Volume 127 ml LVOT CO 22.0 l/min LVOT CI 12.8 l/min/m2 Mitral Valve Name Value
== END 2021-08-23 12:23 | disposition home or self-care (01) ==
LOC: ANHCARD 12:23
PROVIDERS: PCP Internal Medicine; Visit Provider Internal Medicine
DX: R01.1 Cardiac murmur, unspecified (principal); I34.0 Nonrheumatic mitral (valve) insufficiency; I36.1 Nonrheumatic tricuspid (valve) insufficiency
CPT/HCPCS: 93306

== ENCOUNTER 2021-10-03 12:36 | Outpatient (CLI) | payer OTHER, SELFPAY ==
[2021-10-03 13:07] LABS: Hematocrit 27.6 % (37.0-47.0); Hemoglobin 8.8 g/dL (12.0-15.0); Mean Corpuscular HGB Conc 31.9 g/dl (32-36); Mean Corpuscular Hemoglobin 30.9 pg (26-34); Mean Corpuscular Volume 96.8 fl (80-100); Mean Platelet Volume 9.9 fl (7.4-10.4); Platelet Count Result 123 k/mm3 (150-375); Red Blood Count 2.85 M/mm3 (4.2-5.4); Red Cell Distribution Width 13.8 % (11.5-14.5); White Blood Count 4.2 K/mm3 (4.5-10.0)
[2021-10-03 13:15] LABS: Creatinine Urine 20.3 mg/dL; Total Protein Urine Random 10 mg/dL; Ur Ttl Prot Creatinine Ratio 0.49 mg/mg (0-0.20)
[2021-10-03 13:18] LABS: Albumin Level 4.2 g/dL (3.5-5.1); Anion Gap 11 mmol/L (8-16); Blood Urea Nitrogen 17 mg/dL (7-17); Calcium 9.4 mg/dL (8.4-10.2); Carbon Dioxide 24 mmol/L (22-30); Chloride 103 mmol/L (98-107); Estimated Glomerular Filt Rate 57; Glucose 109 mg/dL (65-110); Phosphorus 2.8 mg/dL (2.5-4.5); Potassium 3.4 mmol/L (3.4-5.0); Sodium 138 mmol/L (137-145)
[2021-10-03 13:30] LABS: Parathyroid Intact 47.8 pg/mL (7.5-53.5)
== END 2021-10-03 12:37 | disposition home or self-care (01) ==
LOC: ANHLAB 12:39
PROVIDERS: PCP Internal Medicine; Visit Provider Internal Medicine Nephrology
DX: N18.31 Chronic kidney disease, stage 3a (principal)
CPT/HCPCS: 36415; 80069; 82570; 83970; 84156; 85027

== ENCOUNTER 2021-11-02 08:39 | Outpatient (CLI) | payer OTHER, SELFPAY ==
[2021-11-02 09:06] LABS: Hematocrit 28.7 % (37.0-47.0); Hemoglobin 9.4 g/dL (12.0-15.0); Mean Corpuscular HGB Conc 32.8 g/dl (32-36); Mean Corpuscular Hemoglobin 30.9 pg (26-34); Mean Corpuscular Volume 94.4 fl (80-100); Mean Platelet Volume 9.6 fl (7.4-10.4); Platelet Count Result 118 k/mm3 (150-375); Red Blood Count 3.04 M/mm3 (4.2-5.4); Red Cell Distribution Width 13.4 % (11.5-14.5); White Blood Count 3.6 K/mm3 (4.5-10.0)
[2021-11-02 09:18] LABS: Alanine Aminotransferase 19 U/L (4-35); Albumin Level 4.5 g/dL (3.5-5.1); Alkaline Phosphatase 133 U/L (38-126); Aspartate Amino Transferase 45 U/L (14-36)
[2021-11-02 09:22] LABS: INR 1.5; Prothrombin Time 17.8 Seconds (11.1-14.7)
== END 2021-11-02 08:40 | disposition home or self-care (01) ==
LOC: ANHLAB 08:42
PROVIDERS: Visit Provider Internal Medicine Gastroenterology
DX: K70.0 Alcoholic fatty liver (principal)
CPT/HCPCS: 36415; 80076; 85027; 85610

== ENCOUNTER 2021-11-29 11:15 | Outpatient (CLI) | payer OTHER, SELFPAY ==
[2021-11-29 12:13] LABS: Anion Gap 7 mmol/L (8-16); Blood Urea Nitrogen 19 mg/dL (7-17); Calcium 9.6 mg/dL (8.4-10.2); Carbon Dioxide 28 mmol/L (22-30); Chloride 104 mmol/L (98-107); Estimated Glomerular Filt Rate > 60; Glucose 89 mg/dL (65-110); Potassium 3.6 mmol/L (3.4-5.0); Sodium 139 mmol/L (137-145)
[2021-11-29 13:12] LABS: Free T4 Free Thyroxine 1.35 ng/mL (0.78-2.19)
== END 2021-11-29 11:16 | disposition home or self-care (01) ==
LOC: ANHLAB 11:17
PROVIDERS: PCP Internal Medicine; Visit Provider Internal Medicine
DX: N18.1 Chronic kidney disease, stage 1 (principal); Z79.899 Other long term (current) drug therapy; E03.9 Hypothyroidism, unspecified
CPT/HCPCS: 36415; 80048; 83036; 84439; 84443

== ENCOUNTER 2021-11-30 09:20 | Outpatient (CLI) | payer OTHER, SELFPAY ==
--- NOTE | ~2021-11-30 | US_ITS ---
EXAMINATION: US abdomen limited EXAM DATE: 11/30/2021 10:04 INDICATION: Elevated liver enzymes. TECHNIQUE: Multiple grayscale and Doppler images of the abdomen right upper quadrant were obtained (b y a technologist who performed the scan) and subsequently reviewed. There is no prior study for quentin bender. FINDINGS: The pancreatic head and body are normal in appearance. The pancreatic tail is not visualized. Mildl y echogenic liver parenchyma, hepatic steatosis. There are no focal liver lesions identified. Ther e is no evidence of intrahepatic biliary duct dilation. Portal venous flow was seen in the hepatoped al, normal direction and has normal Doppler waveform. No right-sided hydronephrosis. Common bile duct measures 3.6 mm, which is normal. The gallbladder wall is normal in thickness, with expected amount of distention. No sonographic evidence of pericholecystic fluid. There is no cholel ithiases. Technologist performing exam reports patient did not demonstrate sonographic Toth's sign. Please note that this sign is less reliable in patients who have received pain medication. IMPRESSION: 1. Hepatic steatosis. Reviewed, dictated and finalized at location A. R MAKER IMPRESSION: 1. Hepatic steatosis.
== END 2021-11-30 09:21 | disposition home or self-care (01) ==
PROVIDERS: PCP Internal Medicine
DX: R74.8 Abnormal levels of other serum enzymes (principal); K76.0 Fatty (change of) liver, not elsewhere classified
CPT/HCPCS: 76705

== ENCOUNTER 2021-12-26 13:20 | Outpatient (CLI) | payer OTHER, SELFPAY ==
--- NOTE | ~2021-12-26 | MM_ITS ---
EXAMINATION: MM screening asael BI w goran HISTORY: Screening TECHNIQUE: Craniocaudal and mediolateral oblique 3-D tomosynthesis images were obtained and synthetic 2-D images were generated. CAD analysis was submitted and interpreted. COMPARISON: 12/07/2020 BREAST PARENCHYMAL COMPOSITION: The breasts are heterogeneously dense, which may obscure small masses . FINDINGS: There is no evidence of suspicious mass, calcification, or architectural distortion to sugg est malignancy in either breast. There has been no suspicious interval change. IMPRESSION: 1. No mammographic evidence of malignancy. 2. Recommend routine screening mammography in one year. BI-RADS Category 1: Negative Reviewed, dictated and finalized at location A.
== END 2021-12-26 13:21 | disposition home or self-care (01) ==
LOC: ANHIMG 13:22
PROVIDERS: PCP Internal Medicine; Visit Provider Internal Medicine
DX: Z12.31 Encounter for screening mammogram for malignant neoplasm of breast (principal)
CPT/HCPCS: 77063; 77067

== ENCOUNTER 2022-04-03 07:17 | Outpatient (CLI) | payer OTHER, SELFPAY ==
[2022-04-03 07:39] LABS: Basophils Percent Auto 0.7 % (0.2-1.2); Eosinophils Absolute Auto 0.1 K/mm3 (0-0.3); Eosinophils Percent Auto 3.3 % (0-4.4); Hematocrit 31.9 % (37.0-47.0); Hemoglobin 10.4 g/dL (12.0-15.0); Lymphocytes Absolute Auto 0.96 K/mm3 (0.9-3.2); Lymphocytes Percent Auto 22.9 % (18.3-44.2); Mean Corpuscular HGB Conc 32.6 g/dl (32-36); Mean Corpuscular Hemoglobin 31.6 pg (26-34); Mean Platelet Volume 9.9 fl (7.4-10.4); Monocytes Absolute Auto 0.4 K/mm3 (0.1-0.6); Monocytes Percent Auto 10.2 % (2.6-8.5); Neutrophils Absolute Auto 2.6 K/mm3 (1.3-6.7); Neutrophils Percent Auto 62.9 % (45.5-73.1); Platelet Count Result 100 k/mm3 (150-375); Red Blood Count 3.29 M/mm3 (4.2-5.4); Red Cell Distribution Width 13.7 % (11.5-14.5); White Blood Count 4.2 K/mm3 (4.5-10.0)
[2022-04-03 07:51] LABS: Alanine Aminotransferase 24 U/L (6-35); Albumin Level 4.3 g/dL (3.5-5.1); Alkaline Phosphatase 158 U/L (38-126); Anion Gap 9 mmol/L (8-16); Aspartate Amino Transferase 45 U/L (14-36); Bilirubin,Total 5.6 mg/dL (0.2-1.3); Blood Urea Nitrogen 15 mg/dL (7-17); Calcium 9.4 mg/dL (8.4-10.2); Carbon Dioxide 24 mmol/L (22-30); Chloride 104 mmol/L (98-107); Cholesterol 301 mg/dL (0-200); Estimated Glomerular Filt Rate > 60; Glucose 89 mg/dL (65-110); HDL Direct 107 mg/dL; Potassium 3.5 mmol/L (3.4-5.0); Sodium 137 mmol/L (137-145); Triglycerides 110 mg/dL (<150)
[2022-04-03 07:55] LABS: Albumin Level 4.4 g/dL (3.5-5.1); Anion Gap 8 mmol/L (8-16); Blood Urea Nitrogen 15 mg/dL (7-17); Calcium 9.5 mg/dL (8.4-10.2); Carbon Dioxide 24 mmol/L (22-30); Chloride 104 mmol/L (98-107); Estimated Glomerular Filt Rate > 60; Glucose 90 mg/dL (65-110); Potassium 3.5 mmol/L (3.4-5.0); Sodium 136 mmol/L (137-145)
[2022-04-03 08:03] LABS: Hemoglobin A1C 4.3 % (<5.7); LDL Cholesterol Direct 75 mg/dL
[2022-04-03 08:05] LABS: Appearance Urine Clear (Clear); Bilirubin Urine Negative (Negative); Blood Urine Negative (Negative); Color Urine Yellow (Yellow); Glucose Urine UA Negative (Negative); Ketones Urine Trace mg/dL (Negative); Leukocyte Esterase Ur Negative LEU/UL (Negative); Nitrate Urine Negative (Negative); Protein Urine Negative (Negative); Specific Grav Ur 1.015 (1.001-1.035); pH Urine 5.5 (5.0-9.0)
[2022-04-03 08:13] LABS: Add Urine Microscopic? YES
[2022-04-03 08:17] LABS: Bacteria Urine Trace /hpf; Mucus Urine Rare /lpf; RBC Urine 0-2 /hpf (0-2); Squamous Epithelial Cell Urine Rare /hpf (Few); WBC Urine 0-3 /hpf
[2022-04-03 08:19] LABS: Creatinine Urine 123.9 mg/dL
[2022-04-03 08:26] LABS: Total Protein Urine Random < 5 mg/dL; Ur Ttl Prot Creatinine Ratio < 0.04 mg/mg (0-0.20)
== END 2022-04-03 07:18 | disposition home or self-care (01) ==
PROVIDERS: PCP Internal Medicine; Referring Provider Internal Medicine Nephrology; Visit Provider Internal Medicine
DX: E78.2 Mixed hyperlipidemia (principal); E03.9 Hypothyroidism, unspecified; Z13.1 Encounter for screening for diabetes mellitus; Z79.899 Other long term (current) drug therapy; N18.31 Chronic kidney disease, stage 3a
CPT/HCPCS: 36415; 80053; 80061; 80069; 81001; 82570; 83036; 84156; 84439; 84443; 85025

== ENCOUNTER 2022-04-25 10:17 | Outpatient (CLI) | payer OTHER, SELFPAY ==
[2022-04-25 11:14] LABS: Albumin Level 4.4 g/dL (3.5-5.1); Anion Gap 11 mmol/L (8-16); Blood Urea Nitrogen 27 mg/dL (7-17); Calcium 9.9 mg/dL (8.4-10.2); Carbon Dioxide 25 mmol/L (22-30); Chloride 100 mmol/L (98-107); Estimated Glomerular Filt Rate 57; Glucose 91 mg/dL (65-110); Phosphorus 4.4 mg/dL (2.5-4.5); Potassium 4.3 mmol/L (3.4-5.0); Sodium 136 mmol/L (137-145)
== END 2022-04-25 10:18 | disposition home or self-care (01) ==
PROVIDERS: PCP Internal Medicine; Visit Provider Internal Medicine Nephrology
DX: R60.1 Generalized edema (principal)
CPT/HCPCS: 36415; 80069

== ENCOUNTER 2022-05-20 08:38 | Outpatient (CLI) | payer OTHER, SELFPAY ==
--- NOTE | 2022-05-20 | EST_ITS ---
Patient Info Name: Bela Marsh Age: 57 years : 1965 Gender: Female Ht: 64 in Wt: 130 lbs BSA: 1.64 m2 HR: 57 bpm BP: 112 / 65 mmHg Heart Rhythm: Sinus Rhythm Exam Date: 05/20/2022 8:58 AM Exam Location: [facility] Patient Status: Outpatient Admit Date: 05/20/2022 Staff Ordering Physician: UNKNOWN, DOCTOR Attending Provider: brittnee saez Exercise Technologist: Sydni Sharp CT Nurse: aakash olsen Exam Type: CA stress test treadmill Study Info Indications I36.8 - Other nonrheumatic tricuspid valve disorders A treadmill exercise stress test was performed. Summary 1. Sinus bradycardia. 2. Otherwise normal ECG. 3. No ST or T-wave abnormalities noted during treadmill exercise. 4. No arrhythmias were observed during the examination. 5. Clinically and electrocardiographically negative stress test for ischemia at 82% of age predicted maximum heart rate. Protocol: [facility] ECG Details Stage: REST Duration (min): 1 min : 16 sec Speed (mph): 0.0 Grade (%): 0 HR (bpm): 56 SBP (mmHg): 112 DBP (mmHg): 65 METS: --- Stage: REST Duration (min): 14 min : 3 sec Speed (mph): 0.0 Grade (%): 0 HR (bpm): 67 SBP (mmHg): 112 DBP (mmHg): 65 METS: --- Stage: STAGE 1 Duration (min): 1 min : 0 sec Speed (mph): 1.7 Grade (%): 10 HR (bpm): 82 SBP (mmHg): 112 DBP (mmHg): 65 METS: --- Stage: STAGE 1 Duration (min): 2 min : 0 sec Speed (mph): 1.7 Grade (%): 10 HR (bpm): 96 SBP (mmHg): 112 DBP (mmHg): 65 METS: --- Stage: STAGE 1 Duration (min): 3 min : 0 sec Speed (mph): 1.7 Grade (%): 10 HR (bpm): 103 SBP (mmHg): 145 DBP (mmHg): 74 METS: --- Stage: STAGE 2 Duration (min): 1 min : 0 sec Speed (mph): 2.5 Grade (%): 12 HR (bpm): 110 SBP (mmHg): 145 DBP (mmHg): 74 METS: --- Stage: STAGE 2 Duration (min): 2 min : 0 sec Speed (mph): 2.5 Grade (%): 12 HR (bpm): 121 SBP (mmHg): 159 DBP (mmHg): 74 METS: --- Stage: STAGE 2 Duration (min): 3 min : 0 sec Speed (mph): 2.5 Grade (%): 12 HR (bpm): 130 SBP (mmHg): 159 DBP (mmHg): 74 METS: --- Stage: STAGE 3 Duration (min): 0 min : 7 sec Speed (mph): 3.4 Grade (%): 14 HR (bpm): 132 SBP (mmHg): 159 DBP (mmHg): 74 METS: --- Stage: RECOVERY Duration (min): 0 min : 52 sec Speed (mph): 0.0 Grade (%): 0 HR (bpm): 113 SBP (mmHg): 183 DBP (mmHg): 75 METS: --- Stage: RECOVERY Duration (min): 1 min : 52 sec Speed (mph): 0.0 Grade (%): 0 HR (bpm): 86 SBP (mmHg): 183 DBP (mmHg): 75 METS: --- Stage: RECOVERY Duration (min): 2 min : 52 sec Speed (mph): 0.0 Grade (%): 0 HR (bpm): 76 SBP (mmHg): 165 DBP (mmHg): 66 METS: --- Stage: RECOVERY Duration (m
== END 2022-05-20 08:39 | disposition home or self-care (01) ==
PROVIDERS: PCP Internal Medicine
DX: E78.00 Pure hypercholesterolemia, unspecified (principal); I36.1 Nonrheumatic tricuspid (valve) insufficiency; I34.0 Nonrheumatic mitral (valve) insufficiency
CPT/HCPCS: 93017

== ENCOUNTER 2022-05-23 07:54 | Outpatient (CLI) | payer OTHER, SELFPAY ==
--- NOTE | ~2022-05-23 | US_ITS ---
EXAMINATION: US abdomen limited DATE: 05/23/2022 09:26 INDICATION: Other cirrhosis of the liver elevated bilirubin TECHNIQUE: Multiple grayscale and Doppler ultrasound images of the abdomen were obtained. COMPARISON: 11/30/2021 FINDINGS: The head and body of the pancreas are normal. The pancreatic tail is obscured by bowel gas. The liver demonstrates increased echogenicity, heterogenous echotexture, and decreased through trans mission. There is mild nodularity of the liver surface. Normal hepatopetal flow in the main portal ve in. The gallbladder is normal with no abnormal wall thickening, pericholecystic fluid or stones. The normal common bile duct measures 3 mm. There was no sonographic Toth sign. IMPRESSION: 1. Cirrhosis. 2. Diffuse hepatic steatosis. Reviewed, dictated and finalized at location A.
== END 2022-05-23 07:55 | disposition home or self-care (01) ==
PROVIDERS: PCP Internal Medicine
DX: D59.4 Other nonautoimmune hemolytic anemias (principal); K74.69 Other cirrhosis of liver; K76.0 Fatty (change of) liver, not elsewhere classified
CPT/HCPCS: 76705

== ENCOUNTER 2022-05-31 10:18 | Outpatient (CLI) | payer OTHER, SELFPAY ==
[2022-05-31 11:27] LABS: INR 1.5; Prothrombin Time 17.4 Seconds (11.1-14.7)
[2022-05-31 11:55] LABS: Alanine Aminotransferase 27 U/L (6-35); Albumin Level 4.5 g/dL (3.5-5.1); Alkaline Phosphatase 119 U/L (38-126); Anion Gap 13 mmol/L (8-16); Aspartate Amino Transferase 52 U/L (14-36); Bilirubin,Total 4.2 mg/dL (0.2-1.3); Blood Urea Nitrogen 15 mg/dL (7-17); Calcium 9.1 mg/dL (8.4-10.2); Carbon Dioxide 23 mmol/L (22-30); Chloride 101 mmol/L (98-107); Cholesterol 290 mg/dL (0-200); Estimated Glomerular Filt Rate > 60; Glucose 94 mg/dL (65-110); HDL Direct 98 mg/dL; Potassium 4.1 mmol/L (3.4-5.0); Sodium 137 mmol/L (137-145); Triglycerides 122 mg/dL (<150)
[2022-05-31 12:05] LABS: LDL Cholesterol Direct 87 mg/dL
[2022-05-31 14:47] LABS: Basophils Percent Auto 0.4 % (0.2-1.2); Eosinophils Absolute Auto 0.1 K/mm3 (0-0.3); Eosinophils Percent Auto 2.2 % (0-4.4); Hemoglobin 10.9 g/dL (12.0-15.0); Immature Granulocyte Absolute 0.01 K/mm3 (0.00-0.031); Immature Granulocyte Percent A 0.2 % (0-0.5); Immature Platelet Fraction Pct 3.5 % (0.9-11.2); Lymphocytes Absolute Auto 1.04 K/mm3 (0.9-3.2); Lymphocytes Percent Auto 22.7 % (18.3-44.2); Mean Corpuscular Hemoglobin 32.2 pg (26-34); Mean Corpuscular Volume 97.3 fl (80-100); Mean Platelet Volume 10.6 fl (7.4-10.4); Monocytes Absolute Auto 0.8 K/mm3 (0.1-0.6); Monocytes Percent Auto 17.2 % (2.6-8.5); Neutrophils Absolute Auto 2.6 K/mm3 (1.3-6.7); Neutrophils Percent Auto 57.3 % (45.5-73.1); Platelet Count Result 92 k/mm3 (150-375); Red Blood Count 3.39 M/mm3 (4.2-5.4); Red Cell Distribution Width 14.2 % (11.5-14.5); White Blood Count 4.6 K/mm3 (4.5-10.0)
== END 2022-05-31 10:19 | disposition home or self-care (01) ==
PROVIDERS: PCP Internal Medicine
DX: E78.00 Pure hypercholesterolemia, unspecified (principal); D59.4 Other nonautoimmune hemolytic anemias; K74.69 Other cirrhosis of liver
CPT/HCPCS: 36415; 80053; 80061; 82248; 85025; 85055; 85610

== ENCOUNTER 2022-09-27 09:41 | Outpatient (CLI) | payer OTHER, SELFPAY ==
[2022-09-27 10:18] LABS: Basophils Percent Auto 0.6 % (0.2-1.2); Eosinophils Absolute Auto 0.1 K/mm3 (0-0.3); Eosinophils Percent Auto 2.4 % (0-4.4); Hematocrit 34.1 % (37.0-47.0); Hemoglobin 11.5 g/dL (12.0-15.0); Immature Granulocyte Absolute 0.01 K/mm3 (0.00-0.031); Immature Granulocyte Percent A 0.2 % (0-0.5); Lymphocytes Absolute Auto 1.07 K/mm3 (0.9-3.2); Lymphocytes Percent Auto 20.2 % (18.3-44.2); Mean Corpuscular HGB Conc 33.7 g/dl (32-36); Mean Corpuscular Hemoglobin 32.1 pg (26-34); Mean Corpuscular Volume 95.3 fl (80-100); Mean Platelet Volume 10.1 fl (7.4-10.4); Monocytes Absolute Auto 0.5 K/mm3 (0.1-0.6); Monocytes Percent Auto 9.2 % (2.6-8.5); Neutrophils Absolute Auto 3.6 K/mm3 (1.3-6.7); Neutrophils Percent Auto 67.4 % (45.5-73.1); Platelet Count Result 106 k/mm3 (150-375); Red Blood Count 3.58 M/mm3 (4.2-5.4); Red Cell Distribution Width 13.5 % (11.5-14.5); White Blood Count 5.3 K/mm3 (4.5-10.0)
[2022-09-27 13:00] LABS: Alanine Aminotransferase 25 U/L (6-35); Albumin Level 4.7 g/dL (3.5-5.1); Alkaline Phosphatase 170 U/L (38-126); Anion Gap 8 mmol/L (8-16); Aspartate Amino Transferase 47 U/L (14-36); Bilirubin,Total 4.7 mg/dL (0.2-1.3); Blood Urea Nitrogen 23 mg/dL (7-17); Calcium 9.7 mg/dL (8.4-10.2); Carbon Dioxide 26 mmol/L (22-30); Chloride 101 mmol/L (98-107); Cholesterol 295 mg/dL (0-200); Estimated Glomerular Filt Rate 51; Glucose 98 mg/dL (65-110); HDL Direct 100 mg/dL; Potassium 4.1 mmol/L (3.4-5.0); Sodium 135 mmol/L (137-145); Triglycerides 103 mg/dL (<150)
[2022-09-27 13:11] LABS: LDL Cholesterol Direct 88 mg/dL
[2022-09-27 13:16] LABS: Vitamin D 25 Hydroxy 46.2 ng/mL
[2022-09-27 14:34] LABS: Hemoglobin A1C 4.4 % (<5.7)
[2022-10-02 14:21] LABS: Vitamin B1 45 nmol/L (8-30)
[2022-10-03 02:10] LABS: Vitamin B2 32.2 nmol/L (6.2-39.0)
[2022-10-05 16:28] LABS: Vitamin B6 59.1 ng/mL (2.1-21.7)
== END 2022-09-27 09:42 | disposition home or self-care (01) ==
PROVIDERS: PCP Internal Medicine; Visit Provider Internal Medicine
DX: E61.1 Iron deficiency (principal); E51.9 Thiamine deficiency, unspecified; R79.9 Abnormal finding of blood chemistry, unspecified; E78.5 Hyperlipidemia, unspecified; N18.9 Chronic kidney disease, unspecified; Z79.899 Other long term (current) drug therapy
CPT/HCPCS: 36415; 80053; 80061; 82306; 83036; 84207; 84252; 84425; 85025

== ENCOUNTER 2022-10-02 10:26 | Outpatient (CLI) | payer OTHER, SELFPAY ==
[2022-10-02 15:15] LABS: Albumin Level 4.5 g/dL (3.5-5.1); Anion Gap 7 mmol/L (8-16); Blood Urea Nitrogen 28 mg/dL (7-17); Calcium 9.4 mg/dL (8.4-10.2); Carbon Dioxide 24 mmol/L (22-30); Chloride 101 mmol/L (98-107); Estimated Glomerular Filt Rate 39; Glucose 98 mg/dL (65-110); Phosphorus 3.9 mg/dL (2.5-4.5); Potassium 4.3 mmol/L (3.4-5.0); Sodium 132 mmol/L (137-145)
[2022-10-02 15:19] LABS: Creatinine Urine 242.6 mg/dL; Total Protein Urine Random 6 mg/dL; Ur Ttl Prot Creatinine Ratio 0.02 mg/mg (0-0.20)
== END 2022-10-02 10:27 | disposition home or self-care (01) ==
LOC: ANHLAB 10:27
PROVIDERS: Internal Medicine Nephrology; PCP Internal Medicine; Visit Provider Internal Medicine
DX: R60.1 Generalized edema (principal)
CPT/HCPCS: 36415; 80069; 82570; 84156

== ENCOUNTER 2022-10-25 10:13 | Outpatient (CLI) | payer OTHER, SELFPAY ==
[2022-10-25 11:25] LABS: Albumin Level 4.1 g/dL (3.5-5.1); Anion Gap 8 mmol/L (8-16); Blood Urea Nitrogen 16 mg/dL (7-17); Calcium 9.3 mg/dL (8.4-10.2); Carbon Dioxide 25 mmol/L (22-30); Chloride 106 mmol/L (98-107); Estimated Glomerular Filt Rate > 60; Glucose 98 mg/dL (65-110); Phosphorus 3.7 mg/dL (2.5-4.5); Sodium 139 mmol/L (137-145)
[2022-10-25 11:33] LABS: Creatinine Urine 290.9 mg/dL; Total Protein Urine Random 7 mg/dL; Ur Ttl Prot Creatinine Ratio 0.02 mg/mg (0-0.20)
== END 2022-10-25 10:14 | disposition home or self-care (01) ==
LOC: ANHLAB 10:14
PROVIDERS: PCP Internal Medicine; Visit Provider Internal Medicine Nephrology
DX: N18.31 Chronic kidney disease, stage 3a (principal)
CPT/HCPCS: 36415; 80069; 82570; 84156

== ENCOUNTER 2023-02-07 10:48 | Outpatient (CLI) | payer OTHER, SELFPAY ==
[2023-02-07 10:58] LABS: Basophils Percent Auto 0.7 % (0.2-1.2); Eosinophils Absolute Auto 0.1 K/mm3 (0-0.3); Eosinophils Percent Auto 3.1 % (0-4.4); Hematocrit 35.4 % (37.0-47.0); Hemoglobin 11.9 g/dL (12.0-15.0); Immature Granulocyte Absolute 0.01 K/mm3 (0.00-0.031); Immature Granulocyte Percent A 0.2 % (0-0.5); Lymphocytes Absolute Auto 0.84 K/mm3 (0.9-3.2); Lymphocytes Percent Auto 19.9 % (18.3-44.2); Mean Corpuscular HGB Conc 33.6 g/dl (32-36); Mean Corpuscular Hemoglobin 32.3 pg (26-34); Mean Corpuscular Volume 96.2 fl (80-100); Mean Platelet Volume 9.9 fl (7.4-10.4); Monocytes Absolute Auto 0.4 K/mm3 (0.1-0.6); Monocytes Percent Auto 9.2 % (2.6-8.5); Neutrophils Absolute Auto 2.8 K/mm3 (1.3-6.7); Neutrophils Percent Auto 66.9 % (45.5-73.1); Platelet Count Result 91 k/mm3 (150-375); Red Blood Count 3.68 M/mm3 (4.2-5.4); Red Cell Distribution Width 14.6 % (11.5-14.5); White Blood Count 4.2 K/mm3 (4.5-10.0)
[2023-02-07 12:27] LABS: Alanine Aminotransferase 29 U/L (6-35); Albumin Level 4.5 g/dL (3.5-5.1); Alkaline Phosphatase 171 U/L (38-126); Anion Gap 7 mmol/L (8-16); Aspartate Amino Transferase 51 U/L (14-36); Bilirubin,Total 4.6 mg/dL (0.2-1.3); Blood Urea Nitrogen 21 mg/dL (7-17); Calcium 9.6 mg/dL (8.4-10.2); Carbon Dioxide 28 mmol/L (22-30); Chloride 103 mmol/L (98-107); Estimated Glomerular Filt Rate 51; Glucose 96 mg/dL (65-110); Magnesium 2.1 mg/dL (1.6-2.3); Potassium 4.1 mmol/L (3.4-5.0); Sodium 138 mmol/L (137-145)
[2023-02-07 12:41] LABS: Free T4 Free Thyroxine 1.57 ng/mL (0.78-2.19)
[2023-02-10 11:02] LABS: Cholesterol 276 mg/dL (0-200); Triglycerides 95 mg/dL (<150)
[2023-02-10 11:08] LABS: LDL Cholesterol Direct 91 mg/dL
[2023-02-10 11:10] LABS: HDL Direct 129 mg/dL
== END 2023-02-07 10:49 | disposition home or self-care (01) ==
LOC: ANHLAB 10:49
PROVIDERS: PCP Internal Medicine; Visit Provider Internal Medicine Hematology & Oncology
DX: K72.90 Hepatic failure, unspecified without coma (principal); E78.2 Mixed hyperlipidemia; N18.1 Chronic kidney disease, stage 1
CPT/HCPCS: 36415; 80053; 80061; 83735; 84439; 84443; 85025

== ENCOUNTER 2023-04-04 11:08 | Outpatient (CLI) | payer OTHER, SELFPAY ==
[2023-04-04 11:33] LABS: Basophils Percent Auto 0.8 % (0.2-1.2); Eosinophils Absolute Auto 0.2 K/mm3 (0-0.3); Eosinophils Percent Auto 3.8 % (0-4.4); Hematocrit 37.8 % (37.0-47.0); Hemoglobin 12.8 g/dL (12.0-15.0); Immature Granulocyte Absolute 0.01 K/mm3 (0.00-0.031); Immature Granulocyte Percent A 0.2 % (0-0.5); Immature Platelet Fraction Pct 2.4 % (0.9-11.2); Lymphocytes Absolute Auto 1.03 K/mm3 (0.9-3.2); Lymphocytes Percent Auto 19.8 % (18.3-44.2); Mean Corpuscular HGB Conc 33.9 g/dl (32-36); Mean Corpuscular Hemoglobin 33.1 pg (26-34); Mean Corpuscular Volume 97.7 fl (80-100); Mean Platelet Volume 9.7 fl (7.4-10.4); Monocytes Absolute Auto 0.4 K/mm3 (0.1-0.6); Monocytes Percent Auto 8.5 % (2.6-8.5); Neutrophils Absolute Auto 3.5 K/mm3 (1.3-6.7); Neutrophils Percent Auto 66.9 % (45.5-73.1); Platelet Count Result 93 k/mm3 (150-375); Red Blood Count 3.87 M/mm3 (4.2-5.4); Red Cell Distribution Width 14.8 % (11.5-14.5); White Blood Count 5.2 K/mm3 (4.5-10.0)
[2023-04-04 12:12] LABS: Appearance Urine Clear (Clear); Bilirubin Urine Negative (Negative); Blood Urine Negative (Negative); Color Urine Yellow (Yellow); Glucose Urine UA Negative (Negative); Ketones Urine Negative (Negative); Leukocyte Esterase Ur Negative LEU/UL (Negative); Nitrate Urine Negative (Negative); Protein Urine Negative (Negative); Specific Grav Ur 1.008 (1.001-1.035); pH Urine 7.5 (5.0-9.0)
[2023-04-04 12:17] LABS: Iron 244 ug/dL (37-170)
[2023-04-04 12:26] LABS: Creatinine Urine 31.9 mg/dL; Total Protein Urine Random 9 mg/dL; Ur Ttl Prot Creatinine Ratio 0.28 mg/mg (0-0.20)
[2023-04-04 12:26] LABS: Albumin Level 4.9 g/dL (3.5-5.1); Anion Gap 10 mmol/L (8-16); Blood Urea Nitrogen 22 mg/dL (7-17); Calcium 9.7 mg/dL (8.4-10.2); Carbon Dioxide 25 mmol/L (22-30); Chloride 101 mmol/L (98-107); Estimated Glomerular Filt Rate 57; Glucose 90 mg/dL (65-110); Phosphorus 4.4 mg/dL (2.5-4.5); Potassium 4.1 mmol/L (3.4-5.0); Sodium 136 mmol/L (137-145)
[2023-04-04 12:30] LABS: Percent Iron Saturation 66 % (20-50)
[2023-04-04 12:33] LABS: LDL Cholesterol Direct 109 mg/dL
[2023-04-04 12:34] LABS: Hemoglobin A1C 4.4 % (<5.7)
[2023-04-04 12:38] LABS: Free T4 Free Thyroxine 1.91 ng/mL (0.78-2.19); Vitamin D 25 Hydroxy 55.8 ng/mL
[2023-04-04 12:46] LABS: Alanine Aminotransferase 29 U/L (6-35); Albumin Level 4.9 g/dL (3.5-5.1); Alkaline Phosphatase 137 U/L (38-126); Anion Gap 10 mmol/L (8-16); Aspartate Amino Transferase 51 U/L (14-36); Bilirubin,Total 7.4 mg/dL (0.2-1.3); Blood Urea Nitrogen 22 mg/dL (7-17); Calcium 9.8 mg/dL (8.4-10.2); Carbon Dioxide 25 mmol/L (22-30); Chloride 101 mmol/L (98-107); Cholesterol 293 mg/dL (0-200); Estimated Glomerular Filt Rate 57; Glucose 90 mg/dL (65-110); Potassium 4.1 mmol/L (3.4-5.0); Sodium 136 mmol/L (137-145); Triglycerides 106 mg/dL (<150)
[2023-04-04 12:56] LABS: HDL Direct 113 mg/dL
[2023-04-04 13:03] LABS: Add Urine Microscopic? NO
[2023-04-04 13:30] LABS: Folic Acid > 20.0 ng/mL (2.76->20); Vitamin B12 > 1000.0 pg/mL (239-931)
[2023-04-08 14:22] LABS: Vitamin B1 115 nmol/L (8-30)
== END 2023-04-04 11:09 | disposition home or self-care (01) ==
LOC: ANHLAB 11:10
PROVIDERS: Internal Medicine Nephrology; PCP Internal Medicine; Visit Provider Internal Medicine Hematology & Oncology
DX: Z79.899 Other long term (current) drug therapy (principal); N18.31 Chronic kidney disease, stage 3a; E55.9 Vitamin D deficiency, unspecified; E51.9 Thiamine deficiency, unspecified; E03.9 Hypothyroidism, unspecified; Z13.1 Encounter for screening for diabetes mellitus; E78.5 Hyperlipidemia, unspecified; D64.9 Anemia, unspecified
CPT/HCPCS: 36415; 80053; 80061; 80069; 81003; 82306; 82570; 82607; 82728; 82746; 83036; 83540; 83550; 84156; 84425; 84439; 84443; 85025; 85055

== ENCOUNTER 2023-05-06 16:00 | Outpatient (CLI) | payer OTHER, SELFPAY ==
--- NOTE | ~2023-05-06 | MM_ITS ---
EXAMINATION: MM screening [facility] BI w goran HISTORY: Screening TECHNIQUE: Craniocaudal and mediolateral oblique 3-D tomosynthesis images were obtained and synthetic 2-D images were generated. CAD analysis was submitted and interpreted. COMPARISON: Comparison to multiple prior studies sequentially, with oldest reviewed study dated 12/07. BREAST PARENCHYMAL COMPOSITION: There are scattered areas of fibroglandular density. FINDINGS: There is no evidence of suspicious mass, calcification, or architectural distortion to sugg est malignancy in either breast. There has been no suspicious interval change. IMPRESSION: 1. No mammographic evidence of malignancy. 2. Recommend routine screening mammography in one year. BI-RADS Category 1: Negative Reviewed, dictated and finalized at location A.
== END 2023-05-06 16:01 | disposition home or self-care (01) ==
PROVIDERS: PCP Internal Medicine; Visit Provider Internal Medicine
DX: Z12.31 Encounter for screening mammogram for malignant neoplasm of breast (principal)
CPT/HCPCS: 77063; 77067

== ENCOUNTER 2023-06-13 11:15 | Outpatient (CLI) | payer OTHER, SELFPAY ==
[2023-06-13 11:28] LABS: Basophils Percent Auto 0.7 % (0.2-1.2); Eosinophils Absolute Auto 0.2 K/mm3 (0-0.3); Hematocrit 34.9 % (37.0-47.0); Hemoglobin 11.7 g/dL (12.0-15.0); Immature Granulocyte Absolute 0.01 K/mm3 (0.00-0.031); Immature Granulocyte Percent A 0.2 % (0-0.5); Lymphocytes Absolute Auto 0.98 K/mm3 (0.9-3.2); Lymphocytes Percent Auto 22.8 % (18.3-44.2); Mean Corpuscular HGB Conc 33.5 g/dl (32-36); Mean Corpuscular Hemoglobin 33.1 pg (26-34); Mean Corpuscular Volume 98.6 fl (80-100); Mean Platelet Volume 9.3 fl (7.4-10.4); Monocytes Absolute Auto 0.4 K/mm3 (0.1-0.6); Monocytes Percent Auto 8.6 % (2.6-8.5); Neutrophils Absolute Auto 2.7 K/mm3 (1.3-6.7); Neutrophils Percent Auto 63.7 % (45.5-73.1); Platelet Count Result 72 k/mm3 (150-375); Red Blood Count 3.54 M/mm3 (4.2-5.4); Red Cell Distribution Width 13.4 % (11.5-14.5); White Blood Count 4.3 K/mm3 (4.5-10.0)
== END 2023-06-13 11:16 | disposition home or self-care (01) ==
LOC: ANHLAB 11:17
PROVIDERS: PCP Internal Medicine; Visit Provider Internal Medicine Hematology & Oncology
DX: Z79.899 Other long term (current) drug therapy (principal)
CPT/HCPCS: 36415; 85025

== ENCOUNTER 2023-08-15 11:25 | Emergency (ER) | payer OTHER, SELFPAY ==
--- NOTE | ~2023-08-15 | XR_ITS ---
EXAMINATION: XR foot LT min 3V DATE: 08/15/2023 12:46 INDICATION: Left foot pain TECHNIQUE: Dorsoplantar, lateral, and 2 oblique views of the left foot were obtained. COMPARISON: None. FINDINGS: There is dorsal soft tissue swelling of the foot. There is moderate osteoarthritis of the f irst through third tarsometatarsal joints. No definite fracture is identified. Mild osteoarthritis is noted in multiple interphalangeal joints. IMPRESSION: 1. Polyarticular osteoarthritis without acute osseous abnormality identified. Reviewed, dictated and finalized at location F. UTING SERVICES DIRECTOR
[2023-08-15 11:43] VITALS: BP 111/69; PULSE 75; RESP 20; TEMP 37.1; O2SAT 100
--- NOTE | 2023-08-15 12:55 | ED.GENADULT ---
HPI - General Adult General Chief complaint: Extremity Injury, Lower Stated complaint: left foot injury Friday Time Seen by Provider: 08/15/23 11:46 History of Present Illness HPI narrative: 58-year-old female presenting to the emergency department for evaluation of left foot pain. Patient reports she was walking in heels and rolled her left ankle on Friday. Patient states she does have increased pain with ambulation and is having difficulty with weight-bearing. Patient waited yesterday and attempted to see if the pain would resolve but pain has worsened. Patient denies any other pain or injury she denies striking head denies loss conscious. Patient reports left foot pain and denies any left ankle pain Related Data Home Medications Medication Instructions Recorded Confirmed ezetimibe 10 mg tablet (Zetia) 10 mg PO DAILY 10/10/21 06/20/23 ascorbic acid (vitamin C) 500 mg 500 mg PO DAILY 11/21/21 06/20/23 tablet (Vitamin C) magnesium 250 mg tablet 250 mg PO BID 10/15/22 06/20/23 [id number]-gvnc-tdozbux 200 tablet PO BID 10/15/22 06/20/23 mg-biotin 450 mcg-vit D3 400 unit-FA tablet carvedilol 3.125 mg tablet 3.125 mg PO Q12H 02/12/23 06/20/23 Allergies Allergy/AdvReac Type Severity Reaction Status Date / Time Lbenwio-TDT-OuU Reductase Allergy Unknown Verified 08/15/23 11:49 Inhibitor Review of Systems Review of Systems: All systems reviewed & are unremarkable except as noted in HPI and below PMFSH Past Medical History Medical History Abnormal finding of blood chemistry Acute renal failure Alcohol abuse Alcoholic hepatitis Anasarca BMI 23.0-23.9, adult BMI 25.0-25.9,adult BMI 26.0-26.9,adult BMI 27.0-27.9,adult BMI 29.0-29.9,adult BMI 30.0-30.9,adult Breast cancer screening Cirrhosis, alcoholic Diastolic dysfunction Encounter for preventive health examination Encounter for routine adult health examination with abnormal findings Encounter for routine adult health examination without abnormal findings Encounter to establish care Exophthalmus Follow up Gastric ulcer GI bleed History of blood transfusion Hyperlipidemia Hypothyroidism (acquired) Jaundice Leukocytosis Morbid obesity 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 Family History Family History Father Hypertension Mother Hypertension Other Anxiety Cancer Depression Diabetes mellitus Non-Hodgkin lymphoma Social History Social History Social History: The patient lives in [place] with her . She has no children. She is retired. She smoked remotely many years ago. Pt had consumed 3 to 4 alcoholic beverages, 5 times a week. Each drink consisted of 3 to 4 shots of whiskey. Pt states she has completely quit drinking alcohol. No illicit substance use. She designates her as her surrogate decision maker and wishes to be a full code. 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
== END 2023-08-15 14:01 | disposition home or self-care (01) ==
PROVIDERS: Emergency Provider Emergency Medicine; PCP Internal Medicine
DX: S96.912A Strain of unspecified muscle and tendon at ankle and foot level, left foot, initial encounter (principal); E78.5 Hyperlipidemia, unspecified; E03.9 Hypothyroidism, unspecified; E06.9 Thyroiditis, unspecified; Z87.891 Personal history of nicotine dependence; X50.9XXA Other and unspecified overexertion or strenuous movements or postures, initial encounter
CPT/HCPCS: 73630; 99283

== ENCOUNTER 2023-10-03 09:45 | Outpatient (CLI) | payer BC, SELFPAY ==
[2023-10-03 10:39] LABS: Basophils Percent Auto 1.1 % (0.2-1.2); Eosinophils Absolute Auto 0.1 K/mm3 (0-0.3); Eosinophils Percent Auto 3.4 % (0-4.4); Hematocrit 36.6 % (37.0-47.0); Hemoglobin 12.3 g/dL (12.0-15.0); Immature Granulocyte Absolute 0.01 K/mm3 (0.00-0.031); Immature Granulocyte Percent A 0.3 % (0-0.5); Lymphocytes Absolute Auto 0.74 K/mm3 (0.9-3.2); Lymphocytes Percent Auto 20.9 % (18.3-44.2); Mean Corpuscular HGB Conc 33.6 g/dl (32-36); Mean Corpuscular Hemoglobin 33.3 pg (26-34); Mean Corpuscular Volume 99.2 fl (80-100); Mean Platelet Volume 9.7 fl (7.4-10.4); Monocytes Absolute Auto 0.4 K/mm3 (0.1-0.6); Monocytes Percent Auto 10.5 % (2.6-8.5); Neutrophils Absolute Auto 2.3 K/mm3 (1.3-6.7); Neutrophils Percent Auto 63.8 % (45.5-73.1); Platelet Count Result 78 k/mm3 (150-375); Red Blood Count 3.69 M/mm3 (4.2-5.4); Red Cell Distribution Width 14.5 % (11.5-14.5); White Blood Count 3.5 K/mm3 (4.5-10.0)
[2023-10-03 13:32] LABS: Iron 104 ug/dL (37-170)
[2023-10-03 13:33] LABS: Creatinine Urine 116.6 mg/dL
[2023-10-03 13:41] LABS: Albumin Level 4.1 g/dL (3.5-5.1); Anion Gap 9 mmol/L (8-16); Blood Urea Nitrogen 20 mg/dL (7-17); Calcium 9.5 mg/dL (8.4-10.2); Carbon Dioxide 25 mmol/L (22-30); Chloride 105 mmol/L (98-107); Estimated Glomerular Filt Rate > 60; Glucose 86 mg/dL (65-110); Phosphorus 3.5 mg/dL (2.5-4.5); Sodium 139 mmol/L (137-145)
[2023-10-03 13:46] LABS: Percent Iron Saturation 30 % (20-50)
[2023-10-03 13:47] LABS: Parathyroid Intact 37.6 pg/mL (7.5-53.5)
[2023-10-03 13:51] LABS: Hemoglobin A1C 4.3 % (<5.7)
[2023-10-03 14:05] LABS: LDL Cholesterol Direct 83 mg/dL
[2023-10-03 14:10] LABS: Free T4 Free Thyroxine 1.87 ng/mL (0.78-2.19); Vitamin D 25 Hydroxy 40.3 ng/mL
[2023-10-03 14:16] LABS: Alanine Aminotransferase 22 U/L (6-35); Albumin Level 4.1 g/dL (3.5-5.1); Alkaline Phosphatase 153 U/L (38-126); Anion Gap 10 mmol/L (8-16); Aspartate Amino Transferase 48 U/L (14-36); Bilirubin,Total 5.1 mg/dL (0.2-1.3); Blood Urea Nitrogen 20 mg/dL (7-17); Calcium 9.6 mg/dL (8.4-10.2); Carbon Dioxide 24 mmol/L (22-30); Chloride 105 mmol/L (98-107); Cholesterol 269 mg/dL (0-200); Estimated Glomerular Filt Rate > 60; Glucose 86 mg/dL (65-110); Sodium 139 mmol/L (137-145); Triglycerides 92 mg/dL (<150)
[2023-10-03 14:29] LABS: Total Protein Urine Random < 5 mg/dL; Ur Ttl Prot Creatinine Ratio < 0.04 mg/mg (0-0.20)
[2023-10-03 14:29] LABS: HDL Direct 121 mg/dL
[2023-10-03 14:36] LABS: Folic Acid > 20.0 ng/mL (2.76->20); Vitamin B12 > 1000.0 pg/mL (239-931)
== END 2023-10-03 09:46 | disposition home or self-care (01) ==
LOC: ANHLAB 09:51
PROVIDERS: Internal Medicine Nephrology; PCP Internal Medicine; Visit Provider Internal Medicine Hematology & Oncology
DX: N18.31 Chronic kidney disease, stage 3a (principal); Z79.899 Other long term (current) drug therapy; E06.9 Thyroiditis, unspecified; E78.2 Mixed hyperlipidemia; E55.9 Vitamin D deficiency, unspecified; D64.9 Anemia, unspecified
CPT/HCPCS: 36415; 80053; 80061; 80069; 82306; 82570; 82607; 82728; 82746; 83036; 83540; 83550; 83970; 84156; 84439; 84443; 85025

== ENCOUNTER 2023-10-24 08:50 | Outpatient (CLI) | payer BC, SELFPAY ==
--- NOTE | ~2023-10-24 | US_ITS ---
Limited Abdominal Sonogram: Real-time sonographic imaging of the right upper quadrant was performed. Clinical History: Cirrhosis Findings: The liver appears normal with no evidence of mass lesion or bile duct dilatation. Main por capo vein demonstrates normal direction of flow. The gallbladder is well distended, with layering slud ge and/or small stones. The common bile duct measures 3 mm. The visualized pancreas, aorta, and IVC are unremarkable. Impression: Gallbladder sludge and/or small stones. Reviewed, dictated and finalized at location M. [employer] Impression: Gallbladder sludge and/or small stones.
== END 2023-10-24 08:51 | disposition home or self-care (01) ==
PROVIDERS: PCP Internal Medicine
DX: K74.69 Other cirrhosis of liver (principal); K76.6 Portal hypertension
CPT/HCPCS: 76705

== ENCOUNTER 2023-10-29 11:40 | Outpatient (CLI) | payer BC, SELFPAY ==
--- NOTE | ~2023-10-29 | XR_ITS ---
EXAMINATION: [id number] DATE: 10/29/2023 12:02 INDICATION: Pain in left toes. TECHNIQUE: 4 views of left foot including weightbearing views were obtained. COMPARISON: None. FINDINGS: Pes planus is noted. There is moderate hallux valgus. No fracture. There is mild osteoarthr itis of first metatarsophalangeal joint and some of the interphalangeal joints and midfoot joints. Th ere is severe osteoarthritis of second tarsometatarsal joint. There is an enthesophyte at plantar asp ect of calcaneal tuberosity. IMPRESSION: 1. Polyarticular osteoarthritis. 2. Pes planus. 3. Moderate hallux valgus. Reviewed, dictated and finalized at location E. ING MACHINE TENDER
== END 2023-10-29 11:41 | disposition home or self-care (01) ==
LOC: ANHIMG 11:43
PROVIDERS: PCP Internal Medicine; Visit Provider Internal Medicine
DX: M19.072 Primary osteoarthritis, left ankle and foot (principal); M20.12 Hallux valgus (acquired), left foot
CPT/HCPCS: 73630

== ENCOUNTER 2024-01-26 12:08 | Observation (INO) | payer BC, SELFPAY ==
--- NOTE | ~2024-01-26 | XR_ITS ---
EXAMINATION: XR elbow RT min 3V, XR humerus RT DATE: 01/26/2024 12:36 INDICATION: Right posterior elbow/distal humeral pain and limited range of motion post fall TECHNIQUE: 1. Anteroposterior and lateral views of the right humerus were obtained. 2. Anteroposterior, two oblique and lateral views of the right elbow were obtained. COMPARISON: None FINDINGS: Normal alignment at the right shoulder with mild acromion clavicular osteoarthritis. Intra-articular fracture extending across the base of the olecranon with 2 cm proximal distraction and prominent over lying soft tissue swelling. No other fractures identified. Joint space the right elbow appear relativ wilman preserved. IMPRESSION: 1. 2 cm proximal distraction of a transverse intra-articular fracture extending across the base of th e olecranon. Reviewed, dictated and finalized at location A. IMPRESSION: 1. 2 cm proximal distraction of a transverse intra-articular fracture extending across the base of the olecranon.
--- NOTE | ~2024-01-26 | XR_ITS ---
EXAMINATION: XR hand RT min 3V DATE: 01/26/2024 12:37 INDICATION: Right hand pain. Fall. TECHNIQUE: 3 views of right hand were obtained. COMPARISON: None. FINDINGS: There is an oblique fracture of neck of fifth metacarpal in near-anatomic alignment. There is an old healed fracture deformity of fifth proximal phalanx. There is mild osteoarthritis of trisca phe joint and first carpometacarpal joint. IMPRESSION: 1. Oblique fracture of neck of fifth metacarpal. Reviewed, dictated and finalized at location A.
[2024-01-26 12:37] VITALS: BP 121/62; PULSE 69; RESP 14; TEMP 36.7; O2SAT 100
--- NOTE | 2024-01-26 13:36 | ED.FALL ---
HPI - Fall General Chief Complaint: Fall <Simone Vidal APRN - Last Filed: 01/26/24 15:38> Stated Complaint: GLF <Simone Vidal APRN - Last Filed: 01/26/24 15:38> Time Seen by Provider: 01/26/24 13:30 <Simone Vidal APRN - Last Filed: 01/26/24 15:38> Source: patient <Simone Vidal APRN - Last Filed: 01/26/24 15:38> Mode of arrival: ambulatory <Simone Vidal APRN - Last Filed: 01/26/24 15:38> Limitations: no limitations <Simone Vidal APRN - Last Filed: 01/26/24 15:38> History of Present Illness HPI Narrative: Bela is a 58-year-old female patient presenting the emergency room today with complaints of a ground level fall when tripping on concrete. She reports that she fell on her right elbow. Does have a cut to the left palm just below the left 5th finger. Does have a small scratch to the right anterior 5th distal finger as well. Has deformity,bruising, and swelling over the right elbow. She denies hitting her head or any loss of consciousness. <Simone Vidal APRN - Last Filed: 01/26/24 15:38> Related Data Home Medications: Home Medications Medication Instructions Recorded Confirmed ezetimibe 10 mg tablet (Zetia) 10 mg PO DAILY 10/10/21 01/26/24 ascorbic acid (vitamin C) 500 mg 500 mg PO DAILY 11/21/21 01/26/24 tablet (Vitamin C) magnesium 250 mg tablet 250 mg PO BID 10/15/22 01/26/24 carvedilol 3.125 mg tablet 3.125 mg PO Q12H 02/12/23 01/26/24 ferrous sulfate 325 mg (65 mg 325 mg PO DAILY 10/29/23 01/26/24 iron) tablet,delayed release bumetanide 1 mg tablet 1 mg PO DAILY 01/26/24 01/26/24 pantoprazole 40 mg tablet,delayed 40 mg PO DAILY 01/26/24 01/26/24 release potassium chloride 10 mEq 10 meq PO DAILY 01/26/24 01/26/24 tablet,extended release(part/cryst) (Klor-Con M) <Simone Vidal APRN - Last Filed: 01/26/24 15:38> Allergies/Adverse Reactions: Allergies Allergy/AdvReac Type Severity Reaction Status Date / Time [id number]-[id number] Reductase Allergy Unknown Verified 10/29/23 10:35 Inhibitor <Simone Vidal APRN - Last Filed: 01/26/24 15:38> Review of Systems Review of Systems: Pertinent positives per HPI. Patient denies any fever, chills, rash, headache, visual changes, dizziness, cough, runny nose, sore throat, shortness of breath, chest pain, palpitations, nausea, vomiting, diarrhea, constipation, abdominal pain, or any urinary issues. <Simone Vidal APRN - Last Filed: 01/26/24 15:38> [facility] Past Medical History Medical History: Medical History (Updated 01/26/24 @ 15:55 by Norma Song PA-C) Alcohol abuse Alcoholic hepatitis Cirrhosis, alcoholic Diastolic dysfunction Gastric ulcer Hyperlipidemia Hypothyroidism Iron deficiency anemia Normal cardiac stress test (04/2022) Shingles Thrombocytopenia Ventral hernia <Simone Vidal APRN - Last Filed: 01/26/24 15:38> Surgical History Surgical History: Surgical History (Updated 01/26/24 @ 15:53 by Norma Song PA-C) History of local excision of skin lesion (1976) Benign mole removed from the right cheek. <Simone Vidal APRN - Last Filed: 01/26/24 15:38> Family History Family History: Family History (Updated 01/26/24 @ 17:02 by Dilia Ibarra RN) Father Diabetes mellitus Hypertension Skin cancer Mother Non-Hodgkin lymphoma Anxiety Depression Cancer Hypertension Grandparent Cancer Sibling Skin cancer <Simone Vidal APRN - Last Filed: 01/26/24 15:38> Social History Social History: Social History (Updated 01/26/24 @ 15:47 by Norma Song PA-C) Social History: Surrogate medical decision maker: Code status: Full code. Smoking status: Former smoker Additional smoking assessment comments: 30 yrs ago Alcohol intake: former Drinks per week: 14 Substance use: never Do You Feel Safe in your Home?: Yes Lack of Transport
--- NOTE | 2024-01-26 13:54 | ECG_ITS ---
SEE SCANNED COPY FOR CONFIRMED REPORT MTDD
[2024-01-26 15:00] LABS: Hematocrit 38.9 % (37.0-47.0); Mean Corpuscular HGB Conc 33.4 g/dl (32-36); Mean Corpuscular Hemoglobin 34.2 pg (26-34); Mean Corpuscular Volume 102.4 fl (80-100); Mean Platelet Volume 10.4 fl (7.4-10.4); Platelet Count Result 68 k/mm3 (150-375); Red Cell Distribution Width 14.5 % (11.5-14.5)
[2024-01-26 15:05] VITALS: BP 122/68; PULSE 72; RESP 18; O2SAT 100
[2024-01-26 15:08] LABS: Ethanol < 10 mg/dL (<10)
[2024-01-26] MEDS: TETANUS,DIPHTHERIA,AC PERTUSSIS ADULT (0.5 ML) BOOSTRIX IM (15:08)
[2024-01-26 15:10] LABS: Alanine Aminotransferase 28 U/L (6-35); Albumin Level 4.7 g/dL (3.5-5.1); Alkaline Phosphatase 148 U/L (38-126); Anion Gap 10 mmol/L (4-12); Aspartate Amino Transferase 53 U/L (14-36); Bilirubin,Total 6.5 mg/dL (0.2-1.3); Blood Urea Nitrogen 17 mg/dL (7-17); Calcium 9.8 mg/dL (8.4-10.2); Carbon Dioxide 25 mmol/L (22-30); Chloride 103 mmol/L (98-107); Estimated CRCL calculation 58 ml/min; Estimated Glomerular Filt Rate > 60; Glucose 99 mg/dL (65-110); INR 1.4; Potassium 3.6 mmol/L (3.4-5.0); Prothrombin Time 17.9 Seconds (11.1-14.7); Sodium 138 mmol/L (137-145)
[2024-01-26 15:11] LABS: Partial Thromboplastin Time 41.6 Seconds (22.3-36.8)
--- NOTE | 2024-01-26 15:11 | PC.NURSE ---
Pt refused Morphine and ondasetrone, said I am not at that much pain .
[2024-01-26 15:24] LABS: Band Neutrophils Percent 1 % (0-6); Eosinophils Percent Manual 2 % (0-4); Lymphocytes Absolute Manual 0.55 K/mm3 (1.1-4.5); Monocytes Percent Manual 12 % (3-9); Neutrophils Absolute Manual 3.75 K/mm3 (1.7-7.2); Neutrophils Percent Manual 74 % (46-73); Platelet Estimate Decreased (Adequate); Schistocytes None Seen; Total Cells Counted 100
--- NOTE | 2024-01-26 15:43 | PM.IMHP ---
H&P: HPI History of Present Illness Date/Time: 01/26/24 17:00 Chief Complaint: Right elbow pain after fall. Narrative: This is a very pleasant 58-year-old female with history of alcohol abuse (she has abstained for 3 years), cirrhosis of the liver, diastolic dysfunction, gastroesophageal reflux disease with history of peptic ulcer, iron deficiency anemia, and hypothyroidism who presented to the emergency department via private vehicle for evaluation of right elbow pain after a fall. The patient provides the following history. She was in her usual state of health when she got up this morning and she went to visit her father at [place]. She got the total of her shoe tripped on uneven pavement leading up to the building which caused her to fall forward onto her forearms. She had immediate pain in her right elbow with swelling and she sustained some lacerations on her palms as well. There was no head trauma or loss of consciousness. She had no antecedent symptoms prior to the fall and she reports that it was purely mechanical. In the ED: She was afebrile on arrival stable vital signs. Imaging showed a 2 cm proximal distraction of a transverse intra-articular fracture extending across the base of the olecranon and an oblique fracture of the neck of the right 5th metacarpal. Labs were significant for a WBC count of 5.0, hemoglobin 13.0, platelets 68, INR 1.4, PT 17.9, PTT 41, total bili 6.0, AST 53, ALT 20, alkaline phosphatase 148, ethyl alcohol level less than 10. Left hand laceration was sutured. Right arm was splinted and she is being admitted in this setting for pain control and orthopedic consultation tomorrow. Review of Systems Review of Systems: 12 systems were reviewed and are negative except for as per HPI. [facility] Past Medical History Medical History (Updated 01/27/24 @ 00:45 by Norma Song PA-C) Cirrhosis, alcoholic Followed by Dr. Winn at [facility]. Diastolic dysfunction Gastric ulcer Hyperlipidemia Hypothyroidism Iron deficiency anemia Normal cardiac stress test (04/2022) Shingles Thrombocytopenia Ventral hernia Surgical History Surgical History History of local excision of skin lesion (1976) Benign mole removed from the right cheek. Family History Family History Father Diabetes mellitus Hypertension Skin cancer Mother Non-Hodgkin lymphoma Anxiety Depression Cancer Hypertension Grandparent Cancer Sibling Skin cancer Social History Social History (Updated 01/27/24 @ 00:43 by Norma Song PA-C) Social History: Surrogate medical decision maker: Alfred Marsh, spouse. Code status: Full code. Smoking status: Former smoker Additional smoking assessment comments: 30 yrs ago Alcohol intake: former Drinks per week: 14 Substance use: never Do You Feel Safe in your Home?: Yes Lack of Transportation: No Lack of Food: Never True Current Housing: I Have Housing Concerned About Future Housing: No Difficulty Paying Gas/Electric Bills: No Difficulty Paying for Meds: No Currently Unemployed: No Education: Associate Degree Difficulty w/ Childcare or Family Care: No Living arrangements: with family Occupation/Education: retired Spiritual care concerns: No Meds Home Medications and Allergies Home Medications Medication Instructions Recorded Confirmed Type ezetimibe 10 mg tablet (Zetia) 10 mg PO DAILY 10/10/21 01/26/24 History ascorbic acid (vitamin C) 500 mg 500 mg PO DAILY 11/21/21 01/26/24 History tablet (Vitamin C) magnesium 250 mg tablet 250 mg PO BID 10/15/22 01/26/24 History carvedilol 3.125 mg tablet 3.125 mg PO Q12H 02/12/23 01/26/24 History spironolactone 25 mg tablet 25 mg PO DAILY #90 tabs 08/20/23 01/26/24 Rx lactulose 10 gram/15 mL oral See Rx Instructions .Route 09/29/23 01/26/24 Rx solution .COMPLEX #6,300 m
--- NOTE | 2024-01-26 15:59 | ADMGEN ---
This patient, Bela Marsh, was admitted to 3 Medical Room 347-01. Patient/family oriented to hospital policies and general routines including ID bracelet, bed and alarms, visiting hours, pain management, procedures, bathroom and other care routines, personal items, smoking policy, room service/diet, and visiting hours. Information on how to activate the Rapid Response Team has been discussed. Patient/Family are encouraged to report perceived risks to care and to ask questions if they do not understand what they are told or what they should do.
[2024-01-26 16:44] VITALS: BP 114/58; PULSE 72; RESP 16; TEMP 36.7; O2SAT 100
[2024-01-26] MEDS: SODIUM CHLORIDE 0.9% IV 1,000 ML 125 ML IV CONT (16:59)
[2024-01-26 20:00] VITALS: PULSE 72; RESP 16; O2SAT 100
[2024-01-26 22:47] VITALS: BP 113/55; PULSE 78; RESP 20; TEMP 37; O2SAT 99
[2024-01-26] MEDS: traMADol HCL (*CRX) 50 MG TABLET PO (22:49)
[2024-01-26] MEDS: MORPHINE SULFATE (*CRX) 2 MG/ML INJ IV PUSH (23:54)
[2024-01-27] VITALS (9 sets, daily range): BP systolic 100–119; BP diastolic 45–54; PULSE 64–73; RESP 14–20; TEMP 36.4–37.3; O2SAT 98–100
[2024-01-27] MEDS: MORPHINE SULFATE (*CRX) 2 MG/ML INJ IV PUSH (05:40)
[2024-01-27 05:45] LABS: Hematocrit 31.7 % (37.0-47.0); Hemoglobin 10.5 g/dL (12.0-15.0); Immature Platelet Fraction Pct 4.2 % (0.9-11.2); Mean Corpuscular HGB Conc 33.1 g/dl (32-36); Mean Corpuscular Hemoglobin 34.2 pg (26-34); Mean Corpuscular Volume 103.3 fl (80-100); Mean Platelet Volume 10.2 fl (7.4-10.4); Platelet Count Result 63 k/mm3 (150-375); Red Blood Count 3.07 M/mm3 (4.2-5.4); Red Cell Distribution Width 14.3 % (11.5-14.5); White Blood Count 5.8 K/mm3 (4.5-10.0)
[2024-01-27 05:52] LABS: Alanine Aminotransferase 21 U/L (6-35); Albumin Level 3.6 g/dL (3.5-5.1); Alkaline Phosphatase 102 U/L (38-126); Anion Gap 6 mmol/L (4-12); Aspartate Amino Transferase 43 U/L (14-36); Bilirubin,Total 5.8 mg/dL (0.2-1.3); Blood Urea Nitrogen 18 mg/dL (7-17); Calcium 9.1 mg/dL (8.4-10.2); Carbon Dioxide 23 mmol/L (22-30); Chloride 105 mmol/L (98-107); Estimated CRCL calculation 58 ml/min; Estimated Glomerular Filt Rate > 60; Glucose 85 mg/dL (65-110); Magnesium 1.7 mg/dL (1.6-2.3); Potassium 3.7 mmol/L (3.4-5.0); Sodium 134 mmol/L (137-145)
--- NOTE | 2024-01-27 07:24 | PM.IMPN ---
Progress Note: A&P Assessment and Plan (1) Fracture of right elbow: Code(s): S42.401A - Unspecified fracture of lower end of right humerus, initial encounter for closed fracture Status: Acute Assessment and Plan: Ground level mechanical fall -2 cm proximal distraction of transverse intra-articular fracture extending across the base of the olecranon -arm splinted -orthopedics was consulted and recs appreciated -currently is NPO for possible surgical intervention today -pain control with Tylenol, tramadol, and morphine for severe pain (2) Fracture of fifth metacarpal bone of right hand: Code(s): S62.306A - Unspecified fracture of fifth metacarpal bone, right hand, initial encounter for closed fracture Status: Acute Assessment and Plan: Suffered metacarpal fracture after falling -ortho consult (3) Laceration: Status: Acute Assessment and Plan: Left hand laceration status post repair in the ER -repaired with sutures -open air -tetanus booster received in the ER (4) Cirrhosis of liver: Code(s): K74.60 - Unspecified cirrhosis of liver Status: Acute Assessment and Plan: History of cirrhosis. Cessation of alcohol for the last 3 years -continue on Bumex, lactulose, spironolactone -T bili is 5.8. Chronically elevated due to her cirrhosis -AST elevated 43, ALT normal at 21, normal alk-phos (5) Thrombocytopenia: Code(s): D69.6 - Thrombocytopenia, unspecified Status: Acute Assessment and Plan: Chronic thrombocytopenia -platelets 63 today -monitor for bleeding -transfuse as needed for platelets less than 20 or with bleeding Plan Feeding: NPO for possible surgery Analgesia: Tylenol, tramadol, morphine Thromboembolic prophylaxis: SCDs Ulcer prophylaxis: Not indicated Glycemic control: Not indicated Bowel regimen: Likely not needed as patient is receiving lactulose Antibiotics: Vanco and cefazolin Disposition: Home after surgical intervention and medically stable Subjective Date/time seen: 01/27/24 07:24 Interval history: 58-year-old female with history of alcohol abuse (she has abstained for 3 years), cirrhosis of the liver, diastolic dysfunction, gastroesophageal reflux disease with history of peptic ulcer, iron deficiency anemia, and hypothyroidism who presented to the emergency department via private vehicle for evaluation of right elbow pain after a fall. 01/26: Review of Systems Review of Systems: 12 systems were reviewed and are negative except for as per HPI. All systems reviewed & are unremarkable except as noted in HPI and below Exam Narrative: General: well appearing, appears stated age. HEENT: normocephalic, atraumatic. Mucous membranes moist. EOMI, PERRLA, bilateral sclera anicteric, no conjunctival injection. Neck supple without JVD, lymphadenopathy, or bruit. Respiratory: clear to ascultation bilaterally. No rales/rhonic/wheezes. Cardiovascular: Regular rate and rhythm, normal S1-S2 upon ascultation. No murmurs, rubs, or clicks. PMI is nondisplaced, capillary refill less than 3 second. Abdomen: Soft, round, no pulsatile masses, nondistended and nontender. No rebound, no guarding. No CVA tenderness, no hepatosplenomegaly. Bowel sounds present to all four quadrants. No high pitch or tinkling sounds, resonant to percussion. Extremities: No cyanosis, clubbing, or edema present. Pulses are palpable 2/2. Active ROM to all four extremities. Neuro: Alert and orientated x 4. PERRLA. Cranial nerves 2-12 intact without focal deficit. Skin: Warm, dry, and intact, without rash, erythema, or lesion. Lines: Incisions: Psych: pleasant, cooperative, normal speech, normal affect, no hallucinations, no dysarthia Objective Data Vital Signs Vital Signs: Vital Signs - 24 hr 01/26/24 12:37 01/26/24 15:05 01/26/24 16:44 Temperature 98.0 F 98.1 F Pulse Rate 69 72 72 Respiratory Rate 14 18 16 Blood Pressure 121/6
[2024-01-27] MEDS: VANCOMYCIN 1,000 MG/NS 250 ML 1,000 MG/250 ML BAG 250 MG IVPB (12:45)
[2024-01-27] MEDS: fentaNYL CITRATE INJ (*CRX) 100 MCG/2 ML VIAL 25 MCG IV PUSH (13:15)
--- NOTE | 2024-01-27 13:35 | PM.CNOR ---
Assessment and Plan Assessment and plan (1) Fracture of right olecranon process: Qualifiers: Encounter type: initial encounter Fracture type: closed Qualified Code(s): S52.021A - Displaced fracture of olecranon process without intraarticular extension of right ulna, initial encounter for closed fracture Code(s): S52.021A - Displaced fracture of olecranon process without intraarticular extension of right ulna, initial encounter for closed fracture Status: Acute Assessment and Plan: Patient has a displaced right olecranon fracture. I have recommended open reduction and internal fixation. My preference would be to use a [employer] locking plate as her bone quality may be suboptimal. 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 I discussed risks of surgery including risk of infection nerve injury nonunion loss of fixation medical complications and the probability that as she is thin, the plate will be somewhat prominent and she may wish to have this removed and we usually we wait about a year to removed the plate. Questions about risks of surgery were discussed and she wished to proceed. I have discussed with her that it is time to obtain a bone density test to see if she has osteoporosis we will do that outpatient basis. Her primary care physician is Dr. Kevin Patient will be staying overnight for observation IV antibiotics and repeat lab work in the morning and make sure that she does not develop worsening liver failure. (2) Fracture of fifth metacarpal bone of right hand: Qualifiers: Encounter type: initial encounter Fracture type: closed Metacarpal location: neck Fracture alignment: nondisplaced Qualified Code(s): S62.366A - Nondisplaced fracture of neck of fifth metacarpal bone, right hand, initial encounter for closed fracture Code(s): S62.306A - Unspecified fracture of fifth metacarpal bone, right hand, initial encounter for closed fracture Status: Acute Assessment and Plan: Number patient has a nondisplaced oblique fracture of 5th metacarpal neck of the right hand. Treatment for this would be immobilization and non operative. History of Present Illness HPI Consult date: 01/27/24 Chief complaint: R Yadira Frac/Surg/ R 5th Metacarpal Fracture Narrative: Patient is a 58-year-old female who had a ground level fall on the outstretched right hand and sustained a nondisplaced short oblique right 5th metacarpal neck fracture and a completely displaced transverse olecranon fracture with approximately 2 cm of proximal displacement. She also had a small laceration in her left hand which was repaired with sutures in the ER. Her past medical history significant for cirrhosis of the liver. Patient has thrombocytopenia with a platelet count this morning of 63,000. This has gradually been worsening. In September of 2022 it was 100,000 and has been steadily dropping ever since. She does see the aircraft motor mechanic Dr Sagastume every 6 months and has for the last few years. She sees him again in March. She has hemoglobin of 10.5 with elevated MCV and MCH. She has a history of smoking but no longer smokes. Her protime is mildly elevated at 17.9 INR 1.4 APTT mildly elevated at 41.6. Sodium slightly increased at 1:34 a.m.. Normal renal function. She has prominent elevation of total bilirubin of 5.8 AST of 43,000. Total protein is little low at 6.0 albumin is normal at 3.6. She is an ex-smoker. [facility] Past Medical History Medical History Cirrhosis, alcoholic Followed by Dr. Winn at [facility]. Diastolic dysfunction Gastric ulcer Hyperlipidemia Hypothyroidism Iron deficiency anemia Normal cardiac stress test (04/2022) Shingles Thrombocytopenia Ventral hernia Surgical History Surgical History History of local excision of skin lesion (1976) Benign mole remove
--- NOTE | 2024-01-27 13:39 | WPDANESEPPF ---
Anes - Initial Pre Proc Eval Procedure: Operation Date: 01/27/24 13:15 Proposed Procedures p Open Reduction Internal Fixation Right Olecranon Fracture - Aurelio Stewart MD Date/Time: 01/27/24 13:39 Surgeon: Mali Mayer MD Pre Op Diagnosis: R Olecrenon Frac/Surg/ R 5th Metacarpal Fracture Patient Data Age: 58 Gender: F Height: 1.63 m Weight: 74.7 kg Last Vital Signs Temp 36.9 C 01/27/24 12:52 Pulse 70 01/27/24 12:52 Resp 16 01/27/24 12:52 BP 103/50 L 01/27/24 12:52 Pulse Ox 100 01/27/24 12:52 O2 Del Method Room Air 01/27/24 08:09 Allergies Allergy/AdvReac Type Severity Reaction Status Date / Time Bxooxct-OXO-FoQ Reductase Allergy Unknown Verified 01/27/24 12:41 Inhibitor Home Medications Medication Instructions Recorded Confirmed Type ezetimibe 10 mg tablet (Zetia) 10 mg PO DAILY 10/10/21 01/26/24 History ascorbic acid (vitamin C) 500 mg 500 mg PO DAILY 11/21/21 01/26/24 History tablet (Vitamin C) magnesium 250 mg tablet 250 mg PO BID 10/15/22 01/26/24 History carvedilol 3.125 mg tablet 3.125 mg PO Q12H 02/12/23 01/26/24 History spironolactone 25 mg tablet 25 mg PO DAILY #90 tabs 08/20/23 01/26/24 Rx lactulose 10 gram/15 mL oral See Rx Instructions .Route 09/29/23 01/26/24 Rx solution .COMPLEX #6,300 mL ferrous sulfate 325 mg (65 mg 325 mg PO DAILY 10/29/23 01/26/24 History iron) tablet,delayed release bumetanide 1 mg tablet 1 mg PO DAILY 01/26/24 01/26/24 History pantoprazole 40 mg tablet,delayed 40 mg PO DAILY 01/26/24 01/26/24 History release potassium chloride 10 mEq 10 meq PO DAILY 01/26/24 01/26/24 History tablet,extended release(part/cryst) (Klor-Con M) Laboratory Tests 01/26/24 01/27/24 14:48 05:31 WBC 5.0 K/mm3 5.8 K/mm3 (4.5-10.0) (4.5-10.0) RBC 3.80 L M/mm3 3.07 L M/mm3 (4.2-5.4) (4.2-5.4) Hgb 13.0 g/dL 10.5 L g/dL (12.0-15.0) (12.0-15.0) Hct 38.9 % 31.7 L % (37.0-47.0) (37.0-47.0) MCV 102.4 H fl 103.3 H fl (80-100) (80-100) MCH 34.2 H pg 34.2 H pg (26-34) (26-34) MCHC 33.4 g/dl 33.1 g/dl (32-36) (32-36) RDW 14.5 % 14.3 % (11.5-14.5) (11.5-14.5) Plt Count 68 L k/mm3 63 L k/mm3 (150-375) (150-375) MPV 10.4 fl 10.2 fl (7.4-10.4) (7.4-10.4) Immature Gran % (Auto) Not Reportable Neut % (Auto) Not Reportable Lymph % (Auto) Not Reportable [place] % (Auto) Not Reportable Eos % (Auto) Not Reportable Baso % (Auto) Not Reportable Lymph # (Auto) Not Reportable [place] # (Auto) Not Reportable Eos # (Auto) Not Reportable Baso # (Auto) Not Reportable Abs Immat Gran (auto) Not Reportable Absolute Neuts (auto) Not Reportable Absolute Nucleated RBC Not Reportable Total Counted 100 Neutrophils % (Manual) 74 H % (46-73) Band Neutrophils % 1 % (0-6) Lymphocytes % (Manual) 11.0 L % (18-44) Monocytes % (Manual) 12 H % (3-9) Eosinophils % (Manual) 2 % (0-4) Nucleated RBC % Not Reportable Abs Neuts (Manual) 3.75 K/mm3 (1.7-7.2) Abs Lymphs (Manual) 0.55 L K/mm3 (1.1-4.5) Abs Monocytes (Manual) 0.60 K/mm3 (0.1-0.90) Absolute Eos (Manual) 0.10 K/mm3 (0.02-0.50) Platelet Estimate Decreased (Adequate) % Immature Plt Fraction 4.0 % 4.2 % (0.9-11.2) (0.9-11.2) Schistocytes None seen PT 17.9 H Seconds (11.1-14.7) INR 1.4 APTT 41.6 H Seconds (22.3-36.8) Sodium 138 mmol/L 134 L mmol/L (137-145) (137-145) Potassium 3.6 mmol/L 3.7 mmol/L (3.4-5.0) (3.4-5.0) Chloride 103 mmol/L 105 mmol/L (98-107) (98-107) Carbon Dioxide 25 mmol/L 23 mmol/L (22-30) (22-30) Anion Gap 10 mmol/L 6 mmol/L (4-12) (4-12) BUN 17 mg/dL 18 H mg/dL (7-17) (7-17) Creatinine 0.80 mg/dL
--- NOTE | 2024-01-27 13:41 | WPDHPUPDATE1 ---
History and Physical Update Update Date/Time: 01/27/24 13:41 History and Physical has been reviewed, including an updated exam of the patient. There are NO changes in the patient's condition. Risks, benefits, and alternatives have been discussed and questions answered. Patient agrees to proceed with procedure.
[2024-01-27] MEDS: LACTATED RINGERS 1,000 ML 30 ML IV CONT (13:42)
[2024-01-27] MEDS: ceFAZolin 2 GM/D5W 50 ML 2 GM/50 ML BAG IVPB (13:54)
[2024-01-27] MEDS: SILVER SULFADIAZINE 1% CR 50 GM JAR (*BKC) 1 APPLIC TOPICAL (14:21)
--- NOTE | 2024-01-27 14:32 | SUR.OPER ---
No Time-Out was performed for this procedure because of the alterations made by the surgeon upon examination of the surgical site.
--- NOTE | 2024-01-27 15:15 | W.PM.PROC2 ---
Procedure Note - Detailed Date of Procedure 01/27/24 Pre-op Diagnosis R Olecrenon Frac/Surg/ R 5th Metacarpal Fracture Post-op Diagnosis Same (With severe swelling and multiple weeping fracture blisters) Procedure Performed Inspection of fracture blisters right elbow associations with olecranon fracture and application of long-arm splint stabilizing 5th metacarpal and olecranon fracture on the right upper extremity. Surgeon Aurelio Stewart MD Anesthesia General Description of Procedure Patient was brought to the operating room and general anesthesia was administered. Her splint was removed and there was a op-site type of dressing about 2-1/2 inches wide 1-1/2 inches proximal distal and underneath this area was a 2 cm diameter area of complete epithelial loss and dark red dermis. At the periphery of this Op site were several nonhemorrhagic flexed fracture blisters that were weeping. She had bulbous moderately severe swelling over the posterior elbow extending medially laterally that was quite pronounced suggesting underlying hematoma. The 2 cm open hemorrhagic blister was just lateral to the olecranon right where we would put our incision and I felt that proceeding with surgical stabilization of the fracture would be contraindicated as skin edge closure would be tight and skin edge necrosis very probable. We applied Silvadene cream these areas and a large sheet of Telfa followed by fluffy sponges soft roll and a volar splint holding the elbow of 70? of flexion. We applied an ulnar gutter splint also with OCL. Plan will be to take her back to the operating room in 10 days if the skin is S healed adequately. Her skin is very thin and at time of surgery we will consider using the tension band technique give the skin condition does not seem optimal for plate fixation. G Billing Surgery - Charge Forward: Surgery Billing (Dressing fracture blisters right elbow and application of long-arm splint under anesthesia.)
--- NOTE | 2024-01-27 16:31 | PM.DS ---
DS: Admitting Diagnosis Discharge Date 01/26 Admitting Diagnosis Fall DS: Discharge Diagnosis Discharge Diagnosis (1) Fracture of right elbow: Code(s): S42.401A - Unspecified fracture of lower end of right humerus, initial encounter for closed fracture Status: Acute Assessment and Plan: Ground level mechanical fall -2 cm proximal distraction of transverse intra-articular fracture extending across the base of the olecranon -arm splinted -orthopedics was consulted and recs appreciated -currently is NPO for possible surgical intervention today -pain control with Tylenol, tramadol, and morphine for severe pain (2) Fracture of fifth metacarpal bone of right hand: Qualifiers: Encounter type: initial encounter Fracture type: closed Metacarpal location: neck Fracture alignment: nondisplaced Qualified Code(s): S62.366A - Nondisplaced fracture of neck of fifth metacarpal bone, right hand, initial encounter for closed fracture Code(s): S62.306A - Unspecified fracture of fifth metacarpal bone, right hand, initial encounter for closed fracture Status: Acute Assessment and Plan: Suffered metacarpal fracture after falling -ortho consult (3) Laceration: Status: Acute Assessment and Plan: Left hand laceration status post repair in the ER -repaired with sutures -open air -tetanus booster received in the ER (4) Cirrhosis of liver: Code(s): K74.60 - Unspecified cirrhosis of liver Status: Acute Assessment and Plan: History of cirrhosis. Cessation of alcohol for the last 3 years -continue on Bumex, lactulose, spironolactone -T bili is 5.8. Chronically elevated due to her cirrhosis -AST elevated 43, ALT normal at 21, normal alk-phos (5) Thrombocytopenia: Code(s): D69.6 - Thrombocytopenia, unspecified Status: Acute Assessment and Plan: Chronic thrombocytopenia -platelets 63 today -monitor for bleeding -transfuse as needed for platelets less than 20 or with bleeding Plan Feeding: NPO for possible surgery Analgesia: Tylenol, tramadol, morphine Thromboembolic prophylaxis: SCDs Ulcer prophylaxis: Not indicated Glycemic control: Not indicated Bowel regimen: Likely not needed as patient is receiving lactulose Antibiotics: Vanco and cefazolin Disposition: Home after surgical intervention and medically stable DS: Summary Hospital Course Reason for hospitalization: Fall, olecranon fracture Hospital Course: 58-year-old female who suffered a fall resulting in right olecranon fracture, 5th metatarsal fracture, and left hand laceration was admitted for orthopedic consultation and was scheduled for surgical repair today. Unfortunately surgery was unable to be completed due to perfuse arm swelling with blister development. Arm was dressed by Dr. Stewart with Silvadene cream, Telfa the, sponges, and volar splint holding the elbow at 70? flexion per op note. Ulnar gutter splint was also applied. Plan will be for her to report back to the operating room in 10 days for plate fixation. Patient was updated by the surgeon and she verbalizes understanding. She will discharge home today. All questions and concerns addressed. Status at Discharge Cognitive/behavioral status at discharge: A&O x4 Time Spent with Patient Time attestation: Total time spent providing and/or coordinating discharge services: 43 Exam Narrative: General: well appearing, thin appears stated age. HEENT: normocephalic, atraumatic. Mucous membranes moist. EOMI, PERRLA, bilateral sclera anicteric, no conjunctival injection. Neck supple without JVD, lymphadenopathy, or bruit. Respiratory: clear to auscultation bilaterally. No rales/rhonic/wheezes. Cardiovascular: Regular rate and rhythm, normal S1-S2 upon auscultation. No murmurs, rubs, or clicks. PMI is nondisplaced, capillary refill less than 3 second. Abdomen: Soft, round, no pulsatile masses, nondistended and nontender. No
== END 2024-01-27 18:50 | disposition home or self-care (01) ==
LOC: ANHED 14:18 → ANH3MED 15:38
PROVIDERS: Orthopaedic Surgery; Physician Assistant; Admitting Provider Family Medicine; Emergency Provider Nurse Practitioner Family; PCP Internal Medicine; Visit Provider Internal Medicine
PROC: (CPT 29105; principal; 2024-01-27 13:15)
DX: S52.021A Displaced fracture of olecranon process without intraarticular extension of right ulna, initial encounter for closed fracture (principal); S62.366A Nondisplaced fracture of neck of fifth metacarpal bone, right hand, initial encounter for closed fracture; S61.412A Laceration without foreign body of left hand, initial encounter; D69.6 Thrombocytopenia, unspecified; W01.0XXA Fall on same level from slipping, tripping and stumbling without subsequent striking against object, initial encounter; K70.30 Alcoholic cirrhosis of liver without ascites; E03.9 Hypothyroidism, unspecified; E78.5 Hyperlipidemia, unspecified; I51.89 Other ill-defined heart diseases; D50.9 Iron deficiency anemia, unspecified; Z87.891 Personal history of nicotine dependence; Z87.11 Personal history of peptic ulcer disease; Z23 Encounter for immunization; Z79.899 Other long term (current) drug therapy
CPT/HCPCS: 29105; 12001; 29125; 36415; 73060; 73080; 73130; 80053; 80307; 83735; 85025; 85027; 85055; 85610; 85730; 90471; 90715; 93005; 96374; 96376; 99285; A9270; G0378; J0690; J1100; J1170; J2250; J2270; J2405; J2704; J3010; J3370; J7030; J7120

== ENCOUNTER 2024-02-12 01:27 | Day surgery (SDC) | payer BC, SELFPAY ==
[2024-02-04 10:33] VITALS: BMI 26.6
--- NOTE | 2024-02-04 10:43 | PC.NURSE ---
Report to the Outpatient Waiting Room, entrance under the green pavilion located off [facility], at time _0930_ on date _[id number]_. Planned Procedure Time: _1130_. Time changes happen often and if your time is changed the preop area will call you the afternoon before. - You and your visitor will be asked to self-screen and do not enter if you have any COVID symptoms. - A mask is optional within the hospital at this time. Patients may have clear liquids (water, carbonated beverages, clear teas, apple juice) until 3 hours prior to surgery with a maximum of 20 ounces. - No food from midnight until time of surgery Take the following medications with a SIP of water the morning of surgery: ___Carvidilol DO NOT STOP ANY OF YOUR OTHER PRESCRIPTION MEDICATIONS PRIOR TO SURGERY ?EXCEPT THE FOLLOWING Medications to discontinue per physician ___All vitamins Date to take last rkla___[id number] Please no make-up, nail belgian, hairspray, perfume, deodorant, or body powder the day of surgery. No jewelry (including any body piercings) or valuables the day of surgery, leave them at home. Please take a shower or bath the night before, or the morning of, surgery with an antibacterial soap. Wear comfortable, loose fitting clothing. - Jewelry must be removed prior to entering the operating room. Rings and piercings that are not removed may be cut off. - The hospital will not accept responsibility for valuables. - Please leave all valuables, including medications, at home the day of surgery. If you are going home after surgery, a licensed corporate driver must drive you home. - NO public transportation without another adult if you receive anesthesia. - We recommend that an adult stay with you for 24 hours following discharge. - We also recommend that you do not drive, make important decision, drink alcoholic beverages, or take any drugs that were not prescribed by your health care provider for at least 24 hours after your discharge time. Follow any additional instructions given to you from your surgeon. If you or anyone in your household have experienced Covid symptoms in the past week, please notify your surgeon or the nurse liaison at the phone number below for possible testing. Telephone instructions given to __Bela___and asked if any additional questions and then verbalized understanding. Patient advised to call surgeon office or pre surgery nurse liaison [phone] if any additional questions.
--- NOTE | 2024-02-11 16:08 | PM.IMHP ---
H&P: HPI History of Present Illness Date/Time: 02/11/24 16:08 Chief Complaint: Displaced right olecranon fracture, severe ecchymosis and skin blistering Narrative: Patient is a 58-year-old female who fell outside of [place] when she tripped on some broken sidewalk and sustained a displaced right olecranon fracture and a nondisplaced left 5th metacarpal neck fracture. Initially she was scheduled for open reduction internal fixation on 02/2024 but upon removal of the splint she was noted to have severe swelling and hemorrhagic blistering immediately lateral to the tip of the olecranon and surgery was felt to be contraindicated. She was splint did and was seen in the office again on 12/04/2023 and ecchymosis was superiorly deep and dry open blisters covered posterior elbow. She was resplinted and presents this time for open reduction internal fixation. She will be 18 days after the injury and it is hoped that her skin will be healed enough to proceed with surgical repair of her markedly displaced olecranon fracture. Our plan is to use a tension band technique as I feel that having a plate underneath this skin increases the risk of infection too much and as such she will need to be protected more thoroughly as the tension band technique is not as rigid. She has not had any problems with numbness or tingling in the right hand. Her past medical history is significant for alcoholic cirrhosis and she sees a director manufacturing engineering at [facility]. She has thrombocytopenia chronically and sees the churn operator margarine Dr. Sagastume. On 01 25 2024 as she had mild elevation of INR and protime as well due to her cirrhosis. Because of her thrombocytopenia and slightly elevated INR she is likely slightly coagulopathic which contributed to the unusually severe swelling and ecchymosis. Patient was advised to elevate the arm much more aggressively to try and reduce the swelling. [facility] Past Medical History Medical History Cirrhosis, alcoholic Followed by Dr. Winn at [facility]. Diastolic dysfunction Gastric ulcer Hyperlipidemia Hypothyroidism Iron deficiency anemia Normal cardiac stress test (04/2022) Shingles Thrombocytopenia Ventral hernia Surgical History Surgical History History of local excision of skin lesion (1976) Benign mole removed from the right cheek. Family History Family History Father Diabetes mellitus Hypertension Skin cancer Mother Non-Hodgkin lymphoma Anxiety Depression Cancer Hypertension Grandparent Cancer Sibling Skin cancer Social History Social History Social History: Surrogate medical decision maker: Alfred Marsh, spouse. Code status: Full code. Smoking status: Never smoker Additional smoking assessment comments: 30 yrs ago Alcohol intake: former Drinks per week: 14 Substance use: never Do You Feel Safe in your Home?: Yes Lack of Transportation: No Lack of Food: Never True Current Housing: I Have Housing Concerned About Future Housing: No Difficulty Paying Gas/Electric Bills: No Difficulty Paying for Meds: No Currently Unemployed: No Education: Associate Degree Difficulty w/ Childcare or Family Care: No Living arrangements: with family Occupation/Education: retired Spiritual care concerns: No Meds Home Medications and Allergies Home Medications Medication Instructions Recorded Confirmed Type ezetimibe 10 mg tablet (Zetia) 10 mg PO DAILY 10/10/21 02/04/24 History ascorbic acid (vitamin C) 500 mg 500 mg PO DAILY 11/21/21 02/04/24 History tablet (Vitamin C) magnesium 250 mg tablet 250 mg PO BID 10/15/22 02/04/24 History carvedilol 3.125 mg tablet 3.125 mg PO Q12H 02/12/23 02/04/24 History spironolactone 25 mg tablet 25 mg PO DAILY #90 tabs 08/20/23
[2024-02-12] VITALS (11 sets, daily range): BP systolic 97–131; BP diastolic 49–65; PULSE 62–72; RESP 10–17; TEMP 36.2–36.6; O2SAT 93–100; BMI 26.6
--- NOTE | ~2024-02-12 | XR_ITS ---
EXAMINATION: XR surgery orthopedic DATE: 02/12/2024 14:25 INDICATION: Open reduction internal fixation of a right olecranon fracture TECHNIQUE: 3 fluoroscopic images of the right elbow were obtained during procedure performed by Dr. Kristina sarmiento. Radiologist was not present for the imaging or procedure. The amount of fluoroscopy time used during this procedure was 0.5 minutes. COMPARISON: 01/26/2024 FINDINGS: Interval open reduction internal fixation of the previously noted transverse fracture across the olec ranon. The fracture is fixed with a pair of proximal to distal directed intramedullary pins and a fig [id number] cerclage wire. Alignment is now near-anatomic. Joint spaces are normal. Expected lucent soft tissue gas at the operative bed. IMPRESSION: 1. Near-anatomic alignment post open reduction and internal fixation of fractures of the right olecra non. Reviewed, dictated and finalized at location A. IMPRESSION: 1. Near-anatomic alignment post open reduction and internal fixation of fractur es of the right olecranon.
--- NOTE | 2024-02-12 07:16 | WPDHPUPDATE1 ---
History and Physical Update Update Date/Time: 02/12/24 07:16 History and Physical has been reviewed, including an updated exam of the patient. There are NO changes in the patient's condition. Risks, benefits, and alternatives have been discussed and questions answered. Patient agrees to proceed with procedure.
[2024-02-12] MEDS: LACTATED RINGERS 1,000 ML 30 ML IV CONT ×2 (09:50→14:40)
[2024-02-12] MEDS: ACETAMINOPHEN 500 MG TABLET 1000 MG PO (10:09)
[2024-02-12] MEDS: VANCOMYCIN 1,000 MG/NS 250 ML 1,000 MG/250 ML BAG 250 MG IVPB (10:10)
[2024-02-12] MEDS: KETOROLAC 15 MG/ML VIAL (*BKC) IV PUSH (10:10)
--- NOTE | 2024-02-12 11:16 | WPDANESEPPF ---
Anes - Initial Pre Proc Eval Procedure: Operation Date: 02/12/24 11:30 Proposed Procedures p Open Reduction Internal Fixation Right Olecranon Fracture - Aurelio Stewart MD Date/Time: 02/12/24 11:16 Surgeon: Aurelio Stewart MD Pre Op Diagnosis: right olecranon fx Patient Data Age: 58 Gender: F Height: 1.63 m Weight: 70.4 kg Last Vital Signs Temp 97.8 F 02/12/24 09:22 Pulse 72 02/12/24 09:22 Resp 14 02/12/24 09:22 BP 131/56 L 02/12/24 09:22 Pulse Ox 100 02/12/24 09:22 O2 Del Method Room Air 02/12/24 09:22 Allergies Allergy/AdvReac Type Severity Reaction Status Date / Time Wudqgti-CRV-BmV Reductase Allergy Unknown Verified 02/12/24 10:25 Inhibitor Home Medications Medication Instructions Recorded Confirmed Type ezetimibe 10 mg tablet (Zetia) 10 mg PO DAILY 10/10/21 02/12/24 History ascorbic acid (vitamin C) 500 mg 500 mg PO DAILY 11/21/21 02/12/24 History tablet (Vitamin C) magnesium 250 mg tablet 250 mg PO BID 10/15/22 02/12/24 History carvedilol 3.125 mg tablet 3.125 mg PO Q12H 02/12/23 02/12/24 History spironolactone 25 mg tablet 25 mg PO DAILY #90 tabs 08/20/23 02/04/24 Rx lactulose 10 gram/15 mL oral See Rx Instructions .Route 09/29/23 02/04/24 Rx solution .COMPLEX #6,300 mL ferrous sulfate 325 mg (65 mg 325 mg PO DAILY 10/29/23 02/12/24 History iron) tablet,delayed release bumetanide 1 mg tablet 1 mg PO DAILY 01/26/24 02/04/24 History pantoprazole 40 mg tablet,delayed 40 mg PO DAILY 01/26/24 02/12/24 History release potassium chloride 10 mEq 10 meq PO DAILY 01/26/24 02/12/24 History tablet,extended release(part/cryst) (Klor-Con M) calcium carbonate 600 mg-vitamin 1 cap PO BID 02/03/24 02/12/24 History D3 10 mcg (400 unit) capsule dvvzvpawrskd-yyahzqvw-zlopud tablet 1 tablet PO DAILY 02/04/24 02/12/24 History Patient hx anesthesia problems: none Family hx anesthesia problems: none Results Review: All pre-operative results and documents have been reviewed as part of the pre-operative evaluation. [facility] Past Medical History Medical History Cirrhosis, alcoholic Followed by Dr. Winn at [facility]. Diastolic dysfunction Gastric ulcer Hyperlipidemia Hypothyroidism Iron deficiency anemia Normal cardiac stress test (04/2022) Shingles Thrombocytopenia Ventral hernia Surgical History Surgical History History of local excision of skin lesion (1976) Benign mole removed from the right cheek. Family History Family History Father Diabetes mellitus Hypertension Skin cancer Mother Non-Hodgkin lymphoma Anxiety Depression Cancer Hypertension Grandparent Cancer Sibling Skin cancer Social History Social History Social History: Surrogate medical decision maker: Alfred Marsh, spouse. Code status: Full code. Smoking status: Never smoker Additional smoking assessment comments: 30 yrs ago Alcohol intake: former Drinks per week: 14 Substance use: never Do You Feel Safe in your Home?: Yes Lack of Transportation: No Lack of Food: Never True Current Housing: I Have Housing Concerned About Future Housing: No Difficulty Paying Gas/Electric Bills: No Difficulty Paying for Meds: No Currently Unemployed: No Education: Associate Degree Difficulty w/ Childcare or Family Care: No Living arrangements: with family Occupation/Education: retired Spiritual care concerns: No Anes - Eval Final PreProcedure Day of Procedure 02/12/24 11:16 Patient weight: normal Heart: regular rate and rhythm Lungs: clear to auscultation Airway: Mallampati scale class II Neurological: alert and oriented Last oral intake: >/= 8 hours ASA classification: III Emergent: no Anesthetic plan: proceed Ane
[2024-02-12] MEDS: ceFAZolin 2 GM/D5W 50 ML 2 GM/50 ML BAG IVPB (11:32)
[2024-02-12] MEDS: TRANEXAMIC ACID 1,000 MG/10 ML AMPUL 1000 MG IV PUSH (11:42)
[2024-02-12] MEDS: ceFAZolin SODIUM 1 GM VIAL IRRIGATION (13:27)
--- NOTE | 2024-02-12 14:02 | W.PM.PROC2 ---
Procedure Note - Detailed Date of Procedure 02/12/24 Pre-op Diagnosis right olecranon fx Post-op Diagnosis Same Procedure Performed Open reduction internal fixation of right olecranon fracture using Acumed tension band technique system. Patient was brought to the operating room and general anesthesia was administered. I had inspected the elbow before going back and saw that the blisters and all dried. She still had extensive dark purple ecchymoses throughout the elbow and forearm but the skin was dry and blisters had epithelialized. There areas of superficial eschars that were ready to come off I did not wish to pick anything that was not ready to come off. We carefully scrubbed the arm with a Betadine wash which removed the previously applied Silvadene cream was still present and we dried this and positioned her and prepped with DuraPrep. She received 2 g of Ancef weight based vancomycin preoperatively. A 5 in longitudinal incision was made a skirted just lateral to the tip of the olecranon and dissection was carried down exposing the fracture site which had a large volume of organized hematoma which was adherent to the fracture surfaces both on the olecranon side and the ulnar side as the fracture was 2-1/2-week-old. We very carefully removed fracture hematoma and fully expose the fracture surfaces and exposed the periosteal surface for a few mm to achieve anatomic reduction. There was tiny chip of comminution attached the soft tissues dorsally that other than this the fracture was completely non comminuted and we were able to achieve an anatomic reduction with a large bone reduction tenaculum. A drill hole was made in the proximal ulnar shaft to gain purchase with the reduction clamp. We then inserted 2 of the eyelet K-wires from the Accu Med tension band set. These were countersunk just below the surface of the triceps tendon we confirmed the position on AP and lateral fluoroscopic x-rays and confirmed that we had anatomic reduction. We then made 2.8 mm drill holes over the dorsal ulnar and volar ulnar surfaces of the ulnar shaft about 4 or 5 cm distal to the fracture.. We wanted to be well proximal to the other hole we placed for fixation of the bone reduction clamp. We then passed an 18 gauge stainless steel wire through these holes. The wire was then passed from medial to lateral through the triceps through the eyelets and out the triceps so it was deep to the triceps and we took a fluoroscopic x-ray to make sure that the wire had actually gone through the eyelets. We then tamped the pins such that the eyelets were flush with the olecranon bony surface and with the wire in a [id number] configuration the wire was carefully tension lateral to the fracture site maintaining equal tension through all parts of the wire and with this performed we then took an x-ray which showed excellent interfragmentary compression from the tension band wire. Twist in the wire was then cut shorter and bent to be in the soft tissues dorsal to the ulnar edge of the ulna closed the fracture site so it would not be palpable when she would rest her elbow on a counter. Final x-rays were obtained. We had put the tourniquet down during the final tightening process and at this time hemostasis was excellent. Tourniquet had been up at 225 mmHg. We had also given her 1 g of tranexamic acid preoperatively in the hopes of avoiding excessive bleeding from her coagulopathy and thrombocytopenia and again at time of wound closure the wound was perfectly dry. The skin was closed with subcutaneous 3-0 Vicryl and glue. A volar OCL splint was applied after applying thick layer of on folded 4 x 4 sponges covering the incision and an ulnar gutter OCL splint applied the ulnar wrist and hand to support the 5th metacarpal neck fracture the she also had. She was transferred postop recovery room stable condition. There were no known complications. Surgeon Aurelio Stewart MD [facility]
[2024-02-12] MEDS: fentaNYL CITRATE INJ (*CRX) 100 MCG/2 ML VIAL 25 MCG IV PUSH ×3 (14:45→15:08)
[2024-02-12] MEDS: oxyCODONE HCL (*CRX) 5 MG TAB IR PO (15:42)
== END 2024-02-12 16:30 | disposition home or self-care (01) ==
PROVIDERS: PCP Internal Medicine; Visit Provider Orthopaedic Surgery
PROC: (CPT 24685; principal; 2024-02-12 11:30)
DX: S52.021A Displaced fracture of olecranon process without intraarticular extension of right ulna, initial encounter for closed fracture (principal); W01.0XXA Fall on same level from slipping, tripping and stumbling without subsequent striking against object, initial encounter; K70.30 Alcoholic cirrhosis of liver without ascites; D69.6 Thrombocytopenia, unspecified; I51.89 Other ill-defined heart diseases; E78.5 Hyperlipidemia, unspecified; E03.9 Hypothyroidism, unspecified; D50.9 Iron deficiency anemia, unspecified
CPT/HCPCS: 24685; 99199; A9270; J0690; J1100; J1170; J1200; J1885; J2250; J2371; J2405; J2704; J3010; J3370; J7120

== ENCOUNTER 2024-04-22 07:35 | Outpatient (CLI) | payer BC, SELFPAY ==
--- NOTE | ~2024-04-22 | US_ITS ---
EXAMINATION: US abdomen limited DATE: 04/22/2024 08:23 INDICATION: Cirrhosis of liver. TECHNIQUE: Multiple grayscale and Doppler ultrasound images of the abdomen were obtained. COMPARISON: Ultrasound abdomen 10/24/2023 FINDINGS: The visualized portions of the head, body, and tail of the pancreas are normal. The liver i s normal without focal lesion. No liver surface nodularity. There is normal flow in portal vein. The gallbladder is normal in size. No gallstones or gallbladder wall thickening. There is no sonographic Toth's sign. The common duct is normal and measures 2 mm. There is a small volume of ascites. IMPRESSION: 1. Small volume of ascites. Reviewed, dictated and finalized at location A. IMPRESSION: 1. Small volume of ascites.
== END 2024-04-22 07:36 | disposition home or self-care (01) ==
PROVIDERS: PCP Internal Medicine; Visit Provider Internal Medicine Gastroenterology
DX: K74.69 Other cirrhosis of liver (principal)
CPT/HCPCS: 76705

== ENCOUNTER 2024-05-07 10:42 | Outpatient (CLI) | payer BC, SELFPAY ==
[2024-05-07 11:28] LABS: Basophils Percent Auto 0.6 % (0.2-1.2); Eosinophils Absolute Auto 0.3 K/mm3 (0-0.3); Eosinophils Percent Auto 9.3 % (0-4.4); Hematocrit 34.1 % (37.0-47.0); Hemoglobin 11.5 g/dL (12.0-15.0); Immature Granulocyte Absolute 0.01 K/mm3 (0.00-0.031); Immature Granulocyte Percent A 0.3 % (0-0.5); Immature Platelet Fraction Pct 3.9 % (0.9-11.2); Lymphocytes Absolute Auto 0.63 K/mm3 (0.9-3.2); Lymphocytes Percent Auto 17.8 % (18.3-44.2); Mean Corpuscular HGB Conc 33.7 g/dl (32-36); Mean Corpuscular Hemoglobin 34.1 pg (26-34); Mean Corpuscular Volume 101.2 fl (80-100); Mean Platelet Volume 10.2 fl (7.4-10.4); Monocytes Absolute Auto 0.3 K/mm3 (0.1-0.6); Monocytes Percent Auto 9.6 % (2.6-8.5); Neutrophils Absolute Auto 2.2 K/mm3 (1.3-6.7); Neutrophils Percent Auto 62.4 % (45.5-73.1); Platelet Count Result 55 k/mm3 (150-375); Red Blood Count 3.37 M/mm3 (4.2-5.4); Red Cell Distribution Width 13.2 % (11.5-14.5); White Blood Count 3.5 K/mm3 (4.5-10.0)
[2024-05-07 11:44] LABS: Alanine Aminotransferase 25 U/L (6-35); Alkaline Phosphatase 116 U/L (38-126); Anion Gap 9 mmol/L (4-12); Aspartate Amino Transferase 54 U/L (14-36); Bilirubin,Total 5.5 mg/dL (0.2-1.3); Blood Urea Nitrogen 18 mg/dL (7-17); Calcium 9.4 mg/dL (8.4-10.2); Carbon Dioxide 26 mmol/L (22-30); Chloride 102 mmol/L (98-107); Cholesterol 225 mg/dL (0-200); Estimated Glomerular Filt Rate > 60; Glucose 140 mg/dL (65-110); HDL Direct 91 mg/dL; Potassium 4.2 mmol/L (3.4-5.0); Sodium 137 mmol/L (137-145); Triglycerides 83 mg/dL (<150)
[2024-05-07 11:55] LABS: LDL Cholesterol Direct 81 mg/dL
[2024-05-07 11:57] LABS: Free T4 Free Thyroxine 1.44 ng/mL (0.78-2.19)
== END 2024-05-07 10:43 | disposition home or self-care (01) ==
LOC: ANHLAB 10:44
PROVIDERS: PCP Internal Medicine; Visit Provider Internal Medicine
DX: E03.9 Hypothyroidism, unspecified (principal); Z79.899 Other long term (current) drug therapy; E78.5 Hyperlipidemia, unspecified
CPT/HCPCS: 36415; 80053; 80061; 84439; 84443; 85025; 85055

== ENCOUNTER 2024-05-13 12:07 | Outpatient (CLI) | payer BC, SELFPAY ==
[2024-05-13 12:37] LABS: Basophils Percent Auto 0.7 % (0.2-1.2); Eosinophils Absolute Auto 0.3 K/mm3 (0-0.3); Eosinophils Percent Auto 6.4 % (0-4.4); Hematocrit 35.9 % (37.0-47.0); Immature Granulocyte Absolute 0.01 K/mm3 (0.00-0.031); Immature Granulocyte Percent A 0.2 % (0-0.5); Lymphocytes Absolute Auto 0.76 K/mm3 (0.9-3.2); Lymphocytes Percent Auto 18.7 % (18.3-44.2); Mean Corpuscular HGB Conc 33.4 g/dl (32-36); Mean Corpuscular Hemoglobin 34.1 pg (26-34); Mean Platelet Volume 10.4 fl (7.4-10.4); Monocytes Absolute Auto 0.6 K/mm3 (0.1-0.6); Monocytes Percent Auto 13.8 % (2.6-8.5); Neutrophils Absolute Auto 2.5 K/mm3 (1.3-6.7); Neutrophils Percent Auto 60.2 % (45.5-73.1); Platelet Count Result 63 k/mm3 (150-375); Red Blood Count 3.52 M/mm3 (4.2-5.4); Red Cell Distribution Width 14.2 % (11.5-14.5); White Blood Count 4.1 K/mm3 (4.5-10.0)
[2024-05-13 12:57] LABS: Alanine Aminotransferase 21 U/L (6-35); Albumin Level 4.2 g/dL (3.5-5.1); Alkaline Phosphatase 122 U/L (38-126); Anion Gap 9 mmol/L (4-12); Aspartate Amino Transferase 47 U/L (14-36); Bilirubin,Total 7.4 mg/dL (0.2-1.3); Blood Urea Nitrogen 20 mg/dL (7-17); Calcium 9.5 mg/dL (8.4-10.2); Carbon Dioxide 26 mmol/L (22-30); Chloride 103 mmol/L (98-107); Estimated Glomerular Filt Rate > 60; Glucose 92 mg/dL (65-110); Potassium 4.5 mmol/L (3.4-5.0); Sodium 138 mmol/L (137-145)
[2024-05-13 13:07] LABS: Iron 219 ug/dL (37-170)
[2024-05-13 13:17] LABS: Percent Iron Saturation 65 % (20-50)
[2024-05-13 14:02] LABS: Folic Acid > 20.0 ng/mL (2.76->20); Vitamin B12 > 1000.0 pg/mL (239-931)
== END 2024-05-13 12:08 | disposition home or self-care (01) ==
PROVIDERS: PCP Internal Medicine; Visit Provider Internal Medicine Hematology & Oncology
DX: D64.9 Anemia, unspecified (principal)
CPT/HCPCS: 36415; 80053; 82607; 82728; 82746; 83540; 83550; 85025; 85055

== ENCOUNTER 2024-05-19 09:11 | Outpatient (CLI) | payer BC, SELFPAY ==
--- NOTE | ~2024-05-19 | US_ITS ---
EXAMINATION: US VENOUS LOWER EXT JOHN DATE: 05/19/2024 10:35 INDICATION: Lower limb swelling TECHNIQUE: Grayscale images without and with compression and Doppler images of the bilateral lower ex tremity veins were obtained. COMPARISON: None. FINDINGS: Right lower extremity: The right common femoral vein, profunda (deep) femoral vein, femoral vein, popliteal vein, gastrocnem ius vein, posterior tibial veins and greater saphenous vein are patent. common femoral vein: no reflux femoral vein: no reflux popliteal vein: no reflux posterior tibial veins: no reflux profunda femoral vein: no reflux Greater saphenous Origin: 4.4 mm no reflux Mid: 2.6 mm no reflux Distal: 2.4 mm no reflux Lesser saphenous Proximal: 1.7 mm no reflux Mid: 3.3 mm no reflux Distal: 2.3 mm no reflux Left lower extremity: The left common femoral vein, profunda femoral vein, femoral vein, popliteal vein, peroneal trunk, po sterior tibial veins and greater saphenous vein are patent. common femoral vein: [no reflux femoral vein: no reflux popliteal vein: no reflux posterior tibial veins: no reflux profunda femoral vein: no reflux Greater saphenous Origin: 5.0 mm no reflux Mid: 4.0 mm no reflux Distal: 2.4 mm 1 second reflux Lesser saphenous Proximal: 1.8 mm no reflux Mid: 2.7 mm no reflux Distal: 1.7 mm no reflux IMPRESSION: 1. Patent bilateral lower extremity veins. No evidence of deep venous thrombosis. 2. No significant reflux in either lower extremity. Reviewed, dictated and finalized at location A. IMPRESSION: 1. Patent bilateral lower extremity veins. No evidence of deep venous thrombos is. 2. No significant reflux in either lower extremity.
== END 2024-05-19 09:12 | disposition home or self-care (01) ==
LOC: ANHIMG 09:14
PROVIDERS: PCP Internal Medicine
DX: R60.0 Localized edema (principal); E78.2 Mixed hyperlipidemia
CPT/HCPCS: 93970

== ENCOUNTER 2024-05-27 12:19 | Outpatient (CLI) | payer BC, SELFPAY ==
--- NOTE | 2024-05-27 | ECHO_ITS ---
Patient Info Name: Bela Marsh Age: 59 years : 1965 Gender: Female Ht: 64 in Wt: 160 lbs BSA: 1.83 m2 HR: 68 bpm BP: 132 / 74 mmHg Heart Rhythm: Sinus Rhythm Technical Quality: Good Exam Date: 05/27/2024 12:56 PM Exam Location: Echo Lab Patient Status: Outpatient Admit Date: 05/27/2024 Staff Ordering Physician: PAYAM, ARMIDA AUGUSTIN Cardiology Associate: Jolene Tam RDCS Attending Provider: PAYAM, ARMIDA AUGUSTIN Exam Type: CA echo doppler color flow Study Info Indications R60.0 - Localized edema Complete two-dimensional, color flow and Doppler transthoracic echocardiogram is performed. Strain analysis performed. Summary 1. Left ventricular chamber dimension is normal. 2. Left ventricular systolic function is normal, estimated at 65-70%. 3. Right ventricular systolic function is normal. 4. Left atrial chamber dimension is moderately enlarged. 5. Right atrial chamber dimension is mildly enlarged. 6. There is mild mitral valve regurgitation. 7. There is mild tricuspid valve regurgitation. Left Ventricle Left ventricular chamber dimension is normal. Left ventricular systolic function is normal, estimated at 65-70%. There is no increased left ventricular wall thickness. The left ventricular diastolic function is normal. Global longitudinal strain is normal at -22 %. Right Ventricle Right ventricular chamber dimension is normal. Right ventricular systolic function is normal. Left Atria Left atrial chamber dimension is moderately enlarged. Right Atria Right atrial chamber dimension is mildly enlarged. Atrial Septum Intact interatrial septum visualized by color flow imaging. Aortic Valve The aortic valve is trileaflet. There is no aortic valve stenosis. There is no aortic valve regurgitation. Pulmonic Valve The pulmonic valve is not well visualized. There is no pulmonic regurgitation. Mitral Valve There is mild mitral valve regurgitation. Tricuspid Valve There is mild tricuspid valve regurgitation. Pericardium/Pleural There is no pericardial effusion. Inferior Vena Cava Normal inferior vena cava with <50% collapse upon inspiration consistent with elevated right atrial pressure, 8 mmHg. Aorta The aortic root size at the sinus of Valsalva is not well visualized. Left Ventricular Outflow Tract Name Value Normal LVOT 2D LVOT Diameter 1.9 cm LVOT Doppler LVOT Peak Gradient 12 mmHg LVOT Mean Gradient 7 mmHg LVOT VTI 38 cm LVOT VTI/AV VTI Ratio 0.8 LVOT Stroke Volume 107 ml LVOT CO 7.9 l/min LVOT CI 4.3 l/min/m2 Pulmonic Valve Name Value Normal RVOT Doppler RVOT Peak Gradient 4 mmHg PV Doppler PV Peak Gradient
== END 2024-05-27 12:20 | disposition home or self-care (01) ==
LOC: ANHCARD 12:21
PROVIDERS: PCP Internal Medicine
DX: R60.0 Localized edema (principal)
CPT/HCPCS: 93306

== ENCOUNTER 2024-06-11 07:43 | Outpatient (CLI) | payer BC, SELFPAY ==
[2024-06-11 09:06] LABS: Anion Gap 9 mmol/L (4-12); Blood Urea Nitrogen 18 mg/dL (7-17); Calcium 9.3 mg/dL (8.4-10.2); Carbon Dioxide 25 mmol/L (22-30); Chloride 104 mmol/L (98-107); Estimated Glomerular Filt Rate > 60; Glucose 87 mg/dL (65-110); Phosphorus 4.2 mg/dL (2.5-4.5); Potassium 3.7 mmol/L (3.4-5.0); Sodium 138 mmol/L (137-145)
== END 2024-06-11 07:44 | disposition home or self-care (01) ==
LOC: ANHLAB 07:45
PROVIDERS: PCP Internal Medicine; Visit Provider Internal Medicine Nephrology
DX: N18.31 Chronic kidney disease, stage 3a (principal)
CPT/HCPCS: 36415; 80069

== ENCOUNTER 2024-07-02 15:04 | Outpatient (CLI) | payer BC, SELFPAY ==
--- NOTE | ~2024-07-02 | MM_ITS ---
EXAMINATION: MM screening asael BI w goran HISTORY: Screening TECHNIQUE: Craniocaudal and mediolateral oblique 3-D tomosynthesis images were obtained and synthetic 2-D images were generated. CAD analysis was submitted and interpreted. COMPARISON: Comparison to multiple prior studies sequentially, with oldest reviewed study dated 02/2022. BREAST PARENCHYMAL COMPOSITION: Not dense: There are scattered areas of fibroglandular density. FINDINGS: There is no evidence of suspicious mass, calcification, or architectural distortion to sugg est malignancy in either breast. There has been no suspicious interval change. IMPRESSION: 1. No mammographic evidence of malignancy. 2. Recommend routine screening mammography in one year. BI-RADS Category 1: Negative Reviewed, dictated and finalized at location B.
== END 2024-07-02 15:05 | disposition home or self-care (01) ==
LOC: ANHIMG 15:08
PROVIDERS: PCP Internal Medicine; Visit Provider Internal Medicine
DX: Z12.31 Encounter for screening mammogram for malignant neoplasm of breast (principal)
CPT/HCPCS: 77063; 77067

== ENCOUNTER 2024-07-19 14:15 | Outpatient (CLI) | payer BC, SELFPAY ==
--- NOTE | ~2024-07-19 | DEXA_ITS ---
Bone Density Report Name: ABIGAIL LEE Age: 59 Sex: Female Ethnicity: White Date of : 1965 Indication: postmenopausal; screening for osteoporosis; height loss; end stage renal disease; Referring Provider: MIKE BARCLAY Study: Bone densitometry was performed. Exam Date: July 19, 2024 Accession number: [id number] Bone Density: Region BMD T-score Z-score Classification AP Spine(L1-L4) 0.957 -0.8 0.6 Normal Femoral Neck (Left) 0.623 -2.0 -0.8 Osteopenia Total Hip (Left) 0.875 -0.6 0.4 Normal Femoral Neck (Right) 0.618 -2.1 -0.8 Osteopenia Total Hip (Right) 0.828 -0.9 0.0 Normal Total Hip Mean 0.851 -0.8 0.2 Normal World Health Organization criteria for BMD impression classify patients as: Normal (T-score at or above -1.0), Osteopenia (T-score between -1.0 and -2.5), or Osteoporosis (T-score at or below -2.5). 10-year Fracture Risk(1): Major Osteoporotic Fracture 9.3% Hip Fracture 1.2% Reported Risk Factors: [place] (), Neck BMD=0.623, BMI=28.4 (1) FRAX(R) Version 3.08. Fracture probability calculated for an untreated patient. Fracture probability may be lower if the patient has received treatment. Clinical Information Provided by Patient: Has used the following medications: Vitamin D, Calcium Has the following medical conditions: End stage renal disease Patient maximum height was 65.0 No regular weight bearing exercise Onset of menses at age 12 Number of children 0 Impression: The patient has low bone mass, based on the Right Femoral Neck T-score. The patient has an estimated ten-year risk of hip fracture of 1.2% and an estimated ten-year risk of major fracture of 9.3%, based on the WHO FRAX algorithm. Discussion: BONE DENSITY IS LOW AT ONE OR MORE SKELETAL SITES. This patient's lowest T-score is low at one or more skeletal sites. It meets the World Health Organization's (WHO) criteria for ?low bone mass? (T-score between -1.0 and -2.5). The patient's 10-year risk of fracture as calculated by FRAX is less than the threshold where pharmacological therapy is recommended by the National Osteoporosis Foundation (NOF). However, all treatment decisions require clinical judgment and consideration of individual patient factors, including patient preferences, comorbidities, previous drug use, risk factors not captured in the FRAX model (e.g., frailty, falls, vitamin D deficiency, increased bone turnover, interval significant decline in bone density) and possible under or overestimation of fracture risk by FRAX. The patient should follow a healthful lifestyle (good nutrition with adequate calcium and vitamin D, and appropriate weight-bearing exercise). Follow-Up: Consider repeating this study in 2 to 3 years to reassess this patient's status, or sooner if there is some new clinical indication. Reported by: JOCE on 07/19/2024 2:48:00 PM. Reviewed, dictated and finalized at location ATank HERRERA
== END 2024-07-19 14:16 | disposition home or self-care (01) ==
LOC: ANHIMG 14:18
PROVIDERS: PCP Internal Medicine; Visit Provider Orthopaedic Surgery
DX: M81.0 Age-related osteoporosis without current pathological fracture (principal); M85.852 Other specified disorders of bone density and structure, left thigh; M85.851 Other specified disorders of bone density and structure, right thigh
CPT/HCPCS: 77080

== ENCOUNTER 2024-10-28 11:45 | Outpatient (CLI) | payer BC, SELFPAY ==
--- OUTSIDE RECORDS SUMMARY | 2024-10-28 11:54 | XMS_ITS | Clinical Summary ---
Author Organization [facility] Address [facility] [place] [address] Care Team Providers Care Convalescent Sitter Name Role Phone Giovanni Kevin MD Primary Care Provider [phone] Allergies No known active allergies Medications bumetanide 1 MG tablet Take 1 mg by mouth daily. Active folic acid 1 MG tablet Take 1 mg by mouth daily. Active lactulose 10 GM/15ML solution Take 60 g by mouth 3 (three) times daily. Active pantoprazole EC 40 MG tablet Take 40 mg by mouth 2 (two) times a day. Active spironolactone 25 MG tablet Take 25 mg by mouth daily. Active thiamine 100 MG Tab Take 100 mg by mouth daily. Active zinc sulfate 220 MG capsule Take 220 mg by mouth daily. Active multi vitamin/minerals tablet Take 1 tablet by mouth daily. Active Family History Medical History Relation Comments Diabetes Father Hypertension Mother Relation Status Comments Father Alive Mother Alive Social History Tobacco Use Types Packs/Day Years Used Date Smoking Tobacco: Never Smokeless Tobacco: Never Alcohol Use Standard Drinks/Week Comments Not Currently 0 (1 standard drink = 0.6 oz pure alcohol) stopped September 2020, [id number] drinks/week Comments Unknown Sex and Gender Information Value Date Recorded Sex Assigned at Not on file Legal Sex Female 2:22 PM CDT Gender Identity Not on file Sexual Orientation Not on file Last Filed Vital Signs Vital Sign Reading Time Taken Comments Blood Pressure 120/60 02/28/2021 5:40 PM CDT Pulse 74 02/28/2021 5:40 PM CDT Temperature 36.4 C (97.6 F) 02/28/2021 5:19 PM CDT Respiratory Rate 15 02/28/2021 5:40 PM CDT Oxygen Saturation 100% 02/28/2021 5:40 PM CDT Inhaled Oxygen Concentration - - Weight 73 kg (161 lb) 02/21/2021 12:55 PM CDT Height 165.1 cm (5' 5 ) 02/21/2021 12:55 PM CDT Body Mass Index 26.79 02/21/2021 12:55 PM CDT Plan of Treatment Health Maintenance Due Date Last Done Comments Cervical Cancer Screening Pa p Smear (Age 30 to 64) Every 3 Years 1965 Colorectal Cancer Screening Colonoscopy (10 Years) 1965 Annual Physical 02/19/1968 DTaP, Tdap and Td Vaccines ( 1 - Tdap) 02/19/1984 Cervical Cancer Screening Pa p with HPV Testing (Age 30 to 64) Every 5 Years 1995 Cervical Cancer Screening wi th HPV 1995 Mammogram Screening 2005 Zoster Vaccines (1 of 2) 2015 COVID-19 Vaccine (2023-2 5 season) 2024 02/10/2021, 01/20/2021 Influenza Adult (#1) 2024 08/13/2021 Hepatitis C Completed 11/20/2021, 11/20/2021 Meningococcal B Vaccine Aged Out No l onger eligible based on patient's age to complete this topic Meningococcal Vaccine Aged Out No oscar raymundo eligible based on patient's age to complete this topic Pneumococcal Vaccine: Pediatrics (0 to 5 Years) and At-Risk Patients (6 to 64 Years) Aged Out No longer eligible b ased on patient's age to complete this topic RSV Immunizations Under 20 Months Aged Out No longer eligible b ased on patient's age to complete this topic Insurance [facility] Care Teams Convalescent Sitter Relationship Specialty Start Date End Date Giovanni Kevin MD [address] [facility] [address] [facility] [address] [place] [address] PCP - General INTERNAL MEDICINE 02/26/21
--- OUTSIDE RECORDS SUMMARY | 2024-10-28 11:54 | XMS_ITS | Referral Summary ---
Author Organization [facility] Address [address] [place] [address] Care Team Providers Care Prototype Machine Operator Name Role Phone Africa Rodriguez RN Unavailable Unavailable Patrick Young MD Unavailable [phone] Emiliano Burton MD Unavailable Giovanni Kevin MD Primary Care Provider [phone] Source Comments [facility],non-owned Affiliates and Associated Physician Practices is amultiple site organization consisting of ambulatory clinics and hospital sitesin [place], [place], [place] and [place]. This disclosure is being madepursuant to the Care Everywhere program and may not contain all information available regarding this patient. Last updated 18.[facility] Encounters Date Type Department Care Team Description 09/16/2024 Travel from Last 3 Months Allergies No known active allergies Medications * Be aware that medications may not be up to date on this document. Alwaysverify current medications with the patient. Medication Sig Dispensed Refills Start Date End Date Status bumetanide (BUMEX) 1 MG tablet Take 1 (one) tablet by mouth once daily Active ezetimibe (ZETIA) 10 MG tablet Take 1 (one) tablet by mouth 10/04/2021 Active lactulose (CHRONULAC) 10 GM/15ML solution Take 70 mL by mouth once daily 10/25/2020 Active pantoprazole EC (PROTONIX) 40 MG tablet 05/17/2021 Active ferrous sulfate 325 (65 FE) MG tablet Take 1 (one) tablet by mouth daily with breakfast Active ascorbic acid (Vitamin C) 500 MG tablet Take 1 (one) tablet by mouth once daily Active Calcium Carb-Cholecalciferol (Calcium/Vitamin D) 600-400 MG-UNIT TABS Take by mouth 2 times daily Active magnesium 250 MG tablet Take 1 (one) tablet by mouth 2 times daily Active spironolactone (Aldactone) 50 MG tablet 1 (one) tablet once daily Take 1 whole tablet as needed for additional swelling 12/20/2021 Active Other Tonic water PRN for muscle cramps- takes about 1L daily Active carvedilol (Coreg) 3.125 MG tablet Take 1 (one) tablet by mouth 2 times daily with morning and evening meal Active Active Problems Problem Noted Date Diagnosed Date Alcoholic cirrhosis of liver 01/22/2022 Overview (01/23/2022): History of alcoholic hepatitis in September 2020 01/22/22 Fibroscan CAP 225, LSM 49.3 kPa Chronic anemia 09/25/2021 Stage 3a chronic kidney disease 04/09/2021 Social History Tobacco Use Types Packs/Day Years Used Date Smoking Tobacco: Former Smokeless Tobacco: Never Tobacco Cessation:Counseling Given: Not Answered Alcohol Use Standard Drinks/Week Comments Not Currently 0 (1 standard drink = 0.6 oz pure alcohol) no ETOH in 2.5 years- previously drank 3-4 cocktails a week Sex and Gender Information Value Date Recorded Sex Assigned at Not on file Gender Identity Not on file Sexual Orientation Not on file Last Filed Vital Signs Vital Sign Reading Time Taken Comments Blood Pressure 119/72 05/06/2024 1:01 PM CDT Pulse 69 05/06/2024 1:01 PM CDT Temperature 36.8 C (98.2 F) 05/06/2024 1:01 PM CDT Respiratory Rate 18 11/25/2022 11:13 AM GRINDING MACHINE OPERATOR AUTOMATIC Oxygen Saturation 100% 05/06/2024 1:01 PM CDT Inhaled Oxygen Concentration - - Weight 70.8 kg (156 lb) 05/06/2024 1:01 PM CDT Height 162.6 cm (5' 4 ) 05/06/2024 1:01 PM CDT Body Mass Index 26.78 05/06/2024 1:01 PM CDT Plan of Treatment Upcoming Encounters Date Type Department Care Team (Late st Contact Info) Description 02/15/2025 2:00 PM CDT Office Visit [facility] [address] [facility] [place] [address] Robert Winn MD [address] [place] [address] Goals Goal Patient Goal Type Associated Problems Recent Progress Patient-Stated? Author Medication Management General On track( 024 12:59 PM CDT) No Africa Rodriguez RN Note: Expected end date: ongoing Interventions: Take all medications as prescribed Procedures Procedure Name Priority Date/Time Associated Diagnosis Comments COMPREHENSIVE METABOLIC PANEL 04/27/2024 7:30 AM CDT from Last 3 Months or Most Recently Relevant to Health Maintenance Results * (ABNORMAL) COMPREHENSIVE METABOLIC PANEL (04/27/2024 7:30 AM CDT) Glucose 95 65 - 99 mg/dL [facility] Comment: Fasting reference interval BUN 20 7 - 25 mg/dL [facility] Creatinine 0.93 0.50 - 1.03 mg/dL [facility] eGFR by Cystatin C 71 > OR = 60 mL/min/1. 73m2 [facility] BUN/Creatinine Ratio SEE NOTE: 6 - 22 (calc) [facility] Comment: Not Reported: BUN and Creatinine are within reference range. Sodium 141 135 - 146 mmol/L [facility] Potassium 4.2 3.5 - 5.3 mmol/L [facility] Chloride 105 98 - 110 mmol/L [facility] CO2 28 20 - 32 mmol/L [facility] Calcium 9.6 8.6 - 10.4 mg/dL [facility] Protein Total 6.9 6.1 - 8.1 g/dL [facility] Albumin 4.1 3.6 - 5.1 g/dL [facility] Globulin Total 2.8 1.9 - 3.7 g/dL (calc) [facility] Albumin/Globulin Ratio 1.5 1.0 - 2.5 (calc) [facility] Bilirubin Total 5.0(H) 0.2 - 1.2 mg/dL [facility] Alkaline Phosphatase 91 37 - 153 U/L [facility] AST 37(H) 10 - 35 U/L [facility] ALT 19 6 - 29 U/L [facility] Comment: Test Performed at: [employer] [address] BRISSA PATEL MD 04/27/2024 7:30 AM CDT 04/27/2024 7:31 AM CDT Robert Winn MD LAB - CHEMISTRY TYRONE [facility] [address] [place] [address] from Last 3 Months or Most Recently Relevant to Health Maintenance Care Teams Prototype Machine Operator Relationship Specialty Start Date End Date Giovanni Kevin MD [address] [place] [address] PCP - General Internal Medicine 06/05/23 Africa Rodriguez, RN Registered Nurse 11/20/21 Patrick Young MD [address] [facility] [address] [place] [address] Nephrology 11/25/22 Emiliano Burton MD [address] [id number] Medical Oncology 11/25/22
--- OUTSIDE RECORDS SUMMARY | 2024-10-28 11:54 | XMS_ITS | Clinical Summary ---
Author Organization [facility] Address [address] [place] [id number] Phone Care Team Providers Care Pipe Organ Mechanic Apprentice Name Role Phone Giovanni Kevin MD Primary Care Provider [phone] Allergies No known active allergies Medications Medication Sig Dispensed Refills Start Date End Date Status folic acid (FOLVITE) 1 MG tablet TAKE 1 TABLET BY MOUTH DAILY FOR 30 DAYS 11/17/2020 Active lactulose (CHRONULAC) 10 GM/15ML solution TAKE 20 GRAMS (30 MILLILITERS) BY MOUTH EVERY MORNING FOR 30 DAYS 10/25/2020 Active metoprolol succinate XL (TOPROL-XL) 25 MG 24 hr tablet Take 25 mg by mouth 1 (one) time each day 11/10/2020 Active multivitamin (THERA-M) tablet TAKE 1 TABLET BY MOUTH EVERY MORNING FOR 30 DAYS 10/25/2020 Active pantoprazole (PROTONIX) 40 MG EC tablet TAKE 1 TABLET BY MOUTH EVERY 12 HOURS FOR 30 DAYS 11/17/2020 Active thiamine (VITAMIN B-1) 100 MG tablet TAKE 1 TABLET BY MOUTH EVERY MORNING FOR 30 DAYS 10/26/2020 Active zinc sulfate (ZINCATE) 220 (50 Zn) MG capsule TAKE 1 CAPSULE BY MOUTH EVERY MORNING FOR 30 DAYS 10/27/2020 Active bumetanide (BUMEX) 1 MG tablet Take 1 mg by mouth 2 (two) times a day Active ezetimibe (ZETIA) 10 MG tablet Take 10 mg by mouth daily 10/04/2021 Active KLOR-CON 10 MEQ CR tablet 07/24/2021 Active ferrous sulfate 325 (65 Fe) MG tablet Take 325 mg by mouth 2 times daily Active ascorbic acid (VITAMIN C) 500 MG tablet Take 500 mg by mouth daily Active folic acid-vit B6-vit B12 2.5-25-1 MG tablet TAKE 1 TABLET BY MOUTH DAILY FOR 30 DAYS 01/12/2022 Active spironolactone (ALDACTONE) 50 MG tablet Take 1 tablet (50 mg total) by mouth 1 (one) time each day 90 tablet 3 04/10/2022 Active Active Problems Problem Noted Date Diagnosed Date Edema, generalized 04/10/2022 Tricuspid valve regurgitation 04/10/2022 Alcoholic cirrhosis 01/22/2022 Overview (04/06/2022): History of alcoholic hepatitis in September 2020 01/22/22 Fibroscan CAP 225, LSM 49.3 kPa Chronic anemia 09/25/2021 Stage 3a chronic kidney disease 04/09/2021 Acute kidney failure 11/16/2020 Immunizations Name Administration Dates Next Due Influenza TIV (IM) 08/13/2021 Family History Medical History Relation Comments Kidney disease Father Relation Status Comments Father Social History Tobacco Use Types Packs/Day Years Used Date Smoking Tobacco: Former Smokeless Tobacco: Never Alcohol Use Standard Drinks/Week Comments Not Currently 0 (1 standard drink = 0.6 oz pur e alcohol) AUDIT-C Answer Date Recorded Q1: How often do you have a drink containing alc ohol? Never 11/23/2020 Q2: How many drinks containi ng alcohol do you have on a typical day when you are drinking? Not asked 11/23/2020 Q3: How often do you have six or more drinks on one occasion? Never 11/23/2020 Sex and Gender Information Value Date Recorded Sex Assigned at Not on file Gender Identity Not on file Sexual Orientation Not on file Last Filed Vital Signs Vital Sign Reading Time Taken Comments Blood Pressure 116/86 04/10/2022 11:02 AM CDT Pulse 72 04/10/2022 11:02 AM CDT Temperature 36.8 C (98.3 F) 04/10/2022 11:02 AM CDT Respiratory Rate - - Oxygen Saturation - - Inhaled Oxygen Concentration - - Weight 62.6 kg (138 lb) 04/10/2022 11:02 AM CDT Height 165.1 cm (5' 5 ) 04/10/2022 11:02 AM CDT Body Mass Index 22.96 04/10/2022 11:02 AM CDT Plan of Treatment Health Maintenance Due Date Last Done Comments Pneumococcal PPSV23 Highest Risk Adult (1 of 3 - PCV13) 02/19/1984 Influenza Vaccine (#1) 2024 08/13/2021 Care Teams Pipe Organ Mechanic Apprentice Relationship Specialty Start Date End Date Giovanni Kevin MD [address] [place] [address] PCP - General Internal Medicine 11/09/20
--- OUTSIDE RECORDS SUMMARY | 2024-10-28 11:54 | XMS_ITS | Clinical Summary ---
Author Organization [facility] Address [address] [facility] [place] [address] Phone Care Team Providers Care Business Solutions Consultant Name Role Phone Giovanni Kevin MD Primary Care Provider + Allergies Active Allergy Reactions Criticality Noted Date Comments Lcoszny-Mtf-Tfx Reductase Inhibitors Unknown 05/19/2024 Patient says she had her doctor told her she's allergic Medications multivitamin,ca lcium,minerals, iron,folic acid (THERA-M,THERA- M PLUS) 9 mg iron-400 mcg Tablet TAKE 1 TABLET BY MOUTH EVERY MORNING FOR 30 DAYS 10/25/2020 Active bumetanide (BUMEX) 1 mg tablet Take 1 mg by mouth daily. Active lactulose (ENULOSE) 10 gram/15 mL 10 gram/15 mL solution Take 70 mL by mouth daily. 08/15/2021 Active Klor-Con M10 10 mEq Extended Release tablet Take 10 mEq by mouth daily. 07/24/2021 Active pantoprazole (PROTONIX) 40 mg Tablet, Delayed Release (E.C.) Take 40 mg by mouth. 11/17/2020 Active ferrous sulfate 325 mg (65 mg iron) tablet Take 325 mg by mouth 2 times daily. Once daily Active ascorbic acid, vitamin C, (VITAMIN C) 500 mg tablet Take 500 mg by mouth daily. Active spironolactone (ALDACTONE) 50 mg tablet 50 mg daily. 25 mg to 50 mg prn 12/20/2021 Active magnesium 250 mg (as magnesium oxide) tablet Take 250 mg by mouth 2 times daily. Active OTHER Quinine tonic water 2 8 oz a day Active carvediloL (COREG) 3.125 mg tablet Take 3.125 mg by mouth. Active ezetimibe (ZETIA) 10 mg tablet TAKE 1 TABLET (10 MG) BY MOUTH DAILY. 90 Tablet 2 03/02/2024 Active montelukast (SINGULAIR) 10 mg tablet Take 1 Tablet by mouth daily. 05/11/2024 Active carvediloL (COREG) 3.125 mg tablet take 1 tablet by mouth twice a day with meals 180 Tablet 1 06/14/2024 Active Active Problems Patient Care Coordination No te Formatting of this note migh t be different from the original. Renetta Barksdale MD--Ppap Coordinator ([facility] @ ) Problem Noted Date Diagnosed Date Chronic anemia 09/25/2021 Encounters Date Type Department Care Team Description 10/25/2024 Telephone [facility] Heart and Vascular At [address] [place] [address] Renetta Barksdale MD Needs Orders Written (labs) 10/14/2024 External Device Data STL ABSTRACTION Provider, Abstract 10/05/2024 External Device Data STL ABSTRACTION Provider, Abstract from Last 3 Months Family History Medical History Relation Name Comments Cancer Brother Hypertension Brother Cancer Father Diabetes Father Hypertension Father Heart Attack Maternal Grandfather Arrhythmia Mother afib Cancer Mother Clotting Disorder Mother Hypertension Mother Heart Attack Paternal Grandmother Relation Name Status Comments Brother Alive Father Alive Maternal Grandfather Maternal Grandmother Mother Alive Paternal Grandfather Paternal Grandmother Social History Tobacco Use Types Packs/Day Years Used Date Smoking Tobacco: Never Passive Smoke Exposure: Yes Smokeless Tobacco: Never Tobacco Cessation:Counseling Given: Not Answered Alcohol Use Standard Drinks/Week Comments Not Currently 0 (1 standard drink = 0.6 oz pur e alcohol) has been a year Comments No Sex and Gender Information Value Date Recorded Sex Assigned at Not on file Legal Sex Female 8:58 AM CADDY Gender Identity Not on file Sexual Orientation Not on file Last Filed Vital Signs Vital Sign Reading Time Taken Comments Blood Pressure 122/67 05/19/2024 2:16 PM CDT Pulse 66 05/19/2024 2:16 PM CDT Temperature 36.8 C (98.2 F) 05/19/2024 2:16 PM CDT Respiratory Rate 16 05/19/2024 2:16 PM CDT Oxygen Saturation 98% 05/19/2024 2:16 PM CDT Inhaled Oxygen Concentration - - Weight 72.1 kg (159 lb) 05/19/2024 2:16 PM CDT Height 165.1 cm (5' 5 ) 04/29/2024 1:36 PM CDT Body Mass Index 26.46 04/29/2024 1:36 PM CDT Plan of Treatment Upcoming Encounters Date Type Department Care Team (Late st Contact Info) Description 10/28/2024 2:30 PM CADDY Office Visit [facility] Heart and Vascular At [facility] [address] [address] [place] [address] Renetta Barksdale MD [address] [facility] [address] [place] [address] 11/24/2024 11:00 AM CADDY Office Visit [facility] Oncology and Hematology - Kris [address] [facility] [address] [place] [address] Emiliano Burton MD [address] [facility] [address] [place] [address] Health Maintenance Due Date Last Done Comments Pre-Diabetes and Diabetes Screening 1965 DTAP/TDAP/TD VACCINES (1 - Tdap) 02/19/1984 HEPATITIS B VACCINES (1 of 3 - 19+ 3-dose series) 01/22 CERVICAL CANCER SCREENING 1995 BREAST CANCER SCREENING 2005 COLORECTAL SCREENING 2010 Colorectal Cancer Screening 2010 FIT-DNA Q 3 years 2010 FIT/FOBT Q 1 year 2010 Flex Sig/CT Colonography Q 5 years 2010 ZOSTER VACCINE (1 of 2) 2015 INFLUENZA VACCINE (#1) 2024 08/13/2021 Procedures Procedure Name Priority Date/Time Associated Diagnosis Comments LIPID PANEL Routine 10/26/2024 11:31 AM CADDY Hypercholesterolemia from Last 3 Months Results * (ABNORMAL) LIPID PANEL (10/26/2024 11:31 AM CADDY) CHOLESTEROL 242(H) <200 mg/dL [facility] HDL 94 > OR = 50 mg/dL [facility] TRIGLYCERIDE 86 <150 mg/dL [facility] LDL CALCULATED 129(H) mg/dL (calc) [facility] Comment: Reference range: <100 Desirable range <100 mg/dL for primary prevention; <70 mg/dL for patients with CHD or diabetic patients with > or = 2 CHD risk factors. LDL-C is now calculated using the Darell calculation, which is a validated novel method providing better accuracy than the Friedewald equation in the estimation of LDL-C. Nasim LEY et al. TANI. 2013;310(19): 3832-6315 (http://education.[employer]/faq/GKT969) CHOL/HDL RATIO 2.6 <5.0 (calc) [facility] NON-HDL CHOLESTEROL 148(H) <130 mg/dL (calc) [facility] Comment: For patients with diabetes plus 1 major ASCVD risk factor, treating to a non-HDL-C goal of <100 mg/dL (LDL-C of <70 mg/dL) is considered a therapeutic option. FASTING:YES FASTING: YES Test Performed at: [facility] [address] [address] [place] [id number] [facility] Blood 10/26/2024 11:3 1 AM CADDY 10/26/2024 11:32 AM CADDY us Renetta Barksdale MD CHEMISTRY ORDERABLES Final Res ult [facility] [phone] [facility] [place] [address] [address] [place] [phone] from Last 3 Months Insurance Care Teams Business Solutions Consultant Relationship Specialty Start Date End Date Giovanni Kevin MD [address] [place] [address] PCP - General Internal Medicine 08/29/21
--- OUTSIDE RECORDS SUMMARY | 2024-10-28 11:54 | XMS_ITS | Clinical Summary ---
Author Organization [facility] Address [address] [place] [address] Care Team Providers Care Fish Bailer Name Role Phone Africa Rodriguez RN Unavailable Unavailable Patrick Young MD Unavailable [phone] Emiliano Burton MD Unavailable [phone] Giovanni Kevin MD Primary Care Provider [phone] Source Comments [facility],non-owned Affiliates and Associated Physician Practices is amultiple site organization consisting of ambulatory clinics and hospital sitesin [place], [place], [place] and [place]. This disclosure is being madepursuant to the Care Everywhere program and may not contain all information available regarding this patient. Last updated 18.[facility] Allergies No known active allergies Medications * [...] 09/25/2021 Stage 3a chronic kidney disease 04/09/2021 Encounters Date Type Department Care Team Description 09/16/2024 Travel from Last 3 Months Family History Medical History Relation Name Comments CAD (Coronary Artery Disease) Maternal Grandfather Cancer - Other Maternal Grandfather Head and Neck Atrial Fibrillation Mother Lymphoma Mother CAD (Coronary Artery Disease) Paternal Grandmother Relation Name Status Comments Maternal Grandfather Mother Paternal Grandmother Social History Tobacco Use Types [...] CDT Respiratory Rate 18 11/25/2022 11:13 AM [employer]T MAKER Oxygen Saturation 100% 05/06/2024 1:01 PM CDT Inhaled Oxygen Concentration - - Weight 70.8 kg (156 lb) 05/06/2024 1:01 PM CDT Height 162.6 cm (5' 4 ) 05/06/2024 1:01 PM CDT Body Mass Index 26.78 05/06/2024 1:01 PM CDT Plan of Treatment Upcoming Encounters Date Type Department Care Team (Late st Contact Info) Description 02/15/2025 2:00 PM CDT Office Visit [facility] - [facility] [address] [facility] [place] [address] Robert Winn MD [address] [place] [address] Health Maintenance Due Date Last Done Comments COLOGUARD (AGES 45-75) - COLON CA SCREENING 1965 COLON MONITORING 1965 COLONOSCOPY - COLON CA SCREENING 1965 CT COLONOGRAPHY - COLON CA SCREENING 1965 Colorectal Cancer Screening 1965 FIT - COLON CA SCREENING 1965 FLEX SIG - COLON CA SCREENING 1965 LIPID TESTING 1965 MAMMOGRAM 1965 PAP SMEAR 1965 HIV SCREENING 02/19/1980 HEPATITIS C SCREENING 02/14/1983 DTAP/TDAP/TD VACCINES (1 - Tdap) 02/19/1984 HEPATITIS B VACCINE (1 of 3 - 19+ 3-dose series) 02/19/1984 PNEUMOCOCCAL VACCINE 50+ (1 of 2 - PCV) 02/19/1984 ZOSTER VACCINE (1 of 2) 2015 COVID-19 VACCINE (1 - season) 2024 INFLUENZA VACCINE (#1) 2024 08/13/2021 DEPRESSION SCREENING 09/22/2024 SCREENING FOR DIABETES 04/27/2027 , 11/21/2023, 05/29/2023, Additional history exists HIB VACCINE Aged Out No longer eligi ble based on patient's age to complete this topic HPV VACCINE Aged Out No longer eligi ble based on patient's age to complete this topic MENINGOCOCCAL (Group B) VACCINE Aged Out No longer eligible based on patient's age to complete this topic MENINGOCOCCAL VACCINE Aged Out No oscar raymundo eligible based on patient's age to complete this topic Goals Goal Patient Goal Type Associated Problems Recent Progress Patient-Stated? Author Medication Management General On track( 024 12:59 PM CDT) Africa Nelson RN Note: Expected end date: ongoing Interventions: [...] 29 U/L [facility] Comment: Test Performed at: [facility] [id number] BRISSA PATEL MD 04/27/2024 7:30 AM CDT 04/27/2024 7:31 AM CDT Robert Winn MD LAB - CHEMISTRY [facility] [id number] [place] [address] from Last 3 Months or Most Recently Relevant to Health Maintenance Care Teams Fish Bailer Relationship Specialty Start Date End Date Giovanni Kevin MD [address] [place] [address] PCP - General Internal Medicine 06/05/23 Africa Rodriguez, RN Registered Nurse 11/20/21 Patrick Young MD [address] [facility] [place] [address] Nephrology 11/25/22 Emiliano Burton MD [address] [facility] [address] [place] [address] Medical Oncology 11/25/22
--- OUTSIDE RECORDS SUMMARY | 2024-10-28 11:54 | XMS_ITS | Patient Health Summary ---
Author Organization [facility] Address [address] [place] [address] Care Team Providers Care Clinical Social Worker Name Role Phone Africa Rodriguez RN Unavailable Unavailable Patrick Young MD Unavailable [phone] Emiliano Burton MD Unavailable Giovanni Kevin MD Primary Care Provider [phone] Note from [facility],non-owned Affiliates and Associated Physician Practices is amultiple site organization consisting of ambulatory clinics and hospital sitesin [place], [place], [place] and [place]. This disclosure is being madepursuant to the Care Everywhere program and may not contain all information available regarding this patient. Last updated 18.[facility] Allergies No known active allergies Medications * Be aware that medications may not be up to date on this document. Alwaysverify current medications with the patient. * bumetanide (BUMEX) 1 MG tablet Take 1 (one) tablet by mouth once daily * ezetimibe (ZETIA) 10 MG tablet(Started 10/04/2021) Take 1 (one) tablet by mouth * lactulose (CHRONULAC) 10 GM/15ML solution(Started 10/25/2020) Take 70 mL by mouth once daily * pantoprazole EC (PROTONIX) 40 MG tablet(Started 05/17/2021) * ferrous sulfate 325 (65 FE) MG tablet Take 1 (one) tablet by mouth daily with breakfast * ascorbic acid (Vitamin C) 500 MG tablet Take 1 (one) tablet by mouth once daily * Calcium Carb-Cholecalciferol (Calcium/Vitamin D) 600-400 MG-UNIT TABS Take by mouth 2 times daily * magnesium 250 MG tablet Take 1 (one) tablet by mouth 2 times daily * spironolactone (Aldactone) 50 MG tablet(Started 12/20/2021) 1 (one) tablet once daily Take 1 whole tablet as needed for additional swelling * Other Tonic water PRN for muscle cramps- takes about 1L daily * carvedilol (Coreg) 3.125 MG tablet Take 1 (one) tablet by mouth 2 times daily with morning and evening meal Active Problems Problem Noted Date Diagnosed Date Alcoholic cirrhosis of liver 01/22/2022 Chronic anemia 09/25/2021 Stage 3a chronic kidney [...] CDT Respiratory Rate 18 11/25/2022 11:13 AM SCENIC DESIGNER Oxygen Saturation 100% 05/06/2024 1:01 PM CDT Inhaled Oxygen Concentration - - Weight 70.8 kg (156 lb) 05/06/2024 1:01 PM CDT Height 162.6 cm (5' 4 ) 05/06/2024 1:01 PM CDT Body Mass Index 26.78 05/06/2024 1:01 PM CDT Procedures * ALPHA FETOPROTEIN BLOOD TUMOR MARKER(Performed 04/27/2024) * PT-INR(Performed 04/27/2024) * CBC W AUTO DIFFERENTIAL(Performed 04/27/2024) * COMPREHENSIVE METABOLIC PANEL(Performed 04/27/2024) * BILIRUBIN DIRECT(Performed 04/27/2024) * ALPHA FETOPROTEIN BLOOD TUMOR MARKER(Performed 11/21/2023) * PT-INR(Performed 11/21/2023) * CBC W AUTO DIFFERENTIAL(Performed 11/21/2023) * COMPREHENSIVE METABOLIC PANEL(Performed 11/21/2023) * BILIRUBIN DIRECT(Performed 11/21/2023) * US ABDOMEN LIMITED(Performed 06/05/2023) Performed for Other cirrhosis of liver (HCC) * HEPATITIS B SURFACE ANTIBODY QUANT(Performed 05/29/2023) Performed for Other cirrhosis of liver (HCC), Encounter for screening for other viral diseases * HEPATITIS A ANTIBODY(Performed 05/29/2023) Performed for Other cirrhosis of liver (HCC), Encounter for screening for other viral diseases * BILIRUBIN DIRECT(Performed 05/29/2023) Performed for Other cirrhosis of liver (HCC) * PT-INR(Performed 05/29/2023) Performed for Other cirrhosis of liver (HCC) * COMPREHENSIVE METABOLIC PANEL(Performed 05/29/2023) Performed for Other cirrhosis of liver (HCC) * CBC W AUTO DIFFERENTIAL(Performed 05/29/2023) Performed for Other cirrhosis of liver (HCC) * ALPHA FETOPROTEIN BLOOD TUMOR MARKER(Performed 05/29/2023) Performed for Other cirrhosis of liver (HCC) * CT ABDOMEN MULTI PHASE W CONT(Performed 11/25/2022) Performed for Other cirrhosis of liver (HCC) * PT-INR(Performed 11/19/2022) Performed for Elevated bilirubin, Alcoholic cirrhosis of liver without ascites (HCC), Stage 3a chronic kidney disease (HCC) * BILIRUBIN DIRECT(Performed 11/19/2022) Performed for Elevated bilirubin, Alcoholic cirrhosis of liver without ascites (HCC), Stage 3a chronic kidney disease (HCC) * ALPHA FETOPROTEIN BLOOD TUMOR MARKER(Performed 11/19/2022) Performed for Elevated bilirubin, Alcoholic cirrhosis of liver without ascites (HCC), Stage 3a chronic kidney disease (HCC) * COMPREHENSIVE METABOLIC PANEL(Performed 11/19/2022) Performed for Elevated bilirubin, Alcoholic cirrhosis of liver without ascites (HCC), Stage 3a chronic kidney disease (HCC) * CBC W AUTO DIFFERENTIAL(Performed 11/19/2022) Performed for Elevated bilirubin, Alcoholic cirrhosis of liver without ascites (HCC), Stage 3a chronic kidney disease (HCC) * PT INR (EXTERNAL RESULT ENTRY)(Performed 05/31/2022) * COMP MET PANEL (EXTERNAL RESULT ENTRY)(Performed 05/31/2022) * CBC W DIFF (EXTERNAL RESULT ENTRY)(Performed 05/31/2022) * SHADY DIRECT(Performed 01/22/2022) Performed for Elevated bilirubin, Hemolytic anemia associated with chronic inflammatory disease (HCC), Other cirrhosis of liver (HCC) * PT-INR [facility](Performed 01/22/2022) Performed for Elevated bilirubin, Hemolytic anemia associated with chronic inflammatory disease (HCC), Other cirrhosis of liver (HCC) * UDP GLUCURONOSYLTRANSFERASE 1A1(Performed 01/22/2022) Performed for Elevated bilirubin, Hemolytic anemia associated with chronic inflammatory disease (HCC), Other cirrhosis of liver (HCC) * BILIRUBIN DIRECT(Performed 01/22/2022) Performed for Elevated bilirubin, Hemolytic anemia associated with chronic inflammatory disease (HCC), Other cirrhosis of liver (HCC) * COMPREHENSIVE METABOLIC PANEL(Performed 01/22/2022) Performed for Elevated bilirubin, Hemolytic anemia associated with chronic inflammatory disease (HCC), Other cirrhosis of liver (HCC) * LDH BLOOD(Performed 01/22/2022) Performed for Elevated bilirubin, Hemolytic anemia associated with chronic inflammatory disease (HCC), Other cirrhosis of liver (HCC) * MS LIVER ELASTOGRAPHY(Performed 01/22/2022) Performed for Elevated liver enzymes * IGM BLOOD(Performed 11/20/2021) Performed for Elevated liver enzymes * IGG BLOOD(Performed 11/20/2021) Performed for Elevated liver enzymes * MITOCHONDRIAL ANTIBODY SCREEN(Performed 11/20/2021) Performed for Elevated liver enzymes * GGT(Performed 11/20/2021) Performed for Elevated liver enzymes * CERULOPLASMIN(Performed 11/20/2021) Performed for Elevated liver enzymes * IRON + TRANSFERRIN PANEL(Performed 11/20/2021) Performed for Elevated liver enzymes * FERRITIN(Performed 11/20/2021) Performed for Elevated liver enzymes * HEPATITIS B SURFACE ANTIBODY(Performed 11/20/2021) Performed for Elevated liver enzymes, Encounter for screening for other viral diseases * HEPATITIS B CORE ANTIBODY TOTAL(Performed 11/20/2021) Performed for Elevated liver enzymes, Encounter for screening for other viral diseases * ALPHA FETOPROTEIN BLOOD TUMOR MARKER(Performed 11/20/2021) Performed for Elevated liver enzymes * BILIRUBIN DIRECT(Performed 11/20/2021) Performed for Elevated liver enzymes * PT-INR [facility](Performed 11/20/2021) Performed for Elevated liver enzymes * COMPREHENSIVE METABOLIC PANEL(Performed 11/20/2021) Performed for Elevated liver enzymes * CBC W AUTO DIFFERENTIAL(Performed 11/20/2021) Performed for Elevated liver enzymes Results * ALPHA FETOPROTEIN BLOOD TUMOR MARKER (04/27/2024 7:30 AM CDT) Only the most recent of5 resultswithin the time period is included. [facility] Alpha-Fetoprotei n Tumor Marker 5.5 ng/mL [facility] Comment: Reference Range: <6.1 The use of AFP as a tumor marker in females is not recommended. This test was performed using the Radha Stamford chemiluminescent method. Values obtained from different assay methods cannot be used interchangeably. AFP levels, regardless of value, should not be interpreted as absolute evidence of the presence or absence of disease. REPORT COMMENT: NO DRAW FEE 2ND ORDER FASTING:YES Test Performed at: [facility] [address] [address] SHIRA LEGER 04/27/2024 7:30 AM CDT 04/27/2024 7:31 AM CDT Robert Winn MD LAB - CHEMISTRY TYRONE ROSA [facility] Organization Address City/State/ZIP Co de Phone Number [address] [address] * (ABNORMAL) PT-INR (04/27/2024 7:30 AM CDT) Only the most recent of4 resultswithin the time period is included. [facility] INR 1.3(H) [facility] Comment: Reference Range 0.9-1.1 Moderate-intensity Warfarin Therapy 2.0-3.0 Higher-intensity Warfarin Therapy 3.0-4.0 PT 13.6(H) 9.0 - 11.5 sec [facility] Comment: For additional information, please refer to http://education.MobileDay/faq/JOQ948 (This link is being provided for informational/ educational purposes only.) Test Performed at: [facility] [address] BRISSA PATEL MD 04/27/2024 7:30 AM CDT 04/27/2024 7:31 AM CDT Robert Winn MD LAB - COAGULATION OR DERABLES [place] [id number] [place] [address] * (ABNORMAL) CBC WITH DIFFERENTIAL (04/27/2024 7:30 AM CDT) Only the most recent of5 resultswithin the time period is included. White Blood Cell Count 4.3 3.8 - 10.8 Thousand/ uL [facility] RBC 3.59(L) 3.80 - 5.10 Million/u L [facility] Hemoglobin 12.2 11.7 - 15.5 g/dL [facility] Hematocrit 35.1 35.0 - 45.0 % [facility] MCV 97.8 80.0 - 100.0 fL [facility] MCH 34.0(H) 27.0 - 33.0 pg [facility] MCHC 34.8 32.0 - 36.0 g/dL [facility] RDW 11.8 11.0 - 15.0 % [facility] Platelet Count 68(L) 140 - 400 Thousand/ uL [facility] MPV 10.7 7.5 - 12.5 fL [facility] Neutrophil Absolute 2451 1500 - 7800 cells/uL [facility] Absolute Bands [facility] Metamyelocytes Absolute [facility] Myelocytes Absolute [facility] Absolute Prolymphocytes [facility] Lymphocytes Absolute 989 850 - 3900 cells/uL [facility] Absolute Monocytes 688 200 - 950 cells/uL [facility] Eosinophils Absolute 172 15 - 500 cells/uL [facility] Basophils Absolute 0 0 - 200 cells/uL [facility] Absolute Blasts [facility] nRBC Absolute [facility] Granulocytes % 57 % [facility] Band Neutrophil [facility] Metamyelocytes [facility] Myelocytes [facility] Promyelocytes [facility] Lymphocytes % 23 % [facility] Lymphocyte Reactive [facility] Monocytes % 16 % [facility] Eosinophils % 4 % [facility] Basophils % 0 % [facility] Blasts [facility] nRBC [facility] Comments [facility] Comment: The smear has been manually reviewed and the manual differential has been reported. Review of the peripheral smear reveals decreased numbers of platelets. Test Performed at: [facility] [address] BRISSA PATEL MD 04/27/2024 7:30 AM CDT 04/27/2024 7:31 AM CDT Robert Winn MD LAB - HEMATOLOGY ORD ERABLES Performing Organization Address City/[facility]/ZIP Co de Phone Number [facility] [address] [place] [address] * (ABNORMAL) COMPREHENSIVE METABOLIC PANEL (04/27/2024 7:30 AM CDT) Only the most recent of6 resultswithin the time period is included. Glucose 95 65 - 99 mg/dL [facility] [...] 29 U/L [facility] Comment: Test Performed at: [facility] [address] BRISSA PATEL MD 04/27/2024 7:30 AM CDT 04/27/2024 7:31 AM CDT Robert Winn MD LAB - CHEMISTRY ORDFranklin ROSA [facility] [address] [place] [address] * (ABNORMAL) BILIRUBIN DIRECT (04/27/2024 7:30 AM CDT) Only the most recent of6 resultswithin the time period is included. Bilirubin Direct 1.4(H) < OR = 0.2 mg/dL [facility] Comment: Test Performed at: [facility] [address] BRISSA PATEL MD 04/27/2024 7:30 AM CDT 04/27/2024 7:31 AM CDT Robert Winn MD LAB - CHEMISTRY [place] [address] [address] * US ABDOMEN LIMITED (06/05/2023 11:56 AM CDT) Anatomical Region Laterality Modality Abdomen Ultrasound 06/05/2023 11:4 4 AM CDT Impressions 06/05/2023 12:01 PM CDT IMPRESSION: 1.Hepatic cirrhosis with sequelae of portal hypertension including trace ascites and splenomegaly without discrete hepatic lesion. 2.No evidence of cholelithiasis or acute cholecystitis. 3.Normal renal size. No evidence of nephrolithiasis or hydronephrosis. > Dictated by Kat Farrell MD (vice president compliance). > Dictated by Kat Farrell (Surveillance Systems Analyst) 06/05/2023 11:44 AM IElie have personally reviewed and interpreted this examination/study. > Interpreting Provider: Elie Amaral on 06/05/2023 12:01 PM Narrative 06/05/2023 12:01 PM CDT PROCEDURE: US ABDOMEN LIMITED DATE/TIME OF EXAM: 06/05/2023 10:44 AM CLINICAL INFORMATION: None relevant/not provided if blank. Indication: K74.69: Other cirrhosis of liver (CMS/HCC) COMPARISON: CT abdomen multiphase dated 11/25/2022. FINDINGS: The liver is normal in echotexture and echogenicity. There is mild liver surface nodularity, and may be related to early cirrhosis. No discrete hepatic mass or intrahepatic biliary dilatation is seen. Color Doppler evaluation demonstrates patency of the hepatic and portal veins. No gallstones or pericholecystic fluid is seen. The gallbladder wall is normal in thickness, measuring 3 mm. Sonographic Toth's sign is negative. The common bile duct is nondilated, measuring 3 mm. The spleen measures 13.6 cm in length. The visible pancreas is normal in echogenicity. Trace ascites is present. The right kidney measures 9.8 x 4.8 x 4.3 cm. There is no evidence of hydronephrosis, nephrolithiasis, or solid renal mass. Blood flow is seen within the renal arteries and veins. The visible aorta and inferior vena cava are patent. Procedure Note Elie Amaral MD - 06/05/2023 PROCEDURE: US ABDOMEN LIMITED DATE/TIME OF EXAM: 06/05/2023 10:44 AM CLINICAL INFORMATION: None relevant/not provided if blank. Indication: K74.69: Other cirrhosis of liver (CMS/HCC) COMPARISON: CT abdomen multiphase dated 11/25/2022. FINDINGS: The liver is normal in echotexture and echogenicity. There is mild liver surface nodularity, and may be related to early cirrhosis. No discrete hepatic mass or intrahepatic biliary dilatation is seen. Color Doppler evaluation demonstrates patency of the hepatic and portal veins. No gallstones or pericholecystic fluid is seen. The gallbladder wall is normal in thickness, measuring 3 mm. Sonographic Toth's sign isnegative. The common bile duct is nondilated, measuring 3 mm. The spleen measures 13.6 cm in length. The visible pancreas is normal in echogenicity. Trace ascites is present. The right kidney measures 9.8 x 4.8 x 4.3 cm. There is no evidence of hydronephrosis, nephrolithiasis, or solid renal mass. Blood flow is seen within the renal arteries and veins. The visible aorta and inferior vena cava are patent. IMPRESSION: 1.Hepatic cirrhosis with sequelae of portal hypertension including trace ascites and splenomegaly without discrete hepatic lesion. 2.No evidence of cholelithiasis or acute cholecystitis. 3.Normal renal size. No evidence of nephrolithiasis or hydronephrosis. > Dictated by Kat Farrell MD (vice president compliance). > Dictated by Kat Farrell (Surveillance Systems Analyst) 06/05/2023 11:44 AM Elie Alvarez have personally reviewed and interpreted this examination/study. > Interpreting Provider: Elie Amaral on 06/05/2023 12:01 PM Robert Winn MD US ORDERABLES * HEPATITIS B SURFACE ANTIBODY QUANT (05/29/2023 10:26 AM CDT) Hepatitis B Virus Surface Antibody Quantitative >1000 > OR = 10 mIU/mL [facility] Comment: Patient has immunity to hepatitis B virus. For additional information, please refer to http://BankFacil.MobileDay/faq/CSG711 (This link is being provided for informational/ educational purposes only). Test Performed at: [facility] [id number] [place] [address] BRISSA PATEL MD Blood BLOOD SPECIMEN / Unknown 05/29/2023 10:26 AM CDT 05/29/2023 10:28 AM CDT Robert Winn MD LAB - SEROLOGY ORDER IRINA Performing Organization Address [facility] [place] [address] * (ABNORMAL) HEPATITIS A ANTIBODY (05/29/2023 10:26 AM CDT) Pathologist [facility] Hepatitis A Virus Antibody Total REACTIVE(A ) NON-REACT MARIYA [facility] Comment: For additional information, please refer to http://BankFacil.MobileDay/faq/CMP735 (This link is being provided for informational/ educational purposes only.) Test Performed at: [facility] [id number] [place] [address] BRISSA PATEL MD Blood BLOOD SPECIMEN / Unknown 05/29/2023 10:26 AM CDT 05/29/2023 10:28 AM CDT Robert Winn MD LAB - CHEMISTRY [place]DE [place] Performing Organization Address [facility] de Phone Number [address] [address] * CT ABDOMEN MULTI PHASE W CONT (11/25/2022 10:59 AM SCENIC DESIGNER) Anatomical Region Laterality Modality Abdomen Computed Tomogra phy 11/25/2022 11:0 5 AM SCENIC DESIGNER Impressions 11/25/2022 11:37 AM SCENIC DESIGNER Impression: 1.No arterially enhancing observations suspicious for hepatocellular carcinoma. 2.Sequelae of portal hypertension including splenomegaly, small upper abdominal portosystemic varices, and mild perihepatic free fluid. No definite surface nodularity of the liver. Report dictated by Hernesto Rao MD (vice president compliance). Emiliano Alvarez MD have personally reviewed and interpreted this examination/study. > Interpreting Provider: Emiliano Wahl MD on 11/25/2022 11:37 AM Narrative 11/25/2022 11:37 AM SCENIC DESIGNER Procedure Information DATE: 11/25/2022 11:00 AM EXAMINATION: Computed tomography (CT) of the abdomen with contrast TECHNIQUE: CT of the abdomen was performed following the uneventful administration of 150 mL of Isovue 370 intravenous contrast according to a three-phase liver protocol. Clinical Information HISTORY: K74.69: Other cirrhosis of liver (CMS/HCC) COMPARISON: None. Findings Lower Chest: Normal. Hepatobiliary system Liver morphology: There is a mostly smooth hepatic surface contour. Varices: Small upper abdominal portosystemic varices are noted. Spleen: Enlarged, measures 15.9 cm craniocaudal. Ascites: Minimal perihepatic fluid. Focal liver lesions Lesions compatible with hepatocellular carcinoma by LI-RADS criteria: None. Indeterminate liver lesions: None. Benign liver lesions: None. Hepatic vasculature Portal and hepatic veins: Patent. Arterial anatomy: The hepatic arterial anatomy is conventional. Gallbladder and bile ducts Gallbladder: Minimal layering stones/sludge is present in the gallbladder without evidence of gallbladder wall thickening. Bile ducts: The intrahepatic and extrahepatic bile ducts are nondilated. Retroperitoneum Pancreas: Normal. Adrenals: Normal. Kidneys: The kidneys enhance symmetrically. No hydronephrosis or nephrolithiasis. Lymph nodes: No lymphadenopathy in the abdomen or pelvis. Gastrointestinal: The imaged bowel loops are unremarkable. Bones and soft tissues: Bone windows demonstrate no suspicious lytic or blastic lesions. The visible osseous structures are intact. There is a large fat-containing ventral abdominal hernia. A curvilinear soft tissue density in the anterior subcutaneous fat represents skinfold. Procedure Note Rand Wahl MD - 11/25/2022 Procedure Information DATE: 11/25/2022 11:00 AM EXAMINATION: Computed tomography (CT) of the abdomen with contrast TECHNIQUE: CT of the abdomen was performed following the uneventful administrationof 150 mL of Isovue 370 intravenous contrast according to a three-phaseliver protocol. Clinical Information HISTORY: K74.69: Other cirrhosis of liver (CMS/HCC) COMPARISON: None. Findings Lower Chest: Normal. Hepatobiliary system Liver morphology: There is a mostly smooth hepatic surface contour. Varices: Small upper abdominal portosystemic varices are noted. Spleen: Enlarged, measures 15.9 cm craniocaudal. Ascites: Minimal perihepatic fluid. Focal liver lesions Lesions compatible with hepatocellular carcinoma by LI-RADS criteria:None. Indeterminate liver lesions: None. Benign liver lesions: None. Hepatic vasculature Portal and hepatic veins: Patent. Arterial anatomy: The hepatic arterial anatomy is conventional. Gallbladder and bile ducts Gallbladder: Minimal layering stones/sludge is present in thegallbladder without evidence of gallbladder wall thickening. Bile ducts: The intrahepatic and extrahepatic bile ducts are nondilated. Retroperitoneum Pancreas: Normal. Adrenals: Normal. Kidneys: The kidneys enhance symmetrically. No hydronephrosis or nephrolithiasis. Lymph nodes: No lymphadenopathy in the abdomen or pelvis. Gastrointestinal: The imaged bowel loops are unremarkable. Bones and soft tissues: Bone windows demonstrate no suspicious lytic or blastic lesions. The visible osseous structures are intact. There is a large fat-containing ventral abdominal hernia. A curvilinear soft tissue density in theanterior subcutaneous fat represents skinfold. Impression: 1.No arterially enhancing observations suspicious for hepatocellular carcinoma. 2.Sequelae of portal hypertension including splenomegaly, small upper abdominal portosystemic varices, and mild perihepatic free fluid. No definite surface nodularity of the liver. Report dictated by Hernesto Rao MD (vice president compliance). I, Emiliano Wahl MD have personally reviewed and interpreted this examination/study. > Interpreting Provider: Emiliano Wahl MD on 11/25/2022 11:[address] MD [address] ORDERABLES * (ABNORMAL) CBC W DIFF (EXTERNAL RESULT ENTRY) (05/31/2022 10:56 AM CDT) WBC (EXTERNAL RESULT) 4.6 10^3/ul OTHER LAB Hemoglobin (EXTERNAL RESULT) 10.9(A) 12.0 - 15.0 g/dl OTHER LAB Hematocrit (EXTERNAL RESULT) 33.0(A) 37.0 - 47.0 % OTHER LAB Platelets (EXTERNAL RESULT) 95 10^3/ul OTHER LAB Neutrophil Absolute (EXTERNAL RESULT) 2.6 10^3/ul OTHER LAB Blood BLOOD SPECIMEN / Unknown 05/31/2022 10:56 AM CDT Historical Provider LAB - HEMATOLOGY ORDERABLES Performing Organization Address City/[facility]/ZIP Co de Phone Number OTHER LAB * (ABNORMAL) PT INR (EXTERNAL RESULT ENTRY) (05/31/2022 10:56 AM CDT) PT (EXTERNAL) 17.4(A) 11.1 - 14.7 sec OTHER LAB INR (EXTERNAL RESULT) 1.5 OTHER LAB Blood BLOOD SPECIMEN / Unknown 05/31/2022 10:56 AM CDT Historical Provider LAB - CHEMISTRY O RDERABLES Performing Organization Address [facility] Co de Phone Number OTHER LAB * (ABNORMAL) COMP MET PANEL (EXTERNAL RESULT ENTRY) (05/31/2022 10:56 AM CDT) Glucose (EXTERNAL) 94 mg/dL OTHER LAB Sodium (EXTERNAL RESULT) 137 mmol/L OTHER LAB Potassium (EXTERNAL RESULT) 4.1 mmol/L OTHER LAB Chloride (EXTERNAL RESULT) 101 mmol/L OTHER LAB CO2 (EXTERNAL) 23 mmol/L OTHER LAB Calcium (EXTERNAL RESULT) 9.1 mg/dL OTHER LAB Anion Gap (EXTERNAL RESULT) 13 mmol/L OTHER LAB BUN (EXTERNAL RESULT) 15 mg/dL OTHER LAB Creatinine (EXTERNAL RESULT) 0.90 mg/dl OTHER LAB Alkaline Phosphatase (EXTERNAL RESULT) 119 U/L OTHER LAB ALT (EXTERNAL RESULT) 27 U/L OTHER LAB AST (EXTERNAL RESULT) 52 U/L OTHER LAB Protein Total (EXTERNAL RESULT) 8.0 gm/dL OTHER LAB Albumin (EXTERNAL RESULT) 4.5 gm/dL OTHER LAB Bilirubin Total (EXTERNAL RESULT) 4.2(A) 0.2 - 1.3 mg/dL OTHER LAB eGFR MDRD (EXTERNAL RESULT) >60 mL/min/1.7 3m2 OTHER LAB eGFR (EXTERNAL) OTHER LAB Blood BLOOD SPECIMEN / Unknown 05/31/2022 10:56 AM CDT Historical Provider LAB - CHEMISTRY O RDERABLES OTHER LAB * (ABNORMAL) PT-INR [facility] (01/22/2022 1:49 PM CDT) Only the most recent of2 resultswithin the time period is included. PT 17.1(H) 12.1 - 14.8 Seconds 01/22/2022 2:27 PM CDT [facility] INR 1.4 See Comment 01/22/2022 2:27 PM CDT [facility] Comment:The suggested therap eutic range for standard coumadin (warfarin) therapy is an INR of 2.0-3.0. For high-risk patients (Mechanical Mitral Valve Prosthesis, etc.), the suggested prophylactic therapeutic range is an INR of 2.5-3.5. Blood BLOOD SPECIMEN / Unknown Lab Venipuncture / Unknown 01/22/2022 1:49 PM CDT 01/22/2022 1:59 PM CDT Robert Winn MD LAB - COAGULATION OR DERABLES Performing Organization Address City/[facility]/ZIP Co de Phone Number [facility] [address] [address], [facility] [phone] * (ABNORMAL) UDP GLUCURONOSYLTRANSFERASE 1A1 (01/22/2022 1:49 PM CDT) UGT1A1 [facility] [place] 1 (TA)6 or *1 01/30/2022 5:27 AM CDT [employer] [facility] ([facility]) UGT1A1 Genotyping Specimen Whole Blood 01/30/2022 5:27 AM CDT [facility] ([facility] [facility] UGT1A1 Genotyping Allele 2 (TA)7 or *28(A) 01/30/2022 5:27 AM CDT [facility] ([facility]) Interpretation UGT1A1 Genotyping See Note 01/30/2022 5:27 AM CDT [facility] ([facility]) Comment: Indications for ordering: - Determine sensitivity to irinotecan or related compounds. - Confirm a diagnosis of Gilbert Syndrome. Heterozygous UGT1A1 (TA)6/(TA)7: One copy of *1 (TA)6 and one copy of *28 (TA)7 were detected. Partially decreased UGT1A1 enzyme levels are anticipated. Dosing should be based on clinical findings. Heterozygosity for the *28 allele has not been associated with Gilbert's syndrome (benign familial hyperbilirubinemia). This result has been reviewed and approved by Kayli Mayorga M.D., Ph.D. BACKGROUND INFORMATION: UDP Glucuronosyltransferase 1A1 (UGT1A1) Genotyping CHARACTERISTICS: UGT1A1 is responsible for the clearance of drugs (e.g., irinotecan) and endobiotic compounds (e.g., bilirubin). Irinotecan's major active and toxic metabolite (SN-38) is inactivated by the UGT1A1 enzyme and then eliminated via the bile. UGT1A1 gene mutations cause accumulation of SN-38, which may lead to irinotecan-related toxicities (neutropenia, diarrhea). CAUSE: Variations in TA repeat number in the TATAAA element of the 5'[id number]-jezdbsga affects patient biller efficiency. The common number of repeats is six [(TA)6, *1 allele], while seven repeats [(TA)7, *28 allele] is associated with reduced patient biller activity. Homozygosity for the (TA)7 allele is also associated with Gilbert Syndrome (benign familial hyperbilirubinemia). ALLELES TESTED: *36 allele, (TA)5; *1 allele, (TA)6; *28 alelle, (TA)7 and *37 allele, (TA)8. CLINICAL SENSTIVITY/SPECIFICITY: Risk of irinotecan toxicity by genotype (Br J Cancer (2004) 91:678-82). 6/6 (*1/*1): diarrhea 17 percent; neutropenia 15 percent 6/7 (*1/*28): diarrhea 33 percent; neutropenia 27 percent 7/7 (*28/*28): diarrhea 70 percent; neutropenia 40 percent ALLELIC FREQUENCY: *1(TA)6: Caucasians 0.61, Asians 0.84, Americans 0.47 *28(TA)7: Caucasians 0.39, Asians 0.16, Americans 0.43 METHODOLOGY: Polymerase chain reaction followed by size analysis using capillary electrophoresis. ANALYTICAL SENSTIVITY: Greater than 99 percent. LIMITATIONS: Variations in the UGT1A1 gene, other than those targeted, will not be detected. Clinical significance of the rare *36, (TA)5 and *37, (TA)8 alleles in predicting irinotecan toxicities is not well established. Genetic and non-genetic factors other than UGT1A1, may contribute to irinotecan toxicity and efficacy. Diagnostic errors can occur due to rare sequence variations. This test was developed and its performance characteristics determined by [facility]. It has not been cleared or approved by the [place] Food and Drug Administration. This test was performed in a CLIA certified laboratory and is intended for clinical purposes. Counseling and informed consent are recommended for genetic testing. Consent forms are available online. Performed by [facility], [address] [place] [address] [email or web address], Linh Garcia MD, Lab. Director Blood BLOOD SPECIMEN / Unknown Lab Venipuncture / Unknown 01/22/2022 1:49 PM CDT 01/22/2022 1:59 PM CDT Robert Winn MD LAB - CHEMISTRY ORDE RABJOSE D [facility] ([facility]) [address] [place] [address], [facility] * SHADY DIRECT (01/22/2022 1:49 PM CDT) Pathologist [facility] Direct Shady (BEV) NEG 01/22/2022 2:33 PM CDT [facility] B[facility]OD [facility] LAB Blood BLOOD SPECIMEN / Unknown Lab Venipuncture / Unknown 01/22/2022 1:49 PM CDT 01/22/2022 2:09 PM CDT Robert Winn MD LAB - BLOOD BANK ORD ERABLES [facility] BLOOD [facility] LAB [address] [place] [address], [place] [phone] * LDH BLOOD (01/22/2022 1:49 PM CDT) Pathologist [facility] LDH Total 229 125 - 243 Units/L 01/22/2022 2:33 PM CDT [facility] Blood BLOOD SPECIMEN / Unknown Lab Venipuncture / Unknown 01/22/2022 1:49 PM CDT 01/22/2022 2:07 PM CDT Robert Winn MD LAB - CHEMISTRY PRIYANKAFranklin GONZALEZJOSE D [facility] Organization Address City/State/ZIP Co de Phone Number [facility] [address] [place] [address], [facility] [phone] * MS LIVER ELASTOGRAPHY (01/22/2022 11:35 AM CDT) Narrative Goran You MD - 01/22/2022 11:35 AM CDT Goran You MD 01/22/2022 3:08 PM Diagnosis: ABHISHEK RN verified patient not , no implanted devices and NPO for prior 3 hours. Procedure explained and consent signed. Date of Exam: 01/22/2022 Liver Stiffness: (LSM, kPa) median: 49.3 IQR (interquartile range): 4.2 IQR/Median% (ideally < 30%): 9 CAP (controlled attenuation parameter): 225 Technical Difficulty: None Ordering Provider: Robert Winn MD Phone Fax Fibroscan interpretation: I have personally reviewed the Fibroscan report and associated tracings. The calculated Liver Stiffness Measurement (LSM, kPa) indicates that: The probability of advanced liver fibrosis is: very high and the probability of complications of portal hypertension is also high. The loss of ultrasound signal, (controlled attenuation parameter, CAP [dB/m]), indicates that the probability of hepatic steatosis is: low. Goran You MD The following criteria are used to indicate the probability of advanced (stage 3-4) fibrosis: < 7.0 kPa: low 7.0-8.9 kPa: low to moderate 9.0-14.9 kPa: moderate 15-20 kPa: high > 20 kPa: very high Liver stiffness > 20 kPa is also associated with a high probability of complications of portal hypertension including varices and ascites. Liver stiffness > 50 kPa is associated with a high risk of variceal bleeding. These interpretations are based on the following published data: Nyla RUIZ, Jennifer M, Eva M, et al. Accuracy of FibroScan controlled attenuation parameter and liver stiffness measurement in assessing steatosis and fibrosis in patients with nonalcoholic fatty liver disease. Gastroenterology 2019;156:8836-3451. Ulises MS, Tono R, Van Aminta ML, et al. Vibration-controlled transient elastography to assess fibrosis and steatosis in patients with nonalcoholic fatty liver disease. Clin Gastroenterol Hepatol 2019;17:156-163. Note: 1. Fibroscan cannot reliably identify earlier stages of fibrosis (ie distinguish F0 from F1 and F2) and thus a histologic stage cannot be predicted from the Fibroscan reading. 2. Assessing the likelihood of advanced fibrosis in patients with indeterminate liver stiffness measurement (LSM) by Fibroscan (e.g., 8-15 kPa) can be improved by also calculating the FIB4 score (Jennieuke et al. Hepatology Communications 2019;3:7345-5485) or NAFLD Fibrosis score (Cramer et al. Clinical Gastroenterology and Hepatology 2019;17:1901-2824. from routine clinical data. 3. Liver stiffness can be increased by factors other than fibrosis including passive congestion, infiltrative processes, active alcoholism, biliary obstruction and marked inflammation. The interpretation of the Fibroscan result provided above may not have taken such clinical factors into account. Disease etiology also influences Fibroscan cutoff values for fibrosis stages and the following cutoffs have been proposed (Alexis et al, Clin Gastro Hepatol 2015; 13:27-36): Cutoffs for Stage 3 and Stage 4 fibrosis respectively: Hepatitis B: >9 and >11.7 kPa Hepatitis C: >9.5 and >12.5 kPa HCV-HIV: >11 and >14 kPa Cholestatic liver diseases: >10 and >17.9 kPa NAFLD/PLAZA: >10 and >14 kPa CAP estimates of steatosis: normal <200 dB/m mild 200 to 250 dB/m moderate 250-290 dB/m substantial > 290 dB/m (Note that Fibroscan is not a quantitative measure of liver fat.) These criteria are estimates and may change as additional supporting data becomes available. [email or web address] Robert Winn MD PROCEDURE/MINOR SURG ICAL ORDERABLES * MITOCHONDRIAL ANTIBODY SCREEN (11/20/2021 3:47 PM SCENIC DESIGNER) Mitochondrial M2 Antibody 2.6 0.0 - 24.9 Units 11/23/2021 6:46 AM SCENIC DESIGNER [facility] ([facility] Comment: REFERENCE INTERVAL: Mitochondrial (M2) Antibody, IgG 20.0 Units or less ......... Negative 20.1 - 24.9 Units........... Equivocal 25.0 Units or greater....... Positive Anti-mitochondrial antibodies (AMA) are thought to be present in 90-95% of patients with primary biliary cholangitis (PBC). However, the frequency of detected antibodies may be cohort or assay dependent, as lower sensitivities have been reported. Not all PBC patients are positive for AMA; some patients may be positive for SP100 and/or GP210 antibodies. A negative result does not rule out PBC. Performed By: [place] [address] Environmental Journalist: Linh Garcia MD Blood BLOOD SPECIMEN / Unknown Lab Venipuncture / Unknown 11/20/2021 3:47 PM SCENIC DESIGNER 11/20/2021 3:56 PM SCENIC DESIGNER Robert Winn MD LAB - CHEMISTRY TYRONE ROSA Performing Organization Address City/[facility]/ZIP Co de Phone Number [facility]) [address] [address] * CERULOPLASMIN (11/20/2021 3:47 PM SCENIC DESIGNER) [facility] Ceruloplasmin 24 20 - 60 mg/dL 11/20/2021 4:28 PM SCENIC DESIGNER [facility] Blood BLOOD SPECIMEN / Unknown Lab Venipuncture / Unknown 11/20/2021 3:47 PM SCENIC DESIGNER 11/20/2021 3:56 PM SCENIC DESIGNER Robert Winn MD LAB - CHEMISTRY TYRONE ROSA Performing Organization Address City/[facility]/ZIP Co de Phone Number [place] [id number] [place] [address], [facility] [phone] * (ABNORMAL) HEPATITIS B SURFACE ANTIBODY (11/20/2021 3:47 PM SCENIC DESIGNER) [facility] Hepatitis B Virus Surface Antibody Reactive( A) Non-react mariya 11/20/2021 4:47 PM SCENIC DESIGNER [facility] Comment: > 12 mIU/mL Hepatitis B surface Antibody (HBsAb). Reactive for HBsAb - individual is considered immune to Hepatitis B Virus infection. Hepatitis B Surface Antibody Quantitative 30.7(H) <8.0 mIU/mL 11/20/2021 4:47 PM SCENIC DESIGNER [facility] Comment: Hepatitis B Surface Antibody Numeric Result Interpretation: Nonreactive: <8.0 mIU/mL Indeterminate: 8.0 - 12.0 mIU/mL Reactive: >12.0 mIU/mL Blood BLOOD SPECIMEN / Unknown Lab Venipuncture / Unknown 11/20/2021 3:47 PM SCENIC DESIGNER 11/20/2021 3:56 PM SCENIC DESIGNER Robert Winn MD LAB - CHEMISTRY TYRONE ROSA Performing Organization Address City/[facility]/ZIP Co de Phone Number [address] [address], [facility] [phone] * HEPATITIS B CORE ANTIBODY (11/20/2021 3:47 PM SCENIC DESIGNER) Pathologist [facility] HBc Antibody Total Non-reacti ve Non-reacti ve 11/20/2021 4:47 PM SCENIC DESIGNER [facility] Blood BLOOD SPECIMEN / Unknown Lab Venipuncture / Unknown 11/20/2021 3:47 PM SCENIC DESIGNER 11/20/2021 3:56 PM SCENIC DESIGNER Robert Winn MD LAB - CHEMISTRY TYRONE ROSA [address] [address], [facility] [phone] * (ABNORMAL) GGT (11/20/2021 3:47 PM SCENIC DESIGNER) Pathologist [facility] GGT 271(H) 9 - 64 Units/L 11/20/2021 5:00 PM SCENIC DESIGNER [facility] Blood BLOOD SPECIMEN / Unknown Lab Venipuncture / Unknown 11/20/2021 3:47 PM SCENIC DESIGNER 11/20/2021 4:01 PM SCENIC DESIGNER Robert Winn MD LAB - CHEMISTRY TYRONE ROSA [address] [address], [place] [phone] * (ABNORMAL) IRON + TRANSFERRIN PANEL (11/20/2021 3:47 PM SCENIC DESIGNER) Iron 164(H) 40 - 150 ug/dL 11/20/2021 4:58 PM SCENIC DESIGNER [facility] Transferrin 322 174 - 382 mg/dL 11/20/2021 4:58 PM SCENIC DESIGNER [facility] Transferrin Saturation % 41 16 - 50 % 11/20/2021 4:58 PM SCENIC DESIGNER [facility] TIBC Calculated 403 240 - 450 ug/dL 11/20/2021 4:58 PM SCENIC DESIGNER [facility] Blood BLOOD SPECIMEN / Unknown Lab Venipuncture / Unknown 11/20/2021 3:47 PM SCENIC DESIGNER 11/20/2021 3:56 PM SCENIC DESIGNER Robert Winn MD LAB - CHEMISTRY TYRONE ROSA [address] [address], [place] [phone] * (ABNORMAL) IGM BLOOD (11/20/2021 3:47 PM SCENIC DESIGNER) Pathologist [facility] IgM 294(H) 37 - 286 mg/dL 11/20/2021 4:58 PM SCENIC DESIGNER [facility] Blood BLOOD SPECIMEN / Unknown Lab Venipuncture / Unknown 11/20/2021 3:47 PM SCENIC DESIGNER 11/20/2021 3:56 PM SCENIC DESIGNER Robert Winn MD LAB - CHEMISTRY TYRONE ROSA [address] [address], [place] [phone] * IGG BLOOD (11/20/2021 3:47 PM SCENIC DESIGNER) Pathologist [facility] IgG 1,383 727-1,590 mg/dL 11/20/2021 4:58 PM SCENIC DESIGNER [facility] Blood BLOOD SPECIMEN / Unknown Lab Venipuncture / Unknown 11/20/2021 3:47 PM SCENIC DESIGNER 11/20/2021 3:56 PM SCENIC DESIGNER Robert Winn MD LAB - CHEMISTRY TYRONE ROSA Performing Organization Address City/[facility]/ZIP Co de Phone Number [address] [address], [place] [phone] * FERRITIN (11/20/2021 3:47 PM SCENIC DESIGNER) Ferritin 90 13 - 204 ng/mL 11/20/2021 4:47 PM SCENIC DESIGNER [facility] Blood BLOOD SPECIMEN / Unknown Lab Venipuncture / Unknown 11/20/2021 3:47 PM SCENIC DESIGNER 11/20/2021 3:56 PM SCENIC DESIGNER Robert Winn MD LAB - CHEMISTRY TYRONE ROSA Performing Organization Address City/[facility]/ZIP Co de Phone Number [address] [address], [place] [phone] Care Teams Clinical Social Worker Relationship Specialty Start Date End Date Giovanni Kevin MD [address] [place] [address] PCP - General Internal Medicine 06/05/23 Africa Rodriguez, RN Registered Nurse 11/20/21 Patrick Young MD [address] [facility] [address] [place] [address] Nephrology 11/25/22 Emiliano Burton MD [address] [facility] [address] [place] [phone] Medical Oncology 11/25/22
--- OUTSIDE RECORDS SUMMARY | 2024-10-28 11:54 | XMS_ITS | Encounter Summary ---
Author Organization [facility] Address [address] [place] [address] Care Team Providers Care Seismology Teacher Name Role Phone Giovanni Kevin MD Primary Care Provider [phone] Encounter Details Date Type Department Care Team (Late st Contact Info) Description 02/21/2021 Prep for Procedure [facility] [place], [place] [address] Manjinder Vinson MD [address] [facility] [address] [place] [id number] Social History Tobacco Use Types Packs/Day Years Used Date Smoking Tobacco: Never Smokeless Tobacco: Never Alcohol Use Standard Drinks/Week Comments Not Currently 0 (1 standard drink = 0.6 oz pure alcohol) stopped September 2020, [email or web address] drinks/week Comments Unknown Sex and Gender Information Value Date Recorded Sex Assigned at Not on file Legal Sex Female 2:22 PM CDT Gender Identity Not on file Sexual Orientation Not on file COVID-19 Exposure Response Date Recorded In the last month, have you been in contact with someone who was confirmed or suspected to have Coronavirus / COVID-19? No / Unsure 02/21/2021 12:56 PM CDT documented as of this encounter Plan of Treatment Not on file documented as of this encounter Results * CORONAVIRUS (COVID 19) PCR - [facility] (02/26/2021 10:30 AM CDT) CORONAVIRUS SARS COV 2 PCR (RESP) NEGATIVE NEGATIVE 02/27/2021 12:13 AM CDT [facility] Comment: NEGATIVE RESULTS DO NOT PRECLUDE SARS-CoV-2 INFECTION AND SHOULD NOT BE USED THE SOLE BASIS FOR PATIENT MANAGEMENT DECISIONS. NEGATIVE RESULTS MUST BE COMBINED WITH CLINICAL OBSERVATIONS, PATIENT HISTORY, AND EPIDEMIOLOGICAL INFORMATION. THE SARS-CoV-2 TEST HAS BEEN AUTHORIZED BY THE FDA UNDER AN EUA FOR USE BY AUTHORIZED LABORATORIES. FIRST TEST NO 02/26/2021 11:40 AM CDT [facility] EMPLOYED IN HEALTHCARE UNKNOWN 02/26/2021 11:40 AM CDT [facility] SYMPTOMATIC DEFINED BY CDC NO 02/26/2021 11:40 AM CDT [facility] HOSPITALIZATION STATUS NO 02/26/2021 11:40 AM CDT [facility] PATIENT IN ICU NO 02/26/2021 11:40 AM CDT [facility] RESIDENT OF [facility] UNKNOWN 02/26/2021 11:40 AM CDT [facility] NOT 02/26/2021 11:40 AM CDT [facility] NASOPHARYNGEAL SWAB / Unknown 02/26/2021 10:30 AM CDT Manjinder Vinson MD MICROBIOLOGY - GENERAL TYRONE ROSA Final Result [facility] [address] [place] [address], [place] [phone] [facility] [address] [place] [address], [place] [phone] [id number] documented in this encounter Visit Diagnoses Diagnosis Gastric ulcer- Primary Gastric ulcer, unspecified as acute or chronic, without mention of hemorrhage, perforation, or obstruction documented in this encounter Additional Health Concerns Infection Onset Date Last Indicated Resolved Time COVID-19 Rule Out 02/26/2021 02/26/2021 02/27/2021 12:13 AM CDT documented as of this encounter Care Teams Seismology Teacher Relationship Specialty Start Date End Date Giovanni Kevni MD [address] [facility] [address] - [facility] [address] [place] [address] PCP - General INTERNAL MEDICINE 02/26/21 documented as of this encounter
[2024-10-28 13:28] LABS: Hemoglobin A1C 4.3 % (<5.7)
[2024-10-28 13:54] LABS: Free T4 Free Thyroxine 2.28 ng/dL (0.78-2.19); Vitamin D 25 Hydroxy 58.9 ng/mL
== END 2024-10-28 11:46 | disposition home or self-care (01) ==
LOC: ANHLAB 11:47
PROVIDERS: PCP Internal Medicine; Visit Provider Internal Medicine
DX: E55.9 Vitamin D deficiency, unspecified (principal); Z79.899 Other long term (current) drug therapy; E78.5 Hyperlipidemia, unspecified; E03.9 Hypothyroidism, unspecified
CPT/HCPCS: 36415; 82172; 82306; 83036; 84439; 84443

== ENCOUNTER 2024-12-09 12:07 | Outpatient (CLI) | payer BC, SELFPAY ==
--- OUTSIDE RECORDS SUMMARY | 2024-12-09 12:43 | XMS_ITS | Clinical Summary ---
Author Organization [facility] Address [facility] [place] [address] Care Team Providers Care Landscape Architect And Planner Name Role Phone Giovanni Kevin MD Primary Care Provider [phone] Allergies No known active allergies Medications bumetanide [...] 0.6 oz pure alcohol) stopped September 2020, [id number] drinks/week Comments Unknown Sex and Gender Information [...] patient's age to complete this topic Insurance [facility] Care Teams Landscape Architect And Planner Relationship Specialty Start Date End Date Giovanni Kevin MD [address] [facility] [address] - [facility] [address] [place] [address] PCP - General INTERNAL MEDICINE 02/26/21
--- OUTSIDE RECORDS SUMMARY | 2024-12-09 12:43 | XMS_ITS | Clinical Summary ---
Author Organization [facility] [employer] Address [address] [place] [address] Care Team Providers Care Field Technical Specialist Name Role Phone Africa Rodriguez RN Unavailable Unavailable Patrick Young MD Unavailable [phone] Emiliano Burton MD Unavailable [phone] Giovanni Kevin MD Primary Care Provider [phone] Source Comments [facility],non-owned Affiliates and Associated Physician Practices is amultiple site organization consisting of ambulatory clinics and hospital sitesin [place], [place], [place] and [place]. This disclosure is being madepursuant to the Care Everywhere program and may not contain all information available regarding this patient. Last updated 18.[facility] Allergies No known active allergies Medications [...] CDT Respiratory Rate 18 11/25/2022 11:13 AM LEATHER CASE FINISHER Oxygen Saturation 100% 05/06/2024 1:01 PM CDT [...] Visit [facility] [address] [facility], [facility] [place] [address] Robert Winn MD [address] [place] [phone] Health Maintenance Due Date Last Done Comments [...] VACCINE (1 of 2) 2015 COVID-19 VACCINE ( - season) 2024 INFLUENZA VACCINE (#1) 2024 08/13/2021 DEPRESSION SCREENING 09/22/2024 SCREENING FOR DIABETES 04/27/2027 , 11/21/2023, 05/29/2023, Additional history exists HIB VACCINE Aged Out No longer eligi ble based on patient's age to complete this topic HPV VACCINE Aged Out No longer eligi ble based on patient's age to complete this topic MENINGOCOCCAL (Group B) VACCINE SHARED DECISION-MAKING Aged Out No longer eligible based on patient's age to complete this topic MENINGOCOCCAL GROUPS A/C/Y/W VACCINE Aged Out No longer eligible based on patient's age to complete this topic Goals Goal Patient Goal Type Associated Problems Recent Progress Patient-Stated? Author Medication Management General On track( 024 12:59 PM CDT) No Africa Rodriguez, RN Note: Expected end date: ongoing Interventions: Take all medications as prescribed Procedures Procedure Name Priority Date/Time Associated Diagnosis Comments COMPREHENSIVE METABOLIC PANEL 04/27/2024 7:30 AM CDT from Last 3 Months or Most Recently Relevant to Health Maintenance Results * (ABNORMAL) COMPREHENSIVE METABOLIC PANEL (04/27/2024 7:30 AM CDT) Pathologist [facility] Glucose 95 65 - 99 mg/dL [facility] [...] 29 U/L [facility] Comment: Test Performed at: [facility] [address] BRISSA PATEL MD 04/27/2024 7:30 AM CDT 04/27/2024 7:31 AM CDT Robert Winn MD LAB - CHEMISTRY TYRONE Leach Organization Address City/State/ZIP Co de Phone Number [facility] [address] [place] [address] from Last 3 Months or Most Recently Relevant to Health Maintenance Care Teams Field Technical Specialist Relationship Specialty Start Date End Date Giovanni Kevin MD [address] [place] [address] PCP - General Internal Medicine 06/05/23 Africa Rodriguez RN Registered Nurse 11/20/21 Patrick Young MD [address] [facility] [address] [place] [address] Nephrology 11/25/22 Emiliano Burton MD [address] [facility] [address] [place] [address] Medical Oncology 11/25/22
--- OUTSIDE RECORDS SUMMARY | 2024-12-09 12:43 | XMS_ITS | Encounter Summary ---
Author Organization [facility] Address [address] [place] [address] Care Team Providers Care Industrial Pharmacist Name Role Phone Giovanni Kevin MD Primary Care Provider [phone] Encounter Details Date Type Department Care Team (Late st Contact Info) Description 02/21/2021 Prep for Procedure [facility] One Day [place], [place] [id number] Manjinder Vinson MD 3 [facility] [address] [place] [address] [phone] Social History Tobacco Use Types Packs/Day Years Used Date Smoking Tobacco: Never Smokeless Tobacco: Never Alcohol Use Standard Drinks/Week Comments Not Currently 0 (1 standard drink = 0.6 oz pure alcohol) stopped September 2020, [id number] drinks/week Comments Unknown Sex and Gender Information [...] Results * CORONAVIRUS (COVID 19) PCR - [facility] (02/26/2021 10:30 AM CDT) CORONAVIRUS SARS COV 2 PCR (RESP) NEGATIVE NEGATIVE 02/27/2021 12:13 AM CDT [facility] Comment: NEGATIVE RESULTS DO NOT PRECLUDE SARS-CoV-2 INFECTION AND SHOULD NOT BE USED THE SOLE BASIS FOR PATIENT MANAGEMENT DECISIONS. NEGATIVE RESULTS MUST BE COMBINED WITH CLINICAL OBSERVATIONS, PATIENT HISTORY, AND EPIDEMIOLOGICAL INFORMATION. THE SARS-CoV-2 TEST HAS BEEN AUTHORIZED BY THE FDA UNDER AN EUA FOR USE BY AUTHORIZED LABORATORIES. FIRST TEST NO 02/26/2021 11:40 AM CDT [facility] EMPLOYED IN HEALTHCARE UNKNOWN 02/26/2021 11:40 AM CDT [facility] SYMPTOMATIC DEFINED BY CDC NO 02/26/2021 11:40 AM CDT [facility] HOSPITALIZATION STATUS NO 02/26/2021 11:40 AM CDT [facility] PATIENT IN ICU NO 02/26/2021 11:40 AM CDT [facility] RESIDENT OF [facility] UNKNOWN 02/26/2021 11:40 AM CDT [facility] NOT 02/26/2021 11:40 AM CDT [facility] NASOPHARYNGEAL SWAB / Unknown 02/26/2021 10:30 AM CDT Manjinder Vinson MD MICROBIOLOGY - GENERAL TYRONE ROSA Final Result [facility] [address] [place] [address], [place] [phone] [facility] [address] [place] [address], [place] [phone] documented in this encounter Visit Diagnoses Diagnosis Gastric ulcer- Primary Gastric ulcer, unspecified as acute or chronic, without mention of hemorrhage, perforation, or obstruction documented in this encounter Additional Health Concerns Infection Onset Date Last Indicated Resolved Time COVID-19 Rule Out 02/26/2021 02/26/2021 02/27/2021 12:13 AM CDT documented as of this encounter Care Teams Industrial Pharmacist Relationship Specialty Start Date End Date Giovanni Kevin MD [address] [facility] 162 - [facility] [address] [place] [phone] PCP - General INTERNAL MEDICINE 02/26/21 documented as of this encounter
--- OUTSIDE RECORDS SUMMARY | 2024-12-09 12:43 | XMS_ITS | Clinical Summary ---
Author Organization [facility] Address [address] [facility] [place] [address] Phone Care Team Providers Care Clinical Data Management Director Name Role Phone Giovanni Kevin MD Primary Care Provider + Allergies Active Allergy Reactions Criticality Noted Date Comments Memwxsg-Ysp-Azm Reductase Inhibitors Unknown 05/19/2024 Patient says she had her doctor told her she's allergic Medications multivitamin,c alcium,mineral s,iron,folic acid (THERA-M,THERA -M PLUS) 9 mg iron-400 mcg Tablet TAKE 1 TABLET BY MOUTH EVERY MORNING FOR 30 DAYS 1 Active bumetanide (BUMEX) 1 mg tablet Take 1 mg by mouth daily. Active lactulose (ENULOSE) 10 gram/15 mL 10 gram/15 mL solution Take 70 mL by mouth daily. 1 Active Klor-Con M10 10 mEq Extended Release tablet Take 10 mEq by mouth daily. 1 Active pantoprazole (PROTONIX) 40 mg Tablet, Delayed Release (E.C.) Take 40 mg by mouth. 1 Active ferrous sulfate 325 mg (65 mg iron) tablet Take 325 mg by mouth 2 times daily. Once daily Active ascorbic acid, vitamin C, (VITAMIN C) 500 mg tablet Take 500 mg by mouth daily. Active spironolactone (ALDACTONE) 50 mg tablet 50 mg daily. 25 mg to 50 mg prn 2 Active magnesium 250 mg (as magnesium oxide) tablet Take 250 mg by mouth 2 times daily. Active OTHER Quinine tonic water 2 8 oz a day Active carvediloL (COREG) 3.125 mg tablet Take 3.125 mg by mouth. Active montelukast (SINGULAIR) 10 mg tablet Take 1 Tablet by mouth daily. 4 Active ezetimibe (ZETIA) 10 mg tablet TAKE 1 TABLET (10 MG) BY MOUTH DAILY. 90 Tablet 2 5 Active carvediloL (COREG) 3.125 mg tablet TAKE 1 TABLET BY MOUTH TWICE A DAY WITH MEALS 180 Tablet 1 5 Active ezetimibe (ZETIA) 10 mg tablet TAKE 1 TABLET (10 MG) BY MOUTH DAILY. 90 Tablet 2 4 11/27/19 25 Discontinued carvediloL (COREG) 3.125 mg tablet take 1 tablet by mouth twice a day with meals 180 Tablet 1 4 11/27/19 25 Discontinued Active Problems Patient Care Coordination No te Formatting of this note migh t be different from the original. Renetta Barksdale MD--Teacher Selection Specialist ([facility] Heart [facility] Vascular @ ) Problem Noted Date Diagnosed Date Chronic anemia 09/25/2021 Encounters Date Type Department Care Team Description 12/01/2024 External Device Data STL ABSTRACTION Provider, Abstract 11/30/2024 External Device Data STL ABSTRACTION Provider, Abstract 11/29/2024 External Device Data STL ABSTRACTION Provider, Abstract 11/27/2024 External Device Data STL ABSTRACTION Provider, Abstract 11/27/2024 External Device Data STL ABSTRACTION Provider, Abstract 11/25/2024 Refill [facility] Heart and Vascular At [address] [place] [address] Renetta Barksdale MD 11/24/2024 External Device Data STL ABSTRACTION Provider, Abstract 11/10/2024 External Device Data STL ABSTRACTION Provider, Abstract 11/10/2024 External Device Data STL ABSTRACTION Provider, Abstract 10/28/2024 2:30 PM LINE RUNNER Office Visit [facility] Heart and Vascular At [address] [place] [address] Renetta Barksdale MD Hypercholesterolemia (Primary Dx); Lower extremity edema; Nonrheumatic mitral valve regurgitation; Nonrheumatic tricuspid valve regurgitation 10/25/2024 Telephone [facility] Heart and Vascular At [facility] [address] [facility] [address] [place] [address] Renetta Barksdale MD Needs Orders [...] on file Legal Sex Female 8:58 AM LINE RUNNER Gender Identity Not on file Sexual Orientation Not on file Last Filed Vital Signs Vital Sign Reading Time Taken Comments Blood Pressure 118/70 10/28/2024 2:11 PM LINE RUNNER Pulse 79 10/28/2024 2:11 PM LINE RUNNER Temperature 36.8 C (98.2 F) 05/19/2024 2:16 PM CDT Respiratory Rate 16 05/19/2024 2:16 PM CDT Oxygen Saturation 98% 10/28/2024 2:11 PM LINE RUNNER Inhaled Oxygen Concentration - - Weight 80.7 kg (178 lb) 10/28/2024 2:11 PM LINE RUNNER Height 165.1 cm (5' 5 ) 10/28/2024 2:11 PM LINE RUNNER Body Mass Index 29.62 10/28/2024 2:11 PM LINE RUNNER Plan of Treatment Upcoming Encounters Date Type Department Care Team (Late st Contact Info) Description 02/24/2025 11:45 AM CDT Office Visit [facility] Oncology and Hematology - [address] [place] [address] Emiliano Burton MD [address] [facility] [address] [place] [address] 04/28/2025 1:15 PM CDT Office Visit [facility] Heart and Vascular At [facility] [address] [place] [address] Renetta Barksdale MD [address] [facility] [address] [place] [address] Health Maintenance Due Date Last Done Comments Pre-Diabetes and Diabetes Screening 1965 DTAP/TDAP/TD VACCINES (1 - Tdap) 02/19/1984 HEPATITIS B VACCINES (1 of 3 - 19+ 3-dose series) 01/22 PAP SMEAR 1986 CERVICAL CANCER SCREENING 1995 HPV/Cotest 1995 PAP SMEAR 1995 BREAST CANCER SCREENING 2005 COLORECTAL SCREENING 2010 Colorectal Cancer Screening 2010 FIT-DNA Q 3 years 2010 FIT/FOBT Q 1 year 2010 Flex Sig/CT Colonography Q 5 years 2010 ZOSTER VACCINE (1 of 2) 2015 INFLUENZA VACCINE (#1) 2024 08/13/2021 Procedures Procedure Name Priority Date/Time Associated Diagnosis Comments LIPID PANEL Routine 10/26/2024 11:31 AM LINE RUNNER Hypercholesterolemia from Last 3 Months Results * (ABNORMAL) LIPID PANEL (10/26/2024 11:31 AM LINE RUNNER) CHOLESTEROL 242(H) <200 mg/dL [facility] ju[facility] Mel[facility]dez HDL 94 > OR = 50 mg/dL [facility] TRIGLYCERIDE 86 <150 mg/dL [facility] juancarlos Meléndez LDL CALCULATED 129(H) mg/dL (calc) [facility] Comment: Reference range: <100 Desirable range <100 mg/dL for primary prevention; <70 mg/dL for patients with CHD or diabetic patients with > or = 2 CHD risk factors. LDL-C is now calculated using the Darell calculation, which is a validated novel method providing better accuracy than the Friedewald equation in the estimation of LDL-C. Nasim SS et al. TANI. 2013;310(19): 2357-7590 (http://education.EnzySurge/faq/UGS376) CHOL/HDL RATIO 2.6 <5.0 (calc) [facility] NON-HDL CHOLESTEROL 148(H) <130 mg/dL (calc) [facility] Comment: For patients with diabetes plus 1 major ASCVD risk factor, treating to a non-HDL-C goal of <100 mg/dL (LDL-C of <70 mg/dL) is considered a therapeutic option. FASTING:YES FASTING: YES Test Performed at: [place] [address] [address] [phone] LaurieMargarette Salamanca Blood 10/26/2024 11:3 1 AM LINE RUNNER 10/26/2024 11:32 AM LINE RUNNER us Renetta Barksdale MD CHEMISTRY ORDERABLES Final Res ult [facility] [phone] [place] [address] [address] [phone] from Last 3 Months Insurance [facility] BLUE ACCESS CHOICE [facility] BLUE ACCESS CHOICE Care Teams Clinical Data Management Director Relationship Specialty Start Date End Date Giovanni Kevin MD [address] [place] [phone] PCP - General Internal Medicine 08/29/21
--- OUTSIDE RECORDS SUMMARY | 2024-12-09 12:43 | XMS_ITS | Clinical Summary ---
Author Organization [facility] Address [address] [place] [address] Phone Care Team Providers Care Statistician Theoretical Name Role Phone Giovanni Kevin MD Primary Care Provider Allergies No known active allergies Medications Medication [...] Health Maintenance Due Date Last Done Comments Influenza Vaccine (#1) 2024 08/13/2021 Care Teams Statistician Theoretical Relationship Specialty Start Date End Date Giovanni Kevin MD [address] [place] [address] PCP - General Internal Medicine 11/09/20
[2024-12-09 13:04] LABS: Hematocrit 36.8 % (37.0-47.0); Immature Platelet Fraction Pct 5.2 % (0.9-11.2); Mean Corpuscular HGB Conc 32.6 g/dl (32-36); Mean Corpuscular Hemoglobin 31.5 pg (26-34); Mean Corpuscular Volume 96.6 fl (80-100); Mean Platelet Volume 11.7 fl (7.4-10.4); Platelet Count Result 57 k/mm3 (150-375); Red Blood Count 3.81 M/mm3 (4.2-5.4); Red Cell Distribution Width 15.8 % (11.5-14.5); White Blood Count 4.2 K/mm3 (4.5-10.0)
[2024-12-09 13:12] LABS: Albumin Level 4.4 g/dL (3.5-5.1); Anion Gap 12 mmol/L (4-12); Blood Urea Nitrogen 12 mg/dL (7-17); Calcium 9.5 mg/dL (8.4-10.2); Carbon Dioxide 26 mmol/L (22-30); Chloride 104 mmol/L (98-107); Estimated Glomerular Filt Rate > 60; Glucose 91 mg/dL (65-110); Phosphorus 3.7 mg/dL (2.5-4.5); Potassium 3.4 mmol/L (3.4-5.0); Sodium 142 mmol/L (137-145)
[2024-12-09 13:48] LABS: Free T3 3.49 pg/mL (2.71-6.16); Free T4 Free Thyroxine 2.04 ng/dL (0.78-2.19)
[2024-12-14 09:24] LABS: Thyroid Peroxidase Antibodies 1 IU/mL (<9)
[2024-12-14 09:32] LABS: Thyroglobulin 10.6 ng/mL; Thyroglobulin Antibodies <1 IU/mL (< or = 1)
== END 2024-12-09 12:08 | disposition home or self-care (01) ==
LOC: ANHLAB 12:08
PROVIDERS: PCP Internal Medicine; Visit Provider Internal Medicine Nephrology
DX: R60.9 Edema, unspecified (principal); E03.9 Hypothyroidism, unspecified
CPT/HCPCS: 36415; 80069; 84432; 84439; 84443; 84481; 85027; 85055; 86376; 86800

== ENCOUNTER 2025-06-03 08:36 | Outpatient (CLI) | payer BC, SELFPAY ==
--- OUTSIDE RECORDS SUMMARY | 2025-06-02 11:00 | XMS_ITS | Encounter Summary ---
Author Organization [facility] Address [address] [place] [address] Care Team Providers Care Product Management Internship Name Role Phone Giovanni Kevin MD Primary Care Provider + Reason for Referral * Echocardiography (Routine) - Open Specialty Diagnoses / Procedures Referred By Contac t Referred To Contact Diagnoses Hypercholesterolemia Nonrheumatic mitral valve regurgitation Nonrheumatic tricuspid valve regurgitation Procedures ECHO COMPLETE - CONTRAST AND STRAIN IF INDICATED ECHO COMPLETE - CONTRAST AND STRAIN IF INDICATED WY ECHO TTHRC R-T 2D W/WOM-MODE COMPL SPEC&COLR D W[place] MYOCRD STRAIN IMG SPECKLE TRCK ASSMT MYOCRD [facility] W[place] TTE W OR WO FOL WCON,DOPPLER Renetta Barksdale MD [address] [place] [address] [address] [place] [address] Phone: tel: fax: Referral ID Status Reason Start Date Expiration Date Visits Re quested Visits Authorized [id number] Open 06/02/2025 07/03/2026 1 1 Reason for Visit * Reason Comments Follow Up Pure hypercholestero lemia f/u 6 months. Encounter Details Date Type Department Care Team (Latest Contact Info) Description 06/02/2025 11:00 AM CDT Office Visit [facility] Heart and Vascular At [address] [place] [phone] Renetta Barksdale MD [address] [place], [place] [address] [place] [address] Hypercholesterolemia (Primary Dx); Nonrheumatic mitral valve regurgitation; Nonrheumatic tricuspid valve regurgitation Social History Tobacco Use Types Packs/Day Years Used Date Smoking Tobacco: Never Passive Smoke Exposure: Yes Smokeless Tobacco: Never Alcohol Use Standard Drinks/Week Comments Not Currently 0 (1 standard drink = 0.6 oz pur e alcohol) has been a year Comments No Sex and Gender Information Value Date Recorded Sex Assigned at Not on file Legal Sex 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 Gender Identity Not on file Sexual Orientation Not on file documented as of this encounter Last Filed Vital Signs Vital Sign Reading Time Taken Comments Blood Pressure 138/82 06/02/2025 10:58 AM CDT Pulse 80 06/02/2025 10:58 AM CDT Temperature - - Respiratory Rate - - Oxygen Saturation 99% 06/02/2025 10:58 AM CDT Inhaled Oxygen Concentration - - Weight 83.5 kg (184 lb) 06/02/2025 10:58 AM CDT Height 165.1 cm (5' 5) 06/02/2025 10:58 AM CDT Body Mass Index 30.62 06/02/2025 10:58 AM CDT documented in this encounter Progress Notes * Renetta Barksdale MD - 06/02/2025 11:[address] [facility] Follow-up Visit Bela Marsh, a 60 y.o. female returns for follow-up of these problems: ICD-10-CM ICD-9-CM 1. Hypercholesterolemia E78.00 272.0 2. Nonrheumatic mitral valve regurgitation I34.0 424.0 3. Nonrheumatic tricuspid valve regurgitation I36.1 424.2 Since last visit on 10/28/2024: Hospitalizations: None Procedures or surgeries: None Cardiac symptoms: Denies chest pain, PND, orthopnea, edema,palpitations, syncope or near syncope. She admits she is not exercising as much due to and mother's medical problems Has gained 25 lbs in past year Medications: No new medications She is currently not taking lactulose due to uncontrollable diarrhea Current Outpatient Medications Medication Sig Dispense Refill carvediloL (COREG) 3.125 mg tablet TAKE 1 TABLET BY MOUTH TWICE A DAY WITH MEALS 180 Tablet 1 ezetimibe (ZETIA) 10 mg tablet TAKE 1 TABLET (10 MG) BY MOUTH DAILY. 90 Tablet 2 montelukast (SINGULAIR) 10 mg tablet Take 1 Tablet by mouth daily. carvediloL (COREG) 3.125 mg tablet Take 3.125 mg by mouth. OTHER Quinine tonic water 2 8 oz a day magnesium 250 mg (as magnesium oxide) tablet Take 250 mg by mouth 2 times daily. spironolactone (ALDACTONE) 50 mg tablet 50 mg daily. 25 mg to 50 mg prn ferrous sulfate 325 mg (65 mg iron) tablet Take 325 mg by mouth 2 times daily. Once daily ascorbic acid, vitamin C, (VITAMIN C) 500 mg tablet Take 500 mg by mouth daily. pantoprazole (PROTONIX) 40 mg Tablet, Delayed Release (E.C.) Take 40 mg by mouth. multivitamin,calcium,minerals,iron,folic acid (THERA-M,THERA-M PLUS) 9 mg iron- 400 mcg Tablet TAKE 1 TABLET BY MOUTH EVERY MORNING FOR 30 DAYS bumetanide (BUMEX) 1 mg tablet Take 1 mg by mouth daily. lactulose (ENULOSE) 10 gram/15 mL 10 gram/15 mL solution Take 70 mL by mouth daily. Klor-Con M10 10 mEq Extended Release tablet Take 10 mEq by mouth daily. No current facility-administered medications for this visit. Past Medical History: Diagnosis Date Asthma Hyperlipidemia Renal disease Undiagnosed cardiac murmurs No past surgical history on file. Social History Socioeconomic History Marital status: Spouse name: Not on file Number of children: Not on file Years of education: Not on file Highest education level: Not on file Occupational History Not on file Tobacco Use Smoking status: Never Passive exposure: Yes Smokeless tobacco: Never Vaping Use Vaping status: Never Used Substance and Sexual Activity Alcohol use: Not Currently Comment: has been a year Drug use: Never Sexual activity: Yes Other Topics Concern Not on file Social History Narrative Not on file Social Drivers of Health Food Insecurity: Not on file Transportation Needs: Not on file Feeling Safe: Not on file Housing Stability: Not on file ROS General- + 6 lb weight gain since last OV, +25 lb weight gain in past year Endo-without polyuria, polydipsia, hot or cold intolerance Pulmonary-without cough, SOB GI-without abdominal pain, constipation, diarrhea -without dysuria, hematuria MS-without myalgia Heme- without excessive bruising Neuro/psych-without sx of depression Physical Exam BP 138/82 Pulse 80 Ht 5' 5 (1.651 m) Wt 83.5 kg (184 lb) SpO2 99% BMI 30.62 kg/m?? Ht 5' 5 (1.651 m) Wt 80.7 kg (178 lb) BMI 29.62 kg/m?? Wt Readings from Last 3 Encounters: 06/02/25 80.7 kg (178 lb) 10/28/24 80.7 kg (178 lb) 05/19/24 72.1 kg (159 lb) General-No acute distress, alert, oriented Neck- without JVD, thyroid not enlarged Lungs-Clear to auscultation CV-Regular rate and rhythm,Systolic murmur at apex, no gallop or rub. Without carotid bruits . Extremities-Without edema. Distal pulses normal. Lab Results Component Value Date/Time CHOLTOT 234 (H) 05/31/2025 11:06 AM CHOLTOT 242 (H) 10/26/2024 11:31 AM CHOLTOT 238 (H) 04/27/2024 07:25 AM HDL 89 05/31/2025 11:06 AM HDL 94 10/26/2024 11:31 AM HDL 69 04/27/2024 07:25 AM LDLCALC 121 (H) 05/31/2025 11:06 AM LDLCALC 129 (H) 10/26/2024 11:31 AM LDLCALC 149 (H) 04/27/2024 07:25 AM TRIGLYCERIDE 125 05/31/2025 11:06 AM TRIGLYCERIDE 86 10/26/2024 11:31 AM TRIGLYCERIDE 90 04/27/2024 07:25 AM Impression ICD-10-CM ICD-9-CM 1. Hypercholesterolemia E78.00 272.0 2. Nonrheumatic mitral valve regurgitation I34.0 424.0 3. Nonrheumatic tricuspid valve regurgitation I36.1 424.2 Plan Discussed lifestyle Minimum of 150 minutes of moderate aerobic exercise per week Medications: Continue current medications with following changes restart lactulose - lowest dose Diagnostic Tests: Lipid panel prior to next OV Follow-up: Next OV in about 6 mos or sooner if new or worsening cardiac symptoms * Sanjana Riley - 06/02/2025 10:58 AM CDT Pure hypercholesterolemia f/u 6 months. Patient denies chest pain, shortness of breath, swelling in legs, dizziness, headaches, lightheadedness. documented in this encounter Plan of Treatment Scheduled Orders Name Type Priority Associated Diagnoses Orde r Schedule ECHO COMPLETE - CONTRAST AND STRAIN IF INDICATED Echocardiogram Routine Hypercholesterolemia Nonrheumatic mitral valve regurgitation Nonrheumatic tricuspid valve regurgitation 1 Occurrences starting 06/02/2025 until 06/02/2026 documented as of this encounter Visit Diagnoses Diagnosis Hypercholesterolemia- Primary Pure hypercholesterolemia Nonrheumatic mitral valve regurgitation Nonrheumatic tricuspid valve regurgitation Tricuspid valve disorders, specified as nonrheumatic documented in this encounter Care Teams Product Management Internship Relationship Specialty Start Date End Date Giovanni Kevin MD [address] [place] [address] PCP - General Internal Medicine 08/29/21 documented as of this encounter
--- OUTSIDE RECORDS SUMMARY | 2025-06-03 08:47 | XMS_ITS | Clinical Summary ---
Author Organization [facility] Address [address] [facility] [place] [address] Phone Care Team Providers Care Academic Support Assistant Name Role Phone Giovanni Kevin MD Primary Care Provider + Allergies Active Allergy Reactions Criticality Noted Date Comments Wwmwdxc-Tmi-Hsk Reductase Inhibitors Unknown 05/19/2024 Patient says she [...] WITH MEALS 180 Tablet 1 5 Active carvediloL (COREG) 3.125 mg tablet TAKE 1 TABLET BY MOUTH TWICE A DAY WITH MEALS 180 Tablet 1 5 05/17/20 25 Discontinued Active Problems Patient Care Coordination No te Formatting of this note migh t be different from the original. Renetta Barksdale MD--Grease Packer ([facility] Heart and Vascular @ ) Problem Noted Date Diagnosed Date Chronic anemia 09/25/2021 Encounters Date Type Department Care Team Description 06/02/2025 11:00 AM CDT Office Visit [facility] Heart and Vascular At [address] [place] [address] Renetta Barksdale MD Hypercholesterolemia (Primary Dx); Nonrheumatic mitral valve regurgitation; Nonrheumatic tricuspid valve regurgitation 05/17/2025 Refill [facility] Heart and Vascular At [address] [place] [address] Renetta Barksdale MD 04/26/2025 External Device Data STL ABSTRACTION Provider, Abstract 03/15/2025 External Device Data STL ABSTRACTION Provider, Abstract from Last 3 Months Family History Medical History Relation Name Comments Cancer Brother Hypertension Brother Cancer Father Diabetes Father Hypertension Father Heart Attack Maternal Grandfather Arrhythmia Mother afib Cancer Mother Hemophilia Mother Hypertension Mother Heart Attack Paternal Grandmother [...] on file Legal Sex Female 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 Gender Identity Not on file Sexual Orientation Not on file Last Filed Vital Signs Vital Sign Reading Time Taken Comments Blood Pressure 138/82 06/02/2025 10:58 AM CDT Pulse 80 06/02/2025 10:58 AM CDT Temperature 36.8 C (98.2 F) 05/19/2024 2:16 PM CDT Respiratory Rate 16 05/19/2024 2:16 PM CDT Oxygen Saturation 99% 06/02/2025 10:58 AM CDT Inhaled Oxygen Concentration - - Weight 83.5 kg (184 lb) 06/02/2025 10:58 AM CDT Height 165.1 cm (5' 5) 06/02/2025 10:58 AM CDT Body Mass Index 30.62 06/02/2025 10:58 AM CDT Plan of Treatment Health Maintenance Due Date Last Done Comments Pre-Diabetes and Diabetes Screening 1965 HPV/Cotest (21-29) 1986 CERVICAL CANCER SCREENING 1995 HPV/Cotest (-) 1995 PAP SMEAR 1995 BREAST CANCER SCREENING 2005 COLORECTAL SCREENING 2010 Colorectal Cancer Screening 2010 FIT-DNA Q 3 years 2010 FIT/FOBT Q 1 year 2010 Flex Sig/CT Colonography Q 5 years 2010 ZOSTER VACCINE (1 of 2) 2015 Preventative Visit- Commercial 09/22/2024 HEPATITIS B VACCINES (1 of 3 - Risk 3-dose series) 2025 RSV VACCINE (60+ or ) (1 - Risk 60-74 years 1-dose series) 2025 INFLUENZA VACCINE (#1) 2025 , 06/16/2023, 06/14/2022, Additional history exists COVID-19 Vaccine (2024-2 6 season) 2025 07/05/2024, 07/22/2022, 04/20/2022, Additional history exists DTAP/TDAP/TD VACCINES (2 - T d or Tdap) 01/25/2034 01/26/2024 Procedures Procedure Name Priority Date/Time Associated Diagnosis Comments LIPID PANEL Routine 05/31/2025 11:06 AM CDT Hypercholesterolemia Lower extremity edema Nonrheumatic mitral valve regurgitation Nonrheumatic tricuspid valve regurgitation from Last 3 Months Results * (ABNORMAL) LIPID PANEL (05/31/2025 11:06 AM CDT) CHOLESTEROL 234(H) <200 mg/dL [facility] juancarlos Meléndez HDL 89 > OR = 50 mg/dL [facility] juancarlos Meléndez TRIGLYCERIDE 125 <150 mg/dL [facility] juancarlos Meléndez LDL CALCULATED 121(H) mg/dL (calc) [facility] Comment: Reference range: <100 Desirable range <100 mg/dL for primary prevention; <70 mg/dL for patients with CHD or diabetic patients with > or = 2 CHD risk factors. LDL-C is now calculated using the Darell calculation, which is a validated novel method providing better accuracy than the Friedewald equation in the estimation of LDL-C. Nasim SS et al. TANI. 2013;310(19): 6391-6791 (http://education.Automation Alley/faq/DGH280) CHOL/HDL RATIO 2.6 <5.0 (calc) [facility] NON-HDL CHOLESTEROL 145(H) <130 mg/dL (calc) [facility] Comment: For patients with diabetes plus 1 major ASCVD risk factor, treating to a non-HDL-C goal of <100 mg/dL (LDL-C of <70 mg/dL) is considered a therapeutic option. FASTING:YES FASTING: YES Test [facility]: [facility] [address] [place] [address] Nancy Salamanca Blood 05/31/2025 11:0 6 AM CDT 05/31/2025 11:06 AM CDT us Renetta Barksdale MD CHEMISTRY ORDERABLES Final Res ult [facility] [phone] [place] [address] [place] [address] from Last 3 Months Insurance [facility] [employer] ACCESS CHOICE [facility] [employer] Care Teams Academic Support Assistant Relationship Specialty Start Date End Date Giovanni Kevin MD [address] [place] [address] PCP - General Internal Medicine 12/8/21
--- OUTSIDE RECORDS SUMMARY | 2025-06-03 08:47 | XMS_ITS | Clinical Summary ---
Author Organization [facility] Address [address] [place] [address] Care Team Providers Care Public Relations Assistant Name Role Phone Africa Rodriguez RN Unavailable Unavailable Patrick Young MD Unavailable [phone] Emiliano Burton MD Unavailable [phone] Giovanni Kevin MD Primary Care Provider [phone] Source Comments [facility],non-owned Affiliates and Associated Physician Practices is amultiple site organization consisting of ambulatory clinics and hospital sitesin [place], [place], [place] and [place]. This disclosure is being madepursuant to the Care Everywhere program and may not contain all information available regarding this patient. Last updated 18.[facility] Allergies No known active allergies Medications * Be aware that medications may not be up to date on this document. Alwaysverify current medications with the patient. bumetanide (BUMEX) 1 MG tablet Take 1 (one) tablet by mouth once daily Active ezetimibe (ZETIA) 10 MG tablet Take 1 (one) tablet by mouth 2 Active lactulose (CHRONULAC) 10 GM/15ML solution Take 70 mL by mouth once daily 1 Active pantoprazole EC (PROTONIX) 40 MG tablet 1 Active ferrous sulfate 325 (65 FE) MG tablet Take 1 (one) tablet by mouth daily with breakfast Active ascorbic acid (Vitamin C) 500 MG tablet Take 1 (one) tablet by mouth once daily Active Calcium Carb-Cholecalci ferol (Calcium/Vitami n D) 600-400 MG-UNIT TABS Take by mouth 2 times daily Active magnesium 250 MG tablet Take 1 (one) tablet by mouth 2 times daily Active spironolactone (Aldactone) 50 MG tablet 1 (one) tablet once daily Take 1 whole tablet as needed for additional swelling 2 Active Other Tonic water PRN for muscle [...] 09/25/2021 Stage 3a chronic kidney disease 04/09/2021 Family History Medical History Relation Name Comments [...] years- previously drank 3-4 cocktails a week Comments Unknown Sex and Gender Information Value Date Recorded Sex Assigned at Not on file Legal Sex Female 11:38 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 Gender Identity Not on file Sexual Orientation Not on file Last Filed Vital Signs Vital Sign Reading Time Taken Comments Blood Pressure 119/72 05/06/2024 1:01 PM CDT Pulse 69 05/06/2024 1:01 PM CDT Temperature 36.8 C (98.2 F) 05/06/2024 1:01 PM CDT Respiratory Rate 18 11/25/2022 11:13 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 Oxygen Saturation 100% 05/06/2024 1:01 PM CDT Inhaled Oxygen Concentration - - Weight 70.8 kg (156 lb) 05/06/2024 1:01 PM CDT Height 162.6 cm (5' 4) 05/06/2024 1:01 PM CDT Body Mass Index 26.78 05/06/2024 1:01 PM CDT Plan of Treatment Health Maintenance Due Date Last Done Comments COLOGUARD (AGES 45-75) - COLON CA SCREENING 1965 COLON MONITORING 1965 COLONOSCOPY - COLON CA SCREENING 1965 CT COLONOGRAPHY - COLON CA SCREENING 1965 Colorectal Cancer Screening 1965 FIT - COLON CA SCREENING 1965 FLEX SIG - COLON CA SCREENING 1965 LIPID TESTING 1965 MAMMOGRAM 1965 HIV SCREENING 02/19/1980 HEPATITIS C SCREENING 02/14/1983 DTAP/TDAP/TD VACCINES (1 - Tdap) 02/19/1984 PNEUMOCOCCAL VACCINE 50+ (1 of 2 - PCV) 02/19/1984 PAP SMEAR 1986 ZOSTER VACCINE (1 of 2) 2015 COVID-19 VACCINE (1 - season) 2024 DEPRESSION SCREENING 09/22/2024 HEPATITIS B VACCINE (1 of 3 - Risk 3-dose series) 2025 Respiratory Syncytial Virus (RSV) Vaccine Pt: or over 60 yrs (1 - Risk 60-74 years 1-dose series) 2025 INFLUENZA VACCINE (#1) 2025 08/13/2021 SCREENING FOR DIABETES 04/27/2027 , 11/21/2023, 05/29/2023, [...] 29 U/L [facility] Comment: Test Performed at: [facility] [address] [place] [address] BRISSA PATEL MD 04/27/2024 7:30 AM CDT 04/27/2024 7:31 AM CDT us Robert Winn MD LAB - CHEMISTRY ORDERABLES Fi nal Result [facility] [address] [place] [phone] from Last 3 Months or Most Recently Relevant to Health Maintenance Insurance [address] [place] [address] [employer] Member Subscriber Plan / Payer (Ef fective 2018-Present) Name:Bela Marsh Relation to Subscriber:Spouse Name:WM JESUS Date of :1964 (Home) Address: [address] [place] [place] [address] Payer ID:[id number] (NAIC) Type:O Address: [facility] [id number] [place] [address] [place] [address] ANTHEM Care Teams Public Relations Assistant Relationship Specialty Start Date End Date Giovanni Kevin MD [address] [place] [address] PCP - General Internal Medicine 06/05/23 Africa Rodriguez, RN Registered Nurse 11/20/21 Patrick Young MD [address] [facility] [address] [place] [address] Nephrology 11/25/22 Emiliano Burton MD [address] [address] Medical Oncology 11/25/22
--- OUTSIDE RECORDS SUMMARY | 2025-06-03 08:47 | XMS_ITS | Clinical Summary ---
Author Organization [facility] Address [address] [place] [address] Phone Care Team Providers Care Service Tester Name Role Phone Giovanni Kevin MD Primary Care Provider [phone] Allergies No known active allergies Medications folic acid (FOLVITE) 1 MG tablet TAKE [...] disease 04/09/2021 Acute kidney failure 11/16/2020 Immunizations Immunization Administration Dates Next Due Influenza TIV (IM) [...] more drinks on one occasion? Never 11/23/2020 Comments Unknown Sex and Gender Information Value Date Recorded Sex Assigned at Not on file Legal Sex Female 2:28 PM [facility] Gender Identity Not on file Sexual Orientation [...] 11:02 AM CDT Height 165.1 cm (5' 5) 04/10/2022 11:02 AM CDT Body Mass Index 22.96 04/10/2022 11:02 AM CDT Plan of Treatment Health Maintenance Due Date Last Done Comments Influenza Vaccine (#1) 2025 08/13/2021 Insurance [facility] Care Teams Service Tester Relationship Specialty Start Date End Date Giovanni Kevin MD [address] [place] [address] PCP - General Internal Medicine 11/09/20
[2025-06-03 09:45] LABS: Hematocrit 32.6 % (37.0-47.0); Hemoglobin 10.2 g/dL (12.0-15.0); Immature Granulocyte Percent A 0.4 % (0-0.5); Immature Platelet Fraction Pct 6.0 % (0.9-11.2); Lymphocytes Absolute Auto 0.57 K/mm3 (0.9-3.2); Mean Corpuscular HGB Conc 31.3 g/dl (32-36); Mean Corpuscular Hemoglobin 30.8 pg (26-34); Mean Corpuscular Volume 98.5 fl (80-100); Nucleated Red Blood Cells Absolute Auto 0.000 K/mm3 (0.0-0.012); Nucleated Red Blood Cells Perc 0.0 % (0.0-0.2); Platelet Count Result 54 k/mm3 (150-375); Red Blood Count 3.31 M/mm3 (4.2-5.4); White Blood Count 2.9 K/mm3 (4.5-10.0)
[2025-06-03 09:49] LABS: Hemoglobin A1C < 4.0 % (<5.7)
[2025-06-03 10:02] LABS: Alanine Aminotransferase 21 U/L (6-35); Albumin Level 4.4 g/dL (3.5-5.1); Alkaline Phosphatase 112 U/L (38-126); Anion Gap 12 mmol/L (4-12); Aspartate Amino Transferase 56 U/L (14-36); Bilirubin,Total 5.3 mg/dL (0.2-1.3); Blood Urea Nitrogen 13 mg/dL (7-17); Calcium 9.5 mg/dL (8.4-10.2); Carbon Dioxide 26 mmol/L (22-30); Chloride 104 mmol/L (98-107); Estimated Glomerular Filt Rate > 60; Glucose 82 mg/dL (65-110); Potassium 3.2 mmol/L (3.4-5.0); Sodium 142 mmol/L (137-145); Total Protein 7.8 g/dL (6.3-8.2)
[2025-06-03 10:05] LABS: Anisocytosis Occasional; Schistocytes None Seen
[2025-06-03 10:10] LABS: Free T4 Free Thyroxine 2.24 ng/dL (0.78-2.19)
[2025-06-03 10:37] LABS: Thyroid Stimulating Hormone 1.420 uIU/mL (0.465-4.680)
[2025-06-04 07:09] LABS: Triiodothyronine (T3), Free 2.6 pg/mL (2.0-4.4)
== END 2025-06-03 08:37 | disposition home or self-care (01) ==
PROVIDERS: PCP Internal Medicine; Visit Provider Internal Medicine
DX: E03.9 Hypothyroidism, unspecified (principal); Z79.899 Other long term (current) drug therapy; Z13.1 Encounter for screening for diabetes mellitus; D72.829 Elevated white blood cell count, unspecified
CPT/HCPCS: 36415; 80053; 83036; 84439; 84443; 84481; 85025; 85055; 86800

== ENCOUNTER 2025-07-20 12:28 | Outpatient (CLI) | payer BC, SELFPAY ==
--- NOTE | 2025-07-20 | ECHO_ITS ---
Patient Info Name: Bela Marsh Age: 60 years : 1965 Gender: Female Ht: 64 in Wt: 180 lbs BSA: 1.95 m2 HR: 77 bpm BP: 131 / 75 mmHg Heart Rhythm: Sinus Rhythm Technical Quality: Good Exam Date: 07/20/2025 12:48 PM Patient Status: unknown Admit Date: 07/20/2025 Exam Type: CA echo doppler color flow Complete two-dimensional, color flow and Doppler transthoracic echocardiogram is performed. Strain analysis performed. Java Technical Manager: Margarita Rodrigez Ordering Physician: Renetta Barksdale Attending Provider: Renetta Barksdale Summary 1. Complete two-dimensional, color flow and Doppler transthoracic echocardiogram is performed. 2. The left ventricle is mildly dilated with hyperdynamic systolic function. The left ventricular ejection fraction is visually estimated to be >70%. 3. The left atrium is severely dilated. 4. There are no significant valvular abnormalities. Left Ventricle The left ventricle is mildly dilated with hyperdynamic systolic function. The left ventricular ejection fraction is visually estimated to be >70%. Right Ventricle The right ventricle is normal in size and systolic function. Left Atria The left atrium is severely dilated. Right Atria The right atrium is normal size. Atrial Septum Atrial septum is normal. Aortic Valve The aortic valve is trileaflet and opens well. There is no aortic regurgitation. Pulmonic Valve The pulmonic valve is not well visualized. There is no color Doppler evidence of pulmonic valve regurgitation. Mitral Valve The mitral valve is normal. There is trace mitral regurgitation. Tricuspid Valve The tricuspid valve is normal. There is trace tricuspid regurgitation. Pericardium/Pleural Pericardium is normal in appearance with no evidence for significant pericardial effusion. Inferior Vena Cava Inferior vena cava is not well visualized. Aorta The aortic root at the level of the sinus of Valsalva measures 3.0 cm in diameter. Left Ventricular Outflow Tract Name Value Normal LVOT 2D LVOT Diameter 1.9 cm LVOT Doppler LVOT Peak Velocity 197 cm/s LVOT Peak Gradient 15 mmHg LVOT Mean Gradient 8 mmHg LVOT VTI 42 cm LVOT VTI/AV VTI Ratio 0.8 LVOT Stroke Volume 122 ml LVOT CO 9.4 l/min LVOT CI 4.8 l/min/m2 Pulmonic Valve Name Value Normal RVOT Doppler RVOT Peak Velocity 91 cm/s RVOT Peak Gradient 3 mmHg PV Doppler PV Peak Velocity 130 cm/s PV Peak Gradient 7 mmHg Mitral Valve Name Value Normal MV Diastolic Function MV E Peak Velocity 109 cm/s MV A Peak Velocity 70 cm/s MV E/A 1.6 MV Decel Time (PW) 218 ms MV Annular TDI MV E/e' (Septal) 11.4 MV E/e' (Lateral) 8.4 MV E/e' (Average) 9.9 Tricuspid Valve Name Value Normal TV Regurgitation Doppler TR Peak Velocity 266 cm/s TR Peak Gradient 24 mmHg Estimated PAP/RSVP RA Pressure 10 mmHg <=5 PA Systolic Pressure 38 mmHg <36 RV Systolic Pressure 38 mmHg <36 TV Annular TDI TV Lateral Lashay s' Velocity 14.5 cm/s >=9.5 Aorta Name Value Normal Ascending Aorta Ao Root Diameter (MM) 3.2 cm Ao Root Diam Index (MM) 1.7 cm/m2 Aortic Valve Name Value Normal AV Doppler AV Peak Velocity 241 cm/s AV Peak Gradient 23 mmHg AV Mean Gradient 13 mmHg AV VTI 55 cm AV Area (Cont Eq VTI) 2.2 cm2 >=3.0 AV Area (Cont Eq Cr) 2.4 cm2 AV DI (Cr) 0.82 AV Regurgitation 2D LVOT Area 2.9 cm2 Ventricles Name Value Normal LV Dimensions 2D/MM IVS Diastolic Thickness (2D) 0.9 cm 0.6-1.0 LVID Diastole (2D) 5.6 cm 3.8-5.2 LVIW Diastolic Thickness (2D) 0.8 cm 0.6-0.9 LVID Systole (2D) 3.3 cm 2.2-3.5 LVOT Diameter 1.9 cm LV Mass (2D Cubed) 169.43 g 67.00-162.00 LV Mass Index (2D Cubed) 87 g/m2 43-95 Relative Wall Thickness (2D) 0.28 <=0.42 LV Fractional Shortening/Ejection Fraction 2D/MM LV Fractional Shortening (2D) 42 % 27-45 LV EF (2D Teichjessicaz) 72 % LV Diastolic Volume (4C MOD) 115 ml LV EF (4C MOD) 78 % LV Diastolic Volume (2C MOD) 112 ml LV EF (2C MOD) 77 % LV Diastolic Volume (BP MOD) 117 ml 46-106 LV Diastolic Volume Index (BP MOD) 60 ml/m2 29-61 LV Systolic Volume (BP MOD) 26 ml 14-42 LV Systolic Volume Index (BP MOD) 13 ml/m2 8-24 LV EF (BP MOD) 78 % 54-74 LV Diastolic Length (4C) 8.4 cm LV Systolic Length (4C) 6.4 cm LV Stroke Volume (4C MOD) 91 ml Atria Name Value Normal LA Dimensions LA Dimension (MM) 4.6 cm 2.7-3.8 LA Volume (4C A-L) 119 ml LA Volume (BP A-L) 124 ml RA Dimensions RA Area (4C) 18.0 cm2 <=18.0 EchoPAC Name Value Normal SUKHDEEP LV Apical Anterior Longitudinal Strain (SUKHDEEP) -38.0 % LV Apical Anteroseptal Longitudinal Strain (SUHKDEEP) -35.9 % LV Apical Inferior Longitudinal Strain (SUKHDEEP) -40.2 % LV Apical Lateral Longitudinal Strain (SUKHDEEP) -24.4 % LV Apical Posterior Longitudinal Strain (SUKHDEEP) -33.2 % LV Apical Septal Longitudinal Strain (SUKHDEEP) -30.5 % AV Closure (SUKHDEEP) 387 ms LV Basal Anterior Longitudinal Strain (SUKHDEEP) -20.7 % LV Basal Anteroseptal Longitudinal Strain (SUKHDEEP) -22.0 % LV Basal Inferior Longitudinal Strain (SUKHDEEP) -23.9 % LV Basal Anterolateral Longitudinal Strain (SUKHDEEP) -23.5 % LV Basal Inferolateral Longitudinal Strain (SUKHDEEP) -22.7 % LV Basal Inferoseptal Longitudinal Strain (SUKHDEEP) -21.0 % LV Global Longitudinal Strain (2C SUKHDEEP) -29.9 % LV Global Longitudinal Strain (4C SUKHDEEP) -24.4 % LV Global Longitudinal Strain (APLAX SUKHDEEP) -27.4 % LV Global Longitudinal Strain (SUKHDEEP) -27.2 % LV Mid Anterior Longitudinal Strain (SUKHDEEP) -27.2 % LV Mid Anteroseptal Longitudinal Strain (SUKHDEEP) -27.8 % LV Mid Inferior Longitudinal Strain (SUKHDEEP) -27.1 % LV Mid Anterolateral Longitudinal Strain (SUKHDEEP) -22.0 % LV Mid Inferolateral Longitudinal Strain (SUKHDEEP) -24.9 % LV Mid Inferoseptal Longitudinal Strain (SUKHDEEP) -23.9 % Report Signatures
--- OUTSIDE RECORDS SUMMARY | 2025-07-20 13:42 | XMS_ITS | Clinical Summary ---
Author Organization [facility] Address [address] [place] [address] Care Team Providers Care Cellophane Casting Machine Repairer Name Role Phone Africa Rodriguez RN Unavailable Unavailable Patrick Young MD Unavailable [phone] Emiliano Burton MD Unavailable [phone] Giovanni Kevin MD Primary Care Provider [phone] Source Comments [facility],non-owned Affiliates and Associated Physician Practices is amultiple site organization consisting of ambulatory clinics and hospital sitesin [place], [place], [place] and [place]. This disclosure is being madepursuant to the Care Everywhere program and may not contain all information available regarding this patient. 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 Gender Identity Not on file Sexual Orientation Not on file Last Filed Vital Signs Vital Sign Reading Time Taken Comments Blood Pressure 119/72 05/06/2024 1:01 PM CDT Pulse 69 05/06/2024 1:01 PM CDT Temperature 36.8 C (98.2 F) 05/06/2024 1:01 PM CDT Respiratory Rate 18 11/25/2022 11:13 AM SPRAY GUN STRIPER Oxygen Saturation 100% 05/06/2024 1:01 PM CDT [...] 1986 ZOSTER VACCINE (1 of 2) 2015 DEPRESSION SCREENING 09/22/2024 HEPATITIS B VACCINE (1 of 3 - Risk 3-dose series) 2025 Respiratory Syncytial Virus (RSV) Vaccine Pt: or over 60 yrs (1 - Risk 60-74 years 1-dose series) 2025 COVID-19 VACCINE (1 - season) 2025 INFLUENZA VACCINE (#1) 2025 08/13/2021 SCREENING [...] 29 U/L [facility] Comment: Test Performed at: [facility] [address] [place] [address] BRISSA PATEL MD 04/27/2024 7:30 AM CDT 04/27/2024 7:31 AM CDT us Robert Winn MD LAB - CHEMISTRY ORDERABLES Fi nal Result [facility] [address] [place] [phone] from Last 3 Months or Most Recently Relevant to Health Maintenance Insurance [employer] ANTHEM Care Teams Cellophane Casting Machine Repairer Relationship Specialty Start Date End Date Giovanni Kevin MD [address] [place] [address] PCP - General Internal Medicine 06/05/23 Africa Rodriguez, RN Registered Nurse 11/20/21 Patrick Young MD [address] [facility] [address] [place] [address] Nephrology 11/25/22 Emiliano Burton MD [address] [address] Medical Oncology 11/25/22
--- OUTSIDE RECORDS SUMMARY | 2025-07-20 13:42 | XMS_ITS | Clinical Summary ---
Author Organization [facility] Address [facility] [place] [address] Care Team Providers Care Associate Attorney Name Role Phone Giovanni Kevin MD Primary Care Provider Allergies No known active allergies Medications bumetanide [...] 0.6 oz pure alcohol) stopped September 2020, [id number] drinks/week Comments Unknown Sex and Gender Information [...] 12:55 PM CDT Height 165.1 cm (5' 5) 02/21/2021 12:55 PM CDT Body Mass Index [...] wi th HPV 1995 Mammogram Screening 2005 Pneumococcal Vaccine: 50+ Years (1 of 1 - PCV) 2015 Zoster Vaccines (1 of 2) 2015 COVID-19 Vaccine (3 - 2024-2 6 season) 2025 02/10/2021, 01/20/2021 Influenza Adult (#1) 2025 08/13/2021 RSV Immunization or 60+ Years (1 - 1-dose 75+ series) 02/19/2040 Hepatitis C Completed 11/20/2021, 11/20/2021 Hepatitis A Vaccines Aged Out No long er eligible based on patient's age to complete this topic Meningococcal B Vaccine Aged Out No l onger eligible based on patient's age to complete this topic Meningococcal Vaccine Aged Out No oscar raymundo eligible based on patient's age to complete this topic RSV Immunizations Under 20 Months Aged Out No longer eligible b ased on patient's age to complete this topic Insurance [facility] Care Teams Associate Attorney Relationship Specialty Start Date End Date Giovanni Kevin MD [address] [place] [address] PCP - General INTERNAL MEDICINE 02/26/21
--- OUTSIDE RECORDS SUMMARY | 2025-07-20 13:42 | XMS_ITS | Clinical Summary ---
Author Organization [facility] Address [address] [place] [address] Phone Care Team Providers Care Drug Room Clerk Name Role Phone Giovanni Kevin MD Primary Care Provider [phone] Allergies No known active allergies Medications folic [...] file Legal Sex Female 2:28 PM [facility] Gender Identity Not on file Sexual Orientation [...] Comments Influenza Vaccine (#1) 2025 08/13/2021 Insurance [facility] Care Teams Drug Room Clerk Relationship Specialty Start Date End Date Giovanni Kevin MD [address] [place] [address] PCP - General Internal Medicine 11/09/20
--- OUTSIDE RECORDS SUMMARY | 2025-07-20 13:42 | XMS_ITS | Clinical Summary ---
Author Organization [facility] Address [address] [facility] [place] [address] Phone Care Team Providers Care Pens And Pencils Repairer Name Role Phone Giovanni Kevin MD Primary Care Provider + Allergies Active Allergy Reactions Criticality Noted Date Comments Qiusrqx-Nxx-Dus Reductase Inhibitors Unknown 05/19/2024 Patient says she [...] 1 Tablet by mouth daily. 05/11/2024 Active ezetimibe (ZETIA) 10 mg tablet TAKE 1 TABLET (10 MG) BY MOUTH DAILY. 90 Tablet 2 11/26/2024 Active carvediloL (COREG) 3.125 mg tablet TAKE 1 TABLET BY MOUTH TWICE A DAY WITH MEALS 180 Tablet 1 05/17/2025 Active Active Problems Patient Care Coordination No te Formatting of this note migh t be different from the original. Renetta Barksdale MD--Senior Ui Designer ([facility] @ ) Problem Noted Date Diagnosed Date Chronic anemia 09/25/2021 Encounters Date Type Department Care Team Description 07/01/2025 Telephone [facility] [address] [place] [address] Renetta Barksdale MD echo order 06/02/2025 11:00 AM CDT Office Visit [facility] [address] [place] [address] Renetta Barksdale MD Hypercholesterolemia (Primary Dx); Nonrheumatic mitral valve regurgitation; Nonrheumatic tricuspid valve regurgitation 05/17/2025 Refill [facility] [address] [place] [address] Renetta Barksdale MD 04/26/2025 External Device Data [...] on file Legal Sex Female 8:58 AM 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 Gender Identity Not on file Sexual Orientation [...] (21-29) 1986 CERVICAL CANCER SCREENING 1995 HPV/Cotest (30-65) 1995 PAP SMEAR 1995 BREAST CANCER SCREENING 2005 COLORECTAL SCREENING 2010 Colorectal Cancer Screening 2010 FIT-DNA Q 3 years 2010 FIT/FOBT Q 1 year 2010 Flex Sig/CT Colonography Q 5 years 2010 RSV VACCINE (60+ or ) (1 - Risk 50-74 years 1-dose series) 2015 ZOSTER VACCINE (1 of 2) 2015 Preventative Visit- Commercial 09/22/2024 HEPATITIS B VACCINES (1 of 3 - Risk 3-dose series) 2025 INFLUENZA VACCINE (#1) 2025 , 06/16/2023, 06/14/2022, Additional history exists COVID-19 Vaccine (6 - 2024-2 6 season) 2025 07/05/2024, 07/22/2022, 04/20/2022, Additional history exists DTAP/TDAP/TD VACCINES (2 - T d or Tdap) 01/25/2034 01/26/2024 Procedures Procedure Name Priority Date/Time Associated Diagnosis Comments LIPID PANEL Routine 05/31/2025 11:06 AM CDT Hypercholesterolemia Lower extremity edema Nonrheumatic mitral valve regurgitation Nonrheumatic tricuspid valve regurgitation from Last 3 Months Results * (ABNORMAL) LIPID PANEL (05/31/2025 11:06 AM CDT) CHOLESTEROL 234(H) <200 mg/dL [facility] HDL 89 > OR = 50 mg/dL [facility] Mel[facility]dez TRIGLYCERIDE 125 <150 mg/dL [facility] Meléndez LDL CALCULATED 121(H) mg/dL (calc) [email or web address] Comment: Reference range: <100 Desirable range <100 mg/dL for primary prevention; <70 mg/dL for patients with CHD or diabetic patients with > or = 2 CHD risk factors. LDL-C is now calculated using the Nasim-Sheryl calculation, which is a validated novel method providing better accuracy than the Friedewald equation in the estimation of LDL-C. Nasim SS et al. TANI. 2013;310(19): 9438-3723 (http://education.Targeted Growth/faq/RZK939) CHOL/HDL RATIO 2.6 <5.0 (calc) [email or web address] Mel[facility] NON-HDL CHOLESTEROL 145(H) <130 mg/dL (calc) [facility] Comment: For patients with diabetes plus 1 major ASCVD risk factor, treating to a non-HDL-C goal of <100 mg/dL (LDL-C of <70 mg/dL) is considered a therapeutic option. FASTING:YES FASTING: YES Test Performed at: [email or web address] [address] [address] Nancy Salamanca Blood 05/31/2025 11:0 6 AM CDT 05/31/2025 11:06 AM CDT us Renetta Barksdale MD CHEMISTRY ORDERABLES Final Res ult [facility] [phone] [facility] [address] [place] [address] from Last 3 Months Insurance [facility] [employer] ACCESS CHOICE Member Subscriber Plan / Payer (Ef fective 2023-Present) Name:BELA LEE Relation to Subscriber:Spouse Name:SAVANAH LEE Date of :1965 (Home) Address: [address] [place] [address] Payer ID:[id number] (NAIC) Type:PPO [address] [place] [address] [facility] [employer] Care Teams Pens And Pencils Repairer Relationship Specialty Start Date End Date Giovanni Kevin MD [address] [place] [address] PCP - General Internal Medicine 08/29/21
--- OUTSIDE RECORDS SUMMARY | 2025-07-20 13:42 | XMS_ITS | Encounter Summary ---
Author Organization [facility] Address [address] [place] [id number] Care Team Providers Care It Intern Name Role Phone Giovanni Kevin MD Primary Care Provider [phone] Encounter Details Date Type Department Care Team (Late st Contact Info) Description 02/21/2021 Prep for Procedure [facility] [place], [place] [address] Manjinder Vinson MD [address] [facility] [address] [place] [address] [phone] Social History Tobacco Use Types Packs/Day Years Used Date Smoking Tobacco: Never Smokeless Tobacco: Never Alcohol Use Standard Drinks/Week Comments Not Currently 0 (1 standard drink = 0.6 oz pure alcohol) stopped September 2020, [id number] drinks/week Comments Unknown Sex and Gender Information [...] Results * CORONAVIRUS (COVID 19) PCR - [facility] (02/26/2021 10:30 AM CDT) CORONAVIRUS SARS COV 2 PCR (RESP) NEGATIVE NEGATIVE 02/27/2021 12:13 AM CDT [facility] Comment: NEGATIVE RESULTS DO NOT PRECLUDE SARS-CoV-2 INFECTION AND SHOULD NOT BE USED THE SOLE BASIS FOR PATIENT MANAGEMENT DECISIONS. NEGATIVE RESULTS MUST BE COMBINED WITH CLINICAL OBSERVATIONS, PATIENT HISTORY, AND EPIDEMIOLOGICAL INFORMATION. THE SARS-CoV-2 TEST HAS BEEN AUTHORIZED BY THE FDA UNDER AN EUA FOR USE BY AUTHORIZED LABORATORIES. FIRST TEST NO 02/26/2021 11:40 AM CDT [facility] EMPLOYED IN HEALTHCARE UNKNOWN 02/26/2021 11:40 AM CDT [facility] SYMPTOMATIC DEFINED BY CDC NO 02/26/2021 11:40 AM CDT [facility] HOSPITALIZATION STATUS NO 02/26/2021 11:40 AM CDT [facility] PATIENT IN ICU NO 02/26/2021 11:40 AM CDT [facility] RESIDENT OF [facility] UNKNOWN 02/26/2021 11:40 AM CDT [facility] NOT 02/26/2021 11:40 AM CDT [facility] NASOPHARYNGEAL SWAB / Unknown 02/26/2021 10:30 AM CDT Manjinder Vinson MD MICROBIOLOGY - GENERAL TYRONE ROSA Final Result [facility] [address] [place] [address], [place] [phone] [facility] [address] [place] [address], [place] [phone] [id number] documented in this encounter Visit Diagnoses Diagnosis Gastric ulcer- Primary Gastric ulcer, unspecified as acute or chronic, without mention of hemorrhage, perforation, or obstruction documented in this encounter Additional Health Concerns Infection Onset Date Last Indicated Resolved Time COVID-19 Rule Out 02/26/2021 02/26/2021 02/27/2021 12:13 AM CDT documented as of this encounter Care Teams It Intern Relationship Specialty Start Date End Date Giovanni Kevin MD [id number] [facility] [address] [place] [id number] PCP - General INTERNAL MEDICINE 02/26/21 documented as of this encounter
== END 2025-07-20 12:29 | disposition home or self-care (01) ==
PROVIDERS: PCP Internal Medicine
DX: E78.00 Pure hypercholesterolemia, unspecified (principal); I34.0 Nonrheumatic mitral (valve) insufficiency; I36.1 Nonrheumatic tricuspid (valve) insufficiency
CPT/HCPCS: 93306